=== PATIENT | female | born 1950 | race Hispanic/Latino ===

== ENCOUNTER 2018-09-29 16:13 | Observation (INO) | payer OTHER ==
--- OUTSIDE RECORDS SUMMARY | 2018-09-29 16:15 | XMS REPORT | Clinical Summary ---
:1950 Author Organization [facility] Address [address] [place] [id number] Care Team Providers Name Role Phone Carlos Brown MD Primary Care Provider Allergies No Known Allergies Medications Medication Sig Dispensed Refills Start Date End Date Status meloxicam (MOBIC) 15 Take 1 tablet (15 30 tablet 2 10/19/2016 Active mg tablet mg total) by mouth daily. W.C. Active Problems Problem Noted Date Complex tear of medial meniscus of right knee as current injury 06/11/2016 Family History Medical History Relation Name Comments Hypertension Father Mental illness Father Seizures Father Stroke Father Cancer Mother lung Kidney disease Mother Relation Name Status Comments Father Mother Social History Tobacco Use Types Packs/Day Years Used Date Unknown If Ever Smoked Alcohol Use Drinks/Week oz/Week Comments No Sex Assigned at Date Recorded Not on file Job Start Date Occupation Industry Not on file Not on file Not on file Travel History Travel Start Travel End No recent travel history available. Last Filed Vital Signs Not on file Plan of Treatment Health Maintenance Due Date Last Done Comments BREAST CANCER SCREENING 10/23/2001 COLON CANCER SCREENING 10/23/2001 SHINGLES VACCINES (#1) 10/23/2001 65+ PNEUMOCOCCAL VACCINE (1 of 2 - PCV13) 10/23/2016 PNEUMOCOCCAL POLYSACCHARIDE VACCINE AGE 65 AND OVER 10/23/2016 INFLUENZA VACCINE 01/26/2019 Results Not on fileafter 09/28/2017 Insurance Payer Benefit Plan / Group Subscriber ID Type Phone Address [employer] xxxxxxxxxxxxx Workers [employer] SimonAshley tenorio Personal/Family Self 1950 [address] [place] [address]
[2018-09-29 16:52] LABS: Absolute Lymphocytes (CBC) 2.9 K/uL (0.7-4.9); Absolute Monocytes 0.5 K/uL (0.1-1.3); Absolute Neutrophil 5.1 K/uL (1.8-8.0); Basophils % 1.2 % (0-1.3); Eosinophils % 1.8 % (0-4.4); Hematocrit 31.3 % (36.0-45.0); Lymphocytes % 33.5 % (15.3-44.8); MPV 10.3 fL (7.6-11.3); Monocytes % 5.3 % (3.3-12.3); RBC Red Blood Cell Count 3.54 M/uL (3.86-4.86)
[2018-09-29 17:04] LABS: BUN Blood Urea Nitrogen 26 mg/dL (7-18); Bicarbonate 29 mmol/L (21-32); Glucose Level 119 mg/dL (74-106); NT PRO-BNP 174 pg/mL (<125); Potassium 4.1 mmol/L (3.5-5.1); Sodium Level 140 mmol/L (136-145); Troponin (Emerg Dept Use Only) < 0.02 ng/mL (0.0-0.045)
--- NOTE | 2018-09-29 17:13 | RAD REPORT ---
EXAM DESCRIPTION: RAD - Chest Single View - 09/29/2018 5:00 pm CLINICAL HISTORY: CHEST PAIN Chest pain. COMPARISON: CHEST SINGLE VIEW dated 02/20/2015; CHEST SINGLE VIEW dated 06/02/2013; CHEST SINGLE VIEW dated 05/04/2009 FINDINGS: Portable technique limits examination quality. The lungs are grossly clear. The heart is normal in size. No displaced fractures. IMPRESSION: No acute intrathoracic process suspected.
--- NOTE | 2018-09-29 17:38 | EDPHYS ---
Physician Documentation [facility] Name: Ashley Simon Age: 67 yrs Sex: Female : 1950 Arrival Date: 09/29/2018 Time: 16:16 Bed 6 Private MD: ED Physician Jeff Adler HPI: 09/29 16:28 This 67 yrs old Female presents to ER via Ambulatory with complaints of Chest rn Pain. 16:28 The patient or guardian reports chest pain that is located primarily in the substernal rn area, anterior chest wall. Onset: 3 day(s) ago. The pain does not radiate. Associated signs and symptoms: Pertinent positives: None. Pertinent negatives: abdominal pain, cough, diaphoresis, lower extremity swelling, near syncope, palpitations, shortness of breath, syncope, vomiting. The chest pain is described as a heaviness, sharp. Duration: The patient or guardian reports multiple episodes, that are intermittent, the episodes last approximately 20 minute(s). Modifying factors: The symptoms are alleviated by nothing. the symptoms are aggravated by nothing. Severity of pain: At its worst the pain was moderate in the emergency department the pain has improved. The patient has not experienced similar symptoms in the past. Reports chest pain, intermittent for 3 days, lasts approx 10-20 min each episode, non-radiating, no nausea/vomiting/diaphoresis, went to see Dr. Thomas today for this chest pain, was told to make an appointment for tomorrow or go to ER, came here because concerned to wait. NO hx of [place] but states told 20 years ago had 40% blockage of "[her] arteries". . 16:28 Pain not worse or better with exertion. NO fever/cough/sob. . 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 - Social history:: Smoking status: Patient/guardian denies using tobacco. - Ebola Screening: : No symptoms or risks identified at this time. - Family history:: not pertinent. - Hospitalizations: : No recent hospitalization is reported. ROS: 16:28 Constitutional: Negative for fever, chills, and weight loss, Eyes: Negative for injury, rn pain, redness, and discharge, Neck: Negative for injury, pain, and swelling, Cardiovascular: + chest pain Respiratory: Negative for shortness of breath, cough, wheezing, and pleuritic chest pain, Abdomen/GI: Negative for abdominal pain, nausea, vomiting, diarrhea, and constipation, MS/Extremity: Negative for injury and deformity, Skin: Negative for injury, rash, and discoloration, Neuro: Negative for headache, weakness, numbness, tingling, and seizure. Exam: 16:28 Constitutional: This is a well developed, well nourished patient who is awake, alert, rn and in no acute distress, appears anxious Head/Face: Normocephalic, atraumatic. Eyes: Pupils equal round and reactive to light, extra-ocular motions intact. Lids and lashes normal. Conjunctiva and sclera are non-icteric and not injected. Cornea within normal limits. Periorbital areas with no swelling, redness, or edema. Cardiovascular: Regular rate and rhythm, No pulse deficits. Respiratory: Lungs have equal breath sounds bilaterally, clear to auscultation. No increased work of breathing, no retractions or nasal flaring. Abdomen/GI: soft, non-tender Skin: Warm, dry MS/ Extremity: Pulses equal, no cyanosis. Neurovascular intact. Full, normal range of motion. Equal circumference. Neuro: Awake and alert, GCS 15, oriented to person, place, time, and situation. Cranial nerves II-XII grossly intact. Motor strength 5/5 in all extremities. Sensory grossly intact. Vital Signs: 16:25 BP 156 / 85; Pulse 69; Resp 18; Temp 97.8(O); Pulse Ox 100% on R/A; Weight 61.23 kg; hj Height 5 ft. 2 in. (157.48 cm); Pain 8/10; 17:02 BP 145 / 75; Pulse 66; Resp 18; Pulse Ox 100% on R/A; hj 18:07 BP 148 / 76; Pulse 67; Resp 18; Pulse Ox 100% on R/A; hj 16:25 Body Mass Index 24.69 (61.23 kg, 157.48 cm) MDM: 16:20 Patient medically screened. rn 17:26 Differential diagnosis: acute myocardial infarction, acute pericarditis, anxiety, rn coronary artery disease chest wall pain, costochondritis, esophagitis, gastritis, gastroesophageal reflux disease (GERD), pleurisy, pneumonia, pneumothorax, stable angina. The patient was not given aspirin in the Emergency Department. Data reviewed: vital signs, nurses notes, lab test result(s), EKG, radiologic studies, plain films, and as a result, I will discharge patient. Counseling: I had a detailed discussion with the patient and/or guardian regarding: the historical points, exam findings, and any diagnostic results supporting the discharge/admit diagnosis, lab results, radiology results, the need for outpatient follow up, to return to the emergency department if symptoms worsen or persist or if there are any questions or concerns that arise at home. Response to treatment: the patient's symptoms have markedly improved after treatment, and as a result, I will discharge patient. Special discussion: Based on the patient's history, exam, and Dx evaluation, there is no indication for emergent intervention or inpatient Tx. It is understood by the patient/guardian that if the Sx's persist or worsen they need to return immediately for re-evaluation. I discussed with the patient/guardian in detail that at this point there is no indication for admission to the hospital. It is understood, however, that if the symptoms persist or worsen the patient needs to return immediately for re-evaluation. ED course: Patient with normal troponin, offered observation to Dr. Thomas with cardiology evaluation/stress test, patient prefers to go home and states will f/u with her 's enterprise software engineer. Looking at ECG, has changed from one 4 years ago, now has LBBB, spoke with Dr. Thomas, will admit under obs for cardiology consult. . 09/29 16:28 Order name: Basic Metabolic Panel; Complete Time: 17:16 rn 09/29 16:28 Order name: CBC with Diff; Complete Time: 17:16 rn 09/29 16:28 Order name: NT PRO-BNP; Complete Time: 17:16 rn 09/29 16:28 Order name: Troponin (emerg Dept Use Only); Complete Time: 17:16 rn 09/29 16:28 Order name: XRAY Chest (1 view); Complete Time: 17:16 rn 09/29 16:28 Order name: EKG; Complete Time: 16:28 rn 09/29 16:28 Order name: Cardiac monitoring; Complete Time: 16:29 rn 09/29 16:28 Order name: EKG - Nurse/Tech; Complete Time: 16:29 rn 09/29 16:28 Order name: IV Saline Lock; Complete Time: 16:29 rn 09/29 16:28 Order name: Labs collected and sent; Complete Time: 16:36 rn 09/29 16:28 Order name: O2 Per Protocol; Complete Time: 16:29 rn 09/29 16:28 Order name: O2 Sat Monitoring; Complete Time: 16:30 rn Administered Medications: 17:38 Drug: Aspirin Chewable Tablet 324 mg Route: PO; 17:42 Follow up: Response: No adverse reaction Disposition: 09/29/18 17:37 Hospitalization ordered by Carlos Thomas for Observation. Preliminary diagnosis is Chest pain, unspecified. - Bed requested for Telemetry/MedSurg (observation). - Status is Observation. iw - Condition is Stable. - Problem is new. - Symptoms have improved. UTI on Admission? No Signatures: Dispatcher [employer] EDMS Magaly Shaw RN RN iw Jeff Adler MD MD rn Smirch, Shelby, RN RN Robson Dutta RN RN hj Botello, Elizabeth eb Corrections: (The following items were deleted from the chart) 17:37 17:26 ED course: Patient with normal troponin, offered observation to Dr. Thomas with turntable engineer evaluation/stress test, patient prefers to go home and states will f/u with her 's enterprise software engineer. Return precautions given. Told her this is likely warning signs/angina and needs cardiology evaluation FAMILIA. . rn 18:02 17:37 Hospitalization Ordered by Carlos Thomas MD for Observation. Preliminary diagnosis eb is Chest pain, unspecified. Bed requested for Telemetry/MedSurg (observation). Status is Observation. Condition is Stable. Problem is new. Symptoms have improved. UTI on Admission? No. rn 18:29 18:02 09/29/2018 17:37 Hospitalization Ordered by Carlos Thomas MD for Observation. iw Preliminary diagnosis is Chest pain, unspecified. Bed requested for Telemetry/MedSurg (observation). Status is Observation. Condition is Stable. Problem is new. Symptoms have improved. UTI on Admission? No. eb
--- NOTE | 2018-09-29 17:38 | ER ---
Nurse's Notes [facility] Name: Ashley Simon Age: 67 yrs Sex: Female : 1950 Arrival Date: 09/29/2018 Time: 16:16 Bed 6 Private MD: Diagnosis: Chest pain, unspecified Presentation: 09/29 16:16 Presenting complaint: Patient states: right sided chest pain that began 3-4 days ago ss and now it has moved to the left side of chest today. Pt describes pain as sharp, also reports SOB. 16:16 Transition of care: patient was not received from another setting of care. Onset of ss symptoms was September 2018. Risk Assessment: Do you want to hurt yourself or someone else? Patient reports no desire to harm self or others. Initial Sepsis Screen: Does the patient meet any 2 criteria? No. Patient's initial sepsis screen is negative. Does the patient have a suspected source of infection? No. Patient's initial sepsis screen is negative. Care prior to arrival: None. 16:16 Acuity: MARGARITA 3 ss 16:16 Method Of Arrival: Ambulatory ss Triage Assessment: 16:24 General: Appears in no apparent distress. uncomfortable, Behavior is calm, cooperative, hj appropriate for age. Pain: Complains of pain in chest. Cardiovascular: Capillary refill < 3 seconds Patient's skin is warm and dry. Historical: - Allergies: 16:16 No Known Allergies; ss - PMHx: 16:16 Hypertension; Tachycardia; "40% blockage to my arteries"; Diabetes - NIDDM; ss - PSHx: 16:16 zuly knees; ss - Immunization history:: Adult Immunizations not up to date. - Social history:: Smoking status: Patient/guardian denies using tobacco. - Ebola Screening: : No symptoms or risks identified at this time. - Family history:: not pertinent. - Hospitalizations: : No recent hospitalization is reported. Screenin:24 Abuse screen: Denies threats or abuse. Denies injuries from another. Nutritional hj screening: No deficits noted. Tuberculosis screening: No symptoms or risk factors identified. Fall Risk None identified. Assessment: 16:25 Pain: Pain does not radiate. Pain began suddenly. hj 16:25 General: Appears in no apparent distress. uncomfortable, Behavior is calm, cooperative, hj appropriate for age. Neuro: Level of Consciousness is awake, alert, obeys commands, Oriented to person, place, time, situation, Appropriate for age. Cardiovascular: Capillary refill < 3 seconds Patient's skin is warm and dry. Respiratory: Airway is patent Respiratory effort is even, unlabored, Respiratory pattern is regular, symmetrical. GI: No signs and/or symptoms were reported involving the gastrointestinal system. : No signs and/or symptoms were reported regarding the genitourinary system. EENT: No signs and/or symptoms were reported regarding the EENT system. Derm: No signs and/or symptoms reported regarding the dermatologic system. Musculoskeletal: No signs and/or symptoms reported regarding the musculoskeletal system. 17:01 Reassessment: Patient and/or family updated on plan of care and expected duration. Pain hj level reassessed. Patient is alert, oriented x 3, equal unlabored respirations, skin warm/dry/pink. awaiting results and POC:. 18:08 Reassessment: called report to floor, nurse to call back;. hj 18:21 Reassessment: Patient and/or family updated on plan of care and expected duration. Pain hj level reassessed. Patient is alert, oriented x 3, equal unlabored respirations, skin warm/dry/pink. wheeled pt to floor;. Vital Signs: 16:25 BP 156 / 85; Pulse 69; Resp 18; Temp 97.8(O); Pulse Ox 100% on R/A; Weight 61.23 kg; hj Height 5 ft. 2 in. (157.48 cm); Pain 8/10; 17:02 BP 145 / 75; Pulse 66; Resp 18; Pulse Ox 100% on R/A; hj 18:07 BP 148 / 76; Pulse 67; Resp 18; Pulse Ox 100% on R/A; hj 16:25 Body Mass Index 24.69 (61.23 kg, 157.48 cm) ED Course: 16:16 Patient arrived in ED. ss 16:16 Arm band placed on Patient placed in an exam room, on a stretcher. ss 16:18 Robson Dutta, RN is Primary Nurse. 16:20 Jeff Adler MD is Attending Physician. rn 16:21 Triage completed. ss 16:24 Initial lab(s) drawn, by me, sent to lab. Inserted saline lock: 22 gauge in right hj antecubital area, using aseptic technique. Blood collected. 16:25 Patient has correct armband on for positive identification. Placed in gown. Bed in low hj position. Call light in reach. Side rails up X 1. classroom monitor on. Pulse ox on. NIBP on. 16:26 Patient maintains SpO2 saturation greater than 95% on room air. hj 16:31 EKG done, by orthotic technician. reviewed by Jeff Adler MD. 3 17:01 XRAY Chest (1 view) In Process Unspecified. EDMS 17:37 Carlos Thomas MD is Hospitalizing Provider. rn 18:22 No provider procedures requiring assistance completed. Patient admitted, IV remains in hj place. intact. Administered Medications: 17:38 Drug: Aspirin Chewable Tablet 324 mg Route: PO; hj 17:42 Follow up: Response: No adverse reaction hj Outcome: 17:37 Decision to Hospitalize by Provider. rn 18:22 Admitted to Tele accompanied by tech, via wheelchair, room 417, with chart, Report hj called to FARHAN Velazquez 18:22 Condition: stable 18:22 Instructed on the need for admit, Demonstrated understanding of instructions. 18:29 Patient left the ED. iw Signatures: Dispatcher [employer] EDMS Magaly Shaw, RN Jeff Reyes MD MD rn Smirch, Shelby, RN RN ss Joaquin, Henry, RN RN hj Montes, Shakira 3
[2018-09-29] MEDS ORDERED: ASPIRIN 81 MG CHEWABLE TABLET ONE (17:52)
[2018-09-29] MEDS ORDERED: ONDANSETRON 4 MG/2 ML VIAL IV PRN (18:17)
[2018-09-29 19:29] LABS: Urine Appearance CLEAR; Urine Bilirubin NEGATIVE (NEG); Urine Blood NEGATIVE (NEG); Urine Color YELLOW; Urine Glucose NEGATIVE (NEG); Urine Protein NEGATIVE (NEG); Urine Specific Gravity <=1.005 (1.005-1.030); Urine Urobilinogen 0.2 mg/dL (0.2-1.0); Urine pH 6.5 (5.0-7.0)
[2018-09-29 19:34] LABS: Urine Microscopic Reflex NO UMIC
[2018-09-29] MEDS ORDERED: LORAZEPAM 0.5 MG TABLET PO PRN (21:42)
[2018-09-29] MEDS ORDERED: GLUCAGON 1 MG/VIAL IM PRN (21:44)
[2018-09-29] MEDS ORDERED: D50W 25 GM/50 ML SYRINGE IV PRN (21:44)
[2018-09-29] MEDS ORDERED: ATORVASTATIN 10 MG TAB PO SCH (22:00)
[2018-09-29] MEDS: TRAMADOL HCL 50 MG TAB PO PRN (22:26)
[2018-09-30] MEDS ORDERED: PANTOPRAZOLE 40MG TABLET PO SCH (06:30)
[2018-09-30] MEDS: INSULIN -REGULAR HUMAN 50 UNIT/0.5 ML ML SQ SCH ×3 (07:30→16:30)
[2018-09-30] MEDS: TRAMADOL HCL 50 MG TAB PO PRN (08:56)
[2018-09-30] MEDS ORDERED: ASPIRIN EC 81 MG TAB PO SCH (09:00)
[2018-09-30] MEDS ORDERED: METOPROLOL XL 25 MG TAB PO SCH (09:00)
--- NOTE | 2018-09-30 10:49 | ECHO ---
HEIGHT: 5 ft 1 in WEIGHT: 113 lb 0 oz DATE OF STUDY: 09/30/[address]: Oscar Lamb MD 2-DIMENSIONAL: YES M.MODE: YES DOPPLER: YES COLOR FLOW: YES TDS: NO PORTABLE: NO DEFINITY: NO BUBBLE STUDY: NO DIAGNOSIS: CHEST PAIN CARDIAC HISTORY: CATHERIZATION: NO SURGERY: NO PROSTHETIC VALVE: NO PACEMAKER: NO MEASUREMENTS (cm) DIASTOLIC (NORMALS) SYSTOLIC (NORMALS) IVSd 1.0 (0.6-1.2) LA Diam 3.1 (1.9-4.0) LVEF 53% LVIDd 4.1 (3.5-5.7) LVIDs 3.0 (2.0-3.5) %FS 27% LVPWd 1.2 (0.6-1.2) Ao Diam 2.9 (2.0-3.7) 2 DIMENSIONAL ASSESSMENT: RIGHT ATRIUM: NORMAL LEFT ATRIUM: NORMAL RIGHT VENTRICLE: NORMAL LEFT VENTRICLE: NORMAL TRICUSPID VALVE: NORMAL MITRAL VALVE: MITRAL ANNULAR CALCIFICATION PULMONIC VALVE: NORMAL AORTIC VALVE: NORMAL PERICARDIAL EFFUSION: NONE AORTIC ROOT: NORMAL LEFT VENTRICULAR WALL MOTION: NORMAL DOPPLER/COLOR FLOW: TRACE MITRAL AND TRICUSPID REGURGITATION. NORMAL RIGHT VENTRICULAR SYSTOLIC PRESSURE. COMMENTS: NORMAL LEFT VENTRICULAR EJECTION FRACTION. MITRAL ANNULAR CALCIFICATION. TRACE MITRAL AND TRICUSPID REGURGITATION. TECHNOLOGIST: Arlene VANCE
[2018-09-30] MEDS ORDERED: REGADENOSON 0.4 MG/5 ML SYR IV ONE (11:29)
--- NOTE | 2018-09-30 12:36 | RAD REPORT ---
EXAM DESCRIPTION: NM - Rest Stress Cardiac Imaging - 09/30/2018 12:27 pm CLINICAL HISTORY: Chest pain COMPARISON: None. TECHNIQUE: The patient was administered approximately 10 mCi of Tc 99m Sestamibi prior to resting SP ECT imaging of the heart. The patient was then administered approximately 30 mCi of Tc 99m Sestamibi following exercise or pharmacologic stress. Multiplanar SPECT images were reviewed. FINDINGS: The end diastolic volume is 88 ml, the end systolic volume is 34 ml, and the ejection frac tion is 61 %. No stress-induced ischemic changes identifiable. A small fixed defect is seen anteroseptal wall near the apex unchanged between rest and stress imaging. This is favored to be attenuation artifact rather than scarring. Elsewhere no scarring or other suspicious finding noted. IMPRESSION: No stress-induced ischemic change. Small fixed defect anteroseptal wall favored to be attenuation artifact over scarring. Ventricular volumes and ejection fraction are normal range.
--- NOTE | 2018-09-30 12:57 | CON ---
Chief Complaint: Chest pain. History Of Present Illness: Ms. Simon has been having chest pain over the 5 days, off and on many t imes a day; thinks it may be more common when she is active but it occurs at rest also. Does not see m to be aggravated by deep breath or body position. Sometimes it is on the right, sometimes it is on the left, sometimes at other places. When it lasts for few minutes then it becomes a stabbing pain. There is nothing she has tried yet that has relieved the pain. She came to the hospital, has been admitted. She has been in our hospital since about 4:30 p.m. yesterday, so more than 12 hours, less than 24. Serial enzymes are normal. Her EKG does not show infarction, injury or ischemia. The sunny ent has never had myocardial infarction or stroke before. No other vascular disease. She has diabet es, hypertension, dyslipidemia. Social History: She uses no tobacco. Rare alcohol. No illegal drugs. Outpatient Medication: Metformin, metoprolol, Protonix, lorazepam, meloxicam, pravastatin, tramadol, lisinopril, hydrochlorothiazide. Allergies: SHE HAS NO ALLERGIES. Physical Examination: Vital Signs: 5 feet 1 inch. 113 pounds. HEENT: Normal. Carotids, no bruit Lungs: Clear. Heart: Within normal limits. Extremities: No edema. Distal pulses palpable. Laboratory Data: Troponins are all less than 0.03. Impression: Ms. Simon has atypical chest pain. She has multiple risk factors for coronary heart di sease. I have recommended a nuclear stress test and echo because she had no metoprolol. I do not th ink we will be successful with a treadmill type test. I will do a Lexiscan pharmacologic nuclear str ess test. If anything is abnormal, we will just have further evaluation including cardiac cath. Thank you very much for the kind referral of Mrs. Simon. I will follow her with you. JESSICA Voice ID: [id number] Report ID: [id number]
--- NOTE | 2018-09-30 13:30 | TREADPHA ---
DX: CHEST PAIN Date of Study: 09/30/2018 Ht: 5 1 Wt: 113 lb 0 oz Consulting Physician: OSEI MEDICATIONS: ASPIRIN, LIPITOR, DEXTROSE, GLUCAGEN, NOVOLIN-R, TOPROL XL HISTORY: 67 YEAR OLD FEMALE WITH COMPLAINTS OF CHEST PAIN. MEDICAL HISTORY OF DIABETES MELLITUS, HYPERTENSION AND CORONARY ARTERY DISEASE. PHYSICIAL EXAMINATION: RESTING B.P.: 177/63 RESTING H.R.: 71 RESTING EKG: SINUS, LEFT BUNDLE BRANCH BLOCK. PROTOCOL: LEXISCAN EXERCISE TIME: 3:30 B.P. AT PEAK STRESS: 142/63 IMPRESSION: LEXISCAN INJECTED. CARDIOLITE INJECTED PER PROTOCOL. SEE NUCLEAR MEDICINE REPORT. NO SUPRAVENTRICULAR TACHYCARDIA. NO VENTRICULAR TACHYCARDIA. NO PREMATURE VENTRICULAR COMPLEXES. DENIED CHEST PAIN. NON DIAGNOSTIC EKG WITH STRESS.
--- NOTE | 2018-10-01 01:10 | HP ---
Date of Admission: 09/29/2018 Chief Complaint: Chest pain. History Of Present Illness: A 67-year-old female was brought to the emergency room because of chest pain mostly on the right side. The patient had evaluation done. There was no evidence of myocardial injury. However, because of her age, the patient is admitted for observation. No history of fever, chills, rigors, or cough. Past Medical History: Positive for hypertension, type 2 diabetes. Surgical History: Positive for knee surgery. Allergies: NONE. Review of Systems: The patient denied any fever, chills, rigors. Physical Examination: General: Revealed 67-year-old female, anxious. HEENT: Negative. Neck: Supple. JVD negative. Chest: Clear. Heart: Regular. Abdomen: Soft. Extremities: No edema. Neurological: Negative. Laboratory Data: Troponin normal. Chest x-ray done in the emergency room was normal. Assessment: 1.Chest pain. 2.Hypertension. 3.Type 2 diabetes. Plan: Cardiology consultation. Pharmacological stress test. ANGELINA Voice ID: [id number]
--- NOTE | 2018-10-04 11:22 | EKG ---
Test Date: 2018-09-30 Test Time: 07:18:52 Librarian Head: WILBUR MEASUREMENT RESULTS: Intervals: Rate: 60 NE: 154 QRSD: 132 QT: 450 QTc: 450 [place]: P: 48 NE: 154 QRS: -48 T: 78 INTERPRETIVE STATEMENTS: Normal sinus rhythm Left axis deviation Left bundle branch block Abnormal ECG Compared to ECG 09/29/2018 16:25:15 No significant changes Electronically Signed On 09-30-18 09:50:20 CDT by Oscar Lamb
--- NOTE | 2018-10-04 11:25 | EKG ---
Test Date: 2018-09-29 Test Time: 16:25:15 Materials Buyer: RICHI MEASUREMENT RESULTS: Intervals: Rate: 69 NH: 152 QRSD: 126 QT: 430 QTc: 460 [place]: P: 34 NH: 152 QRS: -39 T: 96 INTERPRETIVE STATEMENTS: Normal sinus rhythm Left axis deviation Left bundle branch block Abnormal ECG Compared to ECG 02/20/2015 15:41:41 Left-axis deviation now present Left bundle-branch block now present Left ventricular hypertrophy no longer present Myocardial infarct finding no longer present Electronically Signed On 09-30-18 09:52:34 CDT by Oscar Lamb
== END 2018-09-30 17:17 | disposition home or self-care (01) ==
LOC: ER 16:13 → ERHOLD 17:49 → 4TH 18:18
PROVIDERS: ADMIT Internal Medicine; ATTEND Internal Medicine
DX: R07.9 Chest pain, unspecified (principal); I10 Essential (primary) hypertension; E11.9 Type 2 diabetes mellitus without complications
CPT/HCPCS: 93005 ×2; 93017; 93306; 87088; 85025; 87086; 80048; 36415; 82962 ×3; 81003; 84484 ×3; 83880; 71045; 78452; 99285; J2785; A9500; G0378 ×2

== ENCOUNTER 2019-05-22 10:17 | Emergency (ER) | payer OTHER ==
--- NOTE | 2019-05-22 11:58 | EKG ---
Test Date: 2019-05-22 Test Time: 11:09:34 Rock Loader: RICHI MEASUREMENT RESULTS: Intervals: Rate: 60 CA: 148 QRSD: 130 QT: 458 QTc: 458 [place]: P: 33 CA: 148 QRS: -8 T: 61 INTERPRETIVE STATEMENTS: Normal sinus rhythm Left bundle branch block Abnormal ECG Compared to ECG 09/30/2018 07:18:52 Left-axis deviation no longer present Electronically Signed On 05-22-19 11:57:45 ELECTRICAL SYSTEMS DESIGN ENGINEER by Oscar Lamb
[2019-05-22 12:33] LABS: Absolute Lymphocytes (CBC) 2.2 K/uL (0.7-4.9); Basophils % 1.3 % (0-1.3); Hematocrit 32.6 % (36.0-45.0); Lymphocytes % 27.6 % (15.3-44.8); MPV 9.3 fL (7.6-11.3); RBC Red Blood Cell Count 3.69 M/uL (3.86-4.86)
[2019-05-22 12:35] LABS: Protime INR 0.92
--- NOTE | 2019-05-22 12:45 | RAD REPORT ---
EXAM DESCRIPTION: CT - Head Brain Wo Cont - 05/22/2019 12:34 pm CLINICAL HISTORY: Headache, dizziness, congestion COMPARISON: May 2013 TECHNIQUE: Axial 5 mm thick images of the head were obtained without IV contrast. All CT scans are performed using dose optimization technique as appropriate and may include automated exposure control or mA/KV adjustment according to patient size. FINDINGS: No intracranial hemorrhage, mass, edema or shift of mid-line structures. No acute infarcti on changes seen. No abnormal extra-axial fluid collections. Ventricles are normal. Mastoid air cells and visualized portions of the paranasal sinuses are clear. No acute bony findings. IMPRESSION: No mass, hemorrhage or other acute intracranial finding. Intracranial findings are simil ar to the 2013 study. No paranasal sinus abnormality.
[2019-05-22 12:53] LABS: ALT/SGPT 15 U/L (12-78); AST/SGOT 17 U/L (15-37); Albumin 3.5 g/dL (3.4-5.0); Alkaline Phosphatase 65 U/L (45-117); BUN Blood Urea Nitrogen 32 mg/dL (7-18); Bicarbonate 24 mmol/L (21-32); Bilirubin Direct 0.1 mg/dL (0-0.2); Bilirubin Total 0.3 mg/dL (0.2-1.0); Glucose Level 76 mg/dL (74-106); Magnesium 1.9 mg/dL (1.8-2.4); NT PRO-BNP 352 pg/mL (<125); Potassium 3.9 mmol/L (3.5-5.1); Protein, Total 7.2 g/dL (6.4-8.2); Sodium Level 137 mmol/L (136-145); Troponin (Emerg Dept Use Only) < 0.02 ng/mL (0.0-0.045)
--- NOTE | 2019-05-22 12:59 | RAD REPORT ---
EXAM DESCRIPTION: RAD - Chest Single View - 05/22/2019 12:44 pm CLINICAL HISTORY: Cough;Dyspnea Chest pain. COMPARISON: <Comparisons> FINDINGS: Portable technique limits examination quality. The lungs are grossly clear. The heart is normal in size. No displaced fractures.Aortic atheroscleros is IMPRESSION: No acute intrathoracic process suspected.
--- NOTE | 2019-05-22 13:19 | ER ---
Nurse's Notes [facility] Name: Ashley Simon Age: 68 yrs Sex: Female : 1950 Arrival Date: 05/22/2019 Time: 10:19 Bed 8 Private MD: Carlos Thomas R Diagnosis: Headache;Tension-type headache;Type 2 diabetes mellitus;Dyspnea Presentation: 05/22 10:32 Presenting complaint: Patient states: Congestion, SHANNON, nausea for the last two weeks. la1 Transition of care: patient was not received from another setting of care. Onset of symptoms was May 22, 2019. Risk Assessment: Do you want to hurt yourself or someone else? Patient reports no desire to harm self or others. Initial Sepsis Screen: Does the patient meet any 2 criteria? No. Patient's initial sepsis screen is negative. Does the patient have a suspected source of infection? No. Patient's initial sepsis screen is negative. Care prior to arrival: None. 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 - Social history:: Smoking status: Patient/guardian denies using tobacco. - Ebola Screening: : Patient negative for fever greater than or equal to 101.5 degrees Fahrenheit, and additional compatible Ebola Virus Disease symptoms. Screenin:42 Abuse screen: Denies threats or abuse. Nutritional screening: No deficits noted. tw2 Tuberculosis screening: No symptoms or risk factors identified. Fall Risk None identified. Assessment: 11:20 General: Appears in no apparent distress. uncomfortable, Behavior is cooperative, jl7 anxious. Pain: Complains of pain in SHANNON Pain does not radiate. Pain currently is 8 out of 10 on a pain scale. Quality of pain is described as squeezing, Pain began 2 weeks ago Is continuous. Neuro: Level of Consciousness is awake, alert, obeys commands, Oriented to person, place, time, situation. Cardiovascular: Heart tones S1 S2 present Rhythm is regular. Respiratory: Airway is patent Respiratory effort is even, unlabored, Respiratory pattern is regular, symmetrical, Breath sounds are clear bilaterally. GI: Reports nausea. : No signs and/or symptoms were reported regarding the genitourinary system. EENT: No signs and/or symptoms were reported regarding the EENT system. Derm: Skin is pink, warm \\T\\ dry. Musculoskeletal: No signs and/or symptoms reported regarding the musculoskeletal system. 12:47 Reassessment: Patient appears in no apparent distress at this time. Patient and/or tw2 family updated on plan of care and expected duration. Pain level reassessed. Patient is alert, oriented x 3, equal unlabored respirations, skin warm/dry/pink. 13:17 Reassessment: Patient appears in no apparent distress at this time. No changes from jl7 previously documented assessment. Patient and/or family updated on plan of care and expected duration. Pain level reassessed. Patient is alert, oriented x 3, equal unlabored respirations, skin warm/dry/pink. 13:35 Reassessment: Patient appears in no apparent distress at this time. No changes from tw2 previously documented assessment. Patient and/or family updated on plan of care and expected duration. Pain level reassessed. Patient is alert, oriented x 3, equal unlabored respirations, skin warm/dry/pink. Vital Signs: 10:33 BP 156 / 88; Pulse 73; Resp 16; Temp 97.3; Pulse Ox 100% on R/A; Weight 49.9 kg; Height la1 5 ft. 2 in. (157.48 cm); 11:54 BP 180 / 86; Pulse 69; Resp 17; Pulse Ox 100% on R/A; tw2 12:46 BP 169 / 82; Pulse 58; Resp 17; Pulse Ox 100% on R/A; tw2 10:33 Body Mass Index 20.12 (49.90 kg, 157.48 cm) la1 ED Course: 10:19 Patient arrived in ED. as 10:19 Carlos Thomas MD is Private Physician. as 10:32 Triage completed. la1 10:33 Arm band placed on left wrist. la1 11:01 Merritt Ross, RN is Primary Nurse. jl7 11:02 Robin Pringle MD is Attending Physician. [facility] 11:02 Bed in low position. Call light in reach. help desk associate on. Pulse ox on. NIBP on. tw2 11:16 EKG done, by aerospace technician. reviewed by Robin Pringle MD. sm3 11:25 Missed attempt(s): 20 gauge in right antecubital area. Bleeding controlled, band aid ms applied, catheter tip intact. 12:26 Initial lab(s) drawn, by wa, sent to lab. Inserted saline lock: 22 gauge in left hand, dennis7 using aseptic technique. Blood collected. 12:35 CT Head Brain wo Cont In Process Unspecified. EDMS 12:47 XRAY Chest (1 view) In Process Unspecified. EDMS 13:17 Carlos Thomas MD is Referral Physician. [facility] 13:36 No provider procedures requiring assistance completed. IV discontinued, intact, tw2 bleeding controlled, No redness/swelling at site. Pressure dressing applied. Administered Medications: 13:20 Not Given (pts condition): NS 0.9% 1000 ml IV at 125 ml/hr continuous tw2 Outcome: 13:18 Discharge ordered by . [facility] 13:36 Discharged to home ambulatory. tw2 13:36 Condition: stable 13:36 Discharge instructions given to patient, Instructed on discharge instructions, follow up and referral plans. no drinking with medication, no driving heavy equipment, medication usage, Demonstrated understanding of instructions, follow-up care, medications, Prescriptions given X 1. 13:36 Patient left the ED. tw2 Signatures: Dispatcher [employer] EDMS Robin Pringle MD MD cha Martinez, Amelia as Villarreal, Maria ms Attema, Lee, RN RN la1 Monica Pennington RN RN tw2 Merritt Ross, FARHAN RN jl7 Latonia Morton 3
--- NOTE | 2019-05-22 13:19 | EDPHYS ---
Physician Documentation [facility] Name: Ashley Simon Age: 68 yrs Sex: Female : 1950 Arrival Date: 05/22/2019 Time: 10:19 Bed 8 Private MD: Carlos Thomas R ED Physician Robin Pringle HPI: 05/22 11:55 This 68 yrs old Female presents to ER via Ambulatory with complaints of kofi Shortness Of Breath, Headache. 11:55 The patient has shortness of breath with light activity. Onset: The symptoms/episode kofi began/occurred 2 week(s) ago. Duration: The symptoms are continuous, and are unchanged since they started. Associated signs and symptoms: The patient has no apparent associated signs or symptoms. 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 - Social history:: Smoking status: Patient/guardian denies using tobacco. - Ebola Screening: : Patient negative for fever greater than or equal to 101.5 degrees Fahrenheit, and additional compatible Ebola Virus Disease symptoms. ROS: 11:56 Constitutional: Negative for fever, chills, and weight loss, Eyes: Negative for injury, kofi pain, redness, and discharge, ENT: Negative for injury, pain, and discharge, Neck: Negative for injury, pain, and swelling, Cardiovascular: Negative for chest pain, palpitations, and edema, Abdomen/GI: Negative for abdominal pain, nausea, vomiting, diarrhea, and constipation, Back: Negative for injury and pain, : Negative for injury, bleeding, discharge, and swelling, MS/Extremity: Negative for injury and deformity, Skin: Negative for injury, rash, and discoloration, Neuro: Negative for headache, weakness, numbness, tingling, and seizure, Psych: Negative for depression, anxiety, suicide ideation, homicidal ideation, and hallucinations, Allergy/Immunology: Negative for hives, rash, and allergies, Endocrine: Negative for neck swelling, polydipsia, polyuria, polyphagia, and marked weight changes, Hematologic/Lymphatic: Negative for swollen nodes, abnormal bleeding, and unusual bruising. 11:56 Respiratory: Positive for cough, shortness of breath. 11:56 Neuro: Positive for headache. Exam: 11:56 Constitutional: This is a well developed, well nourished patient who is awake, alert, kofi and in no acute distress. Head/Face: Normocephalic, atraumatic. Eyes: Pupils equal round and reactive to light, extra-ocular motions intact. Lids and lashes normal. Conjunctiva and sclera are non-icteric and not injected. Cornea within normal limits. Periorbital areas with no swelling, redness, or edema. ENT: Nares patent. No nasal discharge, no septal abnormalities noted. Tympanic membranes are normal and external auditory canals are clear. Oropharynx with no redness, swelling, or masses, exudates, or evidence of obstruction, uvula midline. Mucous membranes moist. Neck: Trachea midline, no thyromegaly or masses palpated, and no cervical lymphadenopathy. Supple, full range of motion without nuchal rigidity, or vertebral point tenderness. No Meningismus. Chest/axilla: Normal chest wall appearance and motion. Nontender with no deformity. No lesions are appreciated. Cardiovascular: Regular rate and rhythm with a normal S1 and S2. No gallops, murmurs, or rubs. Normal PMI, no JVD. No pulse deficits. Respiratory: Lungs have equal breath sounds bilaterally, clear to auscultation and percussion. No rales, rhonchi or wheezes noted. No increased work of breathing, no retractions or nasal flaring. Abdomen/GI: Soft, non-tender, with normal bowel sounds. No distension or tympany. No guarding or rebound. No evidence of tenderness throughout. Back: No spinal tenderness. No costovertebral tenderness. Full range of motion. Skin: Warm, dry with normal turgor. Normal color with no rashes, no lesions, and no evidence of cellulitis. MS/ Extremity: Pulses equal, no cyanosis. Neurovascular intact. Full, normal range of motion. Neuro: Awake and alert, GCS 15, oriented to person, place, time, and situation. Cranial nerves II-XII grossly intact. Motor strength 5/5 in all extremities. Sensory grossly intact. Cerebellar exam normal. Normal gait. Psych: Awake, alert, with orientation to person, place and time. Behavior, mood, and affect are within normal limits. 11:56 Musculoskeletal/extremity: Extremities: all appear grossly normal, with no appreciated pain with palpation, ROM: full active range of motion, full passive range of motion, Circulation is intact in all extremities. DVT Exam: No signs of deep vein thrombosis. no pain, no swelling, no tenderness, negative Homans' sign noted on exam, no appreciated bluish discoloration, no erythema, no increased warmth. Vital Signs: 10:33 BP 156 / 88; Pulse 73; Resp 16; Temp 97.3; Pulse Ox 100% on R/A; Weight 49.9 kg; Height la1 5 ft. 2 in. (157.48 cm); 11:54 BP 180 / 86; Pulse 69; Resp 17; Pulse Ox 100% on R/A; tw2 12:46 BP 169 / 82; Pulse 58; Resp 17; Pulse Ox 100% on R/A; tw2 10:33 Body Mass Index 20.12 (49.90 kg, 157.48 cm) la1 MDM: 11:02 Patient medically screened. [facility] 11:58 Data reviewed: vital signs, nurses notes, lab test result(s), EKG, radiologic studies, kofi plain films. 05/22 11:55 Order name: Basic Metabolic Panel; Complete Time: 13:11 [facility] 05/22 11:55 Order name: CBC with Diff; Complete Time: 13:11 [facility] 05/22 11:55 Order name: LFT's; Complete Time: 13:11 [facility] 05/22 11:55 Order name: Magnesium; Complete Time: 13:11 [facility] 05/22 11:55 Order name: NT PRO-BNP; Complete Time: 13:11 [facility] 05/22 11:55 Order name: PT-INR; Complete Time: 13:12 [facility] 05/22 11:55 Order name: Troponin (emerg Dept Use Only); Complete Time: 13:12 [facility] 05/22 11:55 Order name: XRAY Chest (1 view); Complete Time: 13:12 [facility] 05/22 11:55 Order name: EKG; Complete Time: 11:57 [facility] 05/22 11:55 Order name: Cardiac monitoring; Complete Time: 11:54 [facility] 05/22 11:55 Order name: CT Head Brain wo Cont; Complete Time: 13:12 [facility] 05/22 11:55 Order name: Urine Culture [facility] 05/22 13:19 Order name: Urine Dipstick--Ancillary (enter results) 05/22 11:55 Order name: EKG - Nurse/Tech; Complete Time: 11:57 [facility] 05/22 11:55 Order name: IV Saline Lock; Complete Time: 13:18 [facility] 05/22 11:55 Order name: Labs collected and sent; Complete Time: 13:18 [facility] 05/22 11:55 Order name: O2 Per Protocol; Complete Time: 11:54 [facility] 05/22 11:55 Order name: O2 Sat Monitoring; Complete Time: 11:54 [facility] 05/22 11:55 Order name: Urine Dipstick-Ancillary (obtain specimen); Complete Time: 13:18 [facility] Administered Medications: 13:20 Not Given (pts condition): NS 0.9% 1000 ml IV at 125 ml/hr continuous tw2 Disposition: 05/22/19 13:18 Discharged to Home. Impression: Headache, Tension-type headache, Type 2 diabetes mellitus, Dyspnea. - Condition is Stable. - Discharge Instructions: Type 2 Diabetes Mellitus, Diagnosis, Adult, General Headache Without Cause, Aspirin and Your Heart, General Headache Without Cause, [id number], Type 2 Diabetes Mellitus, Diagnosis, Adult, [id number]. - Prescriptions for Fioricet with Codeine 50- 325-40-30 mg Oral capsule - take 1 capsule by ORAL route every 4 hours as needed not to exceed 6 capsules per 24hrs; 20 capsule. - Medication Reconciliation Form, Thank You Letter, Antibiotic Education, Prescription Opioid Use form. - Follow up: Carlos Thomas MD; When: 2 - 3 days; Reason: Recheck today's complaints, Continuance of care, Re-evaluation by your physician. - Problem is new. - Symptoms have improved. Signatures: Dispatcher [employer] Robin Hughes MD MD cha Attema, Lee RN RN la1 Monica Pennington RN RN tw2 Merritt Ross RN RN jl7 Corrections: (The following items were deleted from the chart) 13:36 13:18 05/22/2019 13:18 Discharged to Home. Impression: Headache; Tension-type headache; tw2 Type 2 diabetes mellitus; Dyspnea. Condition is Stable. Forms are Medication Reconciliation Form, Thank You Letter, Antibiotic Education, Prescription Opioid Use. Follow up: Carlos Thomas; When: 2 - 3 days; Reason: Recheck today's complaints, Continuance of care, Re-evaluation by your physician. Problem is new. Symptoms have improved. kofi
[2019-05-22 13:43] LABS: Urine Blood TRACE (NEG); Urine Glucose NEGATIVE (NEG); Urine Protein NEGATIVE (NEG); Urine Specific Gravity <1.005 (1.005-1.030); Urine pH 5.5 (5.0-7.0)
[2019-05-22 16:32] VITALS: TEMP 97.3; O2SAT 100
[2019-05-22 16:35] VITALS: BP 169/82
== END 2019-05-22 13:36 | disposition home or self-care (01) ==
LOC: ER 10:17
DX: G44.209 Tension-type headache, unspecified, not intractable (principal); E11.9 Type 2 diabetes mellitus without complications; I10 Essential (primary) hypertension
CPT/HCPCS: 36415; 70450; 71045; 80048; 80076; 81003; 83735; 83880; 84484; 85025; 85610; 87086; 87088; 93005; 99284

== ENCOUNTER 2019-11-09 08:37 | Day surgery (SDC) | payer OTHER ==
[2019-11-07 13:59] LABS: Protime INR 0.92
[2019-11-07 14:00] LABS: Absolute Lymphocytes (CBC) 2.3 K/uL (0.7-4.9); Basophils % 1.3 % (0-1.3); Hematocrit 31.2 % (36.0-45.0); Lymphocytes % 31.6 % (15.3-44.8); MPV 10.1 fL (7.6-11.3); RBC Red Blood Cell Count 3.56 M/uL (3.86-4.86)
[2019-11-07 14:16] LABS: Potassium 4.4 mmol/L (3.5-5.1)
--- NOTE | 2019-11-07 14:23 | RAD REPORT ---
EXAM DESCRIPTION: RAD - Chest Pa And Lat (2 Views) - 11/07/2019 1:48 pm CLINICAL HISTORY: preop, pending heart catheterization COMPARISON: Single-view chest April 2019 TECHNIQUE: Frontal and lateral views of the chest were obtained. FINDINGS: The lungs are clear of failure, infiltrate, mass or volume overload. Chronic interstitial pattern matches comparison. Heart size is normal and central vasculature is within normal limits. No pleural effusion or pneumothorax seen. No acute bony finding noted. No aortic abnormality. IMPRESSION: No acute cardiopulmonary process. No significant change from comparison.
[2019-11-09] MEDS ORDERED: NA CHLORIDE 0.9% 500 ML ONE (08:53)
--- OUTSIDE RECORDS SUMMARY | 2019-11-09 09:09 | XMS REPORT | Clinical Summary ---
:1950 Author Organization [facility] Address [address] [place] [id number] Care Team Providers Name Role Phone Carlos Brown MD Primary Care Provider Allergies No Known Allergies Medications Medication Sig Dispensed Refills Start Date End Date Status meloxicam (MOBIC) 15 Take 1 tablet (15 30 tablet 2 10/19/2016 Active mg tablet mg total) by mouth daily. W.C. Active Problems Problem Noted Date Complex tear of medial meniscus of right knee as curre nt injury 06/11/2016 Family History Medical History Relation [...] Last Done Comments BREAST CANCER SCREENING 10/23/2001 COLONOSCOPY SCREENING 10/23/2001 SHINGLES VACCINES (#1) 10/23/2001 65+ PNEUMOCOCCAL VACCINE (1 of 2 - PCV13) 10/23/2016 INFLUENZA VACCINE 01/27/2020 Results Not on fileafter 11/08/2018 Insurance Payer Benefit Plan / Subscriber ID Effective Dates Phone Addre ss Type Group WORKERS COMP [employer] xxxxxxxxxxxxx 2014-Present Workers Comp INS Ashley Simon Personal/Family Self [phone] ([address]) [place] [address] [address]
[2019-11-09] MEDS ORDERED: NA CHLORIDE 0.9% 0 ML ONE (10:00)
[2019-11-09] MEDS ORDERED: FENTANYL CITR 100 MCG/2 ML ONE (10:00)
[2019-11-09] MEDS ORDERED: NITROGLYCERIN 100 MCG/ML SYR (for cath lab use only) IV ONE (10:00)
[2019-11-09] MEDS ORDERED: NITROGLYCERIN/D5W 0 MG/0 ML BTL IV ONE (10:00)
[2019-11-09] MEDS ORDERED: ATROPINE SULF 1 MG/10 ML SYR IV ONE (10:00)
[2019-11-09] MEDS ORDERED: MIDAZOLAM HCL 2 MG/2 ML INJ ONE ×2 (10:00→10:51)
[2019-11-09] MEDS ORDERED: HEPA 1000U/500MLS 1,000 UNIT/500 ML BAG IV ONE (10:32)
[2019-11-09] MEDS ORDERED: LIDOCAINE 1% MPF 30 ML VIAL ONE (10:33)
[2019-11-09] MEDS ORDERED: METOPROLOL TARTRATE 5 MG/5 ML INJ IV ONE ×2 (10:54→11:02)
[2019-11-09] MEDS ORDERED: cloNIDine HCL 0.1 MG TAB ONE (11:07)
[2019-11-09 11:57] VITALS: O2SAT 100
[2019-11-09 17:41] VITALS: BP 140/58; TEMP 97.6
--- NOTE | 2019-11-09 21:38 | OP ---
Date of Procedure: 11/09/2019 Surgeon: Dheeraj Sesay MD Site Auditor: Navjot Moore. Procedure: Left heart catheterization and selective coronary arteriogram. Indication: Unstable angina. History Of Present Illness: Ms. Simon is a 69-year-old Latin-Welsh woman with multiple cardiac r isk factors for coronary artery disease including hypertension, dyslipidemia, diabetes. Has had a ne gative cardiac workup including an echo and a stress test about a year ago, but continues to have exe rtional symptoms classic for unstable angina. She was set up for a heart catheterization today, 10/26. She was brought to the microbiology lab technician as an outpatient, prepped and draped in routine sterile fash ion, given Versed for sedation. She was noted to be very hypertensive with systolic in the 190s. A 6-Fijian sheath introduced in the right common femoral artery. Angiography there was normal. Angio- Seal was used to close the case. Yeison catheter 6-Fijian left and right were used to do the diagno stic catheterization. The JR4 was used to cannulate the right main that was a normal vessel, but it was nondominant. The Yeison left catheter 6-Fijian was used to cannulate the left system. She had no left main. She had dual ostium. Her LAD had about a 40% stenosis at the mid level and was a larg e vessel. The rest of the LAD was free of disease. The ostium of the circumflex had about a 40% to 50% stenosis with otherwise normal OMs, it was left dominant. The patient would dampen her pressure when I cannulated the left system because of the position of the catheter. The patient remained hype rtensive throughout the procedure. She was given 5 mg of IV Lopressor and her pressure went down fro m 190 to 160. She had some shortness of breath during the procedure, but no chest pain or arrhythmia s. Complications: None. Estimated Blood Loss: 5 mL. Postoperative Diagnosis: Moderate coronary artery disease. Plan: Plan is for medical therapy. Anesthesia: Total conscious sedation was 45 minutes. The patient will remain in the hospital for about 2 hours and then go home and I will see her in the office in the next 2 weeks. We may have to go up on her beta-harish and her statin. She needs to h old her Glucophage for 48 hours. Case will be discussed with the family. GHAZAL/WILLIS Voice ID: [id number] Report ID: [id number]
== END 2019-11-09 13:22 | disposition home or self-care (01) ==
LOC: CCL 08:37
DX: I25.110 Atherosclerotic heart disease of native coronary artery with unstable angina pectoris (principal); I34.0 Nonrheumatic mitral (valve) insufficiency; I12.9 Hypertensive chronic kidney disease with stage 1 through stage 4 chronic kidney disease, or unspecified chronic kidney disease; E11.22 Type 2 diabetes mellitus with diabetic chronic kidney disease; N18.2 Chronic kidney disease, stage 2 (mild); E78.5 Hyperlipidemia, unspecified; E78.6 Lipoprotein deficiency; K21.9 Gastro-esophageal reflux disease without esophagitis; F41.9 Anxiety disorder, unspecified
CPT/HCPCS: 85025; 80048; 36415; 85610; 82947 ×2; 85730; 71046; 93454; C1893; C1760; J2250 ×2; J3010; J7040; J0583

== ENCOUNTER 2019-11-23 06:48 | Day surgery (SDC) | payer OTHER ==
--- OUTSIDE RECORDS SUMMARY | 2019-11-23 06:50 | XMS REPORT | Clinical Summary ---
:1950 Author Organization [facility] Address [address] [place] [id number] Care Team Providers Name Role Phone Carlos [...] INFLUENZA VACCINE 01/27/2020 Results Not on fileafter 11/22/2018 Insurance Payer Benefit Plan / Subscriber ID Effective Dates Phone Addre ss Type Group WORKERS COMP [employer] xxxxxxxxxxxxx 2014-Present Workers Comp INS SimonAshley tenorio Personal/Family Self [phone] (Home) [place] [address]
[2019-11-23] MEDS ORDERED: FENTANYL CITR 100 MCG/2 ML ONE (06:53)
[2019-11-23] MEDS ORDERED: MIDAZOLAM HCL 2 MG/2 ML INJ ONE ×2 (06:53→07:47)
[2019-11-23] MEDS ORDERED: HEPA 1000U/500MLS 1,000 UNIT/500 ML BAG IV ONE (06:53)
[2019-11-23] MEDS ORDERED: ATROPINE SULF 1 MG/10 ML SYR IV ONE (06:54)
[2019-11-23] MEDS ORDERED: NA CHLORIDE 0.9% 0 ML ONE (06:54)
[2019-11-23] MEDS ORDERED: LIDOCAINE 1% MPF 30 ML VIAL ONE (06:54)
[2019-11-23] MEDS ORDERED: NA CHLORIDE 0.9% 500 ML ONE (06:54)
[2019-11-23] MEDS ORDERED: NITROGLYCERIN 100 MCG/ML SYR (for cath lab use only) IV ONE (06:55)
[2019-11-23] MEDS ORDERED: NITROGLYCERIN/D5W 0 MG/0 ML BTL IV ONE (06:55)
[2019-11-23 07:27] LABS: Absolute Lymphocytes (CBC) 3.3 K/uL (0.7-4.9); Basophils % 1.5 % (0-1.3); Hematocrit 32.2 % (36.0-45.0); Lymphocytes % 41.2 % (15.3-44.8); MPV 9.6 fL (7.6-11.3); RBC Red Blood Cell Count 3.71 M/uL (3.86-4.86)
[2019-11-23 07:37] LABS: Protime INR 0.86
[2019-11-23 07:41] LABS: Potassium 3.8 mmol/L (3.5-5.1)
[2019-11-23 08:35] VITALS: O2SAT 100
[2019-11-23 09:23] VITALS: TEMP 97.1
[2019-11-23 10:48] VITALS: BP 182/80
--- NOTE | 2019-11-23 19:06 | OP ---
Surgeon: Dheeraj Sesay MD Uniform Force Captain: Briana Mcduffie. Procedure: Selective bilateral carotid angiogram. History Of Present Illness: Ms. Simon is 69. Has diabetes, hypertension, dyslipidemia, coronary ar denise disease, carotid bruit on the left. Positive carotid Doppler yesterday over 90% stenosis. Sche duled rather urgently today for a bilateral selective carotid angiogram. Procedure In Detail: Brought to the laborer shipyard as an outpatient, prepped and draped in the routine phil rile fashion. 6-Omani sheath introduced in the right common femoral artery successfully. A JR4 cat heter was used to select the right common carotid and the left common carotid artery. Both common ca rotids were normal. She had moderate right ICA plaquing. Her left internal carotid artery had a 70% and 90% stenosis. There were sequential. There were no complications. Blood Loss: 5 mL. Anesthesia: Total conscious sedation 30 minutes. Postoperative Diagnosis: Severe cerebrovascular disease on the left side. Plan: For the left CEA. GHAZAL/WILLIS Voice ID: [id number] Report ID: [id number]
== END 2019-11-23 10:15 | disposition home or self-care (01) ==
LOC: CCL 06:48
DX: I65.23 Occlusion and stenosis of bilateral carotid arteries (principal); I70.219 Atherosclerosis of native arteries of extremities with intermittent claudication, unspecified extremity; I34.0 Nonrheumatic mitral (valve) insufficiency; I20.0 Unstable angina; I12.9 Hypertensive chronic kidney disease with stage 1 through stage 4 chronic kidney disease, or unspecified chronic kidney disease; E11.22 Type 2 diabetes mellitus with diabetic chronic kidney disease; N18.2 Chronic kidney disease, stage 2 (mild); E78.5 Hyperlipidemia, unspecified; K21.9 Gastro-esophageal reflux disease without esophagitis
CPT/HCPCS: 85025; 80048; 36415; 85610; 85730; 36222; C1893; C1760; J2250; J3010; J7040; J0583

== ENCOUNTER 2020-05-09 13:38 | Emergency (ER) | payer OTHER ==
--- OUTSIDE RECORDS SUMMARY | 2020-05-09 14:07 | XMS REPORT | Clinical Summary ---
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 PATHOLOGY AND [address] [place], [place] [phone] [address] [address] Type and screen (11/28/2019 5:40 PM CDT) Pathologist Sig nature ABO grouping O [facility] Rh type POS [facility] Antibody screen (gel) NEG [facility] Specimen Blood Performing Organization Address City/[facility] Phon e Number [facility] DEPARTMENT OF PATHOLOGY AND [address] [place], [place] [phone] [address] [address] ECG 12 lead (11/28/2019 5:25 PM CDT) Pathologist Sig nature Ventricular rate 53 [facility] Atrial rate [address] [facility] interval 154 [facility] QRSD interval 132 [facility] QT interval 464 [facility] QTC interval 435 [facility] P axis 1 35 [facility] QRS axis 1 -2 [facility] T wave axis 75 [facility] EKG impression Sinus bradycardia-Left [facility] MUSE bundle branch block-Abnormal ECG-In automated comparison with ECG of 05-FEB-2016 14:42,-Left bundle branch block is now present- Specimen Narrative Performed At This result has an attachment that is no t available. Performing Organization Address City/[facility]/ZIP Code Phon e Number [facility] MUSE [address] [place] [phone] Urinalysis screen and microscopy, with reflex to culture (11/28/2019 5:10 PM CDT) Specimen site Random void [facility] Color, UA Straw [facility] Appearance, UA Clear [facility] Specific gravity, UA 1.009 1.001 - 1.035 [facility] pH, UA 5.0 5.0 - 8.5 [facility] Protein, UA Negative Negative [facility] Glucose, UA Negative Negative [facility] Ketones, UA Negative Negative [facility] Bilirubin, UA Negative Negative [facility] Blood, UA Small (A) Negative [facility] Nitrite, UA Negative Negative [facility] Urobilinogen, UA <2.0 <2.0 [facility] Leukocyte esterase, Negative Negative [facility] Epithelial cells, UA <1 /HPF [facility] WBC, UA <1 0 - 4 /HPF [facility] RBC, UA 2 0 - 5 /HPF [facility] Bacteria, UA None seen None seen [facility] Yeast, UA None seen [facility] Yeast with None seen [facility] pseudohyphae, HOSPITAL Specimen Urine Performing Organization Address City/[facility] Phon e Number [facility] DEPARTMENT OF PATHOLOGY AND [address] [place] [phone] [facility] [address] [address] Urine culture (11/28/2019 5:10 PM CDT) Pathologist Sig nature Urine culture SEE COMMENTComment: [facility] Bacteriuria screen HOSPITAL negative. Specimen Performing Organization Address City/[facility]/ZIP [facility] Phon e Number [facility] DEPARTMENT OF PATHOLOGY AND [address] [place] [address] [phone] [address] B natriuretic peptide (11/28/2019 5:10 PM CDT) Pathologist Sig nature BNP 45 0 - 100 pg/mL [facility] Specimen Blood Performing Organization Address City/State/ZIP Code Phon e Number [facility] DEPARTMENT OF PATHOLOGY AND [address] [place], [place] [phone] [facility] [address] [place] [address] Lipid panel (11/28/2019 5:10 PM CDT) Cholesterol 191 <200 mg/dL [facility] Triglycerides 67 <150 mg/dL [facility] HDL cholesterol 67 >40 mg/dL [facility] LDL cholesterol 120 (H)Comment: <100 mg/dL [facility] Result obtained by [facility] direct [facility] measurement [facility] interpretation Comment: [facility] Total Cholesterol (mg/dL) HOSPIT AL <200 Desirable 200-239 Borderline-high >=240 High Triglycerides (mg/dL) <150 Normal 150-199 Borderline-high 200-499 High >=500 Very high HDL Cholesterol (mg/dL) <40 Low (male) <40 Low (female) LDL Cholesterol (mg/dL) <100 Optimal 100-129 Near or above optimal 130-159 Borderline-high 160-189 High >=190 Very high Risk Catergories that modify LDL goals. Risk Catergories LDL goal (mg/d L) CHD and CHD risk equivalent <100 (10-year risk >20%) Multiple (2+) risk factors <130 (10-year risk =<20%) 0-1 risk factors <160 (<10-year risk) Defining levels of lipids in metabolic syndrome Triglycerides >=150 mg/dL HDL Cholesterol Men <40 mg /dL Women <40 mg/ dL Non-HDL cholesterol is a second target for therapy in persons with high triglycerides (>=200 mg/dL) Specimen Blood Performing Organization Address City/State/[facility] Phon e Number [facility] DEPARTMENT OF PATHOLOGY AND [address] [place] [phone] [facility] [address] [place] [address] Comprehensive metabolic panel (11/28/2019 5:06 PM CDT) Sodium 136 135 - 148 [facility] mEq/L [facility] Potassium 4.2 3.5 - 5.0 [facility] mEq/L [facility] Chloride 99 98 - 112 [facility] mEq/L [facility] CO2 25 24 - 31 mEq/L [facility] Anion gap 12@ANIO 7 - 15 mEq/L [facility] BUN 25 (H) 8 - 23 mg/dL [facility] Creatinine 1.21 (H) 0.50 - 0.90 [facility] mg/dL HOSPITAL Glucose 88 65 - 99 mg/dL [facility] Calcium 9.5 8.8 - 10.2 [facility] mg/dL [facility] Protein 7.4 6.3 - 8.3 [facility] Comment: g/dL HOSPITAL - 4.6-7.0 g/dL 1 week 4.4-7.6 g/dL 7 months-1year 5.1-7.3 g/dL 1-2 years 5.6-7.5 g/dL >3 years 6.0-8.0 g/dL 18-150 6.3-8.3 g/dL Albumin 3.4 (L) 3.5 - 5.0 [facility] g/dL [facility] A/G ratio 0.8 0.7 - 3.8 [facility] Alkaline phosphatase 72 35 - 104 U/L [facility] AST 17 10 - 35 U/L [facility] ALT 8 5 - 50 U/L [facility] Total bilirubin <0.2 0.0 - 1.2 [facility] mg/dL [facility] Specimen Blood Performing Organization Address City/[facility] Phon e Number [facility] DEPARTMENT OF PATHOLOGY AND [address] [place] [address] [phone] [address] Hemoglobin A1c (11/28/2019 5:05 PM CDT) Hemoglobin A1C 5.6 4.0 - 5.6 % [facility] Comment: HOSPITAL HbA1c cutoffs for diagnosing diabetes: 4.0% - 5.6% = normal 5.7% - 6.4% = increased risk for diabetes (prediabetes )9 >=6.5% = diabetes9 Goals for glycemic control (ADA 2016) < 7.0% Target for non adults with diabetes. More or less stringent targets may be appropriate for individual patients. <7.5% Target for Children and adolescents with type 1 diabetes. Specimen Blood Performing Organization Address City/State/[facility] Phon e Number [facility] DEPARTMENT OF PATHOLOGY AND [address] [place], [place] [phone] [address] after 05/09/2019 Insurance Payer Benefit Plan / Subscriber ID Effective Dates Phone Addre ss Type Group [employer] [place] [employer] [id number] 2014-[employer] Workers [employer] t [employer] [facility] [id number] 2019-Presen HMO t
--- OUTSIDE RECORDS SUMMARY | 2020-05-09 14:08 | XMS REPORT | Continuity of Care Document ---
:1950 Author Organization [facility] t Address Formerly [facility] [place] [address] Care Team Providers Name Role Phone Kevin MAGANA Primary Care Physician Stepan MAGANA, [place] Attending Clinician [phone] Ming REAL, Minerva Attending Clinician Unavailable Xavi MAGANA, Alice Attending Clinician Melquiades MENDEZ, Christie Attending Clinician Jeanie ROUSE Attending Clinician Unavailable STEPAN Admitting Clinician Unavailable Payers Payer Name Policy Type Policy Effective Expiration Source Number Date Date WORKERS COMPTEXAS [id number] 2014 Catato n MUTUAL 65 00:00:00 Evangelical [id number]/ 5-PresentWorkers Comp TEXANPLUSTEXANPLUS [id number] 2019 Sadiq n [id number] 2019-Pr 00:00:00 M ethodist esentHMO Problems Condition Condition Condition Status Onset Resolution Last Treating Co mments Source Name Details Category Date Date Treatment Clinician Date 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 Type 2 diabetes Diabetes mellitus Mellitus Essential Essential Problem Active Jacob ronda hypertensi Hypertensi 9-30 Fa latia on on 00:00: Practic 00 e Gastric Gastric Problem Active [place] ulcer Ulcer 9-30 Family 00:00: Practic 00 e Carotid Carotid Disease Active [place] artery artery 6-04 Methodi disease disease 00:00: st 00 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 Family History Family Member Diagnosis Comments Start Date Stop Date Source Natural father Hypertension [place] Evangelical Natural father Mental illness [place] [facility] Natural father Seizures [facility] thodist Natural father Stroke [facility]odist Natural mother Cancer [facility] thodist Natural mother Kidney disease [place] [facility] Social History Social Habit Start Date Stop Date Quantity Comments Source Sex Assigned At [facility] Tobacco use and 2019-12-04 2019-12-04 Never used [facility] ethodi exposure 00:00:00 00:00:00 Alcohol intake 2019-12-04 2019-12-04 [facility] non-drinker of alcohol (finding) Alcohol Comment 2019-11-28 2019-11-28 Wine - rare - [place] [facility] 00:00:00 00:00:00 none since started Lorazepam Smoking Status Start Date Stop Date Source [facility] Ordered Filled Start Stop Current Ordering Indication Dosage Frequency Signature Comments Components Source Medication Medication Date Date Medication? Clinician (SIG) Name Name lisinopriL 2020-0 Yes 20mg QD Take 20 mg [place] 20 mg -06 by mouth Methodi tablet 1 15:30: every st tablet, 46 morning. hydroCHLORO 20/12.5 mg thiazide 25 MG tablet 0.5 tablet metFORMIN 2020-0 Yes 500mg Q.5D Take [address] (GLUCOPHAGE 6-06 mg by Methodi ) 500 mg 15:30: mouth 2 st tablet 46 (two) times a day with meals. metoprolol 2020-0 Yes 50mg Q.5D Take 50 mg [place] succinate -06 by mouth 2 Meth valentín XL 15:30: (two) st (TOPROL-XL) 46 times a 50 mg 24 hr day. tablet pantoprazol 2020-0 Yes 40mg QD Take 40 mg Gudino e 12-01 by mouth Methodi (PROTONIX) 15:30: every st 40 MG EC 46 morning. tablet pravastatin 2020-0 Yes 40mg QD Take 40 mg Gudino (PRAVACHOL) 6-06 by mouth Meth valentín 40 mg 15:30: nightly. st tablet 46 aspirin 2020-0 Yes 81mg QD Take 81 mg [place] (ECOTRIN) 6-06 by mouth Method i 81 MG 15:30: every st enteric 46 morning. coated tablet LORAZepam 2019-0 Yes .5mg Q6H Take 0.5 [place] (ATIVAN) 6-06 mg by Methodi 0.5 MG 15:30: mouth st tablet 46 every 6 (six) hours as needed for anxiety. traMADoL 2019-0 2020- No acute pain 50mg Q6H Take 1 [place] (ULTRAM) 50 12-01 06-13 tablet (50 M ethodi mg tablet 00:00: 23:59 mg total) st 00 :00 by mouth every 6 (six) hours as needed for moderate pain for up to 7 days .acute pain. meloxicam 0 Yes 15mg QD Take 1 [place] (MOBIC) 15 4-24 tablet (15 Met hodi mg tablet 00:00: mg total) st 00 by mouth daily. [place]. aspirin 81 aspirin 81 No 1 Q1D aspirin 81 [place] mg mg mg Family tablet,paula tablet,paula tablet,del Practic yed release yed release ayed e Take 1 Take 1 release tablet tablet Take 1 every day every day tablet by oral by oral every day route. route. by oral route. dicyclomine dicyclomine No 1 QID dicyclomin [facility] 20 mg 20 mg e 20 mg Family tablet Take tablet Take tablet Practic 1 tablet 4 1 tablet 4 Take 1 e times a day times a day tablet 4 by oral by oral times a route as route as day by needed. needed. oral route as needed. lisinopril lisinopril No 1 Q1D lisinopril [facility] 5 mg tablet 5 mg tablet 5 mg F amily Take 1 Take 1 tablet Practic tablet tablet Take 1 e every day every day tablet by oral by oral every day route. route. by oral route. metformin metformin No 1 BID metformin [facility] 500 mg 500 mg 500 mg Family tablet Take tablet Take tablet Practic 1 tablet 1 tablet Take 1 e twice a day twice a day tablet by oral by oral twice a route. route. day by oral route. metoprolol metoprolol No 1 Q1D metoprolol [facility] succinate succinate succinate Family ER 25 mg ER 25 mg ER 25 mg Pra ctic tablet,exte tablet,exte tablet,ext e nded nded ended release 24 release 24 release 24 hr Take 1 hr Take 1 hr Take 1 tablet tablet tablet every day every day every day by oral by oral by oral route. route. route. pantoprazol pantoprazol No 1 Q1D pantoprazo [place] e 40 mg e 40 mg le 40 mg Famil y tablet,paula tablet,paula tablet,del Practic yed release yed release ayed e Take 1 Take 1 release tablet tablet Take 1 every day every day tablet by oral by oral every day route. route. by oral route. Vital Signs Vital Name Observation Time Observation Value Comments Source Height 2020-03-27 62 [in_i] [facility] Family 00:00:00 Practice BMI (Body Mass 2020-03-27 18.3 kg/m2 [facility] Famil y Index) 00:00:00 Practice Body Weight 2020-03-27 100 [lb_av] [facility] 00:00:00 Practice Systolic blood 2019-12-02 164 mm[Hg] Notified [place] pressure 13:49:36 ELIGIBILITY SERVICES REPRESENTATIVE-Sumit.she Evangelical said ok to send home. Diastolic blood 2019-12-02 73 mm[Hg] Notified [place] pressure 13:49:36 ELIGIBILITY SERVICES REPRESENTATIVE-Marisolan.she Evangelical said ok to send home. Heart rate 2019-12-02 67 /min [place] 13:49:36 Evangelical Body temperature 2019-12-02 36.94 Wendy [place] 13:49:36 Evangelical Respiratory rate 2019-12-02 18 /min [place] 13:49:36 Evangelical Oxygen saturation 2019-12-02 100 /min [place] in Arterial blood 13:49:36 Evangelical by Pulse oximetry Body weight 2019-12-02 48.943 kg [place] 04:24:47 Evangelical BMI 2019-12-02 19.74 kg/m2 [place] 04:24:47 Evangelical Body height 2019-11-30 157.5 cm [place] 09:25:00 Evangelical Procedures Procedure Date / Time Performing Clinician Source Performed CBC HEMOGRAM 2019-12-02 05:50:00 Jason Ramires BASIC METABOLIC PANEL 2019-12-02 05:50:00 Jason Ramires ESTIMATED GFR 2019-12-02 05:50:00 Jason Ramires POC GLUCOSE 2019-12-01 21:29:00 Jason Ramires INTRAOPERATIVE MONITORING 2019-12-01 16:22:34 Matheus Farris HC COMPLETE BLD COUNT 2019-12-01 05:38:00 Matheus Farristo n Evangelical W/AUTO DIFF BASIC METABOLIC PANEL 2019-12-01 05:38:00 Matheus Farristo n Evangelical MAGNESIUM LEVEL 2019-12-01 05:38:00 Matheus Farris Meth odist ESTIMATED GFR 2019-12-01 05:38:00 Jason Ramires POC GLUCOSE 2019-11-30 22:26:00 Jason Ramires Kalachomar POC GLUCOSE 2019-11-30 16:10:00 Jason Ramires HC COMPLETE BLD COUNT 2019-11-30 16:08:00 Matheus Farristo gustabo Evangelical W/AUTO DIFF BASIC METABOLIC PANEL 2019-11-30 16:08:00 Matheus Farristo gustabo Khan MAGNESIUM LEVEL 2019-11-30 16:08:00 Matheus Farris Meth odist ESTIMATED GFR 2019-11-30 16:08:00 Jason Ramires ACTIVATED CLOTTING TIME 2019-11-30 15:19:00 Jason Ramires ACTIVATED CLOTTING TIME 2019-11-30 14:43:00 Jason Ramires ACTIVATED CLOTTING TIME 2019-11-30 14:31:00 Jason Ramires MT AN ELECTIVE 2019-11-30 14:17:29 Ashley Londono ENDOTRACHEAL AIRWAY ARTERIAL LINE 2019-11-30 14:16:38 Ashley Londono ACTIVATED CLOTTING TIME 2019-11-30 13:51:00 Jason Ramires ARTERIAL BLOOD GAS, 2019-11-30 13:42:00 Stepan, Jason sanchez Evangelical CORRECTED [place] SODIUM LEVEL, SYRINGE 2019-11-30 13:42:00 Stepan, Jason Alberts HEMOGLOBIN, SYRINGE 2019-11-30 13:42:00 Stepan, Jason sanchez Evangelicalvanessa Alberts POTASSIUM, SYRINGE 2019-11-30 13:42:00 Stepan, Jason Harper on Erin Alberts IONIZED CALCIUM, ARTERIAL 2019-11-30 13:42:00 Stepan, Dorota Alberts GLUCOSE LEVEL, SYRINGE 2019-11-30 13:42:00 Stepan, Jsaon Velázquezachomar POC GLUCOSE 2019-11-30 10:53:00 Jason Ramires POC GLUCOSE 2019-11-30 09:33:00 Jason Ramires Gudino Erin Alberts SURGICAL PATHOLOGY REQUEST 2019-11-30 08:36:00 Myah Ramires Shahab Alberts COVID-19 QUALITATIVE PCR 2019-11-28 18:25:00 Jason Ramires XR CHEST 2 VW 2019-11-28 18:11:00 Jason Ramires TYPE AND SCREEN 2019-11-28 17:40:00 Jason Ramires PARTIAL THROMBOPLASTIN 2019-11-28 17:40:00 Jason Ramires TIME (PTT) [place] PROTHROMBIN TIME WITH INR 2019-11-28 17:40:00 Dorota Ramires HC COMPLETE BLD COUNT 2019-11-28 17:40:00 Jason Ramires W/AUTO DIFF [place] PREPARE RBC 2019-11-28 17:40:00 Stepan Jasonnoel Alberts ECG 12-LEAD 2019-11-28 17:25:59 Stepan Jasonnoel Alberts URINE CULTURE 2019-11-28 17:10:00 Stepan Jasonnoel Alberts B NATRIURETIC PEPTIDE 2019-11-28 17:10:00 Jason Ramires LIPID PANEL 2019-11-28 17:10:00 Jason Ramires URINALYSIS SCREEN AND 2019-11-28 17:10:00 Jason Ramires MICROSCOPY, WITH REFLEX TO [place] CULTURE COMPREHENSIVE METABOLIC 2019-11-28 17:06:00 Jason Ramires PANEL Kalchristofer ESTIMATED GFR 2019-11-28 17:06:00 Jason Ramires HEMOGLOBIN A1C 2019-11-28 17:05:00 Jason Ramires [place] Erin Alberts Plan of Care Planned Activity Planned Date Details Comments Source Future Scheduled Test 2020-01-27 INFLUENZA VACCINE [facility] 00:00:00 [code = INFLUENZA VACCINE] Future Scheduled Test 2016-10-23 65+ PNEUMOCOCCAL [facility] 00:00:00 VACCINE (1 of 1 - PPSV23) [code = 65+ PNEUMOCOCCAL VACCINE (1 of 1 - PPSV23)] Future Scheduled Test 2001-10-23 BREAST CANCER [facility] 00:00:00 SCREENING [code = BREAST CANCER SCREENING] Future Scheduled Test 2001-10-23 COLONOSCOPY SCREENING [facility] 00:00:00 [code = COLONOSCOPY SCREENING] Future Scheduled Test 2001-10-23 SHINGLES VACCINES [facility] 00:00:00 (#1) [code = SHINGLES VACCINES (#1)] [facility] Family Practice Encounters Start End Encounter Admission Attending Care Care Encounter Source Date/Time Date/Time Type Type Clinicians Facility Department ID 2020-03-27 2020-03-27 [facility] [place] - [id number] V illage 00:00:00 00:00:00 [facility] maddy sterling, ELIGIBILITY SERVICES REPRESENTATIVE: Medical - Practi c [address] [email or web address] [facility], [place] [address], [place] [address] , Ph. 2019-11-30 2019-12-02 Inpatient [facility] [id number] [place] 00:00:00 00:00:00 , JASON Louiseo aditya st 2019-11-28 2019-11-28 Outpatient [facility] [id number] [place] 00:00:00 00:00:00 , JASON [address] 2019-11-28 2019-11-28 Outpatient [facility] [id number] [place] 00:00:00 00:00:00 , JASON [address] 2019-11-28 2019-11-28 Outpatient [facility] [id number] [place] 00:00:00 00:00:00 , JASON [address] Results Test Description Test Time Test Comments Results Result Comments Source Activated clotting time 2019-12-07 09:09:47 Test Item Value Reference Range Interpretation Comme nts Activated clotting time (test 89 96- 152 sec L Meter ID: [id number] ID: code = [id number]) Bry Ramirez Lab Interpretation (test code = Abnormal 71256-0) [facility] pathology [id number] 10:36:02 Test Item Value Reference Range Interpretation Comments Case number (test code = [id number]) Surgical pathology See link below for report (test code = PDF Lab Report [id number]) Result status (test code This is Final Report = [id number]) for [id number] [facility] MethodistBasic metabolic [id number] 07:23:18 Test Item Value Reference Range Interpretation Comments Sodium (test code = 2951-2) 139 135- 148 mEq/L Potassium (test code = 2823-3) 4.0 3.5- 5.0 mEq/L Chloride (test code = 2075-0) 102 98- 112 mEq/L CO2 (test code = 8-9) 24 24- 31 mEq/L Anion gap (test code = 25302-5) 13@ANIO 7- 15 mEq/L BUN (test code = 3094-0) 20 mg/dL 8-23 Creatinine (test code = 2160-0) 1.27 mg/dL 0.5-0.9 H Glucose (test code = 2345-7) 106 mg/dL 65-99 H Calcium (test code = 27580-0) 9.3 mg/dL 8.8-10.2 Lab Interpretation (test code = Abnormal 64627-2) [facility] MethodistEstimated [id number] 07:23:18 Test Item Value Reference Range Interpretation Comments Estimated GFR (test 43 mL/min/1.73 m2 Stefani lira Units code = 5488) InterpretationG 1 >=90 Andria l or highG2 60-89 Mildly decrease dG3a 45-59 Mil dly to moderately decr qulewZ8i 30-44 Moderately to s everely decreasedG4 15-29 Severe ly decreasedG5 <15 Kidney ramin lureThe eGFR was calcul ated using the Chron Kidney Disease Epidemiology Collaboration ( CKD-EPI) equation. Interpretation is based on recommendati ons of the National dney [facility]-Kidn ey Disease Outcome s Quality Initiat pat (NKF-KDOQI) pub lished in 2013. Lab Interpretation Abnormal (test code = 05707-6) [facility] [id number] 06:14:28 Test Item Value Reference Range Interpretation Comments WBC (test code = 86664-8) 8.17 4.50- 11.00 k/uL RBC (test code = 24253-9) 3.24 m/uL 4.2-5.5 L HGB (test code = 718-7) 9.5 g/dL 12-16 L HCT (test code = 4544-3) 29.1 % 37-47 L MCV (test code = 787-2) 89.8 fL 82-100 MCH (test code = 785-6) 29.3 pg 27-34 MCHC (test code = 786-4) 32.6 g/dL 31-37 RDW - SD (test code = 07960-9) 45.1 fL 37-55 MPV (test code = 91488-8) 11.0 fL 8.8-13.2 Platelet count (test code = 244 150- 400 k/uL 52456-7) Nucleated RBC (test code = 0.00 /100 WBC 57310-5) Lab Interpretation (test code = Abnormal 07140-3) 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 Interpretation (test Abnormal code = 62211-5) Gudino MethodistMagnesium [id number] 06:52:47 Test Item Value Reference Range Interpretation Comments Magnesium (test code = 38568-2) 1.8 mg/dL 1.6-2.4 [facility] MethodistCBC with platelet and [id number] 06:29:31 Test Item Value Reference Range Interpretation Comments WBC (test code = 33273-3) 9.59 4.50- 11.00 k/uL RBC (test code = 86110-6) 3.09 m/uL 4.2-5.5 L HGB (test code = 718-7) 9.1 g/dL 12-16 L HCT (test code = 4544-3) 28.2 % 37-47 L MCV (test code = 787-2) 91.3 fL 82-100 MCH (test code = 785-6) 29.4 pg 27-34 MCHC (test code = 786-4) 32.3 g/dL 31-37 RDW - SD (test code = 45.7 fL 37-55 25477-4) MPV (test code = 94706-9) 11.1 fL 8.8-13.2 Platelet count (test code 241 150- 400 k/uL = 56348-9) Nucleated RBC (test code 0.00 /100 WBC = 82412-1) Neutrophils (test code = 67.8 % 39-69 81357-4) Lymphocytes (test code = 23.0 % 25-45 L 90275-1) Monocytes (test code = 7.1 % 0-10 92851-5) Eosinophils (test code = 1.1 % 0-5 72776-9) Basophils (test code = 0.7 % 0-1 20897-6) Immature granulocytes 0.3 % 0-1 "Immat ure (test code = 72093-2) granul ocytes" (promyelocytes, myelocytes, metamyelocytes) Lab Interpretation (test Abnormal code = 86550-0) Gudino MethodistPrepare [id number] 16:29:00 Test Item Value Reference Range Interpretation Comments Product name (test code Apheresis Red Cells = 25) AS3 LR Unit number (test code [id number] = [id number]) Product code (test code M8384D07 = 3092) Dispense status (test Returned to not code = 24) transfused Blood expiration date (test code = 302) Blood type code (test 5100 code = 308) Blood type (test code = O POSITIVE 1314) Compatibility (test Compatible code = 6400) [place] [id number] 14:17:29Brahmdorothy, Ashley Dread 11/30/2019 2:18 PMAirwayDate/Time: 11/30/2019 1:34 PMPerformed by: Ashley Londonouthliamzed by: Murtaza Cornelius MD Location: ORUrgency: ElectiveDifficult Airway: No Anesthesiologist: Murtaza Cornelius MDResident/DISCOVERY MANAGER/AA: Ashley LondonouPerformed by: resident/DISCOVERY MANAGER/AAPreoxygenated with 100% O2: Yes Mask Ventilation: Easy maskFinal Airway Type: Endotracheal airwayFinal Endotracheal Airway: ETTCuffed: Yes Technique Used: Direct laryngoscopyDevices/Methods Used in Placement: Intubating styletInsertion Site: OralBlade Type: Mill erLaryngoscope Blade/Videolaryngoscope Blade Size: 2ETT Size (mm): 7.0Cuff at minimum occlusion pressure: Yes Measured from: LipsETT to Lips (cm): 21Placement Verified by: CO2 detection, direct visualization and equal breath sounds Laryngoscopic view: Grade I - full view of glottisRapid Sequence Induction (RSI): No Number of Attempts at Approach: 1 Preoxygenation on 100% FiO2. Smooth IV induction. Eyes taped. Easy mask ventilation without OPA. DL times 1 attempt with Mcdaniel 2. Grade 1 view.ETT passed atraumatically through vocal cords. Cuff to seal. Absent gurgling over epigastrium, positive chest rise, positive EtCO2. Taped to secure. No damage to lips, teeth, or gums. VSS. [place] MethodistArterial [id number] 14:16:38Brahmdorothy, Ashley Dread 11/30/2019 2:25 PMArterial linePerformed by: Ashley Londono by: Murtaza Cornelius MD Patient Location: ORStart Time: 11/30/2019 1:25 PMEnd Time: 11/30/2019 1:30 PMStaff: Anesthesiologist: Murtaza Cornelius MD Resident/DISCOVERY MANAGER/AA: Ashley Londono Performed by: Resident/DISCOVERY MANAGER/AAPre-procedure: patient identified, IV checked, site and side verified, risks and benefits discussed, procedure verified, surgical consent complete, patient position confirmed, monitors and equipment checked, pre-op evaluation complete and timeout performed prior to procedure MSBT: antiseptic used, all elements of maximal sterile barrier technique followed, hand hygiene performed, cap/gown used by other personnel and solutions labeled Indications: Indications: hemodynamic monitoring Anesthesia: Anesthesia: GeneralProcedure Details: Arterial Line placement: Placed pre-induction Line placement site: RadialLine placement side: Right Arterial line gauge: 20 GNumber of attempts: 2Ultrasound guidance used: No Post-procedure: Post-procedure: Sterile dressing applied Post procedure circulation, sensation, movement: Unchanged Patient tolerance: Patient tolerated the procedure well with no immediate complicationsWilliams MethodistArterial blood gas, [id number] 13:46:24 Test Item Value Reference Range Interpretation Comments pH, arterial (test code = 2744-1) 7.48 7.35-7.45 H pCO2, arterial (test code = 2019-8) 33 35- 45 mmHg L pO2, arterial (test code = 2703-7) 451 80- 90 mmHg H Temperature, Celsius (test code = 36.0 Degrees C 8310-5) O2 saturation, arterial (test code = 100 % 95-100 2708-6) pH, arterial corrected (test code = 7.50 63979-3) pCO2, arterial corrected (test code 31 mmHg = 00913-2) pO2, arterial corrected (test code = 446 mmHg 83076-6) Base excess, arterial (test code = 1 -2 - 2 mEq-L 5-7) Lab Interpretation (test code = Abnormal 90682-0) Shahab MethodistGlucose level, [id number] 13:46:24 Test Item Value Reference Range Interpretation Comments Glucose, syringe (test code = 86 mg/dL 65-99 2345-7) Shahab MethodistHemoglobin, [id number] 13:46:24 Test Item Value Reference Range Interpretation Comments Hemoglobin, syringe (test code = 9.2 g/dL 12-16 L 718-7) Lab Interpretation (test code = Abnormal 27207-0) Gudino MethodistIonized calcium, [id number] 13:46:24 Test Item Value Reference Range Interpretation Comments Ionized calcium, arterial (test 1.01 mmol/L 1.11-1.32 L code = 23367-5) Lab Interpretation (test code = Abnormal 68090-9) Shahab MethodistPotassium, [id number] 13:46:24 Test Item Value Reference Range Interpretation Comments Potassium, syringe (test code = 2007) 3.7 3.5- 5.0 mEq/L Gudino MethodistSodium level, [id number] 13:46:24 Test Item Value Reference Range Interpretation Comments Sodium, syringe (test code = 2947-0) 139 135- 148 mEq/L Gudino MethodistECG 12 [id number] 08:15:30 Test Item Value Reference Range Interpretation Comments Ventricular rate (test 53 code = 253) Atrial rate (test code 53 = 255) MT interval (test code 154 = 266) QRSD interval (test 132 code = 260) QT interval (test code 464 = 264) QTC interval (test code 435 = 265) P axis 1 (test code = 35 267) QRS axis 1 (test code = -2 268) T wave axis (test code 75 = 270) EKG impression (test Sinus bradycardia-Left code = 273) bundle branch block-Abnormal ECG-In automated comparison with ECG of 05-FEB-2016 14:42,-Left bundle branch block is now present- Shahab KhanCOVID-19 qualitative [id number] 01:53:17 Test Item Value Reference Range Interpretation Comments Interpretation (test Negative results do code = 4469869) not preclude 2019-nCoV infection and should not be used as the sole basis for treatment or other patient management decisions. Negative results must be combined with clinical observations, patient history, and epidemiological information. COVID-19 qualitative Not-Detected Not-Detected PCR result (test code = 59858-5) COVID-19 qualitative See link below for C ase Number: PCR (test code = PDF Lab Report [id number]) [place] MethodistUrinalysis screen and microscopy, with reflex to culture 2019-11-28 22:14:16 Test Item Value Reference Range Interpretation Comments Specimen site (test code = Random void 9717041) Color, UA (test code = 5778-6) Straw Appearance, UA (test code = Clear 5767-9) Specific gravity, UA (test code = 1.009 1.001-1.035 5811-5) pH, UA (test code = 5803-2) 5.0 5.0-8.5 Protein, UA (test code = 12798-2) Negative Negative Glucose, UA (test code = 12084-9) Negative Negative Ketones, UA (test code = 2514-8) Negative Negative Bilirubin, UA (test code = Negative Negative 5770-3) Blood, UA (test code = 5794-3) Small Negative A Nitrite, UA (test code = 5802-4) Negative Negative Urobilinogen, UA (test code = <2.0 <2.0 91198-1) Leukocyte esterase, UA (test code Negative Negative = 5799-2) Epithelial cells, UA (test code = <1 /HPF 5787-7) WBC, UA (test code = 5821-4) <1 0- 4 /HPF RBC, UA (test code = 71386-6) 2 0- 5 /HPF Bacteria, UA (test code = None seen None seen 92395-2) Yeast, UA (test code = 47558-5) None seen Yeast with pseudohyphae, UA (test None seen code = 13060-0) Lab Interpretation (test code = Abnormal 31507-8) [facility] MethodistHemoglobin [id number] 21:11:12 Test Item Value Reference Range Interpretation Comments Hemoglobin A1C (test 5.6 % 4-5.6 HbA1c c utoffs for code = 38714-2) diagnosing d iabetes:4.0% - 5.6% = normal 5.7% - 6.4% = increase d risk for diabetes (prediabetes)9> =6.5% = [id number] for glycemic contro l (ADA 2016)< 7.0% Ta rget for non sy lts with diabetes. More or less stringent targe ts may be appropriate for individual sunny ents. <7.5% Target for Children and ad olescents with type 1 loy betes. Gudino MethodistUrine [id number] 20:05:30 Test Item Value Reference Range Interpretation Comments Urine culture (test SEE COMMENT Bacteriu luly screen code = 0409463) negative. Gudino MethodistType and [id number] 20:04:00 Test Item Value Reference Range Interpretation Comments ABO grouping (test code = 883-9) O Rh type (test code = 01256-1) POS Antibody screen (gel) (test code = NEG 890-4) [facility] nat[facility]uretic [id number] 19:24:05 Test Item Value Reference Range Interpretation Comments BNP (test code = 98552-4) 45 pg/mL 0-100 [facility]Lipid [id number] 19:09:22 Test Item Value Reference Interpretation Comments Range Cholesterol (test 191 mg/dL <200 code = 2093-3) Triglycerides (test 67 mg/dL <150 code = 2571-8) HDL cholesterol 67 mg/dL >40 (test code = 2085-9) LDL cholesterol 120 mg/dL <100 H Result ob[place] ter[place] by direct (test code = 2089-1) LDL vic surement Lipid panel SeeBelow Total Cholester ol (mg/dL) interpretation (test < 200 code = 81911-3) Desirable 200-239 Borderline -high >=240 Hi gh Triglyceri keya (mg/dL) <150 No rmal 150-199 Borderline-high 200-499 High >=500 Very high HDL Choles terol (mg/dL) <40 Low (male) < 40 Low (female) L DL Cholesterol (mg /dL) <100 Optimal 1 00-129 Near or above o ptimal 130-159 Borderline-high 160-189 High >=190 Very high Risk Cat ergories that modify LDL goals.Risk Catergories LDL goal (mg/dL )CHD and CHD risk equiva lent <100 (10-year risk >20%)Multiple ( 2+) risk factors < 130 (10-year risk = <20%)0-1 risk factors <160 (<10-ye ar risk) Defining levels of lipids in metabolic syndromeTriglyc erides > =150 mg/dLHDL Choles terol Men <40 mg/dL Women <40 mg/dL Non-HDL cholest abebe is a second target f or therapy in personswith high triglycerides ( >=200 mg/dL) Lab Interpretation Abnormal (test code = 85966-9) [facility] metabolic [id number] 19:08:32 Test Item Value Reference Range Interpretation Comments Sodium (test code = 136 135- 148 mEq/L 2951-2) Potassium (test code = 4.2 3.5- 5.0 mEq/L 2823-3) Chloride (test code = 99 98- 112 mEq/L 5-0) CO2 (test code = 2027-9) 25 24- 31 mEq/L Anion gap (test code = 12@ANIO 7- 15 mEq/L 85323-1) BUN (test code = 3094-0) 25 mg/dL 8-23 H Creatinine (test code = 1.21 mg/dL 0.5-0.9 H 2160-0) Glucose (test code = 88 mg/dL 65-99 2345-7) Calcium (test code = 9.5 mg/dL 8.8-10.2 00964-4) Protein (test code = 7.4 g/dL 6.3-8.3 -[place] n 2885-2) 4.6-7.0 g/dL1 week 4.4-7 .6 g/dL7 months-1y ear 5.1-7 .3 g/dL1-2 years 5.6-7 .5 g/dL>3 years 6.0-8 .0 g/mO11-043 6.3-8 .3 g/dL Albumin (test code = 3.4 g/dL 3.5-5 L 1751-7) A/G ratio (test code = 0.8 0.7-3.8 1759-0) Alkaline phosphatase 72 U/L 35-104 (test code = 6768-6) AST (test code = 1920-8) 17 U/L 10-35 ALT (test code = 1742-6) 8 U/L 5-50 Total bilirubin (test <0.2 0-1.2 code = 1974-2) Lab Interpretation (test Abnormal code = 43429-2) Shahab MethodistPartial thromboplastin time, [id number] 18:57:08 Test Item Value Reference Range Interpretation Comments PTT (test code = 30.3 23.0- 36.0 [place] [address]-3) unfractionated heparin is61.0-112.0 se conds which corresponds to Anti-Xa0.3-0.7 U/ml. Shahab KhanProthrombin time with [id number] 18:56:56 Test Item Value Reference Range Interpretation Comments Prothrombin time (test 12.3 11.5- 14.5 sec code = 5902-2) INR (test code = 0.9 The Interna tional 06487-6) Normalized Rati o (INR) is a therapeutic m onitoring tool for patien ts who are stable on oral anticoagulant t herapy. An INR of 2.0-3.0 is suggested for d eep vein thrombosis/pulm onary embolism. Shahab KhanXR Chest 2 [id number] 18:12:08 Interface, Radiology Results - 11/28/2019 6:15 PM CDTEXAMINATION: XR CHEST 2 VWCLINICAL HISTORY: I65.22 Occlusion and stenosis of left carotid artery, Preop eval for CEACOMPARISON: NoneIMPRESSION:No acute abnormality 2 view chestThe lungs are clear.The heart is not enlarged. Atherosclerosis arch aortaMild thoracic kyphosis.Mild degenerative changes about the [id number] Khan
[2020-05-09] MEDS ORDERED: NA CHLORIDE 0.9% 1,000 ML ONE ×2 (14:30→15:42)
[2020-05-09] MEDS ORDERED: ONDANSETRON 4 MG/2 ML VIAL ONE (14:30)
[2020-05-09 14:45] LABS: Absolute Lymphocytes (CBC) 1.1 K/uL (0.7-4.9); Basophils % 0.7 % (0-1.3); Hematocrit 30.3 % (36.0-45.0); RBC Red Blood Cell Count 3.66 M/uL (3.86-4.86)
[2020-05-09 14:58] LABS: Potassium 3.9 mmol/L (3.5-5.1)
[2020-05-09 17:49] LABS: Potassium 4.1 mmol/L (3.5-5.1)
--- NOTE | 2020-05-09 17:53 | ER ---
Nurse's Notes [facility] Name: Ashley Simon Age: 69 yrs Sex: Female : 1950 Arrival Date: 05/09/2020 Time: 13:50 Bed 16 Private MD: Diagnosis: Dehydration;Coronavirus infection, unspecified;Weakness;Hyponatremia Presentation: 05/09 13:52 Chief complaint: EMS states: pt coming from home c/o of nausea and vomiting x3 days. zb Coronavirus screen: Client reports previous positive COVID test result. Date of collection: May 06, 2020. Ebola Screen: No symptoms or risks identified at this time. Initial Sepsis Screen: Does the patient meet any 2 criteria? No. Patient's initial sepsis screen is negative. Does the patient have a suspected source of infection? No. Patient's initial sepsis screen is negative. Risk Assessment: Do you want to hurt yourself or someone else? Patient reports no desire to harm self or others. Onset of symptoms was May 02, 2020. 13:52 Method Of Arrival: EMS: [facility] zb 13:52 Acuity: MARGARITA 3 zb Triage Assessment: 13:58 General: Appears in no apparent distress. comfortable, Behavior is calm, cooperative, zb appropriate for age, Reports feeling ill for > 3 days, fatigue for >3 days. Pain: Denies pain. EENT: No signs and/or symptoms were reported regarding the EENT system. Neuro: Level of Consciousness is awake, alert, obeys commands, Oriented to person, place, time, situation. Cardiovascular: Capillary refill < 3 seconds is sluggish in bilateral fingers. Respiratory: Airway is patent Trachea midline Respiratory effort is even, unlabored. GI: Reports nausea, vomiting. : No signs and/or symptoms were reported regarding the genitourinary system. Derm: No signs and/or symptoms reported regarding the dermatologic system. Musculoskeletal: Circulation, motion, and sensation intact. 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 - Social history:: Smoking status: Patient reports the use of cigarette tobacco products, denies chronic smoking, but will smoke occasionally. Screenin:00 Abuse screen: Denies threats or abuse. Denies injuries from another. Nutritional zb screening: No deficits noted. Tuberculosis screening: No symptoms or risk factors identified. Fall Risk None identified. Assessment: 15:41 Reassessment: Patient appears in no apparent distress at this time. Patient and/or ph family updated on plan of care and expected duration. Pain level reassessed. Patient is alert, oriented x 3, equal unlabored respirations, skin warm/dry/pink. Pt resting comfortably, denies pain, SOB, or nausea at this time. 16:41 Reassessment: Patient appears in no apparent distress at this time. Patient and/or zb family updated on plan of care and expected duration. Pain level reassessed. Patient is alert, oriented x 3, equal unlabored respirations, skin warm/dry/pink. pt ambulated to restroom with steady gait and unlabored respirations. 17:41 Reassessment: Patient appears in no apparent distress at this time. Patient and/or zb family updated on plan of care and expected duration. Pain level reassessed. Patient is alert, oriented x 3, equal unlabored respirations, skin warm/dry/pink. 18:00 Reassessment: Patient appears in no apparent distress at this time. Patient and/or zb family updated on plan of care and expected duration. Pain level reassessed. Patient is alert, oriented x 3, equal unlabored respirations, skin warm/dry/pink. pt tolerating dinner well. family at bedside requesting chest x-ray. ERP notified. D/C pending chest x-ray. Vital Signs: 13:52 BP 139 / 79; Pulse 74; Resp 20; Temp 98.9; Pulse Ox 100% on 2 lpm NC; Weight 45.36 kg; zb Height 5 ft. 2 in. (157.48 cm); Pain 0/10; 15:42 BP 115 / 98; Pulse 66; Resp 16; Pulse Ox 100% on 2 lpm NC; ph 16:30 BP 152 / 72; Pulse 65; Resp 16; Pulse Ox 100% on 2 lpm NC; ph 17:24 BP 153 / 73; Pulse 66; Resp 16; Pulse Ox 100% on 2 lpm NC; ph 13:52 Body Mass Index 18.29 (45.36 kg, 157.48 cm) zb ED Course: 13:50 Patient arrived in ED. ph 13:50 Merlene Mcmahon, FARHAN is Primary Nurse. ph 13:55 Chanel Coronel FNP-C is [facility]. kb 13:55 Steve Tapia MD is Attending Physician. kb 13:57 Triage completed. zb 14:00 Arm band placed on Patient placed in an exam room, on a stretcher, on oxygen, on zb panel monitor, on pulse oximetry. 14:00 Patient has correct armband on for positive identification. Bed in low position. Call zb light in reach. Side rails up X 1. monitor and storage bin tender on. Pulse ox on. NIBP on. 14:03 Amira Shannon RN is Primary Nurse. zb 16:20 Inserted saline lock: 22 gauge in right antecubital area, using aseptic technique. zb 18:01 No provider procedures requiring assistance completed. zb 18:15 Chest Single View XRAY In Process Unspecified. EDMS 18:59 IV discontinued, intact, bleeding controlled, No redness/swelling at site. Pressure zb dressing applied. Administered Medications: 14:23 Drug: Zofran (Ondansetron) 4 mg Route: IVP; Site: right antecubital; zb 15:00 Follow up: Response: No adverse reaction zb 14:24 Drug: NS 0.9% 1000 ml Route: IV; Rate: 1000 ml; Site: right antecubital; zb 16:30 Follow up: Response: No adverse reaction; IV Status: Completed infusion; IV Intake: zb 1000ml 15:40 Drug: NS 0.9% 1000 ml Route: IV; Rate: 1000 ml; Site: right antecubital; zb 17:00 Follow up: Response: No adverse reaction; IV Status: Completed infusion; IV Intake: zb 1000ml Intake: 16:30 IV: 1000ml; Total: 1000ml. zb 17:00 IV: 1000ml; Total: 2000ml. zb Outcome: 17:52 Discharge ordered by . kb 18:59 Discharged to home via wheelchair, with family. zb 18:59 Condition: stable 18:59 Discharge instructions given to patient, family, Instructed on discharge instructions, follow up and referral plans. Demonstrated understanding of instructions, follow-up care, Prescriptions given X 19:00 Patient left the ED. zb Signatures: Dispatcher [employer] EDChanel Avila, REUBENC STEPHEN-Merlene Hatch RN Amira Moya ph, RN RN zb
--- NOTE | 2020-05-09 17:53 | EDPHYS ---
Physician Documentation [facility] Name: Ashley Simon Age: 69 yrs Sex: Female : 1950 Arrival Date: 05/09/2020 Time: 13:50 Bed 16 Private MD: ED Physician Steve Tapia HPI: 05/09 14:07 This 69 yrs old Female presents to ER via EMS with complaints of nausea and kb vomiting. 14:07 The patient presents to the emergency department with nausea, vomiting. Onset: The kb symptoms/episode began/occurred 3 day(s) ago. Possible causes: COVID. The symptoms are aggravated by not eating The symptoms are alleviated by food . Associated signs and symptoms: Pertinent positives: nausea, vomiting, Pertinent negatives: abdominal pain, anorexia, belching, constipation, diarrhea, dysuria, fever, flatulence, GI bleeding, hematuria, vaginal discharge. Severity of symptoms: At their worst the symptoms were mild in the emergency department the symptoms are unchanged. The patient has not experienced similar symptoms in the past. The patient has been recently seen by a physician:. Pt reports she was diagnosed with COVID 4 days ago. States she does not have fever, cough, shortness of breath or chest pain. Reports nausea when she doesn't eat and weakness. States "When I don't have any food on my belly I get nauseated. I have vomited about once per day for 3 days." Pt states she is able to tolerate PO intake. no abd pain or tenderness noted. . 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 - Social history:: Smoking status: Patient reports the use of cigarette tobacco products, denies chronic smoking, but will smoke occasionally. ROS: 14:10 Constitutional: Negative for fever, chills, and weight loss, Cardiovascular: Negative kb for chest pain, palpitations, and edema, Respiratory: Negative for shortness of breath, cough, wheezing, and pleuritic chest pain, Back: Negative for injury and pain, MS/Extremity: Negative for injury and deformity, Skin: Negative for injury, rash, and discoloration, Neuro: Negative for headache, weakness, numbness, tingling, and seizure. 14:10 Abdomen/GI: Positive for nausea and vomiting, Negative for abdominal pain, diarrhea, constipation. Exam: 14:10 Constitutional: This is a well developed, well nourished patient who is awake, alert, kb and in no acute distress. Head/Face: Normocephalic, atraumatic. Chest/axilla: Normal chest wall appearance and motion. Nontender with no deformity. No lesions are appreciated. Cardiovascular: Regular rate and rhythm with a normal S1 and S2. No gallops, murmurs, or rubs. Normal PMI, no JVD. No pulse deficits. Respiratory: Lungs have equal breath sounds bilaterally, clear to auscultation and percussion. No rales, rhonchi or wheezes noted. No increased work of breathing, no retractions or nasal flaring. Abdomen/GI: Soft, non-tender, with normal bowel sounds. No distension or tympany. No guarding or rebound. No evidence of tenderness throughout. Skin: Warm, dry with normal turgor. Normal color with no rashes, no lesions, and no evidence of cellulitis. MS/ Extremity: Pulses equal, no cyanosis. Neurovascular intact. Full, normal range of motion. Neuro: Awake and alert, GCS 15, oriented to person, place, time, and situation. Cranial nerves II-XII grossly intact. Motor strength 5/5 in all extremities. Sensory grossly intact. Cerebellar exam normal. Normal gait. Vital Signs: 13:52 BP 139 / 79; Pulse 74; Resp 20; Temp 98.9; Pulse Ox 100% on 2 lpm NC; Weight 45.36 kg; zb Height 5 ft. 2 in. (157.48 cm); Pain 0/10; 15:42 BP 115 / 98; Pulse 66; Resp 16; Pulse Ox 100% on 2 lpm NC; ph 16:30 BP 152 / 72; Pulse 65; Resp 16; Pulse Ox 100% on 2 lpm NC; ph 17:24 BP 153 / 73; Pulse 66; Resp 16; Pulse Ox 100% on 2 lpm NC; ph 13:52 Body Mass Index 18.29 (45.36 kg, 157.48 cm) zb MDM: 13:55 Patient medically screened. kb 14:10 Data reviewed: vital signs, nurses notes. Data interpreted: Pulse oximetry: on room air kb is 100 %. Interpretation: normal. 15:56 Counseling: I had a detailed discussion with the patient and/or guardian regarding: the historical points, exam findings, and any diagnostic results supporting the discharge/admit diagnosis, lab results, the need for outpatient follow up, a family practitioner, to return to the emergency department if symptoms worsen or persist or if there are any questions or concerns that arise at home. 17:54 Data reviewed: I have discussed the patient's presentation/case with the attending Emergency Department Physician;. 05/09 14:04 Order name: CBC with Diff; Complete Time: 14:57 kb 05/09 14:04 Order name: Basic Metabolic Panel; Complete Time: 15:03 kb 05/09 15:58 Order name: Basic Metabolic Panel; Complete Time: 17:50 kb 05/09 18:00 Order name: Chest Single View XRAY; Complete Time: 18:35 kb 05/09 14:04 Order name: IV Start; Complete Time: 14:15 kb 05/09 14:04 Order name: Diet Regular; Complete Time: 14:05 kb Administered Medications: 14:23 Drug: Zofran (Ondansetron) 4 mg Route: IVP; Site: right antecubital; zb 15:00 Follow up: Response: No adverse reaction zb 14:24 Drug: NS 0.9% 1000 ml Route: IV; Rate: 1000 ml; Site: right antecubital; zb 16:30 Follow up: Response: No adverse reaction; IV Status: Completed infusion; IV Intake: zb 1000ml 15:40 Drug: NS 0.9% 1000 ml Route: IV; Rate: 1000 ml; Site: right antecubital; zb 17:00 Follow up: Response: No adverse reaction; IV Status: Completed infusion; IV Intake: zb 1000ml Disposition: 05/10 05:09 Co-signature as Attending Physician, Steve Tapia MD I agree with the assessment and kdr plan of care. Disposition: 05/09/20 17:52 Discharged to Home. Impression: Dehydration, Coronavirus infection, unspecified, Weakness, Hyponatremia. - Condition is Stable. - Discharge Instructions: Dehydration, Adult, Weakness, [id number], COVID-19. - Medication Reconciliation Form, Thank You Letter, Antibiotic Education, Prescription Opioid Use form. - Follow up: Emergency Department; When: As needed; Reason: Worsening of condition. Follow up: Private Physician; When: 2 - 3 days; Reason: Recheck today's complaints, Continuance of care, Re-evaluation by your physician. Signatures: Dispatcher [employer] EDMS Chanel Coronel, J2EE CONSULTANT-C J2EE CONSULTANT-Ckb Steve Tapia MD MD kdr Brown, Zipporah, RN RN zb Corrections: (The following items were deleted from the chart) 05/09 17:52 17:52 05/09/2020 17:52 Discharged to Home. Impression: Dehydration; Coronavirus kb infection, unspecified; Weakness. Condition is Stable. Forms are Medication Reconciliation Form, Thank You Letter, Antibiotic Education, Prescription Opioid Use. Follow up: Emergency Department; When: As needed; Reason: Worsening of condition. Follow up: Private Physician; When: 2 - 3 days; Reason: Recheck today's complaints, Continuance of care, Re-evaluation by your physician. kb 19:00 17:52 05/09/2020 17:52 Discharged to Home. Impression: Dehydration; Coronavirus zb infection, unspecified; Weakness; Hyponatremia. Condition is Stable. Discharge Instructions: Dehydration, Adult, Weakness, [id number], COVID-19. Forms are Medication Reconciliation Form, Thank You Letter, Antibiotic Education, Prescription Opioid Use. Follow up: Emergency Department; When: As needed; Reason: Worsening of condition. Follow up: Private Physician; When: 2 - 3 days; Reason: Recheck today's complaints, Continuance of care, Re-evaluation by your physician. kb
--- NOTE | 2020-05-09 18:27 | RAD REPORT ---
EXAM DESCRIPTION: Tino Single View05/09/2020 6:15 pm CLINICAL HISTORY: Cough COMPARISON: October 2019 FINDINGS: The lungs appear clear of acute infiltrate. The heart is normal size IMPRESSION: No acute abnormalities displayed
[2020-05-09 21:34] VITALS: TEMP 98.9; O2SAT 100
[2020-05-09 21:39] VITALS: BP 153/73
== END 2020-05-09 19:00 | disposition home or self-care (01) ==
LOC: ER 13:38
DX: U07.1 COVID-19 (principal); E86.0 Dehydration; E87.1 Hypo-osmolality and hyponatremia; R53.1 Weakness; I10 Essential (primary) hypertension; F17.210 Nicotine dependence, cigarettes, uncomplicated
CPT/HCPCS: 96361; 85025; 80048 ×2; 36415; 71045; 96374; 99285; J7030 ×2; J2405

== ENCOUNTER 2020-11-14 09:40 | Day surgery (SDC) | payer OTHER ==
--- NOTE | 2020-11-11 09:58 | RAD REPORT ---
EXAM DESCRIPTION: Tino Hair (2 Views)11/11/2020 9:53 am CLINICAL HISTORY: Preop cardiac catheterization COMPARISON: 2019 FINDINGS: The lungs appear clear of acute infiltrate. The heart is normal size IMPRESSION: No acute abnormalities displayed
[2020-11-11 11:06] LABS: Potassium 3.9 mmol/L (3.5-5.1)
[2020-11-11 11:13] LABS: Absolute Lymphocytes (CBC) 2.2 K/uL (0.7-4.9); Basophils % 1.4 % (0-1.3); Lymphocytes % 36.9 % (15.3-44.8); MPV 9.6 fL (7.6-11.3); RBC Red Blood Cell Count 3.73 M/uL (3.86-4.86)
[2020-11-11 11:18] LABS: Protime INR 0.89
[2020-11-14] MEDS ORDERED: HEPA 1000U/500MLS 2,000 UNIT/1,000 ML BAG IV ONE (10:12)
[2020-11-14] MEDS ORDERED: NA CHLORIDE 0.9% 500 ML ONE (10:12)
[2020-11-14] MEDS ORDERED: NA CHLORIDE 0.9% 0 ML ONE (10:13)
[2020-11-14] MEDS ORDERED: ATROPINE SULF 1 MG/10 ML SYR IV ONE (10:13)
[2020-11-14] MEDS ORDERED: FENTANYL CITR 100 MCG/2 ML ONE (10:13)
[2020-11-14] MEDS ORDERED: MIDAZOLAM HCL 2 MG/2 ML INJ ONE (10:13)
[2020-11-14] MEDS ORDERED: HEPARIN 10,000 UNIT/10 ML VIAL IV ONE (11:17)
--- NOTE | 2020-11-14 13:13 | OP ---
Date of Procedure: 11/14/2020 Surgeon: Dheeraj Sesay MD Pants Maker: Bi Austin. Indication: Ms. Simon is 70 years old. 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 Procedure In Detail: She was brought to the sanitation laborer today as an outpatient on 11/14/2020, prepped a nd draped in routine sterile fashion. The procedure was abdominal angiogram with selective SMA angio gram. A 6-Tamazight sheath introduced in the right common femoral artery successfully. 10 mL of Xyloca ine were used. Seldinger technique was used. Angiography there was normal. StarClose was used to c lose the case. A pigtail catheter was advanced initially on top of the renals and an abdominal angio gram with runoff showed normal renals, normal iliacs, normal aortas, normal celiac artery. There was a 70% stenosis in the ostial and superior mesenteric artery. A lateral view 90 degrees was used to selective angiography of the SMA using a AMBROSE catheter confirming a 70% stenosis and about a 40 mm gr adient. There were no complications. Blood loss was 5 mL. Postoperative Diagnosis: PAD, severe SMA disease. Plan: To have her come back to have an SMA angioplasty and stent in a different time, preferably nex t week. The patient has already received significant amount of contrast. She will go home today aft er 2 hours and was scheduled for sometime next week for the above-mentioned procedures. GHAZAL/WILLIS Voice ID: [id number] Report ID: [id number]
[2020-11-14 15:46] VITALS: BP 158/64; O2SAT 99
== END 2020-11-14 15:46 | disposition home or self-care (01) ==
LOC: CCL 09:40
DX: K55.1 Chronic vascular disorders of intestine (principal); I12.9 Hypertensive chronic kidney disease with stage 1 through stage 4 chronic kidney disease, or unspecified chronic kidney disease; E11.22 Type 2 diabetes mellitus with diabetic chronic kidney disease; N18.2 Chronic kidney disease, stage 2 (mild); I34.0 Nonrheumatic mitral (valve) insufficiency; I65.23 Occlusion and stenosis of bilateral carotid arteries; E78.2 Mixed hyperlipidemia; K21.9 Gastro-esophageal reflux disease without esophagitis; Z20.822 Contact with and (suspected) exposure to COVID-19
CPT/HCPCS: 85025; 80048; 36415; 85610; 82947 ×2; 85730; 71046; 36200; 75625; U0002; C1893; J2250; J3010; J7040; J1644; 85347; J0583

== ENCOUNTER 2020-11-21 06:40 | Day surgery (SDC) | payer OTHER ==
[2020-11-21] MEDS ORDERED: LIDOCAINE 1% 20 ML MDV ONE (07:12)
[2020-11-21] MEDS ORDERED: FENTANYL CITR 100 MCG/2 ML ONE (07:13)
[2020-11-21] MEDS ORDERED: MIDAZOLAM HCL 2 MG/2 ML INJ ONE (07:13)
[2020-11-21] MEDS ORDERED: HEPA 1000U/500MLS 1,000 UNIT/500 ML BAG IV ONE (07:13)
[2020-11-21] MEDS ORDERED: NITROGLYCERIN/D5W 0 MG/0 ML BTL IV ONE (07:14)
[2020-11-21] MEDS ORDERED: ATROPINE SULF 1 MG/10 ML SYR IV ONE (07:14)
[2020-11-21] MEDS ORDERED: NA CHLORIDE 0.9% 0 ML ONE (07:14)
[2020-11-21] MEDS ORDERED: NITROGLYCERIN 100 MCG/ML SYR (for cath lab use only) IV ONE (07:14)
[2020-11-21] MEDS ORDERED: NA CHLORIDE 0.9% 500 ML ONE (07:15)
[2020-11-21 07:40] LABS: Potassium 4.5 mmol/L (3.5-5.1)
[2020-11-21] MEDS ORDERED: HEPARIN 10,000 UNIT/10 ML VIAL IV ONE (07:56)
[2020-11-21] MEDS ORDERED: PRASUGREL (EFFIENT) 10 MG TAB ONE (08:17)
[2020-11-21] MEDS ORDERED: ACETYLCYST 20% 4 ML VIAL IH ONE (08:17)
[2020-11-21 09:58] VITALS: TEMP 98
[2020-11-21 11:46] VITALS: BP 152/63; O2SAT 99
--- NOTE | 2020-11-21 14:17 | OP ---
Surgeon: Dheeraj Sesay MD Vp Production: Bi Austin. The patient will remain in the hospital for 4 hours of observation after the procedure and she will g o home after that. I will see her in the office in 2 weeks. Reason For Admission: Severe SMA stenosis. Procedure Performed: Abdominal angiogram with primary stent of the superior mesenteric artery. History Of Present Illness: Ms. Simon was found to have a superior mesenteric artery stenosis follo wing abdominal ischemia symptoms. Abdominal angiogram approximately a week ago showed a severe ostia l proximal superior mesenteric artery of 70% to 80% stenosis. Procedure In Detail: She was brought to the labourers today and as a staged procedure, prepped and dr guido in routine sterile fashion. Given Versed for sedation. A 7-Bulgarian sheath introduced in the rig ht common femoral artery successfully. Angio-Seal was used to close the case. Angiography there was normal. A short AMBROSE guide was used to cannulate the SMA successfully. A Glidewire was used to crossbar switch adjuster ss the lesion successfully. A 6 x 19 mm Omnilink stent was deployed at 11 atmospheres for 30 seconds . There was 0% residual. No complications. Blood Loss: 5 mL. Postoperative Diagnosis: Peripheral arterial disease, status post successful primary stent of the oliva perior mesenteric artery. The patient received 5000 heparin during the procedure, 60 mg of Effient during the procedure. She w ill be going home on her home medication plus 75 mg of Plavix daily. Anesthesia: Total conscious sedation was 60 minutes. GHAZAL/WILLIS Voice ID: [id number] Report ID: [id number]
== END 2020-11-21 12:00 | disposition home or self-care (01) ==
LOC: CCL 06:40
DX: K55.1 Chronic vascular disorders of intestine (principal); I12.9 Hypertensive chronic kidney disease with stage 1 through stage 4 chronic kidney disease, or unspecified chronic kidney disease; E11.22 Type 2 diabetes mellitus with diabetic chronic kidney disease; N18.2 Chronic kidney disease, stage 2 (mild); I34.0 Nonrheumatic mitral (valve) insufficiency; I65.23 Occlusion and stenosis of bilateral carotid arteries; I25.10 Atherosclerotic heart disease of native coronary artery without angina pectoris; E78.2 Mixed hyperlipidemia; K21.9 Gastro-esophageal reflux disease without esophagitis; I70.213 Atherosclerosis of native arteries of extremities with intermittent claudication, bilateral legs; Z20.822 Contact with and (suspected) exposure to COVID-19
CPT/HCPCS: 80048; 36415; 36245; 37236; U0003; C1893; C1760; C1725; C1769; C1887; J2250; J3010; J7040; J1644; 36200; J0583

== ENCOUNTER 2020-12-18 12:06 | Emergency (ER) | payer OTHER ==
--- OUTSIDE RECORDS SUMMARY | 2020-12-18 12:10 | XMS REPORT | Continuity of Care Document ---
:1950 Author Organization [facility] t Address [address] [place] [address] Care Team Providers Name Role Phone Kevin MAGANA Primary Care Physician Rehrer Navjot DELUCA Attending Clinician STEPAN Attending Clinician Unavailable MD JODY YING Attending Clinician Unavailable STEPAN Admitting Clinician Unavailable MD JODY YING Admitting Clinician Unavailable Payers Payer Name Policy Type Policy Effective Date Expiration Source Number Date WORKERS COMPTEXAS [id number] 2014 [place] [employer] 65 00:00:00 Yazdanism [id number] 15-PresentWorkers Comp CIGNA [id number] [id number] 2020-Pr esentHMO Problems Condition Condition Condition Status Onset [...] Practic 00 e Carotid Carotid Disease Active [place] artery artery 6-04 [facility] disease disease 00:00: st 00 Stenosis Stenosis Disease Active Overview: [place] of left of left 11-27 [place] di carotid carotid 00:00: g of this st artery artery 00 note might be different from the original. Added automatic ally from request for surgery [id number] Complex Complex Disease Active 2015-06 [place] tear of tear of 2-15 [facility] medial medial 00:00: st meniscus meniscus 00 of right of right knee as knee as current current injury injury Allergies, Adverse Reactions, Alerts This patient has no known allergies or adverse reactions. Family History Family Member Diagnosis Comments Start Date Stop Date Source Natural father Hypertension [place] Yazdanism Natural father Mental illness Catato gustabo Khan Natural father Seizures [facility] Natural father Stroke [facility] Natural mother Cancer [facility]odist Natural mother Kidney disease [place] gustabo Khan Social History Social Habit Start Date Stop Date Quantity Comments Source Tobacco use and 2019-12-04 2019-12-04 Never used [facility] ethodist exposure 00:00:00 00:00:00 Alcohol intake 2019-12-04 2019-12-04 Current [facility] thodist 00:00:00 00:00:00 non-drinker of alcohol (finding) Alcohol Comment 2019-11-28 2019-11-28 Wine - rare - Catato n Yazdanism 00:00:00 00:00:00 none since started Lorazepam Sex Ass[birth year] [facility] ethodist 00:00:00 00:00:00 Smoking Status Start Date Stop Date Source Never smoker [place] Shalondais t Medications Ordered Filled Start Stop Current Ordering Indication Dosage Frequency Signature Comments Components Source Medication Medication Date Date Medication? Clinician (SIG) Name Name lisinopriL 2020-0 Yes 20mg QD Take 20 mg [place] 20 mg 6-06 by mouth [facility] tablet 1 15:30: every st tablet, 46 morning. hydroCHLORO 20/12.5 mg thiazide 25 MG tablet 0.5 tablet metFORMIN 2020-0 Yes 500mg Q.5D Take [address] (GLUCOPHAGE 6-06 mg by [facility] ) 500 mg 15:30: mouth 2 st tablet 46 (two) times a day with meals. metoprolol 2020-0 Yes 50mg Q.5D Take 50 mg [place] succinate 6-06 by mouth 2 Meth valentín XL 15:30: (two) st (TOPROL-XL) 46 times a 50 mg 24 hr day. tablet pantoprazol 2020-0 Yes 40mg QD Take 40 mg [place] e 6-06 by mouth Methodi (PROTONIX) 15:30: every st 40 MG EC 46 morning. tablet pravastatin 2020-0 Yes 40mg QD Take 40 mg [place] (PRAVACHOL) 6-06 by mouth Meth valentín 40 mg 15:30: nightly. st tablet 46 aspirin 2020-0 Yes 81mg QD Take 81 mg [place] (ECOTRIN) 6-06 by mouth Method i 81 MG 15:30: every st enteric 46 morning. coated tablet LORAZepam 2020-0 Yes .5mg Q6H Take 0.5 [place] (ATIVAN) 6-06 mg by [facility] 0.5 MG 15:30: mouth st tablet 46 every 6 (six) hours as needed for anxiety. meloxicam 2017-0 Yes 15mg QD Take 1 [place] [...] route. dicyclomine dicyclomine No 1 QID dicyclomin [facility] 20 mg 20 mg e 20 mg Family tablet Take tablet Take tablet Practic 1 tablet 4 1 tablet 4 Take 1 e times a day times a day tablet 4 by oral by oral times a route as route as day by needed. needed. oral route as needed. lisinopril lisinopril No 1 Q1D lisinopril [facility] 5 mg tablet 5 mg tablet 5 mg F amily Take 1 Take 1 tablet Practic tablet tablet Take 1 e every day every day tablet by oral by oral every day route. route. by oral route. metformin metformin No 1 BID metformin [facility] 500 mg 500 mg 500 mg Family tablet Take tablet Take tablet Practic 1 tablet 1 tablet Take 1 e twice a day twice a day tablet by oral by oral twice a route. route. day by oral route. metoprolol metoprolol No 1 Q1D metoprolol [facility] succinate succinate succinate Family ER 25 mg [...] Time Observation Value Comments Source Height 2020-03-27 00:00:00 62 [in_i] [facility] BMI (Body Mass 2020-03-27 00:00:00 18.3 kg/m2 [facility]) [facility] Body Weight 2020-03-27 00:00:00 100 [lb_av] [facility] Systolic blood 2020-10-03 18:29:03 172 mm[Hg] Catato n Yazdanism pressure Diastolic blood 2020-10-03 18:29:03 109 mm[Hg] [place]oy on Yazdanism pressure Heart rate 2020-10-03 18:29:03 74 /min Shahab Khan Body temperature 2020-10-03 18:29:03 36.78 Wendy Cata Khan Respiratory rate 2020-10-03 18:29:03 15 /min Cata Khan Oxygen saturation in 2020-10-03 18:29:03 99 /min Shahab Khan Arterial blood by Pulse oximetry Procedures Procedure Date / Time Performing Clinician Source Performed US PELVIC TRANSABDOMINAL 2020-10-03 19:30:00 Rafael Ruiz US PELVIC TRANSVAGINAL 2020-10-03 19:30:[address] ABDOMEN PELVIS W 2020-10-03 17:28:05 Rafael Ruiz CONTRAST POC GLUCOSE 2020-10-03 15:46:00 Rafael Ruiz URINE CULTURE 2020-10-03 15:40:00 Rafael Ruiz HC COMPLETE BLD COUNT 2020-10-03 15:40:00 Rafael Ruiz W/AUTO DIFF COMPREHENSIVE METABOLIC 2020-10-03 15:40:00 Rehrer, Rafael Khan PANEL LIPASE LEVEL 2020-10-03 15:40:00 RehreRafael warner URINALYSIS SCREEN AND 2020-10-03 15:40:00 Rehrer, Rafael Khan MICROSCOPY, WITH REFLEX TO CULTURE LACTIC ACID LEVEL, SEPSIS 2020-10-03 15:40:00 Rehrer, Rafael Khan - NOW AND REPEAT 2X EVERY 3 HOURS MAGNESIUM LEVEL 2020-10-03 15:40:00 RehrerRafael PHOSPHORUS LEVEL 2020-10-03 15:40:00 RehrerRafael ESTIMATED GFR 2020-10-03 15:40:00 RehRafael guo Plan of Care Planned Activity Planned Date Details Comments Source Future Scheduled Test 2021-01-26 [facility] = INFLUENZA VACCINE] Future Scheduled Test 2001-10-23 BREAST CANCER [facility] 00:00:00 SCREENING [code = BREAST CANCER SCREENING] Future Scheduled Test 2001-10-23 COLONOSCOPY SCREENING [facility] 00:00:00 [code = COLONOSCOPY SCREENING] Future Scheduled Test 2001-10-23 SHINGLES VACCINES [facility] 00:00:00 (#1) [code = SHINGLES VACCINES (#1)] Future Scheduled Test 1969-10-23 Hepatitis C screening [facility] 00:00:00 (procedure) [code = 046320393] Future Scheduled Test 1963 COVID-19 VACCINE (1) [facility] 00:00:00 [code = COVID-19 VACCINE (1)] Future Scheduled Test 1957-10-23 65+ PNEUMOCOCCAL [facility] Y[facility]danism 00:00:00 VACCINE (1 of 4 - PCV13) [code = 65+ PNEUMOCOCCAL VACCINE (1 of 4 - PCV13)] Instructions [facility] Family Practice Encounters Start End Encounter Admission Attending Care Care Encounter Source Date/Time Date/Time Type Type Clinicians Facility Department ID 2020-10-03 2020-10-03 Emergency REHRER, [facility] [id number] [place] 00:00:00 00:00:[address] 2020-03-27 2020-03-27 [facility] [place] - [id number] [place] 00:00:00 00:00:00 [facility] 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 2019-11-30 2019-12-02 Inpatient STEPAN [facility] 027 [id number] [place] 00:00:00 00:00:00 , CHRISTO 707 [place] 2019-11-28 2019-11-28 Outpatient [facility] [id number] [place] 00:00:00 00:00:00 , CHRISTO 367 [place] 2019-11-28 2019-11-28 Outpatient [facility] [id number] [place] 00:00:00 00:00:00 , CHRISTO 327 [place] 2019-11-28 2019-11-28 Outpatient [facility] [id number] [place] 00:00:00 00:00:00 , CHRISTO [address] Results Test Description Test Test Results Result Source Time Comments Comments US Pelvic 2020-09- [facility], Radiology [facility] Transvaginal 08 Results Incoming - Meth odist 19:49:50 10/03/2020 7:53 PM CDT EXAMINATION: US PELVIC TRANSABDOMINAL, US PELVIC TRANSVAGINALCLINICAL HISTORY: 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 Grayscale, color Doppler, and spectral waveform analysis of the ovarian vessels was performed.FINDINGS:The uterus measures 6.6 x 2.5 x 3.7 cm The endometrial stripe measures 0.3 cm. The right and left ovary are not well seen.TRANSVAGINAL IMAGING: The uterus is retroflexed. The endometrium is not enlarged. There are no uterine masses present.The left and right ovaries are not well seen. There are no adnexal masses present.IMPRESSION:1. The uterus is retroflexed.2. The uterine endometrium is not enlarged. Minimal fluid is seen within the endometrium.3. The left and right ovaries are not well seen.4. There are no adnexal masses. 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 Grayscale, color Doppler, and spectral waveform analysis of the ovarian vessels was performed.FINDINGS:The uterus measures 6.6 x 2.5 x 3.7 cm The endometrial stripe measures 0.3 cm. The right and left ovary are not well seen.TRANSVAGINAL IMAGING: The uterus is retroflexed. The endometrium is not enlarged. There are no uterine masses present.The left and right ovaries are not well seen. There are no adnexal masses present.IMPRESSION:1. The uterus is retroflexed.2. The uterine endometrium is not enlarged. Minimal fluid is seen within the endometrium.3. The left and right ovaries are not well seen.4. There are no adnexal masses. [id number] CT Abdomen Pelvis Interface, Radiology [place] W Contrast 08 Results Incoming - Method ist 17:43:29 10/03/2020 5:46 PM CDT EXAMINATION: CT ABDOMEN PELVIS W CONTRASTCLINICAL HISTORY: RLQ abdominal painTECHNIQUE: Multiple axial CT images of the abdomen and pelvis are obtained with the use of intravenous contrast. Coronal and sagittal 3-D reconstructions are obtained.CT scans are performed using radiation dose reduction techniques. Technical factors are evaluated and adjusted to ensure appropriate moderation of exposure. Automated dose management technology is applied to adjust radiation exposure while achieving a diagnostic quality image.COMPARISON: None.FINDINGS:Visualized LOWER LUNG ZONES are clear.The LIVER does not demonstrate any masses. There is no intrahepatic biliary dilatation.The GALLBLADDER does not have any wall thickening or any pericholecystic fluid.The PANCREAS does not have any focal inflammatory change. There are no masses identified.The SPLEEN and ADRENAL GLANDS have a unremarkable CT appearance.The ABDOMINAL AORTA has no aneurysmal dilatation. There is no retroperitoneal adenopathy. The KIDNEYS do not have any solid renal mass or hydronephrosis.CT PELVIS: There is no evidence of any pneumoperitoneum. The stomach and duodenum are unremarkable. There is no bowel obstruction nor any dilated loops of bowel.Diverticulosis is present. There is no focal diverticulitis. Moderate colonic fecal retention is present. The appendix is is not well seen. There is no focal inflammation seen in the right lower quadrant.The bladder does not demonstrate any masses. There is no inguinal hernia.The osseous structures are unremarkable.IMPRESSION: 1. The appendix is not clearly identified. There is no focal inflammation seen in the right lower quadrant.2. Extensive colonic fecal retention is present.3. The small bowel and colon do not have any focal inflammatory change.4. There is no intra-abdominal abscess.[id number] Urine culture 2020-10-03 15:58:24 Test Item Value Reference Range Interpretation Comme nts Urine culture (test code = 3492090) SEE COMMENT Bacteriuria screen negative. [facility] coronavirus 2 RNA [Presence] in Respiratory specimen by DEVANTE with probe [id number] 01:52:26 Test Item Value Reference Range Interpretation Comments SARS coronavirus 2 RNA Not detected Not-Detected [Presence] in Respiratory specimen by DEVANTE with probe detection (test code = 79127-2)
[2020-12-18] MEDS ORDERED: NA CHLORIDE 0.9% 1,000 ML ONE (13:19)
[2020-12-18 13:26] LABS: Absolute Lymphocytes (CBC) 1.5 K/uL (0.7-4.9); Basophils % 0.7 % (0-1.3); Hematocrit 30.4 % (36.0-45.0); Lymphocytes % 19.8 % (15.3-44.8); RBC Red Blood Cell Count 3.56 M/uL (3.86-4.86)
[2020-12-18 13:36] LABS: ALT/SGPT 14 U/L (12-78); AST/SGOT 9 U/L (15-37); Albumin 3.6 g/dL (3.4-5.0); Alkaline Phosphatase 85 U/L (45-117); BUN Blood Urea Nitrogen 29 mg/dL (7-18); Bicarbonate 24 mmol/L (21-32); Bilirubin Direct < 0.1 mg/dL (0-0.2); Bilirubin Total 0.2 mg/dL (0.2-1.0); Glucose Level 109 mg/dL (74-106); Lipase 174 U/L (73-393); Protein, Total 7.8 g/dL (6.4-8.2); Sodium Level 138 mmol/L (136-145)
--- NOTE | 2020-12-18 14:16 | EDPHYS ---
Physician Documentation [facility] Name: Ashley Simon Age: 70 yrs Sex: Female : 1950 Arrival Date: 12/18/2020 Time: 12:09 Bed 28 Private MD: ED Physician Jeff Adler HPI: 12/18 12:41 This 70 yrs old Female presents to ER via Ambulatory with complaints of rn Weakness, Diarrhea. 12:42 The patient presents to the emergency department with diarrhea. Onset: The rn symptoms/episode began/occurred at an unknown time. Possible causes: unknown. The symptoms are aggravated by nothing. The symptoms are alleviated by nothing. Severity of symptoms: At their worst the symptoms were moderate in the emergency department the symptoms have improved. It is unknown whether or not the patient has had similar symptoms in the past. The patient has been recently seen by a physician:. Reports diarrhea, unknown onset, assoc with generalized fatigue and weakness. No fever. Reports chronic anemia and fatigue due to that, now worse with watery diarrhea. No blood in stool. Seen by pcp with recent bloodwork that "looked ok". Sent here for IV fluids, per patient. Denies abd pain. . 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 - Social history:: Smoking status: . - Family history:: not pertinent. - Hospitalizations: : No recent hospitalization is reported. ROS: 12:42 Constitutional: Negative for fever, chills Eyes: Negative for injury, pain, redness, rn and discharge, Cardiovascular: Negative for chest pain, palpitations, and edema, Respiratory: Negative for shortness of breath, cough, wheezing, and pleuritic chest pain, Abdomen/GI: Negative for abdominal pain, nausea, vomiting, and constipation, Back: Negative for injury and pain, : Negative for injury, bleeding, discharge, and swelling, MS/Extremity: Negative for injury and deformity, Skin: Negative for injury, rash, and discoloration, Neuro: Negative for headache, numbness, tingling, and seizure. Exam: 12:42 Constitutional: This is a well developed, well nourished patient who is awake, alert, rn and in no acute distress. Head/Face: Normocephalic, atraumatic. ENT: dry MM Cardiovascular: Regular rate and rhythm. No pulse deficits. Respiratory: No increased work of breathing, no retractions or nasal flaring. Abdomen/GI: Soft, non-tender Skin: Warm, dry MS/ Extremity: Pulses equal, no cyanosis. Neuro: Awake and alert, GCS 15 Vital Signs: 12:18 BP 138 / 75; Pulse 103; Resp 17; Temp 97.9(TE); Pulse Ox 100% on R/A; Weight 45.36 kg tw2 (R); Height 5 ft. 2 in. (157.48 cm); 12:40 BP 158 / 85; Pulse 94; Resp 18; Pulse Ox 99% on R/A; Weight 45.36 kg; Height 5 ft. 4 ld1 in. (162.56 cm); Pain 0/10; 13:50 BP 145 / 74; Pulse 80; Resp 18; Pulse Ox 100% on R/A; ld1 15:15 BP 156 / 76; Pulse 90; Resp 18; Pulse Ox 100% on R/A; ld1 12:40 Body Mass Index 17.17 (45.36 kg, 162.56 cm) ld1 MDM: 12:31 Patient medically screened. rn 14:14 Differential diagnosis: diverticulitis, viral gastroenteritis, gastroenteritis, rn dehydration. Data reviewed: vital signs, nurses notes, old medical records, lab test result(s), and as a result, I will discharge patient. Counseling: I had a detailed discussion with the patient and/or guardian regarding: the historical points, exam findings, and any diagnostic results supporting the discharge/admit diagnosis, lab results, the need for outpatient follow up, to return to the emergency department if symptoms worsen or persist or if there are any questions or concerns that arise at home. Response to treatment: the patient's symptoms have mildly improved after treatment, and as a result, I will discharge patient. Special discussion: I discussed with the patient/guardian in detail that at this point there is no indication for admission to the hospital. It is understood, however, that if the symptoms persist or worsen the patient needs to return immediately for re-evaluation. ED course: No acute findings in bloodwork today or bloodwork with pcp recently. No abd tenderness, improved with fluids. Will dc home with return precautions.. 12/18 12:41 Order name: Basic Metabolic Panel rn 12/18 12:41 Order name: CBC with Diff rn 12/18 12:41 Order name: Hepatic Function rn 12/18 12:41 Order name: Lipase rn 12/18 13:28 Order name: CBC with Automated Diff; Complete Time: 14:06 EDAK 12/18 13:36 Order name: Basic Metabolic Panel; Complete Time: 14:06 EDMS 12/18 12:41 Order name: IV Saline Lock; Complete Time: 13:12 rn 12/18 12:41 Order name: Labs collected and sent; Complete Time: 13:12 rn 12/18 13:36 Order name: Liver (Hepatic) Function; Complete Time: 14:06 EDMS 12/18 13:36 Order name: Lipase; Complete Time: 14:06 EDMS Administered Medications: 13:11 Drug: NS 0.9% 1000 ml Route: IV; Rate: 1000 ml; Site: left forearm; ld1 14:46 Drug: LoMOTIL (diphenoxylate-atropine) 2 tabs Route: PO; ld1 14:46 Drug: NS 0.9% 500 ml Route: IV; Rate: bolus; Site: left antecubital; ld1 Disposition: 12/18/20 14:15 Discharged to Home. Impression: Diarrhea, unspecified, Dehydration, Weakness. - Condition is Stable. - Discharge Instructions: Dehydration, Adult, Diarrhea, Adult, Weakness. - Medication Reconciliation Form, Thank You Letter, Antibiotic Education, Prescription Opioid Use form. - Follow up: Private Physician; When: As needed; Reason: Recheck today's complaints, Re-evaluation by your physician. - Problem is new. - Symptoms have improved. Signatures: Dispatcher [employer] EDMS Jeff Adler MD MD rn Wise, Tara, RN RN tw2 Angela Ware RN RN ld1 Corrections: (The following items were deleted from the chart) 15:15 14:15 12/18/2020 14:15 Discharged to Home. Impression: Diarrhea, unspecified; ld1 Dehydration; Weakness. Condition is Stable. Forms are Medication Reconciliation Form, Thank You Letter, Antibiotic Education, Prescription Opioid Use. Follow up: Private Physician; When: As needed; Reason: Recheck today's complaints, Re-evaluation by your physician. Problem is new. Symptoms have improved. rn
--- NOTE | 2020-12-18 14:16 | ER ---
Nurse's Notes [facility] Name: Ashley Simon Age: 70 yrs Sex: Female : 1950 Arrival Date: 12/18/2020 Time: 12:09 Bed 28 Private MD: Diagnosis: Diarrhea, unspecified;Dehydration;Weakness Presentation: 12/18 12:18 Chief complaint: Patient states: i have had multiple problems with me, i have diarrhea tw2 for over 3 days. but because i have been sick and this i have been weak and tired. Dr. Thomas told me to come here. Coronavirus screen: diarrhea, fatigue, Client presents with at least one sign or symptom that may indicate coronavirus-19. Standard/surgical mask placed on the client. Provider contacted for isolation considerations. Ebola Screen: Patient denies travel to an Ebola-affected area in the 21 days before illness onset. Initial Sepsis Screen: Does the patient meet any 2 criteria? No. Patient's initial sepsis screen is negative. Does the patient have a suspected source of infection? No. Patient's initial sepsis screen is negative. Risk Assessment: Do you want to hurt yourself or someone else? Patient reports no desire to harm self or others. Onset of symptoms was December 18, 2020. 12:18 Method Of Arrival: Ambulatory tw2 12:18 Acuity: MARGARITA 3 tw2 Triage Assessment: 12:20 General: Appears in no apparent distress. slender, well groomed, Behavior is calm, tw2 cooperative, appropriate for age. Pain: Denies pain. GI: Reports diarrhea. 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 - Social history:: Smoking status: . - Family history:: not pertinent. - Hospitalizations: : No recent hospitalization is reported. Screenin:40 Abuse screen: Denies threats or abuse. Denies injuries from another. Nutritional ld1 screening: Had unintentional weight loss of 10 pounds or more. Pt states she has lost over 70 lbs in one year. Tuberculosis screening: No symptoms or risk factors identified. Fall Risk None identified. Assessment: 12:40 General: Appears in no apparent distress. comfortable, Behavior is calm, cooperative, ld1 appropriate for age. General:. Pain: Denies pain. Neuro: Level of Consciousness is awake, alert, obeys commands, Oriented to person, place, time, situation, Appropriate for age. Cardiovascular: Denies chest pain, Capillary refill < 3 seconds Patient's skin is warm and dry. Respiratory: Airway is patent Respiratory effort is even, unlabored, Respiratory pattern is regular, symmetrical. GI: Abdomen is flat, non-distended, Reports diarrhea. : No signs and/or symptoms were reported regarding the genitourinary system. EENT: No signs and/or symptoms were reported regarding the EENT system. Derm: No signs and/or symptoms reported regarding the dermatologic system. Musculoskeletal: No signs and/or symptoms reported regarding the musculoskeletal system. 13:58 Reassessment: Patient appears in no apparent distress at this time. No changes from ld1 previously documented assessment. Patient and/or family updated on plan of care and expected duration. Pain level reassessed. Vital Signs: 12:18 BP 138 / 75; Pulse 103; Resp 17; Temp 97.9(TE); Pulse Ox 100% on R/A; Weight 45.36 kg tw2 (R); Height 5 ft. 2 in. (157.48 cm); 12:40 BP 158 / 85; Pulse 94; Resp 18; Pulse Ox 99% on R/A; Weight 45.36 kg; Height 5 ft. 4 ld1 in. (162.56 cm); Pain 0/10; 13:50 BP 145 / 74; Pulse 80; Resp 18; Pulse Ox 100% on R/A; ld1 15:15 BP 156 / 76; Pulse 90; Resp 18; Pulse Ox 100% on R/A; ld1 12:40 Body Mass Index 17.17 (45.36 kg, 162.56 cm) ld1 ED Course: 12:09 Patient arrived in ED. ds1 12:20 Triage completed. tw2 12:20 Arm band placed on. tw2 12:28 Angela Ware, RN is Primary Nurse. ld1 12:31 Jeff Adler MD is Attending Physician. rn 12:40 Patient has correct armband on for positive identification. Placed in gown. Bed in low ld1 position. Call light in reach. Side rails up X2. Pulse ox on. NIBP on. 12:40 No provider procedures requiring assistance completed. ld1 13:12 Inserted saline lock: 22 gauge in left forearm, using aseptic technique. Blood ld1 collected. 15:15 IV discontinued, intact, bleeding controlled, No redness/swelling at site. ld1 Administered Medications: 13:11 Drug: NS 0.9% 1000 ml Route: IV; Rate: 1000 ml; Site: left forearm; ld1 14:46 Drug: LoMOTIL (diphenoxylate-atropine) 2 tabs Route: PO; ld1 14:46 Drug: NS 0.9% 500 ml Route: IV; Rate: bolus; Site: left antecubital; ld1 Outcome: 14:15 Discharge ordered by . rn 15:15 Discharged to home ambulatory. ld1 15:15 Condition: stable 15:15 Discharge instructions given to patient, Instructed on discharge instructions, follow up and referral plans. medication usage, Demonstrated understanding of instructions, follow-up care, medications. 15:15 Patient left the ED. ld1 Signatures: Sunshine Gray ds1 Jeff Adler MD MD rn Wise, Tara, RN RN tw2 Angela Ware, FARHAN RN ld1
[2020-12-18] MEDS ORDERED: NA CHLORIDE 0.9% 500 ML ONE (14:54)
[2020-12-18] MEDS ORDERED: DIPHENOX/ATROP SULF 1 TAB PO ONE ×2 (14:54→14:55)
[2020-12-18 15:37] VITALS: TEMP 97.9
[2020-12-18 15:40] VITALS: O2SAT 100
[2020-12-18 15:42] VITALS: BP 156/76
== END 2020-12-18 15:15 | disposition home or self-care (01) ==
LOC: ER 12:06
DX: E86.0 Dehydration (principal); R19.7 Diarrhea, unspecified; I10 Essential (primary) hypertension; E11.9 Type 2 diabetes mellitus without complications; Z79.01 Long term (current) use of anticoagulants
CPT/HCPCS: 85025; 80048; 36415; 80076; 83690; J7040; J7030; 99284

== ENCOUNTER 2021-10-19 01:40 | Emergency (ER) | payer OTHER ==
--- OUTSIDE RECORDS SUMMARY | 2021-10-19 01:44 | XMS REPORT | Continuity of Care Document ---
:1950 Author Organization [facility] t Address [address] [place] [address] Dr. [address] [place] [address] Care Team Providers Name Role Phone Kevin MAGANA Primary Care Physician Manuel MAGANA Attending Clinician REHRER Attending Clinician Unavailable Roxana-Mbayo_A_AH Attending Clinician Unavailable STEPAN Attending Clinician Unavailable MD JODY YING Attending Clinician Unavailable Roxana-Mbayo_A_AH Admitting Clinician Unavailable STEPAN Admitting Clinician Unavailable MD JODY YING Admitting Clinician Unavailable Payers Payer Name Policy Type Policy Number Effective Date Expiration Date [place] [facility] [id number] 2019 (MEDICARE 00:00:00 REPLACEMENT/ADVANTA GE - HMO) [employer] [place] - [id number] 2019 2019 [employer] (MEDICARE 00:00:00 00:00:00 REPLACEMENT/ADVANTA GE - HMO) Problems Condition Condition Condition Status Onset Resolution [...] Gastric Gastric Problem Active [place] ulcer Ulcer - Family 00:00: Practic 00 e Allergies, Adverse Reactions, Alerts This patient has no known allergies or adverse reactions. Social History Social Habit Start Date Stop Date Quantity Comments Source Sex Assigned At [birth year] [facility] 00:00:00 00:00:00 Smoking Status Start Date Stop Date Source Tobacco smoking consumption unknown [facility] Never Smoker Fadi Gavin P angelica Medications Ordered Filled Start Stop Current Ordering Indication Dosage Frequency Signature Comments Components Source Medication Medication Date Date Medication? Clinician (SIG) Name Name aspirin 81 aspirin 81 No 1 Q1D aspirin 81 Village mg mg mg Family tablet,paula tablet,paula tablet,del Practic yed release yed release ayed e Take 1 Take 1 release tablet tablet Take 1 every day every day tablet by oral by oral every day route. route. by oral route. dicyclomine dicyclomine No 1 QID dicyclomin [facility] 20 mg 20 mg e 20 mg Family tablet Take tablet Take tablet Practic 1 tablet 4 1 tablet 4 Take 1 e times a day times a day tablet 4 by oral by oral times a route as route as day by needed. needed. oral route as needed. lisinopril lisinopril No 1 Q1D lisinopril [facility] 5 mg tablet 5 mg tablet 5 mg F amily Take 1 Take 1 tablet Practic tablet tablet Take 1 e every day every day tablet by oral by oral every day route. route. by oral route. metformin metformin No 1 BID metformin [facility] 500 mg 500 mg 500 mg Family tablet Take tablet Take tablet Practic 1 tablet 1 tablet Take 1 e twice a day twice a day tablet by oral by oral twice a route. route. day by oral route. metoprolol metoprolol No 1 Q1D metoprolol [facility] succinate succinate succinate [facility] ER 25 mg ER 25 mg ER [...] Comments Source Height 2020-03-27 00:00:00 62 [in_i] [facility] BMI (Body Mass 2020-03-27 00:00:00 18.3 kg/m2 Vill e Family Index) Practice Body Weight 2020-03-27 00:00:00 100 [lb_av] [facility] Procedures Procedure Date / Time Performed Performing Clinician Sourletty e CT CERVICAL SPINE WO CONTRAST 2021-01-14 20:04:19 Lea Jackson ID Health Plan of Care Planned Activity Planned Date Details Comments Source Instructions [facility] Encounters Start End Encounter Admission Attending Care Care Encounter Source Date/Time Date/Time Type Type Clinicians Facility Department ID 2020-12-17 2020-12-17 EXT [facility] OP Manuel, EXT [facility] [id number] ID 00:00:00 00:00:00 Lea LOCATION [id number] H ealt [id number] 2020-10-03 2020-10-03 Emergency REHRER, [facility] [id number] [place] [address] 00:00:00 00:00:00 [facility] [address] 2020-07-19 2020-07-19 Outpatient Roxana-Mbayo VFP VFP [id number] [facility] 11:15:00 11:15:00 _A_AH [id number] Family Practic e 2020-04-23 2020-04-23 Outpatient Roxana-Mbayo VFP VFP [id number] [facility] 06:14:00 06:14:00 _A_AH [id number] Family Practic e 2020-04-23 2020-04-23 Outpatient Roxana-Mbayo VFP VFP [id number] [facility] 06:14:00 06:14:00 _A_AH [id number] Family Practic e 2020-04-03 2020-04-03 Outpatient Roxana-Mbayo VFP VFP [id number] [facility] 11:38:00 11:38:00 _A_AH [id number] Family Practic e 2020-03-27 2020-03-27 [facility] [place] - [id number] [facility] 00:00:00 00:00:00 Roxana-Mbay 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 2020-03-26 2020-03-26 Outpatient Roxana-Mbayo VFP VFP [id number] [facility] 02:32:00 02:32:00 _A_AH [id number] Family Practic e 2020-03-26 2020-03-26 Outpatient Roxana-Mbayo VFP VFP [id number] [facility] 02:32:00 02:32:00 _A_AH [id number] Family Practic e 2019-11-30 2019-12-02 Inpatient STEPAN [facility] [id number] [place] 00:00:00 00:00:00 , CHRISTO [address] 2019-11-28 2019-11-28 Outpatient STEPAN [facility] [id number] [place] 00:00:00 00:00:00 , CHRISTO [address] 2019-11-28 2019-11-28 Outpatient STEPAN [facility] [id number] [place] 00:00:00 00:00:00 , CHRISTO [address] 2019-11-28 2019-11-28 Outpatient STEPAN [facility] [id number] [place] 00:00:00 00:00:00 , CHRISTO [address] 2019-08-16 2019-08-16 Outpatient Roxana-Mbayo VFP VFP [id number] [facility] 07:15:00 07:15:00 _A_AH [id number] Family Practic e 2019-08-16 2019-08-16 Outpatient Roxana-Mbayo VFP VFP [id number] [facility] 07:15:00 07:15:00 _A_AH [id number] Family Practic e Results Test Description Test Time Test Comments Results Result Comments Source SARS coronavirus 2 RNA [Presence] in Respiratory speci men by 2019-11-29 01:52:26 DEVANTE with probe detection Test Item Value Reference Range Interpretation Comme nts SARS coronavirus 2 RNA [Presence] in Respiratory Not detected Not-D etected specimen by DEVANTE with probe detection (test code = [id number])
[2021-10-19] MEDS ORDERED: ASPIRIN 325 MG TAB ONE (02:57)
[2021-10-19] MEDS ORDERED: METOPROLOL TAR 25 MG TAB ONE (02:57)
[2021-10-19 02:58] LABS: Absolute Lymphocytes (CBC) 2.6 K/uL (0.7-4.9); Hematocrit 29.3 % (36.0-45.0); Lymphocytes % 35.5 % (15.3-44.8); MPV 9.1 fL (7.6-11.3); RBC Red Blood Cell Count 3.31 M/uL (3.86-4.86)
[2021-10-19] MEDS ORDERED: ASPIRIN 81 MG CHEWABLE TABLET ONE (02:59)
[2021-10-19 03:17] LABS: Potassium 3.7 mmol/L (3.5-5.1); Troponin High Sensitivity 9.2 pg/mL (<58.9)
--- NOTE | 2021-10-19 06:32 | EDPHYS ---
Physician Documentation [facility] Name: Ashley Simon Age: 70 yrs Sex: Female : 1950 Arrival Date: 10/19/2021 Time: 01:42 Bed 8 Private MD: ED Physician Steve Tapia HPI: 10/19 05:42 This 70 yrs old Female presents to ER via Ambulatory with complaints of Chest kdr Pain > 30 y/o, Anxiety. 05:42 The patient or guardian reports chest pain that is located primarily in the anterior kdr chest wall, left. Onset: acutely, suddenly, just prior to arrival, Patient states that today that she was awakened at about midnight with left-sided chest discomfort and a feeling of panic. This lasted for bed and she got up and tried to walk it off however it did not completely resolve for some time. Subsequently did finally resolve and she went back to sleep. Only to be awakened again by the same sensation and discomfort. On arrival in the ED, her discomfort had resolved. And she was not having any concerns at point. The pain does not radiate. Associated signs and symptoms: The patient has no apparent associated signs or symptoms, Pertinent positives: Feels panic sensation, Pertinent negatives:. The chest pain is described as aching. Duration: The patient or guardian reports a single episode, The patient or guardian reports multiple episodes, approximately 2 episodes since symptom onset, that are intermittent, that wax and wane, with no pattern. Modifying factors: The symptoms are alleviated by nothing. the symptoms are aggravated by nothing. Severity of pain: At its worst the pain was mild moderate just prior to arrival, in the emergency department the pain has resolved. The patient has not experienced similar symptoms in the past. The patient has not recently seen a physician. 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 - Social history:: Smoking status: Patient reports the use of cigarette tobacco products, denies chronic smoking, but will smoke occasionally. ROS: 05:42 Constitutional: Negative for fever, chills, and weight loss, Eyes: Negative for injury, kdr pain, redness, and discharge, ENT: Negative for injury, pain, and discharge, Neck: Negative for injury, pain, and swelling, Respiratory: Negative for shortness of breath, cough, wheezing, and pleuritic chest pain, Abdomen/GI: Negative for abdominal pain, nausea, vomiting, diarrhea, and constipation, Back: Negative for injury and pain, : Negative for injury, bleeding, discharge, and swelling, MS/Extremity: Negative for injury and deformity, Skin: Negative for injury, rash, and discoloration, Neuro: Negative for headache, weakness, numbness, tingling, and seizure activity. Psych: Negative for depression, anxiety, suicide ideation, homicidal ideation, and hallucinations, Allergy/Immunology: Negative for hives, rash, and allergies, Endocrine: Negative for neck swelling, polydipsia, polyuria, polyphagia, and marked weight changes, Hematologic/Lymphatic: Negative for swollen nodes, abnormal bleeding, and unusual bruising. 05:42 Cardiovascular: Positive for chest pain, Negative for edema, orthopnea, palpitations, paroxysmal nocturnal dyspnea. Exam: 05:38 ECG was reviewed by the Attending Physician. kdr 05:42 Constitutional: This is a well developed, well nourished patient who is awake, alert, kdr and in no acute distress. Head/Face: Normocephalic, atraumatic. Eyes: Pupils equal round and reactive to light, extra-ocular motions intact. Lids and lashes normal. Conjunctiva and sclera are non-icteric and not injected. Cornea within normal limits. Periorbital areas with no swelling, redness, or edema. Neck: Trachea midline, no thyromegaly or masses palpated, and no cervical lymphadenopathy. Supple, full range of motion without nuchal rigidity, or vertebral point tenderness. No Meningismus. Chest/axilla: Normal chest wall appearance and motion. Nontender with no deformity. No lesions are appreciated. Cardiovascular: Regular rate and rhythm with a normal S1 and S2. No gallops, murmurs, or rubs. Normal PMI, no JVD. No pulse deficits. Respiratory: Lungs have equal breath sounds bilaterally, clear to auscultation and percussion. No rales, rhonchi or wheezes noted. No increased work of breathing, no retractions or nasal flaring. Abdomen/GI: Soft, non-tender, with normal bowel sounds. No distension or tympany. No guarding or rebound. No evidence of tenderness throughout. Skin: Warm, dry with normal turgor. Normal color with no rashes, no lesions, and no evidence of cellulitis. MS/ Extremity: Pulses equal, no cyanosis. Neurovascular intact. Full, normal range of motion. Neuro: Awake and alert, GCS 15, oriented to person, place, time, and situation. Cranial nerves II-XII grossly intact. Motor strength 5/5 in all extremities. Sensory grossly intact. Cerebellar exam normal. Normal gait. Psych: Awake, alert, with orientation to person, place and time. Behavior, mood, and affect are within normal limits. Vital Signs: 01:56 BP 191 / 100; Pulse 95; Resp 17; Temp 98.4(O); Pulse Ox 100% on R/A; Weight 45.36 kg; 5 Height 5 ft. 2 in. (157.48 cm); Pain 5/10; 02:49 BP 168 / 93; Pulse 72; Resp 17; Pulse Ox 99% on R/A; kd3 03:06 BP 173 / 69; Pulse 82; Resp 17; Pulse Ox 99% on R/A; kd3 04:50 BP 163 / 66; Pulse 68; Resp 13; Pulse Ox 99% on R/A; kd3 05:28 BP 161 / 64; Pulse 66; Resp 19; Pulse Ox 99% on R/A; kd3 06:32 BP 148 / 63; Pulse 59; Resp 14; Pulse Ox 100% on R/A; kd3 01:56 Body Mass Index 18.29 (45.36 kg, 157.48 cm) [facility] MDM: 05:42 Data reviewed: vital signs, nurses notes. kdr 06:31 Patient medically screened. kdr 10/19 02:46 Order name: Basic Metabolic Panel; Complete Time: 03:46 kdr 10/19 02:46 Order name: CBC with Diff; Complete Time: 03:05 kdr 10/19 02:46 Order name: Troponin HS; Complete Time: 03:46 kdr 10/19 02:46 Order name: XRAY Chest (1 view) kdr 10/19 05:45 Order name: Troponin High Sensitivity; Complete Time: 06:29 kdr 10/19 02:46 Order name: EKG; Complete Time: 02:47 kdr 10/19 02:46 Order name: Cardiac monitoring; Complete Time: 02:47 kdr 10/19 02:46 Order name: EKG - Nurse/Tech; Complete Time: 02:47 kdr 10/19 02:46 Order name: IV Saline Lock; Complete Time: 02:47 kdr 10/19 02:47 Order name: Labs collected and sent; Complete Time: 02:47 kdr 10/19 02:47 Order name: O2 Per Protocol; Complete Time: 02:47 kdr 10/19 02:47 Order name: O2 Sat Monitoring; Complete Time: 02:47 kdr EC:38 Rate is 86 beats/min. Rhythm is regular, Sinus Rhythm with No ectopy, Left bundle kdr branch block. QRS Etoile is Normal. WI interval is normal. QRS interval is normal. Clinical impression: NSR w/ Non-specific ST/T Changes. Administered Medications: 02:53 CANCELLED (Physician Discretion): Lopressor (metoprolol) 5 mg IVP every 5 minutes; Hold kd3 for SBP < 100 or HR < 60. x3 03:09 Drug: Lopressor (metoprolol TARTRATE)) 25 mg Route: PO; kd3 06:33 Follow up: Response: No adverse reaction kd3 03:10 Drug: Aspirin Chewable Tablet 324 mg Route: PO; kd3 06:33 Follow up: Response: No adverse reaction kd3 Disposition Summary: 10/19/21 06:31 Discharge Ordered Location: Home kdr Problem: new kdr Symptoms: have improved kdr Condition: Stable kdr Diagnosis - Chest pain, unspecified kdr Followup: kdr - With: Private Physician - When: 2 - 3 days - Reason: If symptoms return, Further diagnostic work-up, Recheck today's complaints, Continuance of care, Re-evaluation by your physician Discharge Instructions: - Discharge Summary Sheet kdr - Nonspecific Chest Pain, Adult, [id number] kdr Forms: - Medication Reconciliation Form kdr - Thank You Letter kdr Prescriptions: - Ibuprofen 600 mg Oral Tablet - take 1 tablet by ORAL route every 6 hours As needed take with food; 30 tablet; kdr Refills: 0, Product Selection Permitted - Pepcid 20 mg Oral Tablet - take 1 tablet by ORAL route every 12 hours for 10 days; 20 tablet; Refills: 0, kdr Product Selection Permitted Signatures: Dispatcher [employer] Steve Alcantara MD MD kdr Marleny Mcgill RN RN kd3 Brittnee Stevens RN RN sm5 Leslie Shannon PA PA sb3 Corrections: (The following items were deleted from the chart) 02:53 02:47 Lopressor (metoprolol) 5 mg IVP every 5 minutes; Hold for SBP < 100 or HR < 60. kd3 x3 ordered. kdr
--- NOTE | 2021-10-19 06:32 | ER ---
Nurse's Notes [facility] Name: Ashley Simon Age: 70 yrs Sex: Female : 1950 Arrival Date: 10/19/2021 Time: 01:42 Bed 8 Private MD: Diagnosis: Chest pain, unspecified Presentation: 10/19 01:56 Chief complaint: Patient states: she started having chest pain tonight and feeling sm5 anxious but does not have a hx of anxiety. also states she had her take her bp at home and it was high in the 180's. Coronavirus screen: Vaccine status: Patient reports being unvaccinated. Ebola Screen: No symptoms or risks identified at this time. Initial Sepsis Screen: Does the patient meet any 2 criteria? No. Patient's initial sepsis screen is negative. Does the patient have a suspected source of infection? No. Patient's initial sepsis screen is negative. Risk Assessment: Do you want to hurt yourself or someone else? Patient reports no desire to harm self or others. Onset of symptoms was October 19, 2021. 01:56 Method Of Arrival: Ambulatory [facility] 01:56 Acuity: MARGARITA 3 sm5 Triage Assessment: 01:58 General: Appears in no apparent distress. Behavior is cooperative. Pain: Complains of 5 pain in chest. Neuro: No deficits noted. Level of Consciousness is awake, alert, obeys commands, Oriented to person, place, time, situation. Cardiovascular: Reports chest pain, Capillary refill < 3 seconds Patient's skin is warm and dry. Rhythm is sinus rhythm left bundle branch block. Respiratory: No deficits noted. Airway is patent Trachea midline Respiratory effort is even, unlabored. 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 - Social history:: Smoking status: Patient reports the use of cigarette tobacco products, denies chronic smoking, but will smoke occasionally. Screenin:59 Abuse screen: Denies threats or abuse. Denies injuries from another. Nutritional 5 screening: No deficits noted. Tuberculosis screening: No symptoms or risk factors identified. Fall Risk None identified. Assessment: 02:46 General: Appears in no apparent distress. comfortable, Behavior is calm, cooperative, kd3 appropriate for age. Pain: Denies pain. Neuro: Level of Consciousness is awake, alert, obeys commands, Oriented to person, place, time, situation. Cardiovascular: Rhythm is regular. Respiratory: Airway is patent Trachea midline Respiratory effort is even, unlabored. 04:50 Pain: Denies pain. kd3 05:36 Reassessment: No changes from previously documented assessment. kd3 05:37 Reassessment: Patient and/or family updated on plan of care and expected duration. Pain kd3 level reassessed. Patient is alert, oriented x 3, equal unlabored respirations, skin warm/dry/pink. Patient denies pain at this time. 06:32 Reassessment: Patient and/or family updated on plan of care and expected duration. Pain kd3 level reassessed. Patient is alert, oriented x 3, equal unlabored respirations, skin warm/dry/pink. Patient denies pain at this time. 06:36 Pain: Pain does not radiate. Pain began suddenly. [facility] Vital Signs: 01:56 BP 191 / 100; Pulse 95; Resp 17; Temp 98.4(O); Pulse Ox 100% on R/A; Weight 45.36 kg; 5 Height 5 ft. 2 in. (157.48 cm); Pain 5/10; 02:49 BP 168 / 93; Pulse 72; Resp 17; Pulse Ox 99% on R/A; kd3 03:06 BP 173 / 69; Pulse 82; Resp 17; Pulse Ox 99% on R/A; kd3 04:50 BP 163 / 66; Pulse 68; Resp 13; Pulse Ox 99% on R/A; kd3 05:28 BP 161 / 64; Pulse 66; Resp 19; Pulse Ox 99% on R/A; kd3 06:32 BP 148 / 63; Pulse 59; Resp 14; Pulse Ox 100% on R/A; kd3 01:56 Body Mass Index 18.29 (45.36 kg, 157.48 cm) sm5 ED Course: 01:42 Patient arrived in ED. kz 01:57 Triage completed. sm5 01:59 Arm band placed on right wrist. EKG completed in triage. Results shown to MD. sm5 02:36 Marleny Mcgill, RN is Primary Nurse. kd3 02:46 Patient has correct armband on for positive identification. Bed in low position. Call kd3 light in reach. ekg monitor on. Pulse ox on. NIBP on. 02:47 Steve Tapia MD is Attending Physician. kdr 02:48 Inserted saline lock: 22 gauge in right antecubital area, using aseptic technique. sm5 Blood collected. 03:06 XRAY Chest (1 view) In Process Unspecified. EDMS 06:16 Troponin High Sensitivity Sent. sm5 06:37 No provider procedures requiring assistance completed. Patient maintains SpO2 sm5 saturation greater than 95% on room air. 06:38 IV discontinued, intact, bleeding controlled, No redness/swelling at site. Pressure sm5 dressing applied. Administered Medications: 02:53 CANCELLED (Physician Discretion): Lopressor (metoprolol) 5 mg IVP every 5 minutes; Hold kd3 for SBP < 100 or HR < 60. x3 03:09 Drug: Lopressor (metoprolol TARTRATE)) 25 mg Route: PO; kd3 06:33 Follow up: Response: No adverse reaction kd3 03:10 Drug: Aspirin Chewable Tablet 324 mg Route: PO; kd3 06:33 Follow up: Response: No adverse reaction kd3 Outcome: 06:31 Discharge ordered by . kdr 06:37 Discharged to home ambulatory, with family. sm5 06:37 Condition: stable 06:37 Discharge instructions given to patient, Instructed on discharge instructions, follow up and referral plans. medication usage, Demonstrated understanding of instructions, follow-up care, medications, Prescriptions given X 2. 06:38 Patient left the ED. 5 Signatures: Dispatcher [employer] EDMS Steve Tapia MD MD kdr Doucette, Kyli, RN RN kd3 Brittnee Stevens RN RN sm5 Dee Goldman
[2021-10-19 06:48] VITALS: TEMP 98.4
[2021-10-19 07:06] VITALS: BP 148/63; O2SAT 100
--- NOTE | 2021-10-20 11:40 | RAD REPORT ---
EXAM DESCRIPTION: RAD - Chest Single View - 10/19/2021 3:04 am CLINICAL HISTORY: The patient is 70 years old and is Female; CHEST PAIN TECHNIQUE: Frontal view of the chest. COMPARISON: No relevant prior studies available. FINDINGS: Lungs: Unremarkable. No consolidation. Pleural space: Unremarkable. No pneumothorax. Heart: Unremarkable. Mediastinum: Unremarkable. Bones/joints: Unremarkable. IMPRESSION: No acute findings in the chest. Electronically signed by: Vernon Young MD 10/19/2021 3:30 AM CDT Due to temporary technical issues with the PACS/Fluency reporting system, reports are being signed by the in house radiologists without review as a courtesy to insure prompt reporting. The interpreting radiologist is fully responsible for the content of the report.
--- NOTE | 2021-10-21 09:37 | EKG ---
Test Date: 2021-10-19 Test Time: 01:55:15 Billing And Insurance Coordinator: FREDO MEASUREMENT RESULTS: Intervals: Rate: 86 WY: 168 QRSD: 128 QT: 412 QTc: 493 Runnells: P: 76 WY: 168 QRS: -22 T: 110 INTERPRETIVE STATEMENTS: Normal sinus rhythm Left bundle branch block Abnormal ECG Compared to ECG 05/22/2019 11:09:34 No significant changes Electronically Signed On 10-21-21 09:32:14 CDT by Dheeraj Sesay
== END 2021-10-19 06:38 | disposition home or self-care (01) ==
LOC: ER 01:40
DX: R07.9 Chest pain, unspecified (principal); E11.9 Type 2 diabetes mellitus without complications; I10 Essential (primary) hypertension; F17.210 Nicotine dependence, cigarettes, uncomplicated; Z79.01 Long term (current) use of anticoagulants; Z79.82 Long term (current) use of aspirin
CPT/HCPCS: 36415; 71045; 80048; 84484; 85025; 93005; 99285

== ENCOUNTER 2021-10-23 06:40 | Day surgery (SDC) | payer OTHER ==
[2021-10-22 11:55] LABS: Protime INR 0.89
[2021-10-23] MEDS ORDERED: LIDOCAINE 1% 20 ML MDV ONE (06:41)
[2021-10-23] MEDS ORDERED: HEPA 1000U/500MLS 1,000 UNIT/500 ML BAG IV ONE (06:41)
[2021-10-23] MEDS ORDERED: MIDAZOLAM HCL 2 MG/2 ML INJ ONE ×2 (06:42→07:39)
[2021-10-23] MEDS ORDERED: NA CHLORIDE 0.9% 0 ML ONE (06:42)
[2021-10-23] MEDS ORDERED: ATROPINE SULF 1 MG/10 ML SYR IV ONE (06:42)
[2021-10-23] MEDS ORDERED: FENTANYL CITR 100 MCG/2 ML ONE (06:42)
[2021-10-23] MEDS ORDERED: NITROGLYCERIN/D5W 25 MG/250 ML BTL IV ONE (06:45)
[2021-10-23] MEDS ORDERED: NITROGLYCERIN 100 MCG/ML SYR (for cath lab use only) IV ONE (06:45)
[2021-10-23] MEDS ORDERED: NA CHLORIDE 0.9% 500 ML ONE (06:51)
[2021-10-23] MEDS ORDERED: HYDRALAZINE HCL 20 MG/ML VIAL ONE (07:42)
--- NOTE | 2021-10-23 08:51 | OP ---
Date of Procedure: 10/23/2021 Surgeon: Dheeraj Sesay MD Planner Scheduler: Lory Mcdonald. The patient will remain in the hospital for 2 hours of bedrest after her StarClose. I will see her i n the office in 2 weeks. Ms. Simon is 70. Has a history of diabetes, hypertension, dyslipidemia, mild coronary artery diseas e, recurrent chest pain, positive stress test. Procedure In Detail: Brought to the [facility] farm lab[facility] today 10/23/2021 as an outpatient for a heart catheteri zation. She was prepped and draped in the routine sterile fashion. Given Versed and fentanyl for se dation. She was given 10 mg of hydralazine for hypertension IV. A 6-Occitan sheath introduced in the right common femoral artery successfully. Angiography there was normal. StarClose was used to clos e the case. Total conscious sedation was 30 minutes. Yeison catheter JL3.5 and JR4 were used to ca nnulate the left main and right main respectively. She really had no left main per se. She had a du al ostium of the LAD and the circumflex ostium. The circumflex had about a 30% stenosis. There was some moderate plaquing in the LAD. The RCA was normal and codominant. There were no complications. Blood Loss: 5 mL. Postoperative Diagnosis: Mild coronary artery disease. Plan: To continue medical therapy. GHAZAL/WILLIS Voice ID: [id number] Report ID: [id number]
[2021-10-23 09:16] VITALS: O2SAT 99
[2021-10-23 10:03] VITALS: BP 113/58
== END 2021-10-23 10:09 | disposition home or self-care (01) ==
LOC: CCL 06:40
DX: I25.10 Atherosclerotic heart disease of native coronary artery without angina pectoris (principal); I34.0 Nonrheumatic mitral (valve) insufficiency; I65.23 Occlusion and stenosis of bilateral carotid arteries; I70.213 Atherosclerosis of native arteries of extremities with intermittent claudication, bilateral legs; I70.1 Atherosclerosis of renal artery; I12.9 Hypertensive chronic kidney disease with stage 1 through stage 4 chronic kidney disease, or unspecified chronic kidney disease; E11.22 Type 2 diabetes mellitus with diabetic chronic kidney disease; N18.2 Chronic kidney disease, stage 2 (mild); E78.2 Mixed hyperlipidemia; K21.9 Gastro-esophageal reflux disease without esophagitis; K22.70 Barrett's esophagus without dysplasia; Z79.84 Long term (current) use of oral hypoglycemic drugs; Z79.82 Long term (current) use of aspirin; Z79.899 Other long term (current) drug therapy; Z20.822 Contact with and (suspected) exposure to COVID-19
CPT/HCPCS: 36415; 85610; 82947; 85730; 93454; U0003; C1893; Q9967; J0360; J2250 ×2; J3010; J7040; J1644; J0583

== ENCOUNTER 2021-12-26 09:24 | Day surgery (SDC) | payer OTHER ==
[2021-12-23 11:37] LABS: Absolute Lymphocytes (CBC) 1.6 K/uL (0.7-4.9); Hematocrit 28.3 % (36.0-45.0); MCV 88.5 fL (80-100); MPV 8.5 fL (7.6-11.3)
[2021-12-23 11:43] LABS: Protime INR 0.92
[2021-12-23 11:55] LABS: Potassium 4.6 mmol/L (3.5-5.1)
[2021-12-23 12:00] LABS: SARS-CoV-2 Antigen Rapid Res Negative (Negative)
[2021-12-26] MEDS ORDERED: CEFAZOLIN SODIUM 1 GM/VIAL ONE (09:55)
[2021-12-26] MEDS ORDERED: Ringers Lactate 1,000 ML IV ONE (09:55)
[2021-12-26] MEDS ORDERED: LIDOCAINE 1% MPF 5 ML VIAL ONE (10:42)
[2021-12-26] MEDS ORDERED: FENTANYL CITR 100 MCG/2 ML ONE ×2 (10:42→12:07)
[2021-12-26] MEDS ORDERED: propofoL 200 MG/20 ML VIAL IV ONE (10:42)
[2021-12-26] MEDS: BUPIVACAINE 0.25% PF 30 ML VIAL ONE ×2 (10:50→11:29)
[2021-12-26] MEDS ORDERED: NS 0.9% VIAL 10 ML ONE (11:00)
[2021-12-26] MEDS ORDERED: dexAMETHasone 10 MG/ML VIAL ONE (11:09)
[2021-12-26] MEDS ORDERED: ONDANSETRON 4 MG/2 ML VIAL ONE (11:23)
[2021-12-26] MEDS ORDERED: KETOROLAC 30 MG/ML INJ ONE (11:23)
--- NOTE | 2021-12-26 11:50 | P.BOP ---
Preoperative diagnosis: right middle finger cyst Postoperative diagnosis: same Primary procedure: excision right middle finger cyst Transplant Registered Nurse: NONE,NONE Estimated blood loss: 3 cc Specimen: right middle finger cyst Findings: see dictation Anesthesia: General Complications: None Implants: none Fluids & blood products: per anesthesia record; TT: 15 mins @ 250 mmHg Transferred to: Recovery Room Condition: Good
[2021-12-26] MEDS ORDERED: HYDRALAZINE HCL 20 MG/ML VIAL ONE (11:58)
[2021-12-26] MEDS ORDERED: TRAMADOL HCL 50 MG TAB ONE (12:53)
[2021-12-26 13:21] VITALS: TEMP 98
[2021-12-26 14:49] VITALS: BP 184/81; O2SAT 98
--- NOTE | 2022-01-01 01:05 | OP ---
Date of Procedure: 12/26/2021 Surgeon: Farhan Tovar MD Preoperative Diagnosis: Right middle finger cyst. Postoperative Diagnosis: Right middle finger cyst. Procedure Performed: Excision of right middle finger cyst. Anesthesia: General LMA. Fluids: Per Anesthesia record. Estimated Blood Loss: 3 cc. Implants: None. Complications: None. Tourniquet Time: 15 minutes at 250 mmHg. Indication: Ashley is a 71-year-old female with a mass over the ulnar border of the dorsal aspect of her middle finger over the middle phalanx. The patient reported discomfort with the cyst and it got in the way of her using it with activities of daily living. I discussed with the patient risks and benefits associated with operative and nonoperative treatment. She expressed understanding and elected to proceed with excision of the cyst. Description Of Procedure: After informed consent was obtained, the patient was identified in the preoperative holding area and the right middle finger was marked. The patient was then brought back to the operating room, transferred to the operating table in supine fashion, and placed under general LMA anesthesia. The right upper extremity than prepped and draped in the usual sterile fashion. A time-out was initiated. The correct patient and procedure were confirmed and identified. The patient did receive her preoperative prophylactic antibiotics. The right upper extremity was exsanguinated and tourniquet was inflated to 250 mmHg. Approximately a 2 cm incision was made over the mass, which measured approximately 1 cm in diameter. Dissection was then taken around the mass, which was excised. After dissecting out with the tenotomies, the mass was then sent to Pathology for further evaluation. The wound was then irrigated thoroughly with normal saline. The skin was approximated using 5-0 Prolene. Sterile dressings were applied. Tourniquet was let down. The patient was awakened and transferred to PACU in stable condition. The patient's extensor tendon was noted to be intact with full range of motion of the digit noted after excision of the cyst. The patient had brisk cap refill. The tourniquet was let down. The patient was awakened and transferred to PACU in stable condition. Postoperative Plan: The patient will follow up in 1 week for wound check and suture removal. She will remain nonweightbearing at this time. TAMARA/MODL Voice ID: [id number] Report ID: [id number] MTDD
== END 2021-12-26 13:20 | disposition home or self-care (01) ==
LOC: OR 09:24
PROVIDERS: ATTEND Orthopaedic Surgery Sports Medicine
PROC: 0JBJ0ZZ Excision of Right Hand Subcutaneous Tissue and Fascia, Open Approach (ICD-10-PCS; principal; 2021-12-26 10:30)
DX: M67.441 Ganglion, right hand (principal); M25.541 Pain in joints of right hand; Z20.822 Contact with and (suspected) exposure to COVID-19
CPT/HCPCS: 85025; 80048; 36415; 85610; 88307; 85730; 87811; 11421; J0360; J2704; J3010 ×2; J1100; J7120; J2405; J0690; 88304

== ENCOUNTER 2022-04-12 18:33 | Emergency (ER) | payer OTHER ==
--- OUTSIDE RECORDS SUMMARY | 2022-04-12 18:37 | XMS REPORT | Continuity of Care Document ---
:1950 Author Organization [facility] t Address [address] [place] [address] [address] [place] [address] Care Team Providers Name Role Phone Kevin MAGANA, Carlos Primary Care Physician [phone] Carlos Brown Attending Clinician Unavailable Skylar Herrera Attending Clinician Unavailable Lea Jackson MD Attending Clinician ALRERTERESA Attending Clinician Unavailable Roxana-Mbayo_A_AH Attending Clinician Unavailable CHRISTO YING Attending Clinician Unavailable MD CHRISTO YING Attending Clinician Unavail able Roxana-Mbayo_A_AH Admitting Clinician Unavailable CHRISTO YING Admitting Clinician Unavailable MD CHRISTO YING Admitting Clinician Unavail able Payers Payer Name Policy Type Policy Number Effective Date Expiration Date [place] dove [facility] [id number] 2019 (MEDICARE 00:00:00 REPLACEMENT/ADVANTA GE - HMO) [employer] [place] - [id number] 2019 2019 [employer] (MEDICARE 00:00:00 00:00:00 REPLACEMENT/ADVANTA [...] Gastric Gastric Problem Active [facility] ulcer Ulcer 03-27 Family 00:00: Practic 00 e Carotid Carotid Disease Active [facility] artery artery 6-04 st disease disease 00:00: Hospita 00 l Stenosis Stenosis Disease Active Overview: Me thodi of left of left 6-[address] carotid carotid 00:00: g of this Hospi ta artery artery 00 note l might be different from the original. 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 Family History Family Member Diagnosis Comments Start Date Stop Date Source Natural father Hypertension [facility] Natural father Mental illness Method [facility] Natural father Seizures [facility] Natural father Stroke [facility] mother Cancer [facility] mother Kidney disease Method [facility] Social History Social Habit Start Date Stop Date Quantity Comments Source Alcohol intake 2019-12-04 2019-12-04 Current [facility] 00:00:00 00:00:00 non-drinker of Hospital alcohol (finding) Alcohol Comment 2019-11-28 2019-11-28 Wine - rare - Method ist 00:00:00 00:00:00 none since Hospital started Lorazepam Tobacco use and 2019-11-28 2019-11-28 Smokeless tobacco Me thodist exposure 00:00:00 00:00:00 non-user Hospital Sex Ass[birth year] At [birth year] [facility] 00:00:00 00:00:00 Hospital Smoking Status Start Date Stop Date Source Never Smoker [facility] Tobacco smoking consumption unknown [facility] Medications Ordered Filled Start Stop Current Ordering Indication Dosage Frequency Signature Comments Components Source Medication Medication Date Date Medication? Clinician (SIG) Name Name lisinopriL Yes 20mg QD Take 20 mg M ethodi 20 mg 6-[address] tablet 1 15:30: every Hospita tablet, 46 morning. l hydroCHLORO 20/12.5 mg thiazide 25 MG tablet 0.5 tablet metFORMIN Yes 500mg Q.5D Take 500 Met hodi (GLUCOPHAGE 6-[address] ) 500 mg 15:30: mouth 2 Hospit a tablet 46 (two) l times a day with meals. metoprolol 2020-0 Yes 50mg Q.5D Take 50 mg M ethodi succinate 6-[address] XL 15:30: (two) Hospita (TOPROL-XL) 46 times a l 50 mg 24 hr day. tablet pantoprazol 2020-0 Yes 40mg QD Take 40 mg [facility] e 6-[address] (PROTONIX) 15:30: every Hospit a 40 MG EC 46 morning. l tablet pravastatin 2020-0 Yes 40mg QD Take 40 mg [facility] (PRAVACHOL) 6-[address] 40 mg 15:30: nightly. Hospita tablet 46 l aspirin 2020-0 Yes 81mg QD Take 81 mg Meth valentín (ECOTRIN) 6-[address] 81 MG 15:30: every Hospita enteric 46 morning. l coated tablet LORAZepam 2020-0 Yes .5mg Q6H Take 0.5 Meth valentín (ATIVAN) 6-[address] 0.5 MG 15:30: mouth Hospita tablet 46 every 6 l (six) hours as needed for anxiety. meloxicam 2017-0 Yes 15mg QD Take 1 Method i (MOBIC) 15 4-24 tablet (15 st mg tablet 00:00: mg total) Hos stephie 00 by mouth l daily. W.C. aspirin 81 aspirin 81 No 1 Q1D aspirin 81 Village mg mg mg Family tablet,paula tablet,paula tablet,del Practic yed release yed release ayed e Take 1 Take 1 release tablet tablet Take 1 every day every day tablet by oral by oral every day route. route. by oral route. dicyclomine dicyclomine No 1 QID dicyclomin [facility] 20 mg 20 mg e 20 mg Family tablet Take tablet Take tablet Practic 1 tablet 4 1 tablet 4 Take 1 e times a day times a day tablet 4 by oral by oral times a route as route as day by needed. needed. oral route as needed. lisinopril lisinopril No 1 Q1D lisinopril [facility] 5 mg tablet 5 mg tablet 5 mg F amily Take 1 Take 1 tablet Practic tablet tablet Take 1 e every day every day tablet by oral by oral every day route. route. by oral route. metformin metformin No 1 BID metformin [facility] 500 mg 500 mg 500 mg Family tablet Take tablet Take tablet Practic 1 tablet 1 tablet Take 1 e twice a day twice a day tablet by oral by oral twice a route. route. day by oral route. metoprolol metoprolol No 1 Q1D metoprolol [facility] succinate succinate succinate [facility] 25 mg [...] Comments Source Height 2020-03-27 00:00:00 62 [in_i] [facility] BMI (Body Mass 2020-03-27 00:00:00 18.3 kg/m2 [facility] Index) Practice Body Weight 2020-03-27 00:00:00 100 [lb_av] [facility] Procedures Procedure Date / Time Performed Performing Clinician [facility] e CT CERVICAL SPINE WO CONTRAST 2021-01-14 20:04:19 Lea Jackson [facility] CT CERVICAL SPINE WO CONTRAST 2021-01-14 20:04:19 Lea Jackson [facility] Plan of Care Planned Activity Planned Date Details Comments Source Future Scheduled Test 2022-02-24 SHINGLES VACCINES (1 [facility] 09:18:22 of 2) [code = SHINGLES VACCINES (1 of 2)] Future Scheduled Test 2022-02-24 65+ PNEUMOCOCCAL [facility] 09:18:22 VACCINE (1 - PCV) [code = 65+ PNEUMOCOCCAL VACCINE (1 - PCV)] Future Scheduled Test 2022-02-24 INFLUENZA VACCINE [facility] 09:18:22 [code = INFLUENZA VACCINE] Future Scheduled Test 2022-02-24 HEPATITIS B VACCINES [facility] 09:18:22 (1 of 3 - 3-dose series) [code = HEPATITIS B VACCINES (1 of 3 - 3-dose series)] Future Scheduled Test 2022-02-24 COVID-19 VACCINE (#1) [facility] 09:18:22 [code = COVID-19 VACCINE (#1)] Future Scheduled Test 2022-02-24 Hepatitis C screening [facility] 09:18:22 (procedure) [code = 947280118] Future Scheduled Test 2022-02-24 BREAST CANCER [facility] 09:18:22 SCREENING [code = BREAST CANCER SCREENING] Future Scheduled Test 2022-02-24 COLONOSCOPY SCREENING [facility] 09:18:22 [code = COLONOSCOPY SCREENING] Instructions [facility] Encounters Start End Encounter Admission Attending Care Care Encounter Source Date/Time Date/Time Type Type Clinicians Facility Department ID 2022-01-22 Outpatient [facility]ul [facility] [id number] [place] 13:31:01 a, Carlos [facility] 2021-12-23 Outpatient Kattegummul [facility] [id number] Common 13:50:03 a, Carlos [facility] 2021-11-03 Outpatient Herrera, Na [facility] [id number] Common 14:00:05 [facility] 2020-12-17 2020-12-17 EXT [facility] OP Manuel, EXT MSRDP [id number] [place] 00:00:00 00:00:00 Lea LOCATION [id number] H ealth [id number] 2020-12-17 2020-12-17 EXT [facility] OP Manuel, EXT MSRDP [id number] [place] 00:00:00 00:00:00 Lea LOCATION [id number] H ealth [id number] 2020-10-03 2020-10-03 Emergency REHRER, [facility] [id number] [place] 00:00:00 00:00:00 ELGIN [address] 2020-07-19 2020-07-19 Outpatient Roxana-Radhao VFP [facility] [id number] [facility] 11:15:00 11:15:00 _A_ [id number] Family Practic e 2020-04-23 2020-04-23 Outpatient Roxana-Mbayo VFP VFP [id number] [facility] 06:14:00 06:14:00 _A_AH [id number] Family Practic e 2020-04-23 2020-04-23 Outpatient Roxana-Mbayo VFP VFP [id number] [facility] 06:14:00 06:14:00 _A_AH [id number] Family Practic e 2020-04-03 2020-04-03 Outpatient Roxana-Mbayo VFP VFP [id number] [facility] 11:38:00 11:38:00 _A_AH [id number] Family Practic e 2020-03-27 2020-03-27 [facility] [place] - [id number] [facility] 00:00:00 00:00:00 Roxana-Mbay [facility] 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 2020-03-26 2020-03-26 Outpatient Roxana-Mbayo VFP VFP [id number] [facility] 02:32:00 02:32:00 _A_AH [id number] Family Practic e 2020-03-26 2020-03-26 Outpatient Roxana-Mbayo VFP VFP [id number] [facility] 02:32:00 02:32:00 _A_AH [id number] Family Practic e 2019-11-30 2019-12-02 Inpatient STEPAN [facility] [id number] [place] 00:00:00 00:00:00 , CHRISTO [address] 2019-11-28 2019-11-28 Outpatient STEPAN [facility] [id number] [place] 00:00:00 00:00:00 , CHRISTO [address] 2019-11-28 2019-11-28 Outpatient [facility]EPAN [facility] [id number] [place] 00:00:00 00:00:00 , CHRISTO [address] 2019-11-28 2019-11-28 Outpatient [facility]EP[facility] [id number] [place] 00:00:00 00:00:00 , CHRISTO [address] 2019-08-16 2019-08-16 Outpatient Sandra [facility] [id number] [facility] 07:15:00 07:15:00 _A_AH [id number] Family Practic e 2019-08-16 2019-08-16 Outpatient Sandra [facility] [id number] [facility] 07:15:00 07:15:00 _A_AH [id number] Family Practic e Results Test Description Test Time Test Comments Results Result Comments Source SARS coronavirus 2 RNA [Presence] in Respiratory speci men by 2019-11-29 01:52:26 DEVANTE with probe detection Test Item Value Reference Range Interpretation Comme nts SARS coronavirus 2 RNA [Presence] in Respiratory Not detected Not-D etected specimen by DEVANTE with probe detection (test code = 67685-5)
[2022-04-12 20:32] LABS: Absolute Lymphocytes (CBC) 1.8 K/uL (0.7-4.9); Hematocrit 29.9 % (36.0-45.0); Lymphocytes % 23.8 % (15.3-44.8); MCV 87.4 fL (80-100); MPV 9.1 fL (7.6-11.3); RBC Red Blood Cell Count 3.42 M/uL (3.86-4.86)
[2022-04-12 20:55] LABS: ALT/SGPT 17 U/L (12-78); AST/SGOT 15 U/L (15-37); Albumin 3.1 g/dL (3.4-5.0); Alkaline Phosphatase 80 U/L (45-117); BUN Blood Urea Nitrogen 27 mg/dL (7-18); Bicarbonate 25 mmol/L (21-32); Bilirubin Total 0.2 mg/dL (0.2-1.0); Glomerular Filtration Rate 38 ml/min (=/>90); Glucose Level 97 mg/dL (74-106); Magnesium 2.3 mg/dL (1.8-2.4); Sodium Level 138 mmol/L (136-145); Troponin High Sensitivity 7.3 pg/mL (<58.9)
[2022-04-12 20:58] LABS: Bilirubin Direct < 0.1 mg/dL (0-0.2)
--- NOTE | 2022-04-12 20:59 | RAD REPORT ---
EXAM DESCRIPTION: RAD - Chest Single View - 04/12/2022 8:49 pm CLINICAL HISTORY: CHEST PAIN COMPARISON: Chest Single View dated 10/19/2021; Chest Pa And Lat (2 Views) dated 11/11/2020; Chest Sin gle View dated 05/09/2020; Chest Pa And Lat (2 Views) dated 11/07/2019 FINDINGS: Lines: None. Lungs: No evidence of edema or pneumonia. Pleural: No significant pleural effusions or pneumothorax. Cardiac: The heart size is within normal limits. Mediastinum: Within normal limits. Bones: No acute fractures. Other: None IMPRESSION: No acute cardiopulmonary disease.
--- NOTE | 2022-04-12 21:53 | EDPHYS ---
Physician Documentation [facility] Name: Ashley Simon Age: 71 yrs Sex: Female : 1950 Arrival Date: 04/12/2022 Time: 18:35 Bed 18 Private MD: Carlos Thomas R ED Physician Ricardo Robertson HPI: 04/12 21:53 This 71 yrs old Female presents to ER via Ambulatory with complaints of ms3 pressure radiating from chest to head. 21:53 71-year-old female with past medical history of hypertension and diabetes presents for ms3 lower abdominal pain that radiates to her head and then back down to her abdomen. Patient states this is occurred 3 times tonight. Patient states symptoms began 5 hours prior to arrival. Patient denies pain while obtaining HPI. Patient denies nausea, vomiting, headache. 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 - Social history:: Smoking status: . ROS: 04/13 01:05 Constitutional: Negative for fever, and chills. ENT: Negative for injury, pain, and ms3 discharge, Neck: Negative for injury, pain, and swelling. Respiratory: Negative for shortness of breath, cough, wheezing, and pleuritic chest pain. Back: Negative for injury and pain, MS/Extremity: Negative for injury and deformity, Skin: Negative for injury, rash, and discoloration, Neuro: Negative for headache, weakness, numbness, tingling. Cardiovascular: Positive for chest pain. Abdomen/GI: Positive for abdominal pain. All other systems are negative. Exam: 04/12 19:29 ECG was reviewed by the Attending Physician. ms3 04/13 01:05 Constitutional: This is a well developed, well nourished patient who is awake, alert, ms3 and in no acute distress. Head/Face: Normocephalic, atraumatic. Eyes: Pupils equal round and reactive to light, extra-ocular motions intact. Lids and lashes normal. Conjunctiva and sclera are non-icteric and not injected. Periorbital areas with no swelling, redness, or edema. Neck: Trachea midline, no cervical lymphadenopathy. Supple, full range of motion without nuchal rigidity, or vertebral point tenderness. No Meningismus. Chest/axilla: Normal chest wall appearance and motion. Nontender with no deformity. Cardiovascular: Regular rate and rhythm with a normal S1 and S2. No gallops, murmurs, or rubs. Normal PMI, no JVD. No pulse deficits. Respiratory: Lungs have equal breath sounds bilaterally, clear to auscultation and percussion. No rales, rhonchi or wheezes noted. No increased work of breathing, no retractions or nasal flaring. Abdomen/GI: Soft, non-tender, with normal bowel sounds. No distension or tympany. No guarding or rebound. No evidence of tenderness throughout. Skin: Warm, dry with normal turgor. Normal color with no rashes, no lesions, and no evidence of cellulitis. MS/ Extremity: Pulses equal, no cyanosis. Neurovascular intact. Full, normal range of motion. Vital Signs: 04/12 18:50 BP 190 / 94; Pulse 69; Resp 18; Temp 98.2(TE); Pulse Ox 100% on R/A; Weight 45.81 kg tw2 (R); Height 5 ft. 2 in. (157.48 cm); Pain 0/10; 19:32 BP 188 / 67; Pulse 63; Resp 17; Pulse Ox 100% on R/A; ll3 21:04 BP 174 / 79; Pulse 62; Resp 17; Pulse Ox 100% on R/A; ll3 22:35 BP 174 / 79; Pulse 62; Resp 17; Pulse Ox 100% on R/A; ll3 18:50 Body Mass Index 18.47 (45.81 kg, 157.48 cm) tw2 MDM: 19:37 Patient medically screened. ms3 04/13 01:05 Data reviewed: vital signs, nurses notes, lab test result(s), EKG, radiologic studies, ms3 and as a result, I will discharge patient. Counseling: I had a detailed discussion with the patient and/or guardian regarding: the historical points, exam findings, and any diagnostic results supporting the discharge/admit diagnosis, lab results, radiology results, the need for outpatient follow up, to return to the emergency department if symptoms worsen or persist or if there are any questions or concerns that arise at home. ED course: Discussed labs, EKG, imaging with patient and her . Patient to follow-up with her primary care physician in 2 to 3 days. Patient understands and agrees with plan. All questions were answered. Return precautions discussed include worsening symptoms, or any other concerns. On reevaluation patient remains symptom-free, alert and oriented x4, in no apparent distress, nontoxic, ambulatory in the emergency department, speaking full sentences. 04/12 19:36 Order name: Basic Metabolic Panel; Complete Time: 21:11 ms3 04/12 19:36 Order name: CBC with Diff; Complete Time: 21:11 ms3 04/12 19:36 Order name: Magnesium; Complete Time: 21:11 ms3 04/12 19:36 Order name: Troponin HS; Complete Time: 21:11 ms3 04/12 19:36 Order name: XRAY Chest (1 view); Complete Time: 21:11 ms3 04/12 19:36 Order name: Hepatic Function; Complete Time: 21:11 ms3 04/12 19:36 Order name: EKG; Complete Time: 19:37 ms3 04/12 19:36 Order name: Cardiac monitoring; Complete Time: 20:17 ms3 04/12 19:36 Order name: EKG - Nurse/Tech; Complete Time: 20:03 ms3 04/12 19:36 Order name: IV Saline Lock; Complete Time: 20:17 ms3 04/12 19:36 Order name: Labs collected and sent; Complete Time: 20:17 ms3 04/12 19:36 Order name: O2 Per Protocol; Complete Time: 20:03 ms3 04/12 19:36 Order name: O2 Sat Monitoring; Complete Time: 20:03 ms3 EC/16 19:29 Rate is 62 beats/min. Rhythm is regular. QRS [place] is Normal. ID interval is normal. QRS ms3 interval is prolonged. Clinical impression: NSR with LBBB. Interpreted by me. Reviewed by me. Administered Medications: No medications were administered Disposition Summary: 04/12/22 21:53 Discharge Ordered Location: Home ms3 Condition: Stable ms3 Diagnosis - Chest pain, unspecified ms3 - Abdominal pain, unspecified ms3 Followup: ms3 - With: Carlos Thomas MD - When: 2 - 3 days - Reason: Recheck today's complaints Discharge Instructions: - Discharge Summary Sheet ms3 - Abdominal Pain, Adult ms3 - Nonspecific Chest Pain, Adult ms3 Forms: - Medication Reconciliation Form ms3 - Thank You Letter ms3 - Antibiotic Education ms3 - Prescription Opioid Use ms3 Signatures: Dispatcher [employer] Monica Wetzel RN RN tw2 Ricardo Robertson DO DO ms3 Corrections: (The following items were deleted from the chart) 04/13 01:06 04/12 21:53 71-year-old female with past medical history of hypertension and diabetes. ms3 ms3
--- NOTE | 2022-04-12 21:53 | ER ---
Nurse's Notes [facility] Name: Ashley Simon Age: 71 yrs Sex: Female : 1950 Arrival Date: 04/12/2022 Time: 18:35 Bed 18 Private MD: Carlos Thomas R Diagnosis: Chest pain, unspecified;Abdominal pain, unspecified Presentation: 04/12 18:45 Chief complaint: Patient states: i am on my 3rd episode of i dont know what is going on tw2 with me. i will be sitting there watching tv relaxing. at first this sensation from my knees up to my head and then it goes down. i feel like i need to go to the restroom like #2. i was freaking out and i get up after it passed and did have a bm. then my chest started feeling tight after this last episode. the only medicine i started about a week ago it is Ramipril 1.25 mg once daily. Coronavirus screen: At this time, the client does not indicate any symptoms associated with coronavirus-19. Ebola Screen: Patient denies travel to an Ebola-affected area in the 21 days before illness onset. Initial Sepsis Screen: Does the patient meet any 2 criteria? No. Patient's initial sepsis screen is negative. Does the patient have a suspected source of infection? No. Patient's initial sepsis screen is negative. Risk Assessment: Do you want to hurt yourself or someone else? Patient reports no desire to harm self or others. Onset of symptoms was April 12, 2022. 18:45 Method Of Arrival: Ambulatory tw2 18:45 Acuity: MARGARITA 2 tw2 Triage Assessment: 18:50 General: Appears in no apparent distress. slender, well groomed, Behavior is calm, tw2 cooperative, appropriate for age. Pain: Complains of pain in anterior aspect of left upper chest. 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 - Social history:: Smoking status: . Screenin:30 Abuse screen: Denies threats or abuse. Denies injuries from another. Nutritional ll3 screening: No deficits noted. Tuberculosis screening: No symptoms or risk factors identified. 22:35 Fall Risk None identified. ll3 Assessment: 19:30 General: Appears in no apparent distress. comfortable, Behavior is calm, cooperative. ll3 Pain: Complains of pain in chest Pain does not radiate. Pain currently is 2 out of 10 on a pain scale. Quality of pain is described as sharp, Pain began suddenly, Is episodic. Neuro: Level of Consciousness is awake, alert, obeys commands, Oriented to person, place, time, situation. Cardiovascular: Patient's skin is warm and dry. Chest pain is described as vague, quality is sharp, is located in left anterior chest wall began suddenly, episodes are intermittent. Derm: Skin is pink, warm \\T\\ dry. 21:04 Reassessment: No changes from previously documented assessment. Patient and/or family ll3 updated on plan of care and expected duration. Pain level reassessed. Patient is alert, oriented x 3, equal unlabored respirations, skin warm/dry/pink. Vital Signs: 18:50 BP 190 / 94; Pulse 69; Resp 18; Temp 98.2(TE); Pulse Ox 100% on R/A; Weight 45.81 kg tw2 (R); Height 5 ft. 2 in. (157.48 cm); Pain 0/10; 19:32 BP 188 / 67; Pulse 63; Resp 17; Pulse Ox 100% on R/A; ll3 21:04 BP 174 / 79; Pulse 62; Resp 17; Pulse Ox 100% on R/A; ll3 22:35 BP 174 / 79; Pulse 62; Resp 17; Pulse Ox 100% on R/A; ll3 18:50 Body Mass Index 18.47 (45.81 kg, 157.48 cm) tw2 ED Course: 18:35 Patient arrived in ED. am2 18:35 Carlos Thomas MD is Private Physician. am2 18:45 Arm band placed on. tw2 18:49 Triage completed. tw2 19:06 Ricardo Robertson DO is Attending Physician. ms3 19:30 Patient has correct armband on for positive identification. Placed in gown. Bed in low ll3 position. Call light in reach. Side rails up X 1. Adult w/ patient. 19:31 Loubet, Lynsea, RN is Primary Nurse. ll3 20:26 Initial lab(s) drawn, by me, sent to lab. Inserted saline lock: 22 gauge in left wrist, ll3 using aseptic technique. Blood collected. 20:51 XRAY Chest (1 view) In Process Unspecified. EDMS 21:52 Carlos Thomas MD is Referral Physician. ms3 22:34 No provider procedures requiring assistance completed. IV discontinued, intact, ll3 bleeding controlled, No redness/swelling at site. Pressure dressing applied. Administered Medications: No medications were administered Medication: 22:35 VIS not applicable for this client. ll3 Outcome: 21:53 Discharge ordered by . ms3 22:34 Discharged to home ambulatory, with significant other. ll3 22:34 Condition: stable 22:34 Discharge instructions given to patient, significant other, Instructed on discharge instructions, follow up and referral plans. Demonstrated understanding of instructions, follow-up care. 22:35 Patient left the ED. ll3 Signatures: Dispatcher [employer] EDMS Monica Pennington RN RN tw2 Elaine Morgan am2 Ricardo Robertson, DO ms3 Prachi Lee, RN RN ll3 Corrections: (The following items were deleted from the chart) 18:53 18:45 Chief complaint: Patient states: i am on my 3rd episode of i dont know what is tw2 going on with me. i will be sitting there watching tv relaxing. at first this sensation from my knees up to my head and then it goes down. i feel like i need to go to the restroom like #2. i was freaking out and i get up after it passed and did have a bm. then my chest started feeling tight after this last episode. tw2
[2022-04-12 23:43] VITALS: TEMP 98.2; O2SAT 100
[2022-04-12 23:45] VITALS: BP 174/79
--- NOTE | 2022-04-13 16:08 | EKG ---
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
== END 2022-04-12 22:35 | disposition home or self-care (01) ==
LOC: ER 18:33
DX: R07.89 Other chest pain (principal); R10.9 Unspecified abdominal pain; I10 Essential (primary) hypertension
CPT/HCPCS: 36415; 71045; 80048; 80076; 83735; 84484; 85025; 93005; 99284

== ENCOUNTER 2022-08-01 01:07 | Emergency (ER) | payer OTHER ==
--- OUTSIDE RECORDS SUMMARY | 2022-08-01 01:10 | XMS REPORT | Continuity of Care Document ---
:1950 Author Organization [facility] t Address [address] [place] [address] [address] [place] [address] Care Team Providers Name Role Phone Kevin MAGANA, Carlos Primary Care Physician [phone] Carlos Brown Attending Clinician Unavailable Skylar [...] Number Effective Date Expiration Date Lincoln dove [facility] [id number] 2019 (MEDICARE 00:00:00 REPLACEMENT/ADVANTA GE - HMO) [employer] [place] - [id number] 2019 2019 [employer] (MEDICARE 00:00:00 00:00:00 REPLACEMENT/ADVANTA [...] Added automatic ally from request for surgery [id number] Complex Complex Disease Active 2015-06 [facility] tear of tear of 2-15 st medial medial 00:00: Hospita meniscus meniscus 00 l of right of right knee as knee as current current injury injury Allergies, Adverse Reactions, Alerts This patient has no known allergies or adverse reactions. Family History Family Member Diagnosis Comments Start Date Stop Date Source Natural father Hypertension [facility] Natural father Mental illness [facility] Natural father Seizures [facility] [place] Natural father Stroke [facility] mother Cancer [facility] mother Kidney disease [facility] Social History Social Habit Start Date Stop Date Quantity Comments Source Alcohol intake 2019-12-04 2019-12-04 Current [employer] 00:00:00 00:00:00 non-drinker of Hospital alcohol (finding) Tobacco use and 2019-11-28 2019-11-28 Smokeless tobacco Me [facility] exposure 00:00:00 00:00:00 non-user Hospital Alcohol Comment 2019-11-28 2019-11-28 Wine - rare - Method ist 00:00:00 00:00:00 none since Hospital started Lorazepam Sex Ass[birth year] At [birth year] [employer] 00:00:00 00:00:00 Hospital Smoking Status Start Date Stop Date Source Tobacco smoking consumption unknown [facility] Never Smoker [facility] Family P racandrea Medications Ordered Filled Start Stop Current Ordering [...] l (six) hours as needed for anxiety. lisinopriL 2020-0 Yes 20mg QD Take 20 mg M ethodi 20 mg 6-[address] tablet 1 15:30: every Hospita tablet, 46 morning. l hydroCHLORO 20/12.5 mg thiazide 25 MG tablet 0.5 tablet metFORMIN 2020-0 Yes 500mg Q.5D Take 500 Met hodi [...] stephie 00 by mouth l daily. W.C. meloxicam 2017-0 Yes 15mg QD Take 1 [...] route. dicyclomine dicyclomine No 1 QID dicyclomin [facility] 20 mg 20 mg e 20 mg Family tablet Take tablet Take tablet Practic 1 tablet 4 1 tablet 4 Take 1 e times a day times a day tablet 4 by oral by oral times a route as route as day by needed. needed. oral route as needed. lisinopril lisinopril No 1 Q1D lisinopril [facility] 5 mg tablet 5 mg tablet 5 mg F amily Take 1 Take 1 tablet Practic tablet tablet Take 1 e every day every day tablet by oral by oral every day route. route. by oral route. metformin metformin No 1 BID metformin [facility] 500 mg 500 mg 500 mg Family tablet Take tablet Take tablet Practic 1 tablet 1 tablet Take 1 e twice a day twice a day tablet by oral by oral twice a route. route. day by oral route. metoprolol metoprolol No 1 Q1D metoprolol [facility] succinate succinate succinate Family ER 25 mg ER 25 mg ER 25 mg Pra ctic tablet,exte tablet,exte tablet,ext e nded nded ended release 24 release 24 release 24 hr Take 1 hr Take 1 hr Take 1 tablet tablet tablet every day every day every day by oral by oral by oral route. route. route. pantoprazol pantoprazol No 1 Q1D pantoprazo [facility] e 40 mg e 40 mg le 40 mg Famil y tablet,paula tablet,paula tablet,del Practic yed release yed release ayed e Take 1 Take 1 release tablet tablet Take 1 every day every day tablet by oral by oral every day route. route. by oral route. Vital Signs Vital Name Observation Time Observation Value Comments Source Height 2020-03-27 00:00:00 62 [in_i] [facility] BMI (Body Mass 2020-03-27 00:00:00 18.3 kg/m2 [facility] Family Index) Practice Body Weight 2020-03-27 00:00:00 100 [lb_av] [facility] Procedures Procedure Date / Time Performed Performing Clinician [facility] e CT CERVICAL SPINE WO CONTRAST 2021-01-14 20:04:19 Lea Jackson [facility] CT CERVICAL SPINE WO CONTRAST 2021-01-14 20:04:19 Lea Jackson [facility] Plan of Care Planned Activity Planned Date Details Comments Source Future Scheduled Test 2022-08-01 COVID-19 VACCINE (#1) [facility] 01:09:41 [code = COVID-19 VACCINE (#1)] Future Scheduled Test 2022-08-01 Hepatitis C screening [facility] 01:09:41 (procedure) [code = 042600184] Future Scheduled Test 2022-08-01 BREAST CANCER [facility] 01:09:41 SCREENING [code = BREAST CANCER SCREENING] Future Scheduled Test 2022-08-[address] [facility] 01:09:41 [code = COLONOSCOPY SCREENING] Future Scheduled Test 2022-08-01 SHINGLES VACCINES ([address] [facility] [place] 01:09:41 of 2) [code = SHINGLES VACCINES (1 of 2)] Future Scheduled Test 2022-08-01 65+ PNEUMOCOCCAL [facility] 01:09:41 VACCINE (1 - PCV) [code = 65+ PNEUMOCOCCAL VACCINE (1 - PCV)] Future Scheduled Test 2022-08-01 INFLUENZA VACCINE [facility] 01:09:41 [code = INFLUENZA VACCINE] Future Scheduled Test 2022-02-[address] [facility] 09:18:22 [code = COLONOSCOPY SCREENING] Future Scheduled Test 2022-02-24 SHINGLES VACCINES ([address] [facility] [place] 09:18:22 of 2) [code = SHINGLES VACCINES (1 of 2)] Future Scheduled Test 2022-02-24 65+ PNEUMOCOCCAL [facility] 09:18:22 VACCINE (1 - PCV) [code = 65+ PNEUMOCOCCAL VACCINE (1 - PCV)] Future Scheduled Test 2022-02-24 INFLUENZA VACCINE [facility] 09:18:22 [code = INFLUENZA VACCINE] Future Scheduled Test 2022-02-24 HEPATITIS B VACCINES [facility] [place] 09:18:22 (1 of 3 - 3-dose series) [code = HEPATITIS B VACCINES (1 of 3 - 3-dose series)] Future Scheduled Test 2022-02-24 COVID-19 VACCINE (#1) [facility] [place] 09:18:22 [code = COVID-19 VACCINE (#1)] Future Scheduled Test 2022-02-24 Hepatitis C screening [facility] [place] 09:18:22 (procedure) [code = 219411113] Future Scheduled Test 2022-02-24 BREAST CANCER [facility] 09:18:22 SCREENING [code = BREAST CANCER SCREENING] Instructions [facility] Encounters Start End Encounter Admission Attending Care Care Encounter Source Date/Time Date/Time Type Type Clinicians Facility Department ID 2022-01-22 Outpatient Kattegummul [facility] [id number] Common 13:31:01 a, Carlos [address] [facility] 2021-12-23 Outpatient Kattegummul [facility] [id number] Common 13:50:03 a, Carlos [id number] [facility] 2021-11-03 Outpatient HerreraSkylar [facility] [id number] Common 14:00:05 [facility] 2020-12-17 2020-12-17 EXT [facility] OP Manuel, EXT MSRDP [id number] [place] 00:00:00 00:00:00 Lea LOCATION [id number] H ealth [id number] 2020-12-17 2020-12-17 EXT [facility] OP Manuel, EXT MSRDP [id number] [place] 00:00:00 00:00:00 Lea LOCATION [id number] H [facility] [id number] 2020-10-03 2020-10-03 Emergency [facility] [id number] [place] 00:00:00 00:00:00 [facility] [address] 2020-07-19 2020-07-19 Outpatient Roxana-Mbayo VFP VFP [id number] [facility] 11:15:00 11:15:00 _A_AH [id number] Family Practic e 2020-04-23 2020-04-23 Outpatient Roxana-Mbayo VFP VFP [id number] [facility] 06:14:00 06:14:00 _A_AH [id number] Family Practic e 2020-04-23 2020-04-23 Outpatient Roxana-Mbayo VFP VFP [id number] [facility] 06:14:00 06:14:00 _A_AH [id number] Family Practic e 2020-04-03 2020-04-03 Outpatient Roxana-Mbayo VFP VFP [id number] [facility] 11:38:00 11:38:00 _A_AH [id number] Family Practic e 2020-03-27 2020-03-27 [facility] [place] - [id number] V illage 00:00:00 00:00:00 RoxanaMbay [facility] Fam maddy sterling 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 2020-03-26 2020-03-26 Outpatient Roxana-Mbayo VFP VFP [id number] [facility] 02:32:00 02:32:00 _A_AH 20756 Family Practic e 2020-03-26 2020-03-26 Outpatient Roxana-Mbayo VFP VFP [id number] [facility] 02:32:00 02:32:00 _A_AH 03177 Family Practic e 2019-11-30 2019-12-02 Inpatient STEPAN [facility] [id number] [place] 00:00:00 00:00:00 , CHRISTO sierra 2019-11-28 2019-11-28 Outpatient STEPAN [facility] [id number] [place] 00:00:00 00:00:00 , CHRISTO [address] 2019-11-28 2019-11-28 Outpatient STEPAN [facility] [id number] [place] 00:00:00 00:00:00 , CHRISTO [address] 2019-11-28 2019-11-28 Outpatient STEPAN [facility] [id number] [place] 00:00:00 00:00:00 , CHRISTO [address] 2019-08-16 2019-08-16 Outpatient Roxana-Mbayo VFP VFP [id number] [facility] 07:15:00 07:15:00 _A_AH [id number] Family Practic e 2019-08-16 2019-08-16 Outpatient Roxana-Mbayo [facility]FP VFP [id number] [facility] 07:15:00 07:15:00 _A_AH 17198 Family Practic e Results Test Description Test Time Test Comments Results Result Comments Source SARS coronavirus 2 RNA [Presence] in Respiratory speci men by 2019-11-29 01:52:26 DEVANTE with probe detection Test Item Value Reference Range Interpretation Comme nts SARS coronavirus 2 RNA [Presence] in Respiratory Not detected Not-D etected specimen by DEVANTE with probe detection (test code = 98054-9) MAMOU NICA [place]
[2022-08-01] MEDS ORDERED: ACETAMINOPHEN 325 MG TABLET ONE (01:55)
[2022-08-01] MEDS ORDERED: IBUPROFEN 200 MG TAB PO ONE (01:55)
[2022-08-01 03:10] LABS: Absolute Lymphocytes (CBC) 2.7 K/uL (0.7-4.9); Hematocrit 30.6 % (36.0-45.0); Lymphocytes % 34.9 % (15.3-44.8); MCV 87.7 fL (80-100); MPV 8.6 fL (7.6-11.3); RBC Red Blood Cell Count 3.49 M/uL (3.86-4.86)
[2022-08-01 03:29] LABS: Magnesium 2.2 mg/dL (1.6-2.4); Potassium 4.1 mmol/L (3.5-5.1); Troponin High Sensitivity 8.2 pg/mL (<58.9)
--- NOTE | 2022-08-01 04:23 | EDPHYS ---
Physician Documentation [facility] Name: Ashley Simon Age: 71 yrs Sex: Female : 1950 Arrival Date: 08/01/2022 Time: 01:09 Bed 8 Private MD: ED Physician Jayden Daigle HPI: 08/01 01:30 This 71 yrs old Female presents to ER via Unassigned with complaints of Arm cp Pain. 01:30 The patient or guardian complains of pain, that is acute. The complaints affect the cp right forearm. Onset: The symptoms/episode began/occurred 4 hour(s) ago. Treatment prior to arrival includes: no previous treatment. 02:25 The patient or guardian reports chest pain that is located primarily in the anterior cp chest wall. 02:25 Onset: last week, intermittent. The chest pain is described as aching. Duration: The cp patient or guardian reports multiple episodes, that are intermittent. Historical: - Allergies: 01:33 No Known Allergies; pf1 ROS: 01:33 MS/extremity: Positive for pain, of the right forearm. cp 01:33 Constitutional: Negative for body aches, chills, fever, poor PO intake. cp 01:33 Cardiovascular: Positive for chest pain, Negative for edema, palpitations. cp 01:33 Respiratory: Negative for cough, shortness of breath, wheezing. 01:33 Skin: Positive for rash, of the right forearm. 01:33 Neuro: Negative for altered mental status, headache, weakness. 01:33 Abdomen/GI: Negative for abdominal pain, nausea, vomiting, and diarrhea. cp 01:33 All other systems are negative. cp Exam: 01:37 Constitutional: The patient appears in no acute distress, alert, awake, cp non-diaphoretic, non-toxic, well developed, well nourished. 01:37 Head/Face: Normocephalic, atraumatic. cp 01:37 Chest/axilla: Inspection: normal. 01:37 Cardiovascular: Rate: normal, Pulses: Pulses are 2+ in right radial artery. 01:37 Respiratory: the patient does not display signs of respiratory distress, Respirations: normal, no use of accessory muscles, no retractions, labored breathing, is not present. 01:37 Musculoskeletal/extremity: Extremities: grossly normal except: noted in the right forearm: pain, tenderness to palpation and mild swelling noted distal right forearm, volar and radial side, ROM: full active range of motion, in the right wrist, the right hand and right forearm Sensation intact. 01:37 Skin: on the right forearm. Vital Signs: 01:25 BP 138 / 61; Pulse 64; Resp 16; Temp 98.1; Pulse Ox 100% on R/A; Weight 47.63 kg; pf1 Height 5 ft. 2 in. (157.48 cm); Pain 10/10; 03:21 BP 166 / 73; Pulse 57; Resp 22 S; Pulse Ox 100% on R/A; aa9 04:33 BP 156 / 79; Pulse 59; Resp 19 S; Pulse Ox 99% on R/A; aa9 01:25 Body Mass Index 19.20 (47.63 kg, 157.48 cm) pf1 MDM: 01:25 Patient medically screened. cp 03:28 Data reviewed: vital signs, nurses [facility]. [facility] 03:28 Differential diagnosis: contusion, tendonitis, Read by me shows sinus bradycardia, left jr11 axis deviation, left bundle branch block scar Bosa criteria negative. Patient with arm pain, stated it started radiating to her chest, its been greater than 8 hours, troponin negative doubt ACS. Likely musculoskeletal in nature. 04:20 Consideration of Admission/Observation Escalation of care including [facility] admission/observation considered. trop neg, pain under control, low risk ACS. Patient, she was caring a heavy pot [id number], thinks she may have had a muscular injury.. Independent interpretation of the following test(s) in the Emergency Department X-Ray: My interpretation is wrist image no fx, DJD. Care significantly affected by the following chronic conditions: arthritis . 08/01 02:26 Order name: Basic Metabolic Panel; Complete Time: 03:31 cp 08/01 02:26 Order name: CBC with Diff; Complete Time: 03:31 cp 08/01 01:31 Order name: XRAY Wrist RIGHT 3 view cp 08/01 02:26 Order name: Magnesium; Complete Time: 03:31 cp 08/01 02:26 Order name: Troponin HS; Complete Time: 03:31 cp 08/01 01:33 Order name: XRAY Forearm RIGHT cp 08/01 01:37 Order name: UPPER EXTREMITY VENOUS UNILATE EDMS 08/01 02:26 Order name: XRAY Chest (1 view) cp 08/01 02:26 Order name: EKG; Complete Time: 02:26 cp 08/01 02:26 Order name: Cardiac monitoring; Complete Time: 03:21 cp 08/01 02:26 Order name: EKG - Nurse/Tech; Complete Time: 03:21 cp 08/01 02:26 Order name: IV Saline Lock; Complete Time: 03:21 cp 08/01 02:26 Order name: Labs collected and sent; Complete Time: 03:21 cp 08/01 02:26 Order name: O2 Per Protocol; Complete Time: 03:21 cp 08/01 02:26 Order name: O2 Sat Monitoring; Complete Time: 03:21 cp Administered Medications: 02:21 Drug: Tylenol 650 mg Route: PO; aa9 02:42 Follow up: Response: No adverse reaction aa9 02:22 Drug: Ibuprofen 600 mg Route: PO; aa9 02:42 Follow up: Response: No adverse reaction aa9 Disposition: 04:20 I reviewed the patient's care provided by Advanced Practice Provider \T\ agree w/ the jr11 diagnosis \T\ care plan. I personally saw the pt \T\ performed a substantive portion of the visit, incldng all aspects of the (History/Exam/Medical Decision Making). Disposition Summary: 08/01/22 04:22 Discharge Ordered [facility] Condition: Stable jr11 Diagnosis - Arthritis, non cardiac chest pain, wrist pain, R arm pain jr11 Followup: jr11 - With: Private Physician - When: 2 - 3 days - Reason: Recheck today's complaints Discharge Instructions: - Discharge Summary Sheet jr11 - Arthritis jr11 - Nonspecific Chest Pain, Adult jr11 Forms: - Medication Reconciliation Form jr11 - Thank You Letter jr11 - Antibiotic Education jr11 - Prescription Opioid Use jr11 Signatures: Dispatcher [employer] EDMS Robin Van PA PA cp Rosillo, Jose, MD MD jr11 China Molina RN RN aa9 Malu mustafa RN RN pf1 Corrections: (The following items were deleted from the chart) 01:37 01:31 Extremity Venous Uni Ltd+[email or web address] ordered. EDMS EDMS 08/02 00:54 0204 01:33 Cardiovascular: Negative for chest pain, palpitations, cp cp 08/02 00:54 08/01 01:33 All other systems are negative, cp cp
--- NOTE | 2022-08-01 04:23 | ER ---
Nurse's Notes [facility] Name: Ashley Simon Age: 71 yrs Sex: Female : 1950 Arrival Date: 08/01/2022 Time: 01:09 Bed 8 Private MD: Diagnosis: Arthritis, non cardiac chest pain, wrist pain, R arm pain Presentation: 08/01 01:25 Chief complaint: Patient states: Right arm pain of 10 with a bump to right pf1 forearm,onset 1700 tonight,that radiates to right shoulder. 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 Patient stated put an over the counter pain patch on the right forearm, took Tramadol 50mg at 1600, 0100 and also took ASA 2 tablets at 0100. Coronavirus screen: Vaccine status: Patient reports being unvaccinated. Client denies travel out of the [place] in the last 14 days. At this time, the client does not indicate any symptoms associated with coronavirus-19. Ebola Screen: Patient negative for fever greater than or equal to 101.5 degrees Fahrenheit, and additional compatible Ebola Virus Disease symptoms. Initial Sepsis Screen: Does the patient meet any 2 criteria? No. Patient's initial sepsis screen is negative. Does the patient have a suspected source of infection? No. Patient's initial sepsis screen is negative. Risk Assessment: Do you want to hurt yourself or someone else? Patient reports no desire to harm self or others. Onset of symptoms was July 31, 2022. 01:25 Method Of Arrival: Ambulatory pf1 01:25 Acuity: MARGARITA 3 pf1 Historical: - Allergies: 01:33 No Known Allergies; pf1 Screenin:22 Abuse screen: Denies threats or abuse. Denies injuries from another. Nutritional aa9 screening: No deficits noted. Tuberculosis screening: No symptoms or risk factors identified. Assessment: 03:22 Reassessment: Patient appears in no apparent distress at this time. Patient is alert, aa9 oriented x 3, equal unlabored respirations, skin warm/dry/pink. General: Appears in no apparent distress. comfortable, slender, Behavior is calm, cooperative, appropriate for age. Pain: Complains of pain in chest Pain radiates to left arm. Neuro: Level of Consciousness is awake, alert, obeys commands, Oriented to person, place, time, situation. Cardiovascular: Reports chest pain. Respiratory: Airway is patent Respiratory effort is even, unlabored. GI: No signs and/or symptoms were reported involving the gastrointestinal system. : No signs and/or symptoms were reported regarding the genitourinary system. Derm: Skin is intact, is fragile. 04:33 Reassessment: Patient appears in no apparent distress at this time. Patient is alert, aa9 oriented x 3, equal unlabored respirations, skin warm/dry/pink. Vital Signs: 01:25 BP 138 / 61; Pulse 64; Resp 16; Temp 98.1; Pulse Ox 100% on R/A; Weight 47.63 kg; pf1 Height 5 ft. 2 in. (157.48 cm); Pain 10/10; 03:21 BP 166 / 73; Pulse 57; Resp 22 S; Pulse Ox 100% on R/A; aa9 04:33 BP 156 / 79; Pulse 59; Resp 19 S; Pulse Ox 99% on R/A; aa9 01:25 Body Mass Index 19.20 (47.63 kg, 157.48 cm) pf1 ED Course: 01:09 Patient arrived in ED. jj6 01:12 Robin Van PA is PHCP. cp 01:12 Jayden Daigle MD is Attending Physician. cp 01:19 Robin Van PA is PHCP. cp 01:19 Jayden Daigle MD is Attending Physician. cp 01:33 Triage completed. pf1 02:15 UPPER EXTREMITY VENOUS UNILATE In Process Unspecified. EDMS 02:40 China Molina, RN is Primary Nurse. aa9 03:26 Patient has correct armband on for positive identification. Side rails up X2. Adult w/ aa9 patient. Warm blanket given. Pillow given. 03:28 XRAY Wrist RIGHT 3 view In Process Unspecified. EDMS 03:28 XRAY Forearm RIGHT In Process Unspecified. EDMS 03:28 XRAY Chest (1 view) In Process Unspecified. EDMS Administered Medications: 02:21 Drug: Tylenol 650 mg Route: PO; aa9 02:42 Follow up: Response: No adverse reaction aa9 02:22 Drug: Ibuprofen 600 mg Route: PO; aa9 02:42 Follow up: Response: No adverse reaction aa9 Outcome: 04:22 Discharge ordered by MD. ren11 04:34 Patient left the ED. aa9 Signatures: Dispatcher [employer] EDMS Robin Van PA PA cp Jeffries, Jennifer jj6 Rosillo, Jose, MD MD jr11 China Molina, RN RN aa9 Malu mustafa RN RN pf1
[2022-08-01 04:39] VITALS: TEMP 98.1
[2022-08-01 04:41] VITALS: BP 156/79; O2SAT 99
--- NOTE | 2022-08-01 21:16 | RAD REPORT ---
EXAM DESCRIPTION: RAD - Wrist Right 3 View - 08/01/2022 3:27 am CLINICAL HISTORY: 71 years Female PAIN TECHNIQUE: Three x-ray views of the right wrist were performed on 08/01/2022 at 2:54 AM. COMPARISON: Left hand performed on 09/25/2021 and MRI right hand report from 11/14/2021 FINDINGS: There is no evidence of acute fracture or dislocation. There is severe joint space narrowi ng involving the first carpal metacarpal joint with associated subchondral sclerosis and hypertrophic spurring consistent with osteoarthritis. There is mild generalized narrowing of the joint spaces inv olving the right wrist. Overall, there is decreased bone mineralization. No pathologic lytic or scler otic bone lesions are identified. No focal soft tissue abnormalities are identified. IMPRESSION: No evidence of acute osseous injury involving the right wrist. There is severe osteoarth ritis of the first carpometacarpal joint space. Electronically signed by: Addie Frankel DO 08/01/2022 4:11 AM MARKETING REPRESENTATIVE Due to temporary technical issues with the PACS/Fluency reporting system, reports are being signed by the in house radiologists without review as a courtesy to insure prompt reporting. The interpreting radiologist is fully responsible for the content of the report.
--- NOTE | 2022-08-01 21:21 | RAD REPORT ---
EXAM DESCRIPTION: RAD - Forearm Right - 08/01/2022 3:27 am CLINICAL HISTORY: 71 years, Female, PAIN COMPARISON: None. FINDINGS: 2 X-ray views of the right forearm (frontal lateral views) were performed. Mild diffuse [place] osteopenia. No acute bony injuries were demonstrated. Degenerative changes first carpometacarpal j oint and carpal bones. There are no gross intraosseous lesions. No periosteal reaction were seen. IMPRESSION: No acute bony injuries were demonstrated. Degenerative changes. Electronically signed by: Donald Cano MD 08/01/2022 4:09 AM MANAGER WELLNESS Due to temporary technical issues with the PACS/Fluency reporting system, reports are being signed by the in house radiologists without review as a courtesy to insure prompt reporting. The interpreting radiologist is fully responsible for the content of the report.
--- NOTE | 2022-08-01 21:25 | RAD REPORT ---
EXAM DESCRIPTION: RAD - Chest Single View - 08/01/2022 3:27 am CLINICAL HISTORY: 71 years, Female, CHEST PAIN COMPARISON: 10/19/2021. FINDINGS: Single view of the chest was obtained portable. Prior films were compared. There is mild h yperinflation. The cardiomediastinal silhouette demonstrate to be unremarkable. The heart is not enla rged. The thoracic aorta is unremarkable. The pulmonary vasculature is normal distribution. Costophre kam angles are sharp. No areas of consolidation or masses are seen. The rest of the soft tissue a nd bony structures demonstrate to be unremarkable. IMPRESSION: Mild hyperinflation. No acute cardiopulmonary process identified. Electronically signed by: Donald Cano MD 08/01/2022 4:10 AM EARTHMOVING LABOURER Due to temporary technical issues with the PACS/Fluency reporting system, reports are being signed by the in house radiologists without review as a courtesy to insure prompt reporting. The interpreting radiologist is fully responsible for the content of the report.
--- NOTE | 2022-08-03 11:05 | RAD REPORT ---
EXAM DESCRIPTION: US - UPPER EXTREMITY VENOUS UNILATE - 08/01/2022 2:13 am CLINICAL HISTORY: 71 years Female PAIN UPPER EXTREMITY VENOUS UNILATE COMPARISON: None TECHNIQUE: Spectral analysis and color/grayscale sonographic images of the right upper extremity w as obtained utilizing a high-frequency linear array transducer supplemented with color Doppler, compr ession and augmentation techniques. FINDINGS: Internal jugular: Patent Subclavian: Patent Axillary: Patent Brachial: Patent. Basilic: Patent Cephalic: Patent Radial: Patent Ulnar: Patent IMPRESSION: 1. No sonographic evidence for deep venous thrombosis in the right upper extremity. Electronically signed by: Priyank Franks MD 08/01/2022 2:20 AM CIGAR SORTER Due to temporary technical issues with the PACS/Fluency reporting system, reports are being signed by the in house radiologists without review as a courtesy to insure prompt reporting. The interpreting radiologist is fully responsible for the content of the report.
== END 2022-08-01 04:34 | disposition home or self-care (01) ==
LOC: ER 01:07
DX: M19.90 Unspecified osteoarthritis, unspecified site (principal); M79.601 Pain in right arm; R07.89 Other chest pain
CPT/HCPCS: 36415; 71045; 80048; 83735; 84484; 85025; 93005; 93971; 99283

== ENCOUNTER 2022-08-27 16:40 | Emergency (ER) | payer OTHER ==
--- OUTSIDE RECORDS SUMMARY | 2022-08-27 16:43 | XMS REPORT | Continuity of Care Document ---
:1950 Author Organization [facility] t Address [address] [place] [address] [place] [id number] Care Team Providers Name Role Phone Kevin MAGANA, Carlos Primary Care Physician [phone] Carlos Brown Attending Clinician Unavailable Skylar [...] Number Effective Date Expiration Date [place] dove [facility] [id number] 2019 (MEDICARE 00:00:00 REPLACEMENT/ADVANTA GE - HMO) [employer] [place] - [id number] 2019 2019 [employer] (MEDICARE 00:00:00 00:00:00 REPLACEMENT/ADVANTA [...] Carotid Carotid Disease Active Method[facility] artery artery -04 st disease disease 00:00: Hospita 00 l Stenosis Stenosis Disease Active Overview: Me thodi of left of left 6-[address] carotid carotid 00:00: g of this Hospi ta artery artery 00 note l might be different from the original. Added automatic ally from request for surgery [id number] Complex Complex Disease Active 2015-06 Method[facility] tear [...] of [place] Natural father Mental illness Method [facility] Natural father Seizures [facility] Natural father Stroke [facility] Natural mother Cancer [facility] mother Kidney disease [facility] Social History Social Habit Start Date Stop Date Quantity Comments Source Alcohol intake 2019-12-04 2019-12-04 Current [facility] 00:00:00 00:00:00 non-drinker of Hospital alcohol (finding) Tobacco use and 2019-11-28 2019-11-28 Smokeless tobacco Me [facility]odist exposure 00:00:00 00:00:00 non-user Hospital Alcohol Comment 2019-11-28 2019-11-28 Wine - rare - Method ist 00:00:00 00:00:00 none since Hospital started Lorazepam Sex Ass[birth year] At [birth year] [facility] 00:00:00 00:00:00 Hospital Smoking Status Start Date Stop Date Source Never Smoker [facility] Tobacco smoking consumption unknown [facility] Medications Ordered Filled Start Stop Current Ordering Indication Dosage Frequency Signature Comments Components Source Medication Medication Date Date Medication? Clinician (SIG) Name Name aspirin Yes 81mg QD Take 81 mg Meth valentín (ECOTRIN) 6-[address] 81 MG 15:30: every Hospita enteric 46 morning. l coated tablet LORAZepam Yes .5mg Q6H Take 0.5 Meth valentín [...] mg 15:30: nightly. Hospita tablet 46 l meloxicam 2017-0 Yes 15mg QD Take 1 [...] route. dicyclomine dicyclomine No 1 QID dicyclomin [facility] 20 mg 20 mg e 20 mg Family tablet Take tablet Take tablet Practic 1 tablet 4 1 tablet 4 Take 1 e times a day times a day tablet 4 by oral by oral times a route as route as day by needed. needed. oral route as needed. lisinopril lisinopril No 1 Q1D lisinopril [facility] 5 mg tablet 5 mg tablet 5 mg F amily Take 1 Take 1 tablet Practic tablet tablet Take 1 e every day every day tablet by oral by oral every day route. route. by oral route. metformin metformin No 1 BID metformin [facility] 500 mg 500 mg 500 mg Family tablet Take tablet Take tablet Practic 1 tablet 1 tablet Take 1 e twice a day twice a day tablet by oral by oral twice a route. route. day by oral route. metoprolol metoprolol No 1 Q1D metoprolol [facility] succinate succinate succinate Family ER 25 [...] Comments Source Height 2020-03-27 00:00:00 62 [in_i] [facility] Practice BMI (Body Mass 2020-03-27 00:00:00 18.3 kg/m2 [facility] Family Index) Practice Body Weight 2020-03-27 00:00:00 100 [lb_av] [facility] Procedures Procedure Date / Time Performed Performing Clinician [facility] sandra CT CERVICAL SPINE WO CONTRAST 2021-01-14 20:04:19 Lea Jackson [facility] CT CERVICAL SPINE WO CONTRAST 2021-01-14 20:04:19 Lea Jackson [facility] Plan of Care Planned Activity Planned Date Details Comments Source Future Scheduled Test 2022-08-01 COVID-19 VACCINE (#1) [facility] 01:09:41 [code = COVID-19 VACCINE (#1)] Future Scheduled Test 2022-08-01 Hepatitis C screening [facility] 01:09:41 (procedure) [code = 784203866] Future Scheduled Test 2022-08-01 BREAST CANCER [facility] 01:09:41 SCREENING [code = BREAST CANCER SCREENING] Future Scheduled Test 2022-08-01 COLONOSCOPY SCREENING [facility] 01:09:41 [code = COLONOSCOPY SCREENING] Future Scheduled Test 2022-08-01 SHINGLES VACCINES (1 [facility] 01:09:41 of 2) [code = SHINGLES VACCINES (1 of 2)] Future Scheduled Test 2022-08-01 65+ PNEUMOCOCCAL [facility] 01:09:41 VACCINE (1 - PCV) [code = 65+ PNEUMOCOCCAL VACCINE (1 - PCV)] Future Scheduled Test 2022-08-01 INFLUENZA VACCINE [facility] 01:09:41 [code = INFLUENZA VACCINE] Future Scheduled Test 2022-08-01 COVID-19 VACCINE (#1) [facility] 01:09:41 [code = COVID-19 VACCINE (#1)] Future Scheduled Test 2022-08-01 Hepatitis C screening [facility] 01:09:41 (procedure) [code = [id number]] Future Scheduled Test 2022-08-01 BREAST CANCER [facility] 01:09:41 SCREENING [code = BREAST CANCER SCREENING] Future Scheduled Test 2022-08-01 COLONOSCOPY SCREENING [facility] 01:09:41 [code = COLONOSCOPY SCREENING] Future Scheduled Test 2022-08-01 SHINGLES VACCINES (1 [facility] 01:09:41 of 2) [code = SHINGLES VACCINES (1 of 2)] Future Scheduled Test 2022-08-01 65+ PNEUMOCOCCAL [facility] 01:09:41 VACCINE (1 - PCV) [code = 65+ PNEUMOCOCCAL VACCINE (1 - PCV)] Future Scheduled Test 2022-08-01 INFLUENZA VACCINE [facility] 01:09:41 [code = INFLUENZA VACCINE] Future Scheduled Test 2022-02-24 HEPATITIS B VACCINES [facility] 09:18:22 (1 of 3 - 3-dose series) [code = HEPATITIS B VACCINES (1 of 3 - 3-dose series)] Future Scheduled Test 2022-02-24 COVID-19 VACCINE (#1) [facility] 09:18:22 [code = COVID-19 VACCINE (#1)] Future Scheduled Test 2022-02-24 Hepatitis C screening [facility] 09:18:22 (procedure) [code = [id number]] Future Scheduled Test 2022-02-24 BREAST CANCER [facility] 09:18:22 SCREENING [code = BREAST CANCER SCREENING] Future Scheduled Test 2022-02-24 COLONOSCOPY SCREENING [facility] 09:18:22 [code = COLONOSCOPY SCREENING] Future Scheduled Test 2022-02-24 SHINGLES VACCINES (1 [facility] 09:18:22 of 2) [code = SHINGLES VACCINES (1 of 2)] Future Scheduled Test 2022-02-24 65+ PNEUMOCOCCAL [facility] 09:18:22 VACCINE (1 - PCV) [code = 65+ PNEUMOCOCCAL VACCINE (1 - PCV)] Future Scheduled Test 2022-02-24 INFLUENZA VACCINE [facility] 09:18:22 [code = INFLUENZA VACCINE] Instructions [facility] Encounters Start End Encounter Admission Attending Care Care Encounter Source Date/Time Date/Time Type Type Clinicians Facility Department ID 2022-01-22 Outpatient Kattegummul [facility] [id number] Common 13:31:01 a, Carlos [facility] 2021-12-23 Outpatient Kattegummul [facility] [id number] Common 13:50:03 a, Carlos [facility] 2021-11-03 Outpatient Herrera Skylar [facility] [id number] Common 14:00:05 [facility] 2020-12-17 2020-12-17 EXT [facility] OP Manuel, EXT MSRDP [id number] [place] 00:00:00 00:00:00 Lea LOCATION [id number] H ealth [id number] 2020-12-17 2020-12-17 EXT MHH OP Jackson, EXT MSRDP [id number] [place] 00:00:00 00:00:00 Lea LOCATION [id number] H ealth [id number] 2020-10-03 2020-10-03 Emergency REHRER, [facility] [id number] [place] [address] 00:00:00 00:00:00 [place] [address] 2020-07-19 2020-07-19 Outpatient Roxana-Mbayo [facility] VFP [id number] [facility] 11:15:00 11:15:00 _A_AH [id number] Family Practic e 2020-04-23 2020-04-23 Outpatient Roxana-Mbayo [facility]FP VFP [id number] [facility] 06:14:00 06:14:00 _A_AH 31188 Family Practic e 2020-04-23 2020-04-23 Outpatient Roxana-Mbayo [facility]FP VFP [id number] [facility] 06:14:00 06:14:00 _A_AH 75287 Family Practic e 2020-04-03 2020-04-03 Outpatient Roxana-Mbayo VFP VFP [id number] [facility] 11:38:00 11:38:00 _A_AH 42098 Family Practic e 2020-03-27 2020-03-27 [facility] [place] - [id number] [facility] ill[facility] 00:00:00 00:00:00 Roxana-Mbay [facility] 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 2020-03-26 2020-03-26 Outpatient Roxana-Mbayo VFP VFP [id number] [facility] 02:32:00 02:32:00 _A_AH 58756 Family Practic e 2020-03-26 2020-03-26 Outpatient Roxana-Mbayo V[facility] VFP [id number] [facility] 02:32:00 02:32:00 _A_AH 70988 Family Practic e 2019-11-30 2019-12-[address] [facility] [id number] [place] 00:00:00 00:00:00 , CHRISTO [address] 2019-11-28 2019-11-28 Outpatient [facility] [id number] [place] 00:00:00 00:00:00 , CHRISTO [address] 2019-11-28 2019-11-28 Outpatient [facility] [id number] [place] 00:00:00 00:00:00 , CHRISTO [address] 2019-11-28 2019-11-28 Outpatient [facility] [id number] [place] 00:00:00 00:00:00 , CHRISTO [address] 2019-08-16 2019-08-16 Outpatient Roxana-Mbayo VFP VFP [id number] [facility] 07:15:00 07:15:00 _A_AH 57253 Family Practic e 2019-08-16 2019-08-16 Outpatient Roxana-Mbayo VFP VFP [id number] [facility] 07:15:00 07:15:00 _A_AH 17397 Family Practic e Results Test Description Test Time Test Comments Results Result Comments Source SARS coronavirus 2 RNA [Presence] in Respiratory speci men by 2019-11-29 01:52:26 DEVANTE with probe detection Test Item Value Reference Range Interpretation Comme nts SARS coronavirus 2 RNA [Presence] in Respiratory Not detected Not-D etected specimen by DEVANTE with probe detection (test code = 34496-0) [facility]
[2022-08-27 18:16] LABS: Absolute Lymphocytes (CBC) 1.9 K/uL (0.7-4.9); Hematocrit 30.5 % (36.0-45.0); Lymphocytes % 25.7 % (15.3-44.8); MCV 86.2 fL (80-100); MPV 8.5 fL (7.6-11.3); RBC Red Blood Cell Count 3.54 M/uL (3.86-4.86)
--- NOTE | 2022-08-27 18:44 | RAD REPORT ---
EXAM DESCRIPTION: RADChest Single View08/27/2022 6:18 pm CLINICAL HISTORY: CHEST PAIN COMPARISON: Chest Single View dated 08/01/2022; Chest Single View dated 04/12/2022; Chest Single View dated 10/19/2021; Chest Pa And Lat (2 Views) dated 11/11/2020 TECHNIQUE: Portable AP view of the chest. FINDINGS: The lungs are clear.Stable mild hyperinflation and chronic interstitial changes, could rel ate to COPD. No pneumothorax or effusion. The cardiomediastinal contours are unremarkable. IMPRESSION: No acute cardiopulmonary process.
[2022-08-27 18:51] LABS: SARS-COV-2 RT PCR NEGATIVE (NEGATIVE)
[2022-08-27 19:14] LABS: Troponin High Sensitivity 9.4 pg/mL (<58.9)
--- NOTE | 2022-08-27 21:29 | RAD REPORT ---
EXAM DESCRIPTION: CT - Chest For Pe Angio - 08/27/2022 8:33 pm CLINICAL HISTORY: CHEST PAIN COMPARISON: Chest Single View dated 08/27/2022 TECHNIQUE: Thin axial CT images of the chest were obtained following administration of 66 mL Isovue 370 IV contrast. Multiplanar reconstructions, and maximum intensity projection reconstructions were generated and reviewed. Exam utilizes a protocol for optimal evaluation of pulmonary arterial tree. All CT scans are performed using dose optimization technique as appropriate and may include automated exposure control or mA/KV adjustment according to patient size. FINDINGS: Pulmonary arteries are normal. No emboli or other suspicious finding. No acute or signific ant aorta findings. No mass or infiltrate in the lung parenchyma. No pleural thickening or pleural effusion. No pneumotho rax. No abnormal mediastinal or hilar masses or lymphadenopathy seen. No chest wall mass or abnormal axill iary lymphadenopathy. IMPRESSION: No evidence of acute central pulmonary emboli. Negative CT scan of the chest for other significant findings.
[2022-08-27] MEDS ORDERED: NA CHLORIDE 0.9% 1,000 ML ONE (21:34)
--- NOTE | 2022-08-27 21:47 | EDPHYS ---
Physician Documentation [facility] Name: Ashley Simon Age: 71 yrs Sex: Female : 1950 Arrival Date: 08/27/2022 Time: 16:44 Bed 24 Private MD: Elizabeth Ortiz ED Physician Isma Gonzalez HPI: 08/27 17:29 This 71 yrs old Female presents to ER via Ambulatory with complaints of Chest rn Pain, Dizziness. 17:29 The patient or guardian reports chest pain that is located primarily in the substernal rn area. Onset: 1 week(s) ago. The pain does not radiate. Associated signs and symptoms: Pertinent positives: dizziness, shortness of breath, Pertinent negatives: abdominal pain, cough, vomiting. The chest pain is described as aching, dull. Duration: The patient or guardian reports multiple episodes, that are intermittent. Modifying factors: The symptoms are alleviated by nothing. the symptoms are aggravated by nothing. Severity of pain: At its worst the pain was moderate in the emergency department the pain has improved. The patient has not experienced similar symptoms in the past. The patient has not recently seen a physician. Pt reports intermittent episodes of chest pain/sob/dizziness. No blood in stool. No vomiting/diarrhea. No fever. . 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 - Social history:: Smoking status: Patient denies any tobacco usage or history of. - Family history:: not pertinent. - Hospitalizations: : No recent hospitalization is reported. ROS: 17:29 Constitutional: Negative for fever, chills, and weight loss, Eyes: Negative for injury, rn pain, redness, and discharge, ENT: Negative for injury, pain, and discharge, Neck: Negative for injury, pain, and swelling, Cardiovascular: + chest pain Respiratory: + sob Abdomen/GI: + constipation MS/Extremity: Negative for injury and deformity, Skin: Negative for injury, rash, and discoloration, Neuro: Negative for headache, weakness, numbness, tingling, and seizure. Exam: 17:29 Constitutional: This is a well developed, well nourished patient who is awake, alert, utilization review rn to triage without difficulty. Head/Face: Normocephalic, atraumatic. Eyes: Pupils equal round and reactive to light, extra-ocular motions intact. Cardiovascular: Regular rate and rhythm. No pulse deficits. Respiratory: Speaking full sentences, unlabored. No increased work of breathing, no retractions or nasal flaring. Abdomen/GI: Soft, non-tender Skin: Warm, dry MS/ Extremity: Pulses equal, no cyanosis. Neurovascular intact. Full, normal range of motion. Equal circumference. Neuro: Awake and alert, GCS 15, oriented to person, place, time, and situation. Cranial nerves II-XII grossly intact. Motor strength 5/5 in all extremities. Sensory grossly intact. Cerebellar exam normal. Normal gait. 18:49 ECG was reviewed by the Attending Physician. rn Vital Signs: 17:12 BP 133 / 81; Pulse 72; Resp 18 S; Temp 98.2(TE); Pulse Ox 100% on R/A; Weight 49.44 kg aa5 (R); Height 5 ft. 2 in. (157.48 cm) (R); 17:12 Body Mass Index 19.94 (49.44 kg, 157.48 cm) aa5 MDM: 17:05 Patient medically screened. rn 19:21 Transition of care: After a detail discussion of the patient's case, care is rn transferred to Isma Gonzalez MD. 21:47 Differential diagnosis: OR, ACS, dysrhythmia, pneumonia. HEART Score: History: Slightly rt Suspicious (0), ECG: Non specific repolarization disturbance / LBTB / PM (1), Age: > or = 65 years (2), Risk Factors: > or = 3 Risk factors for atherosclerotic disease (2), Troponin: < or = 1 x Normal Limit (0), Total Score = 5. Data reviewed: vital signs, nurses notes, lab test result(s), EKG, radiologic studies. Consideration of Admission/Observation Escalation of care including admission/observation considered. Long discussion was had with the patient, her symptoms seem to be primarily concerned with a headache, she states that she believes she may have had a seizure previously. She has no focal neurodeficits. Patient was instructed to follow-up with a neurologist. Patient also complaining of chest pain off and on for the past week, she has not had any chest pain today per her description to me. Given negative troponin, greater than 6 hours of chest pain-free with no acute changes on the EKG, I have a low suspicion for acute coronary syndrome and do not believe the patient would benefit from admission at this time. Patient has reportedly had a stress test about 1 year ago that was reportedly normal. Believe that she is stable for outpatient follow-up with neurology and with cardiology.. Care significantly affected by the following chronic conditions: Diabetes, Hypertension. Counseling: I had a detailed discussion with the patient and/or guardian regarding: the historical points, exam findings, and any diagnostic results supporting the discharge/admit diagnosis, lab results, radiology results, the need for outpatient follow up, to return to the emergency department if symptoms worsen or persist or if there are any questions or concerns that arise at home. 08/27 17:14 Order name: Basic Metabolic Panel; Complete Time: 19: rn 08/27 17:14 Order name: CBC with Diff; Complete Time: :08/27 17:14 Order name: NT PRO-BNP; Complete Time: 19:08/27 17:14 Order name: Troponin HS; Complete Time: 19:08/27 17:14 Order name: XRAY Chest (1 view); Complete Time: :08/27 17:14 Order name: EKG; Complete Time: 17:15 08/27 17:14 Order name: Cardiac monitoring; Complete Time: :08/27 17:14 Order name: EKG - Nurse/Tech; Complete Time: :08/27 17:14 Order name: IV Saline Lock; Complete Time: :08/27 17:14 Order name: Labs collected and sent; Complete Time: :08/27 17:14 Order name: O2 Per Protocol; Complete Time: :08/27 17:14 Order name: O2 Sat Monitoring; Complete Time: :08/27 17:14 Order name: CT Chest For PE Angio 08/27 17:15 Order name: COVID-19/FLU A+B; Complete Time: :08/27 21:30 Order name: CT; Complete Time: 21:31 EDMS EC:49 Rate is 65 beats/min. Rhythm is regular. Left axis deviation noted. QRS is positive in rn lead I and negative in lead aVF. NH interval is normal. QRS interval is normal. QT interval is normal. No Q waves. T waves are Normal. No ST changes noted. Clinical impression: NSR w/ Non-specific ST/T Changes. Reviewed by me. Administered Medications: 21:30 Drug: NS 0.9% 1000 ml Route: IV; Rate: 1000 ml; Site: left antecubital; pf1 22:30 Follow up: IV Status: Completed infusion; IV Intake: 1000ml vc1 Disposition Summary: 08/27/22 21:47 Discharge Ordered Location: Home rt Problem: an ongoing problem rt Symptoms: are resolved rt Condition: Stable rt Diagnosis - Chest pain, unspecified rt Followup: rt - With: Craig Terrazas MD - When: 2 - 3 days - Reason: Followup: rt - With: Guru Vega MD - When: 2 - 3 days - Reason: Discharge Instructions: - Discharge Summary Sheet rt - Nonspecific Chest Pain, Adult rt Forms: - Medication Reconciliation Form rt - Thank You Letter rt - Antibiotic Education rt - Prescription Opioid Use rt Signatures: Dispatcher [employer] EDJeff Denson MD MD rn Calderon, Audri, RN RN aa5 Isma Gonzalez MD MD rt Malu mustafa RN RN pf1 Maria Esther Hussein RN vc1
--- NOTE | 2022-08-27 21:47 | ER ---
Nurse's Notes [facility] Name: Ashley Simon Age: 71 yrs Sex: Female : 1950 Arrival Date: 08/27/2022 Time: 16:44 Bed 24 Private MD: Elizabeth Ortiz Diagnosis: Chest pain, unspecified Presentation: 08/27 17:12 Onset of symptoms was July 2022. aa5 17:12 Acuity: MARGARITA 3 aa5 17:12 Chief complaint: Patient states: chest tightness, fatigue, dizziness that began 1 week aa5 ago. 17:12 Coronavirus screen: fatigue. Ebola Screen: Patient denies travel to an Ebola-affected [facility] area in the 21 days before illness onset. Initial Sepsis Screen: Does the patient meet any 2 criteria? No. Patient's initial sepsis screen is negative. Does the patient have a suspected source of infection? No. Patient's initial sepsis screen is negative. Risk Assessment: Do you want to hurt yourself or someone else? Patient reports no desire to harm self or others. 17:12 Method Of Arrival: Ambulatory 5 Triage Assessment: 19:30 General: Appears in no apparent distress. uncomfortable, Behavior is calm, cooperative, vc1 appropriate for age. Pain: Complains of pain in chest. Neuro: Level of Consciousness is awake, alert, obeys commands, Oriented to person, place, time, situation, Appropriate for age. Cardiovascular: Chest pain is described as mild. Respiratory: Airway is patent Respiratory effort is even, unlabored, Respiratory pattern is regular, symmetrical. 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 - Social history:: Smoking status: Patient denies any tobacco usage or history of. - Family history:: not pertinent. - Hospitalizations: : No recent hospitalization is reported. Screenin:30 [facility] ED Fall Risk Assessment (Adult) History of falling in the last 3 months, vc1 including since admission No falls in past 3 months (0 pts) Confusion or Disorientation No (0 pts) Intoxicated or Sedated No (0 pts) Impaired Gait No (0 pts) Mobility Assist Device Used No (0 pt) Altered Elimination No (0 pt) Score/Fall Risk Level 0 - 2 = Low Risk Oriented to surroundings, Maintained a safe environment. Abuse screen: Denies threats or abuse. Nutritional screening: No deficits noted. Tuberculosis screening: No symptoms or risk factors identified. Assessment: 19:00 Reassessment: See triage assessment. vc1 19:30 Pain: Pain does not radiate. Pain began suddenly. vc1 19:30 Cardiovascular: Chest pain is described as mild. vc1 20:30 Reassessment: Patient and/or family updated on plan of care and expected duration. Pain vc1 level reassessed. Patient is alert, oriented x 3, equal unlabored respirations, skin warm/dry/pink. Patient states symptoms have improved. 21:30 Reassessment: Patient and/or family updated on plan of care and expected duration. Pain vc1 level reassessed. Patient is alert, oriented x 3, equal unlabored respirations, skin warm/dry/pink. Patient states feeling better. Patient states symptoms have improved. Vital Signs: 17:12 BP 133 / 81; Pulse 72; Resp 18 S; Temp 98.2(TE); Pulse Ox 100% on R/A; Weight 49.44 kg aa5 (R); Height 5 ft. 2 in. (157.48 cm) (R); 17:12 Body Mass Index 19.94 (49.44 kg, 157.48 cm) aa5 ED Course: 16:44 Patient arrived in ED. mr 16:44 Elizabeth Ortiz DO is Private Physician. mr 17:05 Jeff Adler MD is Attending Physician. rn 17:10 Arm band placed on. aa5 17:13 Triage completed. aa5 18:20 XRAY Chest (1 view) In Process Unspecified. EDMS 19:00 Inserted saline lock: 20 gauge in left antecubital area, using aseptic technique. Blood pf1 collected. 19:26 Attending Physician role handed off by Jeff Adler MD rt 19:26 Isma Gonzalez MD is Attending Physician. rt 19:30 Patient has correct armband on for positive identification. Bed in low position. Call vc1 light in reach. Client placed on continuous cardiac and pulse oximetry monitoring. NIBP monitoring applied. 19:30 Patient maintains SpO2 saturation greater than 95% on room air. vc1 21:46 Craig Terrazas MD is Referral Physician. rt 21:47 Guru Vega MD is Referral Physician. rt 22:00 No provider procedures requiring assistance completed. pf1 22:01 IV discontinued, intact, bleeding controlled, No redness/swelling at site. Pressure pf1 dressing applied. Administered Medications: 21:30 Drug: NS 0.9% 1000 ml Route: IV; Rate: 1000 ml; Site: left antecubital; pf1 22:30 Follow up: IV Status: Completed infusion; IV Intake: 1000ml vc1 Medication: 03 02:24 VIS not applicable for this client. vc1 Intake: 08/27 22:30 IV: 1000ml; Total: 1000ml. vc1 Outcome: 21:47 Discharge ordered by . rt 22:01 Discharged to home ambulatory, with family. pf1 22:01 Condition: improved 22:01 Discharge instructions given to patient, family, Instructed on discharge instructions, follow up and referral plans. Demonstrated understanding of instructions, follow-up care. 22:06 Patient left the ED. pf1 Signatures: Dispatcher [employer] JEIMY BarnettJeanette villarreal Jeff Adler MD MD rn Calderon, Audri, RN RN aa5 Maria Esther Hussein RN RN vc1 Isma Gonzalez MD MD rt Malu mustafa, FARHAN RN pf1 Corrections: (The following items were deleted from the chart) 17:15 17:12 Resp 18bpm; Spontaneous; Temp 98.2F Temporal; aa5 aa5 17:15 17:12 Chief complaint: Patient states: chest tightness, fatigue, dizziness that began 1 aa5 week ago. aa5
--- NOTE | 2022-08-28 14:30 | EKG ---
Test Date: 2022-08-27 Test Time: 18:09:32 Rubber Cutter And Shape Carver: CORRINA MEASUREMENT RESULTS: Intervals: Rate: 65 SC: 142 QRSD: 122 QT: 448 QTc: 465 [place]: P: 63 SC: 142 QRS: -47 T: 91 INTERPRETIVE STATEMENTS: Normal sinus rhythm Left axis deviation Left bundle branch block Abnormal ECG Compared to ECG 08/01/2022 03:17:25 Sinus bradycardia no longer present Electronically Signed On 08-28-22 14:28:53 SCARFER OPERATOR by Guru Vega
== END 2022-08-27 22:06 | disposition home or self-care (01) ==
LOC: ER 16:40
DX: R07.89 Other chest pain (principal); R42 Dizziness and giddiness; I10 Essential (primary) hypertension; Z20.822 Contact with and (suspected) exposure to COVID-19
CPT/HCPCS: 93005; 85025; 80048; 36415; 84484; 83880; 0240U; 71275; 71045; 96360; 99284; Q9967; J7030

== ENCOUNTER 2023-01-06 11:00 | Day surgery (SDC) | payer OTHER ==
--- NOTE | 2023-01-05 11:58 | RAD REPORT ---
EXAM DESCRIPTION: RAD - Chest Pa And Lat (2 Views) - 01/05/2023 11:48 am CLINICAL HISTORY: pre procedure Chest pain. COMPARISON: Chest Single View dated 08/27/2022; Chest Single View dated 08/01/2022; Chest Single View da bogdan 04/12/2022; Chest Single View dated 10/19/2021 TECHNIQUE: PA and lateral views of the chest were obtained. FINDINGS: The lungs are hyperexpanded compatible with COPD. The heart is upper limit of normal in si ze. No fracture or aggressive bony process. Cervical spine hardware. IMPRESSION: COPD without acute process identified. The USPSTF recommends annual screening for lung cancer with low-dose CT (LDCT) in adults aged 50 to 8 0 years who have a 20 pack-year smoking history and currently smoke or have quit within the past 15 y ears.
[2023-01-05 12:13] LABS: Absolute Lymphocytes (CBC) 2.1 K/uL (0.7-4.9); Hematocrit 28.1 % (36.0-45.0); Lymphocytes % 20.5 % (15.3-44.8); MPV 8.9 fL (7.6-11.3); RBC Red Blood Cell Count 3.23 M/uL (3.86-4.86)
[2023-01-05 12:28] LABS: Potassium 3.9 mEq/L (3.5-5.1); Protime INR 0.89
[2023-01-06] MEDS ORDERED: ATROPINE SULF 1 MG/10 ML SYR IV ONE (11:28)
[2023-01-06] MEDS ORDERED: LIDOCAINE 1% 20 ML MDV ONE (11:28)
[2023-01-06] MEDS ORDERED: FENTANYL CITR 100 MCG/2 ML ONE (11:28)
[2023-01-06] MEDS ORDERED: MIDAZOLAM HCL 2 MG/2 ML INJ ONE (11:28)
[2023-01-06] MEDS ORDERED: HEPA 1000U/500MLS 2,000 UNIT/1,000 ML BAG IV ONE (11:28)
[2023-01-06] MEDS ORDERED: NA CHLORIDE 0.9% 500 ML ONE (11:55)
[2023-01-06 15:10] VITALS: O2SAT 98
[2023-01-06 15:11] VITALS: BP 137/56
--- NOTE | 2023-01-07 11:26 | OP ---
Date of Procedure: 01/05/2023 Surgeon: STARR LI Procedure Performed: Selective carotid angiogram bilaterally. Indication: Carotid stenosis by Doppler. Access: Right femoral artery 4-Czech closed with manual pressure. Complications: None. Bleeding: Less than 20 mL. Description Of Procedure: After risks, benefits, and alternatives were explained, the patient agreed to procedure and signed informed consent. The patient was brought into the cardiac catheterization laboratory, prepped and draped in the usual sterile fashion. Then, I accessed right femoral artery u sing micropuncture kit, ultrasound guidance and fluoroscopy, placed 4-Czech [place] sheath and took 4-Czech 3DRC catheter into the aortic root, engaged the right common carotid artery, took standard views and then the left common carotid artery, took standard views, and then removed the catheter and sheath. Manual pressure was used for closure with good hemostasis. Findings: 1.Right common carotid artery is normal, the right internal carotid artery, there is proximal 50% to 60% stenosis and the right external carotid artery is small with no significant disease. 2.Left common carotid artery is normal and the left internal carotid artery, there is about 20% sten osis and left external carotid artery appears to be normal. Conclusion: Moderate carotid artery stenosis, mainly the right internal carotid artery. Recommendation: Medical management. SR/MODL Voice ID: [id number] Report ID: [id number]
== END 2023-01-06 15:30 | disposition home or self-care (01) ==
LOC: CCL 11:00
PROVIDERS: ATTEND Internal Medicine
DX: I65.23 Occlusion and stenosis of bilateral carotid arteries (principal)
CPT/HCPCS: 85025; 80048; 36415; 85610; 82947; 85730; 71046; 36222; 76937; C1893; J2001; J2250; J3010; J7040; J0461

== ENCOUNTER 2023-02-26 12:21 | Emergency (ER) | payer OTHER ==
--- OUTSIDE RECORDS SUMMARY | 2023-02-26 12:24 | XMS REPORT | Continuity of Care Document ---
:1950 Author Organization [facility] t Address [address] [place] [address] [place] [id number] Care Team Providers Name Role Phone Kevin MAGANA, Carlos Primary Care Physician [phone] Carlos Brown Attending Clinician Unavailable Skylar [...] Number Effective Date Expiration Date [facility] [id number] 2019 (MEDICARE 00:00:00 REPLACEMENT/ADVANTA GE - HMO) [employer] [place] - [id number] 2019 2019 [employer] (MEDICARE 00:00:00 00:00:00 REPLACEMENT/ADVANTA [...] Carotid Carotid Disease Active [facility] artery artery 04 st disease disease 00:00: Hospita 00 l Stenosis Stenosis Disease Active Overview: Me thodi of left of left [address] carotid carotid 00:00: g of this Hospi ta artery artery 00 note l might be different from the original. Added automatic ally from request for surgery [id number] Complex Complex Disease Active 2015-06 [facility] tear of tear of 2-15 st medial medial 00:00: Hospita meniscus meniscus 00 l of right of right knee as knee as current current injury injury Allergies, Adverse Reactions, Alerts This patient has no known allergies or adverse reactions. Family History Family Member Diagnosis Comments Start Date Stop Date Source Natural [facility] Mental illness [facility] Natural father Seizures [facility] Natural father Stroke [facility] mother Cancer [facility] mother Kidney disease [facility] Social History Social Habit Start Date Stop Date Quantity Comments Source Gender identity [facility] Sexual orientation [facility] History of Social 2022-09-29 2022-09-[address] function 00:00:00 00:00:00 Hospital Alcohol intake 2019-12-04 2019-12-04 Current Conf[facility]ianist 00:00:00 00:00:00 non-drinker of Hospital alcohol (finding) Tobacco use and 2019-11-28 2019-11-28 Smokeless Confucianist exposure 00:00:00 00:00:00 tobacco non-user Hospital Alcohol Comment 2019-11-28 2019-11-28 Wine - rare - Method ist 00:00:00 00:00:00 none since Hospital started Lorazepam Sex Ass[birth year] At [birth year] Confucianist 00:00:00 00:00:00 Hospital Smoking Status Start Date Stop Date Source Never Smoker [facility] Tobacco smoking consumption unknown [facility] Medications Ordered Filled Start Stop Current Ordering Indication Dosage Frequency Signature Comments Components Source Medication Medication Date Date Medication? Clinician (SIG) Name Name aspirin Yes 81mg QD Take 81 mg Meth valentín (ECOTRIN) [address] 81 MG 15:30: every [...] Yes 81mg QD Take 81 mg Meth avlentín (ECOTRIN) 6-[address] 81 MG [...] route. dicyclomine dicyclomine No 1 QID dicyclomin [place] 20 mg 20 mg e 20 mg Family tablet Take tablet Take tablet Practic 1 tablet 4 1 tablet 4 Take 1 e times a day times a day tablet 4 by oral by oral times a route as route as day by needed. needed. oral route as needed. lisinopril lisinopril No 1 Q1D lisinopril [place] 5 mg tablet 5 mg tablet 5 mg F amily Take 1 Take 1 tablet Practic tablet tablet Take 1 e every day every day tablet by oral by oral every day route. route. by oral route. metformin metformin No 1 BID metformin [place] 500 mg 500 mg 500 mg Family tablet Take tablet Take tablet Practic 1 tablet 1 tablet Take 1 e twice a day twice a day tablet by oral by oral twice a route. route. day by oral route. metoprolol metoprolol No 1 Q1D metoprolol [place] succinate succinate succinate [facility] ER 25 mg ER 25 mg ER 25 mg Pra ctic tablet,exte tablet,exte tablet,ext e nded nded ended release 24 release 24 release 24 hr Take 1 hr Take 1 hr Take 1 tablet tablet tablet every day every day every day by oral by oral by oral route. route. route. pantoprazol pantoprazol No 1 Q1D pantoprazo [place] e 40 mg e 40 mg le 40 mg Famil y tablet,paula tablet,paula tablet,del Practic yed release yed release ayed e Take 1 Take 1 release tablet tablet Take 1 every day every day tablet by oral by oral every day route. route. by oral route. Vital Signs Vital Name Observation Time Observation Value Comments Source Height 2020-03-27 00:00:00 62 [in_i] [facility] BMI (Body Mass 2020-03-27 00:00:00 18.3 kg/m2 [place] Practice Body Weight 2020-03-27 00:00:00 100 [lb_av] [facility] Procedures Procedure Date / Time Performed Performing Clinician [facility] CERVICAL SPINE WO CONTRAST 2021-01-14 20:04:19 Lea Jackson [facility] CT CERVICAL SPINE WO CONTRAST 2021-01-14 20:04:19 Lea Jackson [facility] Plan of Care Planned Activity Planned Date Details Comments Source Future Scheduled Test 2023-02-26 [facility] 10:57:31 malignant neoplasm of colon (procedure) [code = 286893259] Future Scheduled Test 2023-02-26 [facility] 10:57:31 malignant neoplasm of colon (procedure) [code = 285468811] Future Scheduled Test 2023-02-26 [facility] 10:57:31 malignant neoplasm of colon (procedure) [code = 448730108] Future Scheduled Test 2023-02-26 COVID-19 VACCINE (#1) [facility] 10:57:31 [code = COVID-19 VACCINE (#1)] Future Scheduled Test 2023-02-26 Hepatitis C screening [facility] 10:57:31 (procedure) [code = 468951900] Future Scheduled Test 2023-02-26 [facility] 10:57:31 SCREENING [code = BREAST CANCER SCREENING] Future Scheduled Test 2023-02-[address] [facility] 10:57:31 malignant neoplasm of colon (procedure) [code = 486393515] Future Scheduled Test 2023-02-26 [address] [facility] 10:57:31 malignant neoplasm of colon (procedure) [code = 234261497] Future Scheduled Test 2023-02-26 SHINGLES VACCINES ([facility] 10:57:31 of 2) [code = SHINGLES VACCINES (1 of 2)] Future Scheduled Test 2023-02-26 65+ PNEUMOCOCCAL [facility] 10:57:31 VACCINE (1 - PCV) [code = 65+ PNEUMOCOCCAL VACCINE (1 - PCV)] Future Scheduled Test 2023-02-26 INFLUENZA VACCINE [facility] 10:57:31 (#1) [code = INFLUENZA VACCINE (#1)] Future Scheduled Test 2022-08-01 COVID-19 VACCINE (#1) [facility] 01:09:41 [code = COVID-19 VACCINE (#1)] Future Scheduled Test 2022-08-01 Hepatitis C screening [facility] 01:09:41 (procedure) [code = 649277927] Future Scheduled Test 2022-08-01 [facility] 01:09:41 SCREENING [code = BREAST CANCER SCREENING] Future Scheduled Test 2022-08-01 COLONOSCOPY SCREENING [facility] 01:09:41 [code = COLONOSCOPY SCREENING] Future Scheduled Test 2022-08-01 SHINGLES VACCINES (1 [facility] 01:09:41 of 2) [code = SHINGLES VACCINES (1 of 2)] Future Scheduled Test 2022-08-01 65+ PNEUMOCOCCAL [facility] 01:09:41 VACCINE (1 - PCV) [code = 65+ PNEUMOCOCCAL VACCINE (1 - PCV)] Future Scheduled Test 2022-08-01 INFLUENZA VACCINE [facility] 01:09:41 [code = INFLUENZA VACCINE] Future Scheduled Test 2022-08-01 COVID-19 VACCINE (#1) [facility] 01:09:41 [code = COVID-19 VACCINE (#1)] Future Scheduled Test 2022-08-01 Hepatitis C screening [facility] 01:09:41 (procedure) [code = 433436770] Future Scheduled Test 2022-08-01 BREAST CANCER [facility] 01:09:41 SCREENING [code = BREAST CANCER SCREENING] Future Scheduled Test 2022-08-01 COLONOSCOPY SCREENING [facility] 01:09:41 [code = COLONOSCOPY SCREENING] Future Scheduled Test 2022-08-01 SHINGLES VACCINES (1 [facility] 01:09:41 of 2) [code = SHINGLES VACCINES (1 of 2)] Future Scheduled Test 2022-08-01 65+ PNEUMOCOCCAL [facility] 01:09:41 VACCINE (1 - PCV) [code = 65+ PNEUMOCOCCAL VACCINE (1 - PCV)] Future Scheduled Test 2022-08-01 INFLUENZA VACCINE [facility] 01:09:41 [code = INFLUENZA VACCINE] Future Scheduled Test 2022-02-24 HEPATITIS B VACCINES [facility] 09:18:22 (1 of 3 - 3-dose series) [code = HEPATITIS B VACCINES (1 of 3 - 3-dose series)] Future Scheduled Test 2022-02-24 COVID-19 VACCINE (#1) [facility] 09:18:22 [code = COVID-19 VACCINE (#1)] Future Scheduled Test 2022-02-24 Hepatitis C screening [facility] 09:18:22 (procedure) [code = 998377325] Future Scheduled Test 2022-02-24 BREAST CANCER [facility] 09:18:22 SCREENING [code = BREAST CANCER SCREENING] Future Scheduled Test 2022-02-24 COLONOSCOPY SCREENING [facility] 09:18:22 [code = COLONOSCOPY SCREENING] Future Scheduled Test 2022-02-24 SHINGLES VACCINES (1 [facility] 09:18:22 of 2) [code = SHINGLES VACCINES (1 of 2)] Future Scheduled Test 2022-02-24 65+ PNEUMOCOCCAL Me [facility] 09:18:22 VACCINE (1 - PCV) [code = 65+ PNEUMOCOCCAL VACCINE (1 - PCV)] Future Scheduled Test 2022-02-24 INFLUENZA VACCINE [facility] 09:18:22 [code = INFLUENZA VACCINE] Instructions [facility] Encounters Start End Encounter Admission Attending Care Care Encounter Source Date/Time Date/Time Type Type Clinicians Facility Department ID 2022-01-22 Outpatient [facility]ummul [facility] [id number] Common 13:31:01 a, Carlos [facility] 2021-12-23 Outpatient [facility]te[facility]ummul [facility] [id number] Common 13:50:03 a, Carlos [facility] 2021-11-03 Outpatient Herrera, Na [facility] [id number] Common 14:00:05 [facility] 2020-12-17 2020-12-17 EXT [facility] OP Manuel, EXT MSRDP [id number] [place] 00:00:00 00:00:00 Lea LOCATION [id number] H ealth [id number] 2020-12-17 2020-12-17 EXT [facility] OP Manuel, EXT MSRDP [id number] [place] 00:00:00 00:00:00 Lea LOCATION [id number] H ealth [id number] 2020-10-03 2020-10-03 Emergency REHRER, [facility] [id number] [place] [address] 00:00:00 00:00:00 [place] [address] 2020-07-19 2020-07-19 Outpatient Roxana-Mbayo [facility] VFP [phone] [place] 11:15:00 11:15:00 _A_AH 41504 Family Practic e 2020-04-23 2020-04-23 Outpatient Roxana-Mbayo [facility]FP VFP [phone] [place] 06:14:00 06:14:00 _A_AH 31363 Family Practic e 2020-04-23 2020-04-23 Outpatient Roxana-Mbayo VFP VFP [phone] [place] 06:14:00 06:14:00 _A_AH 30533 Family Practic e 2020-04-03 2020-04-03 Outpatient Roxana-Mbayo VFP VFP [phone] [place] 11:38:00 11:38:00 _A_AH 35239 Family Practic e 2020-03-27 2020-03-27 [facility] [place] - [id number] V illage 00:00:00 00:00:00 Roxana-Mbay [place] Fam maddy sterling GEOSPATIAL TECHNOLOGIST: Medical - Practi c [address] _HOU_V@H_ e [facility] [place] [address], [place] [address] , Ph. 2020-03-26 2020-03-26 Outpatient Roxana-Mbayo VFP VFP [phone] [place] 02:32:00 02:32:00 _A_AH 93109 Family Practic e 2020-03-26 2020-03-26 Outpatient Roxana-Mbayo [facility] [phone] [place] 02:32:00 02:32:00 _A_AH 42213 Family Practic e 2019-11-30 2019-12-02 Inpatient STEPAN [facility] 027 [id number] [place] 00:00:00 00:00:00 , CHRISTO [address] 2019-11-28 2019-11-28 Outpatient [facility]EP[facility] [id number] [place] 00:00:00 00:00:00 , CHRISTO [address] 2019-11-28 2019-11-28 Outpatient STEPAN [facility] [id number] [place] 00:00:00 00:00:00 , CHRISTO [address] 2019-11-28 2019-11-28 Outpatient STEPAN [facility] [id number] [place] 00:00:00 00:00:00 , CHRISTO [facility] 2019-08-16 2019-08-16 [facility] [phone] [place] 07:15:00 07:15:00 _A_AH [id number] Family Practic e 2019-08-16 2019-08-16 Outpatient Roxana-Mbayo VFP [facility] [phone] [place] 07:15:00 07:15:00 _A_AH 50538 Family Practic e Results Test Description Test Time Test Comments Results Result Comments Source SARS coronavirus 2 RNA [Presence] in Respiratory speci men by 2019-11-29 01:52:26 DEVANTE with probe detection Test Item Value Reference Range Interpretation Comme nts SARS coronavirus 2 RNA [Presence] in Respiratory Not detected Not-D etected specimen by DEVANTE with probe detection (test code = 52059-4) CHILDRESS NICA LIMON
[2023-02-26 12:54] LABS: Absolute Lymphocytes (CBC) 3.1 K/uL (0.7-4.9); Hematocrit 31.2 % (36.0-45.0); Lymphocytes % 29.8 % (15.3-44.8); MCV 85.7 fL (80-100); MPV 7.7 fL (7.6-11.3); Platelets 404 thou/uL (152-406); RBC Red Blood Cell Count 3.64 M/uL (3.86-4.86)
--- NOTE | 2023-02-26 13:00 | RAD REPORT ---
EXAM DESCRIPTION: CT - Head Brain Wo Cont - 02/26/2023 12:52 pm CLINICAL HISTORY: HTN, headache COMPARISON: Head Brain Wo Cont dated 05/22/2019; HEAD BRAIN W O CONTRAST dated 06/02/2013 TECHNIQUE: All CT scans are performed using dose optimization technique as appropriate and may inclu de automated exposure control or mA/KV adjustment according to patient size. FINDINGS: No intracranial hemorrhage, hydrocephalus or extra-axial fluid collection.Mild generalized brain atrophy is present with mild periventricular and deep white matter chronic microvascular ische lucina changes.No areas of brain edema or evidence of midline shift. The paranasal sinuses and mastoids are clear. The calvarium is intact. IMPRESSION: No acute intracranial abnormality.
--- NOTE | 2023-02-26 13:34 | RAD REPORT ---
EXAM DESCRIPTION: RAD - Chest Single View - 02/26/2023 1:23 pm CLINICAL HISTORY: HTN Chest pain. COMPARISON: <Comparisons> FINDINGS: Portable technique limits examination quality. The lungs are grossly clear. The heart is normal in size. No displaced fractures.Cervical hardware pl ate. IMPRESSION: No acute intrathoracic process suspected.
[2023-02-26 13:37] LABS: Potassium 3.7 mEq/L (3.5-5.1); Troponin High Sensitivity 7.4 pg/mL (<58.9)
[2023-02-26] MEDS ORDERED: HYDROCODONE/APAP 5/325 MG TAB ONE (13:37)
--- NOTE | 2023-02-26 13:54 | ER ---
Nurse's Notes [facility] Name: Ashley Simon Age: 72 yrs Sex: Female : 1950 Arrival Date: 02/26/2023 Time: 12:21 Bed 17 Private MD: Diagnosis: Essential (primary) hypertension Presentation: 02/26 12:28 Chief complaint: Patient states: Woke up with a headache, checked her bp and it was nj1 170's systolic, took her lisinopril and a tramadol, re check bp an hour later and it was worse 180's systolic, headache not better. Also complains of urinary frequency today, no pain with urination. 12:28 Method Of Arrival: Ambulatory [facility] 12:28 Coronavirus screen: Vaccine status: Patient reports receiving the 2nd dose of the covid nj1 vaccine. Ebola Screen: Patient denies travel to an Ebola-affected area in the 21 days before illness onset. Risk Assessment: Do you want to hurt yourself or someone else? Patient reports no desire to harm self or others. Onset of symptoms was February 26, 2023. 12:28 Acuity: MARGARITA 3 nj1 12:52 Initial Sepsis Screen: Does the patient meet any 2 criteria? No. Patient's initial mb9 sepsis screen is negative. Does the patient have a suspected source of infection? No. Patient's initial sepsis screen is negative. 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 - Social history:: Smoking status: Patient denies any tobacco usage or history of. - Family history:: not pertinent. - Hospitalizations: : No recent hospitalization is reported. Screenin:30 [facility] ED Fall Risk Assessment (Adult) History of falling in the last 3 months, mb9 including since admission No falls in past 3 months (0 pts) Confusion or Disorientation No (0 pts) Intoxicated or Sedated No (0 pts) Impaired Gait No (0 pts) Mobility Assist Device Used No (0 pt) Altered Elimination No (0 pt) Score/Fall Risk Level 0 - 2 = Low Risk Oriented to surroundings, Maintained a safe environment, Educated pt \\T\\ family on fall prevention, incl call for assistance when getting out of bed. Abuse screen: Denies threats or abuse. Nutritional screening: No deficits noted. Tuberculosis screening: No symptoms or risk factors identified. Assessment: 12:51 General: Appears in no apparent distress. Behavior is calm, cooperative. Pain: mb9 Complains of pain in head Pain does not radiate. Pain currently is 7 out of 10 on a pain scale. Quality of pain is described as throbbing, Pain began suddenly, Is continuous. Neuro: Urena Agitation-Sedation Scale (RASS): 0 - Alert and Calm Level of Consciousness is awake, alert, obeys commands, Oriented to person, place, time, situation, Appropriate for age Pupils are PERRLA, Reports headache. Cardiovascular: Heart tones S1 S2 present Patient's skin is warm and dry. Rhythm is regular. Respiratory: Airway is patent Respiratory effort is even, unlabored, Respiratory pattern is regular, symmetrical, Breath sounds are clear bilaterally. GI: Abdomen is flat, non-distended, Bowel sounds present X 4 quads. Abd is soft and non tender X 4 quads. Derm: Skin is pink, warm \\T\\ dry. Musculoskeletal: Range of motion: intact in all extremities. 14:00 Reassessment: Patient and/or family updated on plan of care and expected duration. Pain mb9 level reassessed. Patient is alert, oriented x 3, equal unlabored respirations, skin warm/dry/pink. Patient states feeling better. Patient states symptoms have improved. Vital Signs: 12:28 BP 174 / 64; Pulse 68; Resp 18; Pulse Ox 100% on R/A; Weight 49.44 kg; Height 5 ft. 2 nj1 in. ; Pain 10/10; 13:09 BP 168 / 77; Pulse 66; Resp 16; Pulse Ox 100% on R/A; mb9 14:05 BP 165 / 74; Pulse 71; Resp 16; Pulse Ox 100% on R/A; mb9 12:28 Body Mass Index 19.94 (49.44 kg, 157.48 cm) [facility] 12:28 Pain Scale: Adult [facility] ED Course: 12:23 Patient arrived in ED. mg5 12:25 Jeff Adler MD is Attending Physician. rn 12:30 Breneman, Delphine, RN is Primary Nurse. mb9 12:30 Arm band placed on. mb9 12:30 Placed in gown. Bed in low position. Call light in reach. Side rails up X 1. Client mb9 placed on continuous cardiac and pulse oximetry monitoring. NIBP monitoring applied. puller through on. 12:38 Triage completed. nj1 12:40 Inserted saline lock: 22 gauge in right forearm, using aseptic technique. mb9 12:40 EKG done, by ED staff, reviewed by Jeff Adler MD. mb9 12:51 Basic Metabolic Panel Sent. mb9 12:51 CBC with Diff Sent. mb9 12:51 NT PRO-BNP Sent. mb9 12:51 Troponin HS Sent. mb9 12:52 CT Head Brain wo Cont In Process Unspecified. EDMS 12:52 No provider procedures requiring assistance completed. mb9 13:25 XRAY Chest (1 view) In Process Unspecified. EDMS 14:05 IV discontinued, intact, bleeding controlled, No redness/swelling at site. Pressure mb9 dressing applied. 14:05 IV discontinued, intact, bleeding controlled, No redness/swelling at site. Pressure aw1 dressing applied. Administered Medications: 13:28 Drug: [place] PO 5 mg-325 mg 1 tabs Route: PO; mb9 14:05 Follow up: Response: No adverse reaction mb9 Medication: 12:31 VIS not applicable for this client. mb9 Outcome: 13:54 Discharge ordered by . rn 14:05 Discharged to home ambulatory, with family. mb9 14:05 Condition: stable 14:05 Discharge instructions given to patient, Instructed on discharge instructions, follow up and referral plans. Demonstrated understanding of instructions, follow-up care. 14:06 Patient left the ED. mb9 Signatures: Dispatcher [employer] EDMS Jeff Adler MD MD rn Breneman, Mary Beth RN RN mb9 Staci Orellana bc6 Andria Pino RN RN nj1 Lauren Abreu aw1 Ngoc Zapata mg5 Corrections: (The following items were deleted from the chart) 14:05 14:04 IV discontinued, intact, bleeding controlled, No redness/swelling at site. bc6 Pressure dressing applied, bc6
--- NOTE | 2023-02-26 13:54 | EDPHYS ---
Physician Documentation [facility] Name: Ashley Simon Age: 72 yrs Sex: Female : 1950 Arrival Date: 02/26/2023 Time: 12:21 Bed 17 Private MD: ED Physician Jeff Adler HPI: 02/26 12:42 This 72 yrs old Female presents to ER via Ambulatory with complaints of High rn Blood Pressure, Urinary Frequency. 12:42 The patient has elevated blood pressure and discovered this at home. Onset: The rn symptoms/episode began/occurred this morning. Modifying factors:. Severity of symptoms: At its worst the blood pressure was moderate, in the emergency department the blood pressure is unchanged. The patient has experienced similar episodes in the past. The patient has not recently seen a physician. Patient reports noticed high blood pressure today, checked it because had a headache, takes her blood pressure medication only as needed and not consistently. Reports took a lisinopril prior to coming in and blood pressure did not improve. Denies chest pain or abdominal pain. No focal neurological deficits. Has stage III kidney disease. 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 - Social history:: Smoking status: Patient denies any tobacco usage or history of. - Family history:: not pertinent. - Hospitalizations: : No recent hospitalization is reported. ROS: 12:42 Constitutional: Negative for fever, chills, and weight loss, Cardiovascular: Negative rn for chest pain, palpitations, and edema, Respiratory: Negative for shortness of breath, cough, wheezing, and pleuritic chest pain, Abdomen/GI: Negative for abdominal pain, nausea, vomiting, diarrhea, and constipation, Back: Negative for injury and pain, MS/Extremity: Negative for injury and deformity, Skin: Negative for injury, rash, and discoloration, Neuro: Negative for weakness, numbness, tingling, and seizure Exam: 12:42 Constitutional: This is a well developed, well nourished patient who is awake, alert, rn and in no acute distress. Head/Face: Normocephalic, atraumatic. Eyes: Pupils equal round and reactive to light, extra-ocular motions intact. Cardiovascular: Regular rate and rhythm. No pulse deficits. Respiratory: No increased work of breathing, no retractions or nasal flaring. Abdomen/GI: Soft, non-tender Skin: Warm, dry MS/ Extremity: Pulses equal, no cyanosis. Neuro: Awake and alert, GCS 15, oriented to person, place, time, and situation. Cranial nerves II-XII grossly intact. Motor strength 5/5 in all extremities. Sensory grossly intact. Vital Signs: 12:28 BP 174 / 64; Pulse 68; Resp 18; Pulse Ox 100% on R/A; Weight 49.44 kg; Height 5 ft. 2 nj1 in. ; Pain 10/10; 13:09 BP 168 / 77; Pulse 66; Resp 16; Pulse Ox 100% on R/A; mb9 14:05 BP 165 / 74; Pulse 71; Resp 16; Pulse Ox 100% on R/A; mb9 12:28 Body Mass Index 19.94 (49.44 kg, 157.48 cm) nj1 12:28 Pain Scale: Adult nj1 MDM: 12:25 Patient medically screened. rn 12:45 ED course: Had a long discussion with patient regarding blood pressure medication taken rn as needed instead of scheduled and recommend appointment with her quantitative analyst and PCP for further recommendations. Patient states that she has prescribed 2 different blood pressure medications and she does not take either one scheduled. Patient states actually only checks blood pressure when she has a headache.. 13:52 Differential diagnosis: hypertensive crisis, Malignant HTN. Data reviewed: vital signs, rn nurses notes, lab test result(s), radiologic studies, CT scan, plain films, and as a result, I will discharge patient. Care significantly affected by the following chronic conditions: Diabetes, Hypertension. Counseling: I had a detailed discussion with the patient and/or guardian regarding the historical points, exam findings, and any diagnostic results supporting the discharge/admit diagnosis, lab results, radiology results, the need for outpatient follow up, to return to the emergency department if symptoms worsen or persist or if there are any questions or concerns that arise at home. Response to treatment: the patient's symptoms have mildly improved after treatment, and as a result, I will discharge patient. Special discussion: I have referred the patient to see his PCP for further evaluation of high blood pressure. I discussed with the patient/guardian in detail that at this point there is no indication for admission to the hospital. It is understood, however, that if the symptoms persist or worsen the patient needs to return immediately for re-evaluation. Based on the history and exam findings, there is no indication for further emergent testing or inpatient evaluation. I discussed with the patient/guardian the need to see the primary care provider for further evaluation of the symptoms. ED course: Patient without signs of endorgan damage. Normal neurological exam. Will DC home with return precautions and highly recommend PCP follow-up for blood pressure management and medication reconciliation. 02/26 12:42 Order name: Basic Metabolic Panel; Complete Time: 13:52 rn 02/26 12:42 Order name: CBC with Diff; Complete Time: 13:23 rn 02/26 12:42 Order name: NT PRO-BNP; Complete Time: 13:52 rn 02/26 12:42 Order name: Troponin HS; Complete Time: 13:52 rn 02/26 12:42 Order name: XRAY Chest (1 view); Complete Time: 13:36 rn 02/26 12:42 Order name: CT Head Brain wo Cont; Complete Time: 13:23 rn 02/26 12:42 Order name: EKG; Complete Time: 12:42 rn 02/26 12:42 Order name: Cardiac monitoring; Complete Time: 12:51 rn 02/26 12:42 Order name: EKG - Nurse/Tech; Complete Time: 12:51 rn 02/26 12:42 Order name: IV Saline Lock; Complete Time: 12:51 rn 02/26 12:42 Order name: Labs collected and sent; Complete Time: 12:51 rn 02/26 12:42 Order name: O2 Per Protocol; Complete Time: 12:51 rn 02/26 12:42 Order name: O2 Sat Monitoring; Complete Time: 12:51 rn 02/26 12:58 Order name: Labs - recollect needed: recollect chemistries/ hemolyzed; Complete Time: eb 13:08 Administered Medications: 13:28 Drug: [place] PO 5 mg-325 mg 1 tabs Route: PO; mb9 14:05 Follow up: Response: No adverse reaction mb9 Disposition Summary: 02/26/23 13:54 Discharge Ordered Location: Home rn Problem: an ongoing problem rn Symptoms: have improved rn Condition: Stable rn Diagnosis - Essential (primary) hypertension rn Followup: rn - With: Private Physician - When: As needed - Reason: Recheck today's complaints, Re-evaluation by your physician Discharge Instructions: - Discharge Summary Sheet rn - Hypertension, Adult rn - How to Take Your Blood Pressure, [id number] rn - Managing Your Hypertension rn Forms: - Medication Reconciliation Form rn - Thank You Letter rn - Antibiotic rn heart - Prescription Opioid Use rn - Patient Portal Instructions rn - Leadership Thank You Letter rn Signatures: Dispatcher [employer] Jeff Hayes MD MD rn Holly Ovalle, Jeanette Briggs, RN RN mb9 Andria Pino RN RN nj1
[2023-02-26 14:23] VITALS: O2SAT 100
[2023-02-26 14:25] VITALS: BP 165/74
--- NOTE | 2023-02-27 14:39 | EKG ---
Test Date: 2023-02-26 Test Time: 12:33:46 [employer]: JUAN CARLOS MEASUREMENT RESULTS: Intervals: Rate: 71 CA: 144 QRSD: 130 QT: 418 QTc: 454 [place]: P: 57 CA: 144 QRS: -60 T: 82 INTERPRETIVE STATEMENTS: Normal sinus rhythm Left axis deviation Left bundle branch block Abnormal ECG Compared to ECG 08/27/2022 18:09:32 No significant changes Electronically Signed On 02-27-23 14:36:50 CDT by Guru Vega
== END 2023-02-26 14:06 | disposition home or self-care (01) ==
LOC: ER 12:21
DX: I12.9 Hypertensive chronic kidney disease with stage 1 through stage 4 chronic kidney disease, or unspecified chronic kidney disease (principal); E11.22 Type 2 diabetes mellitus with diabetic chronic kidney disease; N18.30 Chronic kidney disease, stage 3 unspecified
CPT/HCPCS: 36415; 70450; 71045; 80048; 83880; 84484; 85025; 93005; 99285

== ENCOUNTER 2023-05-16 18:52 | Emergency (ER) | payer OTHER ==
--- OUTSIDE RECORDS SUMMARY | 2023-05-16 18:56 | XMS REPORT | Continuity of Care Document ---
:1950 Author Organization [facility] t Address [address] [place] [address] [place] [id number] Care Team Providers Name Role Phone Kevin MAGANA, Carlos Primary Care Physician [phone] Carlos Brown Attending Clinician Unavailable Arun Herrera Attending Clinician Unavailable [email or web address]_S Attending Clinician Unavailable Lea Jackson MD Attending Clinician TERESA MORE Attending Clinician Unavailable Roxana-Mbayo_A_AH Attending Clinician Unavailable CHRISTO YING Attending Clinician Unavailable MD CHRISTO YING Attending Clinician Unavail able GC_GCBZW_Kadiyala_S Admitting Clinician Unavailable Roxana-Mbayo_A_AH Admitting Clinician Unavailable CHRISTO YING Admitting Clinician Unavailable MD CHRISTO YING Admitting Clinician Unavail able Payers Payer Name Policy Type Policy Number Effective Date Expiration Date [place] [facility] Heap[facility] NIDO [id number] 2019 (MEDICARE 00:00:00 REPLACEMENT/ADVANTA GE - HMO) [employer] [place] - [id number] 2019 2019 [employer] (MEDICARE 00:00:00 00:00:00 REPLACEMENT/ADVANTA [...] mellitus Mellitus Essential Essential Problem Active Jacob bond hypertensi Hypertensi 03-27 Fa latia on on 00:00: Practic 00 e Gastric Gastric Problem Active [facility] ulcer Ulcer 03-27 Family 00:00: Practic 00 e Carotid Carotid Disease Active [facility] artery artery 6-04 st disease disease 00:00: Hospita 00 l Stenosis Stenosis Disease Active Overview: Me thodi of left of left -[address] carotid carotid 00:00: g of this Hospi ta artery artery 00 note l might be different from the original. Added automatic ally from request for surgery [id number] Complex Complex Disease Active 2015-06 [facility] tear of tear of 2-15 st medial medial 00:00: Hospita meniscus meniscus 00 l of right of right knee as knee as current current injury injury Allergies, Adverse Reactions, Alerts This patient has no known allergies or adverse reactions. Family History Family Member Diagnosis Comments Start Date Stop Date Source [facility] father Mental illness [facility] Natural father Seizures [facility] Natural father Stroke [facility] Natural mother Cancer [facility] mother Kidney disease Method [facility] Social History Social Habit Start Date Stop Date Quantity Comments Source Gender identity [facility] Sexual orientation [facility] History of Social 2020-10-03 2020-10-[address] function 00:00:00 00:00:00 Hospital Alcohol intake 2019-12-04 2019-12-04 Current [facility] 00:00:00 00:00:00 non-drinker of Hospital alcohol (finding) Tobacco use and 2019-11-28 2019-11-28 Smokeless [facility] exposure 00:00:00 00:00:00 tobacco non-user Hospital Alcohol Comment 2019-11-28 2019-11-28 Wine - rare - Method ist 00:00:00 00:00:00 none since Hospital started Lorazepam Sex Ass[birth year] At [birth year] [facility] 00:00:00 00:00:00 Hospital Smoking Status Start Date Stop Date Source Never Smoker [facility] Tobacco smoking consumption unknown [facility] Medications Ordered Filled Start Stop Current Ordering Indication Dosage Frequency Signature Comments Components Source Medication Medication Date Date Medication? Clinician (SIG) Name Name pravastatin Yes 40mg QD Take 40 mg Method[facility] [...] l times a day with meals. metoprolol 2019-0 Yes 50mg Q.5D Take 50 mg M ethodi succinate [address] XL 15:30: (two) Hospita (TOPROL-XL) 46 times a l 50 mg 24 hr day. tablet pantoprazol 2019-0 Yes 40mg QD Take 40 mg Method[facility] e [address] (PROTONIX) 15:30: every Hospit a 40 MG EC 46 morning. l tablet meloxicam 2017-0 Yes 15mg QD Take 1 [...] route. dicyclomine dicyclomine No 1 QID dicyclomin [facility] 20 mg 20 mg e 20 mg Family tablet Take tablet Take tablet Practic 1 tablet 4 1 tablet 4 Take 1 e times a day times a day tablet 4 by oral by oral times a route as route as day by needed. needed. oral route as needed. lisinopril lisinopril No 1 Q1D lisinopril [facility] 5 mg tablet 5 mg tablet 5 mg F amily Take 1 Take 1 tablet Practic tablet tablet Take 1 e every day every day tablet by oral by oral every day route. route. by oral route. metformin metformin No 1 BID metformin [facility] 500 mg 500 mg 500 mg Family tablet Take tablet Take tablet Practic 1 tablet 1 tablet Take 1 e twice a day twice a day tablet by oral by oral twice a route. route. day by oral route. metoprolol metoprolol No 1 Q1D metoprolol [facility] succinate succinate succinate Family ER 25 mg ER 25 mg ER 25 mg Pra ctic tablet,exte tablet,exte tablet,ext e nded nded ended release 24 release 24 release 24 hr Take 1 hr Take 1 hr Take 1 tablet tablet tablet every day every day every day by oral by oral by oral route. route. route. pantoprazol pantoprazol No 1 Q1D pantoprazo [facility] e 40 mg e 40 mg le 40 mg Famil y tablet,paula tablet,paula tablet,del Practic yed release yed release ayed e Take 1 Take 1 release tablet tablet Take 1 every day every day tablet by oral by oral every day route. route. by oral route. Vital Signs Vital Name Observation Time Observation Value Comments Source Height 2020-03-27 00:00:00 62 [in_i] [facility] BMI (Body Mass 2020-03-27 00:00:00 18.3 kg/m2 [facility] Family Index) Practice Body Weight 2020-03-27 00:00:00 100 [lb_av] [facility] Procedures Procedure Date / Time Performed Performing Clinician Jacobo e CT CERVICAL SPINE WO CONTRAST 2021-01-14 20:04:[address] [facility] CT CERVICAL SPINE WO CONTRAST 2021-01-14 20:04:[address] [facility] Plan of Care Planned Activity Planned Date Details Comments Source Future Scheduled Test 2023-04-[address] [facility] 07:20:37 malignant neoplasm of colon (procedure) [code = 930411945] Future Scheduled Test 2023-04-21 Screening for [facility] 07:20:37 malignant neoplasm of colon (procedure) [code = 715936048] Future Scheduled Test 2023-04-21 Screening for [facility] 07:20:37 malignant neoplasm of colon (procedure) [code = 213408092] Future Scheduled Test 2023-04-21 COVID-19 VACCINE (#1) [facility] 07:20:37 [code = COVID-19 VACCINE (#1)] Future Scheduled Test 2023-04-21 Hepatitis C screening [facility] 07:20:37 (procedure) [code = 688635297] Future Scheduled Test 2023-04-21 BREAST CANCER [facility] 07:20:37 SCREENING [code = BREAST CANCER SCREENING] Future Scheduled Test 2023-04-21 Screening for [facility] 07:20:37 malignant neoplasm of colon (procedure) [code = 114637308] Future Scheduled Test 2023-04-21 Screening for [facility] 07:20:37 malignant neoplasm of colon (procedure) [code = 527215032] Future Scheduled Test 2023-04-21 SHINGLES VACCINES (1 [facility] 07:20:37 of 2) [code = SHINGLES VACCINES (1 of 2)] Future Scheduled Test 2023-04-21 65+ PNEUMOCOCCAL [facility] 07:20:37 VACCINE (1 - PCV) [code = 65+ PNEUMOCOCCAL VACCINE (1 - PCV)] Future Scheduled Test 2023-04-21 INFLUENZA VACCINE [facility] 07:20:37 (#1) [code = INFLUENZA VACCINE (#1)] Future Scheduled Test 2023-02-26 Screening for [facility] 10:57:31 malignant neoplasm of colon (procedure) [code = 472960456] Future Scheduled Test 2023-02-26 Screening for [facility] 10:57:31 malignant neoplasm of colon (procedure) [code = 084547904] Future Scheduled Test 2023-02-26 SHINGLES VACCINES (1 [facility] 10:57:31 of 2) [code = SHINGLES VACCINES (1 of 2)] Future Scheduled Test 2023-02-26 65+ PNEUMOCOCCAL [facility] 10:57:31 VACCINE (1 - PCV) [code = 65+ PNEUMOCOCCAL VACCINE (1 - PCV)] Future Scheduled Test 2023-02-26 INFLUENZA VACCINE [facility] 10:57:31 (#1) [code = INFLUENZA VACCINE (#1)] Future Scheduled Test 2023-02-26 Screening for [facility] 10:57:31 malignant neoplasm of colon (procedure) [code = 023964000] Future Scheduled Test 2023-02-26 Screening for [facility] 10:57:31 malignant neoplasm of colon (procedure) [code = 410136824] Future Scheduled Test 2023-02-26 Screening for [facility] 10:57:31 malignant neoplasm of colon (procedure) [code = 299797437] Future Scheduled Test 2023-02-26 COVID-19 VACCINE (#1) [facility] 10:57:31 [code = COVID-19 VACCINE (#1)] Future Scheduled Test 2023-02-26 Hepatitis C screening [facility] 10:57:31 (procedure) [code = 508900227] Future Scheduled Test 2023-02-26 BREAST CANCER [facility] 10:57:31 SCREENING [code = BREAST CANCER SCREENING] Future Scheduled Test 2022-08-01 COVID-19 VACCINE (#1) [facility] 01:09:41 [code = COVID-19 VACCINE (#1)] Future Scheduled Test 2022-08-01 Hepatitis C screening [facility] 01:09:41 (procedure) [code = 583001781] Future Scheduled Test 2022-08-01 BREAST CANCER [facility] 01:09:41 SCREENING [code = BREAST CANCER SCREENING] Future Scheduled Test 2022-08-01 COLONOSCOPY SCREENING [facility] 01:09:41 [code = COLONOSCOPY SCREENING] Future Scheduled Test 2022-08-01 SHINGLES VACCINES (1 [facility] 01:09:41 of 2) [code = SHINGLES VACCINES (1 of 2)] Future Scheduled Test 2022-08-01 65+ PNEUMOCOCCAL [facility] 01:09:41 VACCINE (1 - PCV) [code = 65+ PNEUMOCOCCAL VACCINE (1 - PCV)] Future Scheduled Test 2022-08-01 INFLUENZA VACCINE [facility] 01:09:41 [code = INFLUENZA VACCINE] Future Scheduled Test 2022-08-01 COVID-19 VACCINE (#1) [facility] 01:09:41 [code = COVID-19 VACCINE (#1)] Future Scheduled Test 2022-08-01 Hepatitis C screening [facility] 01:09:41 (procedure) [code = 792428691] Future Scheduled Test 2022-08-01 BREAST CANCER [facility] 01:09:41 SCREENING [code = BREAST CANCER SCREENING] Future Scheduled Test 2022-08-01 COLONOSCOPY SCREENING [facility] 01:09:41 [code = COLONOSCOPY SCREENING] Future Scheduled Test 2022-08-01 SHINGLES VACCINES (1 [facility] 01:09:41 of 2) [code = SHINGLES VACCINES (1 of 2)] Future Scheduled Test 2022-08-01 65+ PNEUMOCOCCAL [facility] 01:09:41 VACCINE (1 - PCV) [code = 65+ PNEUMOCOCCAL VACCINE (1 - PCV)] Future Scheduled Test 2022-08-01 INFLUENZA VACCINE [facility] 01:09:41 [code = INFLUENZA VACCINE] Future Scheduled Test 2022-02-24 HEPATITIS B VACCINES [facility] 09:18:22 (1 of 3 - 3-dose series) [code = HEPATITIS B VACCINES (1 of 3 - 3-dose series)] Future Scheduled Test 2022-02-24 COVID-19 VACCINE (#1) [facility] 09:18:22 [code = COVID-19 VACCINE (#1)] Future Scheduled Test 2022-02-24 Hepatitis C screening [facility] 09:18:22 (procedure) [code = 946290160] Future Scheduled Test 2022-02-24 BREAST CANCER [facility] 09:18:22 SCREENING [code = BREAST CANCER SCREENING] Future Scheduled Test 2022-02-24 COLONOSCOPY SCREENING [facility] 09:18:22 [code = COLONOSCOPY SCREENING] Future Scheduled Test 2022-02-24 SHINGLES VACCINES (1 [facility] 09:18:22 of 2) [code = SHINGLES VACCINES (1 of 2)] Future Scheduled Test 2022-02-24 65+ PNEUMOCOCCAL [facility] 09:18:22 VACCINE (1 - PCV) [code = 65+ PNEUMOCOCCAL VACCINE (1 - PCV)] Future Scheduled Test 2022-02-24 INFLUENZA VACCINE [facility] 09:18:22 [code = INFLUENZA VACCINE] Instructions [facility] Practice Encounters Start End Encounter Admission Attending Care Care Encounter Source Date/Time Date/Time Type Type Clinicians Facility Department ID 2022-01-22 Outpatient Raul [facility] [id number] Common 13:31:01 a, Carlos [facility] 2021-12-23 [facility] [id number] - Common 13:50:03 a, Carlos [facility] 2021-11-03 Outpatient Arun [facility] [id number] Common 14:00: [facility] 2023-04-25 2023-04-25 Outpatient GC_GCBZW_Ka PRIV PRIV [id number] [facility] 00:00:00 00:00:00 diyala_S [id number] Medic al 2020-12-17 2020-12-17 EXT [facility] OP Manuel, EXT MSRDP [id number] [place] 00:00:00 00:00:00 Lea LOCATION [id number] H ealth [id number] 2020-12-17 2020-12-17 EXT [facility] OP Manuel, EXT MSRDP [id number] [place] 00:00:00 00:00:00 Lea LOCATION [id number] H ealth [id number] 2020-10-03 2020-10-03 Emergency REHRER, [facility] [id number] [place] [address] 00:00:00 00:00:[address] [place] [address] 2020-07-19 2020-07-19 Outpatient Roxana-Mbayo [facility]FP VFP [id number] [facility] 11:15:00 11:15:00 _A_AH [id number] Family Practic e 2020-04-23 2020-04-23 Outpatient Roxana-Mbayo VFP VFP [id number] [facility] 06:14:00 06:14:00 _A_AH [id number] Family Practic e 2020-04-23 2020-04-23 Outpatient Roxana-Mbayo VFP VFP [id number] [facility] 06:14:00 06:14:00 _A_AH [id number] Family Practic e 2020-04-03 2020-04-03 Outpatient Roxana-Mbayo [facility]FP VFP [id number] [facility] 11:38:00 11:38:00 _A_AH [id number] Family Practic e 2020-03-27 2020-03-27 [facility] [place] - [id number] [facility] 00:00:00 00:00:00 Roxana-Radha [facility] Efrain castañeda asher, 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 2020-03-26 2020-03-26 Outpatient Roxana-Mbayo VFP VFP [id number] [facility] 02:32:00 02:32:00 _A_AH [id number] Family Practic e 2020-03-26 2020-03-26 Outpatient Roxana-Mbayo VFP VFP [id number] [facility] 02:32:00 02:32:00 _A_AH 86914 Family Practic e 2019-11-30 2019-12-02 Inpatient ST[facility] [id number] [place] 00:00:00 00:00:00 , CHRISTO [address] 2019-11-28 2019-11-28 Outpatient [facility] [id number] [place] 00:00:00 00:00:00 , CHRISTO [address] 2019-11-28 2019-11-28 Outpatient [facility] [id number] [place] 00:00:00 00:00:00 , CHRISTO [address] 2019-11-28 2019-11-28 Outpatient [facility] [id number] [place] 00:00:00 00:00:00 , CHRISTO [address] 2019-08-16 2019-08-16 Outpatient Roxana-Mbayo VFP VFP [id number] [facility] 07:15:00 07:15:00 _A_AH [id number] Family Practic e 2019-08-16 2019-08-16 Outpatient Roxana-Mbayo VFP VFP [id number] [facility] 07:15:00 07:15:00 _A_AH 66087 Family Practic e Results Test Description Test Time Test Comments Results Result Comments Source SARS coronavirus 2 RNA [Presence] in Respiratory speci men by 2019-11-29 01:52:26 DEVANTE with probe detection Test Item Value Reference Range Interpretation Comme nts SARS coronavirus 2 RNA [Presence] in Respiratory Not detected Not-D etected specimen by DEVANTE with probe detection (test code = 19335-1) FIOR LIMON
[2023-05-16 19:33] LABS: Absolute Lymphocytes (CBC) 2.4 K/uL (0.7-4.9); Hematocrit 25.8 % (36.0-45.0); MCV 86.8 fL (80-100); MPV 8.5 fL (7.6-11.3); Platelets 240 thou/uL (152-406); RBC Red Blood Cell Count 2.97 M/uL (3.86-4.86)
[2023-05-16 19:53] LABS: Troponin High Sensitivity 9.9 pg/mL (<58.9)
--- NOTE | 2023-05-16 20:24 | RAD REPORT ---
EXAM DESCRIPTION: RAD - Chest Single View - 05/16/2023 8:03 pm CLINICAL HISTORY: CHEST PAIN Chest pain. COMPARISON: <Comparisons> FINDINGS: Portable technique limits examination quality. The lungs are emphysematous but grossly clear. The heart is normal in size. No displaced fractures.Ce rvical hardware. IMPRESSION: No acute intrathoracic process suspected.
--- NOTE | 2023-05-16 23:10 | ER ---
Nurse's Notes [facility] Name: Ashley Simon Age: 72 yrs Sex: Female : 1950 Arrival Date: 05/16/2023 Time: 18:52 Bed 13 Private MD: Diagnosis: Essential (primary) hypertension;Chest pain, unspecified Presentation: 05/16 19:05 Chief complaint: Patient states: she has been having high blood pressure today, and the ap3 numbness of the whole face. patient reports the numbness began approx 30 mins RECRUITMENT INTERN. Coronavirus screen: At this time, the client does not indicate any symptoms associated with coronavirus-19. Ebola Screen: No symptoms or risks identified at this time. Initial Sepsis Screen: Does the patient meet any 2 criteria? No. Patient's initial sepsis screen is negative. Does the patient have a suspected source of infection? No. Patient's initial sepsis screen is negative. Risk Assessment: Do you want to hurt yourself or someone else? Patient reports no desire to harm self or others. Onset of symptoms was May 16, 2023. 19:05 Method Of Arrival: Ambulatory ap3 19:08 Chief complaint: patient also is experiencing chest pain that started within the last ap3 hour. 19:08 Acuity: MARGARITA 2 ap3 Triage Assessment: 19:07 General: Appears in no apparent distress. Behavior is calm, cooperative, appropriate ap3 for age. Pain: Denies pain. Neuro: Reports numbness in face since 30mins RECRUITMENT INTERN. Cardiovascular: Patient's skin is warm and dry. Respiratory: Airway is patent Respiratory effort is even, unlabored, Respiratory pattern is regular, symmetrical. Historical: - Allergies: 19:07 No Known Allergies; ap3 - PMHx: 19:07 Diabetes; Hypertension; ap3 - PSHx: 19:07 Operative procedure on knee; ap3 - Immunization history:: Client reports receiving the 2nd dose of the Covid vaccine. - Social history:: Smoking status: Patient denies any tobacco usage or history of. Screenin:08 [facility] ED Fall Risk Assessment (Adult) History of falling in the last 3 months, ap3 including since admission No falls in past 3 months (0 pts). Abuse screen: Denies threats or abuse. Nutritional screening: No deficits noted. Tuberculosis screening: No symptoms or risk factors identified. Assessment: 19:36 General: Appears distressed, Behavior is anxious. Pain: Complains of pain in chest Pain kl currently is 4 out of 10 on a pain scale. Quality of pain is described as burning, Pain began 30 min ago. Aggravated by repositioning. Neuro: No deficits noted. Level of Consciousness is awake, alert, obeys commands, Oriented to person, place, time, situation, Carroting Machine Operator are equal bilaterally Moves all extremities. Gait is steady, Speech is normal, Facial symmetry appears normal, Pupils are PERRLA. Cardiovascular: Reports chest pain, nausea, pt reports has taken 3 lisinopril doses within the last 3 hours along with Lorazepam for anxiety. Respiratory: No deficits noted. GI: Reports nausea. : No deficits noted. No signs and/or symptoms were reported regarding the genitourinary system. EENT: No deficits noted. No signs and/or symptoms were reported regarding the EENT system. Derm: No deficits noted. No signs and/or symptoms reported regarding the dermatologic system. 23:19 Reassessment: Patient appears in no apparent distress at this time. Patient denies pain kl at this time. Patient states feeling better. Patient states symptoms have improved. Vital Signs: 19:09 BP 177 / 78; Pulse 87; Resp 18; Temp 97.9; Pulse Ox 100% ; ap3 19:35 BP 178 / 86; Pulse 73; Resp 20; Pulse Ox 99% ; kl 20:15 BP 185 / 77; kl 21:25 BP 169 / 75; Pulse 74; Resp 16; Pulse Ox 100% on R/A; kl 23:10 BP 149 / 70; Pulse 81; ec2 23:15 BP 149 / 70; Pulse 81; Resp 18; Pulse Ox 100% ; kl ED Course: 18:55 Patient arrived in ED. jj6 19:08 Arm band placed on right wrist. ap3 19:09 Triage completed. ap3 19:11 Bart Borjas MD is Attending Physician. ec2 19:20 Inserted saline lock: 20 gauge in left antecubital area, using aseptic technique. Blood kl collected. 19:36 EKG completed in triage. Results shown to MD. kl 19:36 Patient has correct armband on for positive identification. Placed in gown. Bed in low kl position. Call light in reach. Side rails up X2. Client placed on continuous cardiac and pulse oximetry monitoring. NIBP monitoring applied. 20:05 XRAY Chest (1 view) In Process Unspecified. EDMS 20:14 No apparent distress. Resting quietly. kl 22:04 Troponin High Sensitivity Sent. kl 23:28 No provider procedures requiring assistance completed. IV discontinued, intact, kl bleeding controlled, No redness/swelling at site. Pressure dressing applied. Administered Medications: No medications were administered Medication: 21:25 VIS not applicable for this client. Outcome: 23:09 Discharge ordered by . ec2 23:29 Discharged to home ambulatory, kl 23:29 Condition: improved 23:29 Discharge instructions given to patient, Instructed on discharge instructions, follow up and referral plans. Demonstrated understanding of instructions, follow-up care, 23:32 Patient left the ED. Signatures: Dispatcher [employer] Janine Acevedo, RN Elaine Jonas RN RN ap3 Delfina Ta6 Bart Borjas MD MD ec2
--- NOTE | 2023-05-16 23:10 | EDPHYS ---
Physician Documentation [facility] Name: Ashley Simon Age: 72 yrs Sex: Female : 1950 Arrival Date: 05/16/2023 Time: 18:52 Bed 13 Private MD: ED Physician Bart Borjas HPI: 05/16 19:11 This 72 yrs old Female presents to ER via Ambulatory with complaints of High ec2 Blood Pressure, Numbness Of Face. 19:11 Patient arrives today for evaluation of multiple complaints. States that she is having ec2 elevated blood pressures and has been checking this throughout the day, states that she has taken multiple doses of lisinopril to try to bring her blood pressure down. Patient reports descriptors of entire facial numbness, left-sided chest pain, fatigue. Patient reports that she checks her blood pressure multiple times throughout the day, states that specifically brought her in was a facial numbness.. Historical: - Allergies: 19:07 No Known Allergies; ap3 - PMHx: 19:07 Diabetes; Hypertension; ap3 - PSHx: 19:07 Operative procedure on knee; ap3 - Immunization history:: Client reports receiving the 2nd dose of the Covid vaccine. - Social history:: Smoking status: Patient denies any tobacco usage or history of. ROS: 19:11 Constitutional: as per hpi ec2 Exam: 19:11 Constitutional: GEN: NAD Head: atraumatic Eyes: EOMI Ears: External ears are ec2 normal. CV: regular rate LUNGS: no respiratory distress ABD: non-distended SKIN: no evidence of rashes MSK: no evidence of trauma NEURO: moves all extremities equally, cranial nerves II through XII intact, strength intact all 4 extremities, sensation intact throughout, equal sensation throughout the face. Vital Signs: 19:09 BP 177 / 78; Pulse 87; Resp 18; Temp 97.9; Pulse Ox 100% ; ap3 19:35 BP 178 / 86; Pulse 73; Resp 20; Pulse Ox 99% ; kl 20:15 BP 185 / 77; kl 21:25 BP 169 / 75; Pulse 74; Resp 16; Pulse Ox 100% on R/A; kl 23:10 BP 149 / 70; Pulse 81; ec2 23:15 BP 149 / 70; Pulse 81; Resp 18; Pulse Ox 100% ; kl MDM: 19:11 Patient medically screened. ec2 19:11 Data reviewed: vital signs. ED course: Patient arrives today for evaluation of multiple ec2 complaints including chest pain, facial numbness, generalized weakness. Examination remarkable for well-appearing nontoxic dividual is otherwise in no acute distress with a reassuring neurologic exam. Will obtain lab work to evaluate for cardiac pathology, evaluate for electrolyte disturbances as well as renal abnormalities. Currently considering those processes above as well as ACS, low suspicion for stroke given the distribution of the reported facial numbness. Accordingly will defer CT scan of the head.. 19:27 ED course: EKG independently reviewed and interpreted by me, shows normal sinus rhythm, ec2 rate 76, no acute ST segment elevations, nonconcerning intervals, left bundle branch block noted.. 19:57 ED course: Patient's lab work remarkable for reassuring electrolytes, renal dysfunction ec2 noted with a creatinine of 1.66 and a GFR of 33. CBC remarkable for anemia with hemoglobin 8.6. Troponins within normal ranges. Compared to previous results on external records, these values appear similar. . 20:32 ED course: Chest x-ray independently reviewed and interpreted by me, shows no acute ec2 intrathoracic process.. 20:38 ED course: I will obtain repeat EKG and troponin at the 2-hour niraj.. ec2 22:07 ED course: Repeat EKG independently reviewed and interpreted by me, shows normal sinus ec2 rhythm, rate of 70, no acute ST segment elevations, intervals nonconcerning, left bundle branch block noted.. 23:03 ED course: Repeat troponin is unchanged. Will discharge home and have her follow-up ec2 with primary care doctor regarding blood pressure management. No evidence of endorgan dysfunction noted on her lab work. Return precautions given.. 05/16 19:11 Order name: Basic Metabolic Panel; Complete Time: 19:56 ec2 05/16 19:11 Order name: CBC with Diff; Complete Time: 19:56 ec2 05/16 19:11 Order name: Troponin HS; Complete Time: 19:56 ec2 05/16 21:54 Order name: Troponin High Sensitivity; Complete Time: 23:03 ec2 05/16 19:11 Order name: XRAY Chest (1 view); Complete Time: 20:31 ec2 05/16 19:11 Order name: EKG; Complete Time: 19:11 ec2 11/19 21:54 Order name: EKG; Complete Time: 21:54 ec2 05/16 19:11 Order name: Cardiac monitoring; Complete Time: 21:45 ec2 05/16 19:11 Order name: EKG - Nurse/Tech; Complete Time: 21:45 ec2 05/16 19:11 Order name: IV Saline Lock; Complete Time: 21:45 ec2 05/16 19:11 Order name: Labs collected and sent; Complete Time: 21:45 ec2 05/16 19:11 Order name: O2 Per Protocol; Complete Time: 21:45 ec2 05/16 19:11 Order name: O2 Sat Monitoring; Complete Time: 21:45 ec2 05/16 21:54 Order name: EKG - Nurse/Tech; Complete Time: 22:04 ec2 Administered Medications: No medications were administered Disposition Summary: 05/16/23 23:09 Discharge Ordered Condition: Stable ec2 Diagnosis - Essential (primary) hypertension ec2 - Chest pain, unspecified ec2 Followup: ec2 - With: Private Physician - When: - Reason: Recheck today's complaints, Re-evaluation by your physician Discharge Instructions: - Discharge Summary Sheet ec2 - Nonspecific Chest Pain, Adult ec2 Forms: - Medication Reconciliation Form ec2 - Thank You Letter ec2 - Antibiotic Education ec2 - Prescription Opioid Use ec2 - Patient Portal Instructions ec2 - Leadership Thank You Letter ec2 Signatures: Dispatcher [employer] Elaine Lyn RN RN ap3 Bart Borjas MD MD ec2
[2023-05-16 23:49] VITALS: TEMP 97.9
[2023-05-16 23:57] VITALS: O2SAT 100
[2023-05-16 23:58] VITALS: BP 149/70
--- NOTE | 2023-05-19 16:59 | EKG ---
Test Date: 2023-05-16 Test Time: 22:04:14 Manager Of Photography: CHATO MEASUREMENT RESULTS: Intervals: Rate: 70 AK: 162 QRSD: 128 QT: 448 QTc: 483 [place]: P: 62 AK: 162 QRS: -46 T: 91 INTERPRETIVE STATEMENTS: Normal sinus rhythm Left axis deviation Left bundle branch block Abnormal ECG Compared to ECG 05/16/2023 19:18:09 No significant changes Electronically Signed On 05-19-23 16:53:15 COMPUTER NETWORKING INSTRUCTOR ADJUNCT by Guru Vega
--- NOTE | 2023-05-19 17:00 | EKG ---
Test Date: 2023-05-16 Test Time: 19:18:09 Cushion Installer: CHATO MEASUREMENT RESULTS: Intervals: Rate: 76 KS: 158 QRSD: 134 QT: 426 QTc: 479 [place]: P: 64 KS: 158 QRS: -33 T: 93 INTERPRETIVE STATEMENTS: Normal sinus rhythm Left axis deviation Left bundle branch block Abnormal ECG Compared to ECG 02/26/2023 12:33:46 No significant changes Electronically Signed On 05-19-23 16:53:25 INSTRUCTION DEAN by Guru Vega
== END 2023-05-16 23:32 | disposition home or self-care (01) ==
LOC: ER 18:52
DX: I10 Essential (primary) hypertension (principal); R07.9 Chest pain, unspecified; R20.0 Anesthesia of skin; E11.9 Type 2 diabetes mellitus without complications
CPT/HCPCS: 36415; 71045; 80048; 84484; 85025; 93005; 99284

== ENCOUNTER 2024-02-02 00:52 | Emergency (ER) | payer OTHER ==
--- NOTE | 2024-02-02 02:57 | ER ---
Nurse's Notes [facility] Name: Ashley Simon Age: 73 yrs Sex: Female : 1950 Arrival Date: 02/02/2024 Time: 00:52 Bed 3 Private MD: Diagnosis: Closed head injury, scalp hematoma, scalp abrasion Presentation: 02/01 01:00 Chief complaint: EMS states: she fall down and hit her head on the floor sustaining to rg5 a lacerated wound on the back of the head. 01:00 Care prior to arrival: Bleeding of injury controlled. Injury dressed. Mechanism of rg5 Injury: Fall from standing position. Trauma event details: Injury occurred in the [facility], Injury occurred: at home. Injury occurred: February 02, 2024 Injury occurred at: 00:30. 01:00 Acuity: MARGARITA 3 rg5 01:00 Method Of Arrival: EMS: [facility] rg5 01:21 Coronavirus screen: Vaccine status:. Ebola Screen: Patient negative for fever greater rg5 than or equal to 101.5 degrees Fahrenheit, and additional compatible Ebola Virus Disease symptoms. Initial Sepsis Screen: Does the patient meet any 2 criteria? No. Patient's initial sepsis screen is negative. Does the patient have a suspected source of infection? No. Patient's initial sepsis screen is negative. Risk Assessment: Do you want to hurt yourself or someone else? Patient reports no desire to harm self or others. Onset of symptoms was February 02, 2024. Triage Assessment: 01:23 General: Appears comfortable, Behavior is cooperative, appropriate for age. Pain: rg5 Complains of pain in scalp Pain currently is 5 out of 10 on a pain scale. Quality of pain is described as aching, Pain began 1 hour ago. EENT: No deficits noted. Neuro: Level of Consciousness is awake, alert, obeys commands, Oriented to person, place, time, situation. Cardiovascular: Denies chest pain, Heart tones S1 S2 Capillary refill < 3 seconds Patient's skin is warm and dry. Respiratory: Airway is patent Trachea midline Respiratory effort is even, unlabored, Respiratory pattern is regular, symmetrical. GI: Abdomen is round Abd is soft and non tender X 4 quads. : No signs and/or symptoms were reported regarding the genitourinary system. Derm: Skin is intact, Skin is dry, Skin is normal, Skin temperature is warm. Musculoskeletal: Range of motion: intact in all extremities. Injury Description: Laceration sustained to occipital area is clean, 0.5 to 2.5 cm long. Historical: - Allergies: 02:13 No Known Allergies; ha1 - PMHx: 01:23 Diabetes; Hypertension; rg5 - Immunization history:: Adult Immunizations up to date. - Infectious Disease History:: Denies. - Social history:: Smoking status: Patient reports the use of cigarette tobacco products, smokes one-half pack cigarettes per day, Patient uses alcohol, occasionally. Screenin:12 [facility] ED Fall Risk Assessment (Adult) History of falling in the last 3 months, ha1 including since admission Yes- single mechanical fall (1 pt) Confusion or Disorientation No (0 pts) Intoxicated or Sedated No (0 pts) Impaired Gait No (0 pts) Mobility Assist Device Used Yes (1 pt) Altered Elimination No (0 pt) Score/Fall Risk Level 3 or more points = High Risk Oriented to surroundings, Maintained a safe environment, Educated pt \T\ family on fall prevention, incl call for assistance when getting out of bed, Hourly rounding (assess needs \T\ fall precautionary measures) done. Abuse screen: Denies threats or abuse. Denies injuries from another. Nutritional screening: No deficits noted. Tuberculosis screening: No symptoms or risk factors identified. Primary Survey: 00:54 NO uncontrolled hemorrhage observed. Breathing/Chest: Spontaneous respiratory effort, ha1 equal unlabored respirations, breath sounds clear bilaterally, regular pattern, symmetrical chest rise and fall. Respiratory effort: spontaneous, unlabored. Circulation: No external hemorrhage present. Regular and strong central pulse, skin warm/dry/normal color. Disability Pupils are equal, round, reactive to light and accommodation. Exposure/Environment: All clothing and personal items were removed. Forensic evidence collection is not deemed to be indicated at this time. Items placed in patient belonging bag. Assessment: 01:00 Reassessment: see triage assessment. rg5 02:30 Reassessment: No changes from previously documented assessment. Patient and/or family rg5 updated on plan of care and expected duration. Pain level reassessed. Patient is alert, oriented x 3, equal unlabored respirations, skin warm/dry/pink. Patient states feeling better. Vital Signs: 01:00 BP 135 / 87; Pulse 79; Resp 18; Temp 98; Pulse Ox 99% ; Weight 54.43 kg; Height 5 ft. 2 rg5 in. ; Pain 3/10; 01:00 BP 135 / 87; Pulse 79; Resp 18; Temp 98; Pulse Ox 99% ; Pain 3/10; rg5 02:30 BP 139 / 83; Pulse 77; Resp 18; Temp 98; Pulse Ox 99% on R/A; Pain 0/10; rg5 01:00 Body Mass Index 21.95 (54.43 kg, 157.48 cm) rg5 01:00 Pain Scale: Adult rg5 01:00 Pain Scale: Adult rg5 02:30 Pain Scale: Adult rg5 ED Course: 00:54 Patient arrived in ED. jj6 00:54 Patient has correct armband on for positive identification. Bed in low position. Call ha1 light in reach. Side rails up X2. Adult w/ patient. 00:57 Eren Yun MD is Attending Physician. sp3 01:01 Con Hannah, RN is Primary Nurse. rg5 01:21 Triage completed. rg5 01:23 Arm band placed on right wrist. rg5 01:29 CT Head C Spine In Process Unspecified. EDMS 02:57 No provider procedures requiring assistance completed. rg5 02:57 Patient did not have IV access during this emergency room visit. rg5 02:58 Provided Education on: POST ER CARE. rg5 Administered Medications: No medications were administered Medication: 02:15 VIS not applicable for this client. ha1 Outcome: 02:56 Discharge ordered by . sp3 02:59 Discharged to home via wheelchair, rg5 02:59 Condition: stable 02:59 Discharge instructions given to patient, family, Instructed on discharge instructions, follow up and referral plans. Demonstrated understanding of instructions, 03:06 Patient left the ED. rg5 Signatures: Dispatcher [employer] EDMS Eren Yun MD MD sp3 Delfina Ta jj6 Allyson Hairston RN RN ha1 Con Hannah, FARHAN RN rg5
--- NOTE | 2024-02-02 02:57 | EDPHYS ---
Physician Documentation [facility] Name: Ashley Simon Age: 73 yrs Sex: Female : 1950 Arrival Date: 02/02/2024 Time: 00:52 Bed 3 Private MD: ED Physician Eren Yun HPI: 02/01 01:26 This 73 yrs old Female presents to ER via EMS with complaints of Fall Injury. sp3 01:26 73-year-old female with a history of diabetes, hypertension, Alzheimer's presents with sp3 mechanical ground-level fall after mild alcohol intake with no loss of consciousness and hematoma to the posterior occiput. Injury occurred just prior to arrival by EMS. Family at bedside. History, physical and ROS limited secondary to Alzheimer's/dementia.. Historical: - Allergies: 02:13 No Known Allergies; ha1 - PMHx: 01:23 Diabetes; Hypertension; rg5 - Immunization history:: Adult Immunizations up to date. - Infectious Disease History:: Denies. - Social history:: Smoking status: Patient reports the use of cigarette tobacco products, smokes one-half pack cigarettes per day, Patient uses alcohol, occasionally. ROS: 01:27 Unable to obtain ROS due to baseline dementia, sp3 Exam: 01:27 Constitutional: This is a well developed, well nourished patient who is awake, alert, sp3 and in no acute distress. Eyes: Pupils equal round and reactive to light, extra-ocular motions intact. Lids and lashes normal. Conjunctiva and sclera are non-icteric and not injected. Cornea within normal limits. Periorbital areas with no swelling, redness, or edema. ENT: Nares patent. No nasal discharge, no septal abnormalities noted. External auditory canals are clear. Oropharynx with no redness, swelling, or masses, exudates, or evidence of obstruction, uvula midline. Mucous membranes moist. Neck: Trachea midline, no thyromegaly or masses palpated, and no cervical lymphadenopathy. Supple, full range of motion without nuchal rigidity, or vertebral point tenderness. No Meningismus. Chest/axilla: Normal chest wall appearance and motion. Nontender with no deformity. No lesions are appreciated. Cardiovascular: Regular rate and rhythm with a normal S1 and S2. No gallops, murmurs, or rubs. Normal PMI, no JVD. No pulse deficits. Respiratory: Lungs have equal breath sounds bilaterally, clear to auscultation and percussion. No rales, rhonchi or wheezes noted. No increased work of breathing, no retractions or nasal flaring. Abdomen/GI: Soft, non-tender, with normal bowel sounds. No distension or tympany. No guarding or rebound. No evidence of tenderness throughout. Back: No spinal tenderness. No costovertebral tenderness. Full range of motion. Skin: Warm, dry with normal turgor. Normal color with no rashes, no lesions, and no evidence of cellulitis. MS/ Extremity: Pulses equal, no cyanosis. Neurovascular intact. Full, normal range of motion. 01:27 Head/face: Posterior occiput swelling and hematoma with probable small laceration with possible need for repair.. Vital Signs: 01:00 BP 135 / 87; Pulse 79; Resp 18; Temp 98; Pulse Ox 99% ; Weight 54.43 kg; Height 5 ft. 2 rg5 in. ; Pain 3/10; 01:00 BP 135 / 87; Pulse 79; Resp 18; Temp 98; Pulse Ox 99% ; Pain 3/10; rg5 02:30 BP 139 / 83; Pulse 77; Resp 18; Temp 98; Pulse Ox 99% on R/A; Pain 0/10; rg5 01:00 Body Mass Index 21.95 (54.43 kg, 157.48 cm) rg5 01:00 Pain Scale: Adult rg5 01:00 Pain Scale: Adult rg5 02:30 Pain Scale: Adult rg5 MDM: 01:08 Patient medically screened. sp3 01:28 Data reviewed: vital signs, nurses notes, radiologic studies. ED course: 73-year-old sp3 female with mechanical fall and hematoma/laceration on the posterior occiput. CT scan of the head and C-spine pending. Will clean area and perform any wound care/repair as needed.. 02:55 ED course: CT scan of the head and C-spine are negative other than hematoma. Wound does sp3 not require repair as it is an abrasion over hematoma. We will safely discharge patient home at this time.. 02/01 01:09 Order name: CT Head C Spine sp3 Administered Medications: No medications were administered Disposition Summary: 02/02/24 02:56 Discharge Ordered Notes: Location: Home sp3 Condition: Stable sp3 Diagnosis - Closed head injury, scalp hematoma, scalp abrasion sp3 Followup: sp3 - With: Private Physician - When: Upon discharge from the Emergency Department - Reason: Continuance of care Discharge Instructions: - Discharge Summary Sheet sp3 - Facial or Scalp Contusion sp3 Forms: - Medication Reconciliation Form sp3 - Antibiotic Education sp3 - Prescription Opioid Use sp3 - Patient Portal Instructions sp3 - Leadership Thank You Letter sp3 Signatures: Dispatcher [employer] EDEren Fritz MD MD sp3 Allyson Hairston, RN RN ha1 Con Hannah RN RN rg5
--- NOTE | 2024-02-02 09:39 | RAD REPORT ---
EXAM DESCRIPTION: CT HEAD AND CERVICAL SPINE WITHOUT CONTRAST CLINICAL HISTORY: Female, 73 years old, TRAUMA COMPARISON: 02/26/2023 TECHNIQUE: CT acquisition of the head without contrast. CT acquisition of the cervical spine without contrast. Coronal and sagittal reformats provided. This exam was performed according to departmental dose-optimization program which includes automated exposure control, adjustment of the mA and/or kV according to patient size, and/or use of iterative reconstruction technique. FINDINGS: SUPPORTIVE DEVICES: None. Suboptimal planes of acquisition and reformation limit assessment. Patient motion artifact further li mits assessment of the cervical spine. HEAD: Brain: No evidence of intracranial hemorrhage, mass effect, or midline shift. Mild cerebral white mat ter hypodensity and parenchymal volume loss most likely due to chronic microvascular ischemic changes . CSF Spaces: The ventricles and sulci are mildly enlarged consistent with mild global parenchymal volu me loss. Skull: The calvarium is intact. Soft tissue: Small left para midline superior parietal scalp hematoma. Other: The imaged facial bones are intact. The globes and orbits are unremarkable. The visualized par anasal sinuses and mastoid cells are clear. CERVICAL SPINE: Morphology: No evidence of acute fracture or compression deformity. Posterior fixation of C2-C7 and m ultilevel posterior decompression without evidence of acute complication. Alignment: No traumatic listhesis. Craniocervical Junction: Intact with degenerative change. Disc Levels: No significant spinal canal or foraminal stenosis. Other: No acute finding of the neck soft tissues or imaged upper chest. Surgical clips within the lef t neck. IMPRESSION: 1. No acute intracranial or cervical osseous abnormality within the exam limitations. 2. Small left parietal scalp hematoma. 3. No evidence of cervical hardware complication. Electronically signed by: Indio Anna MD 02/02/2024 02:22 AM CDT Due to temporary technical issues with the PACS/Fluency reporting system, reports are being signed by the in house radiologists without review as a courtesy to insure prompt reporting. The interpreting radiologist is fully responsible for the content of the report.
[2024-02-02 13:09] VITALS: TEMP 98; O2SAT 99
[2024-02-02 13:11] VITALS: BP 139/83
== END 2024-02-02 03:06 | disposition home or self-care (01) ==
LOC: ER 00:52
DX: S00.01XA Abrasion of scalp, initial encounter (principal); W18.30XA Fall on same level, unspecified, initial encounter
CPT/HCPCS: 70450; 72125

== ENCOUNTER 2024-08-20 10:32 | Inpatient (IN) | payer OTHER ==
[2024-08-20] MEDS ORDERED: ACETAMINOPHEN 500 MG TAB ONE (10:49)
[2024-08-20] MEDS ORDERED: ONDANSETRON 4 MG/2 ML VIAL ONE ×2 (11:12→14:18)
[2024-08-20] MEDS ORDERED: CEFTRIAXONE 1000 MG/VIAL ONE (11:12)
[2024-08-20] MEDS ORDERED: NA CHLORIDE 0.9% 100 ML ONE (11:13)
[2024-08-20] MEDS ORDERED: NA CHLORIDE 0.9% 1,000 ML ONE ×3 (11:13→16:16)
[2024-08-20 11:17] LABS: Absolute Basophils 0.1 K/uL (0-0.5); Absolute Lymphocytes (CBC) 0.7 K/uL (0.7-4.9); Absolute Monocytes 0.7 K/uL (0.1-1.3); Absolute Neutrophil 17.6 K/uL (1.8-8.0); Basophils % 0.6 % (0-1.3); Eosinophils % 0.2 % (0-4.4); Hematocrit 30.3 % (36.0-45.0); Hemoglobin 10.2 g/dL (12.0-15.0); Lymphocytes % 3.6 % (15.3-44.8); MCH 30.7 pg (27.0-35.0); MCHC 33.6 g/dL (32.0-36.0); MCV 91.4 fL (80-100); MPV 8.3 fL (7.6-11.3); Monocytes % 3.5 % (3.3-12.3); Neutrophils % 92.1 % (41.7-73.7); Platelets 226 thou/uL (152-406); RBC Red Blood Cell Count 3.31 M/uL (3.86-4.86); Red Cell Distribution Width 16.4 % (12.1-15.2)
[2024-08-20 11:35] LABS: Albumin 2.6 g/dL (3.4-5.0); Albumin/Globulin Ratio 0.7 (1.1-1.8); Anion Gap 8.6 mEq/L (5.0-15.0); Bilirubin Total 0.4 mg/dL (0.2-1.0); Globulin 3.9 g/dL (2.3-3.5); Potassium 3.6 mEq/L (3.5-5.1); Protein, Total 6.5 g/dL (6.4-8.2)
[2024-08-20] MEDS ORDERED: FAMOTIDINE 20 MG/2 ML VIAL IV ONE (11:46)
[2024-08-20 11:50] LABS: Blood Morphology Comment NOT SEEN (NOT SEEN); Platelet Estimate ADEQ; Platelets Clumped FEW; White Blood Cell Scan OK (OK)
[2024-08-20 11:53] LABS: Specific Gravity 1.015 (1.005-1.030); Sqamous Epithelial None Seen /HPF (None Seen); Urine Bacteria None Seen /HPF (<20); Urine Bilirubin NEGATIVE (Negative); Urine Blood Negative (Negative); Urine Clarity Clear (Clear); Urine Color Light-Yellow (Yellow); Urine Culture Reflex Order NOT NEEDED; Urine Glucose NEGATIVE (Negative); Urine Ketones NEGATIVE (Negative); Urine Microscopic Reflex YN ORDER UMIC; Urine Mucus Slight /HPF (None Seen); Urine Nitrite NEGATIVE (Negative); Urine Protein 3+ (Negative); Urine RBC None Seen /HPF (None Seen); Urine Urobilinogen Normal (Normal); Urine WBC <5 /HPF (<5)
[2024-08-20 11:55] LABS: Influenza A Ag Negative; Influenza B Ag Negative; SARS-CoV-2 Antigen Rapid Res Negative (Negative)
--- NOTE | 2024-08-20 12:11 | RAD REPORT ---
EXAMINATION: CT HEAD WITHOUT CONTRAST CT CERVICAL SPINE WITHOUT CONTRAST CLINICAL INDICATION: Declining mental state. Head and neck pain TECHNIQUE: Axial CT images from the skull base to the vertex without intravenous contrast. Axial CT i mages through the cervical spine were obtained without intravenous contrast. Sagittal and coronal reformatted images were created from the data set. Coronal and sagittal reformatted images were creat ed from the data set. One or more of the following dose reduction techniques were used: Automated exposure control, adjustment of the mA and/or kV according to patient size, and/or iterative reconstr uction. Unless otherwise specified, incidental findings do not require dedicated imaging follow-up. [id number]. Comparison: 2023 FINDINGS: An intracranial bleed is not seen. Ventricles are normal in caliber. No significant hypodensity within the brain Empty sella turcica No extra-axial fluid collection. No fluid within the sinuses/mastoids No fracture or dislocation is seen involving the cervical spine. IMPRESSION: No acute intracranial abnormality noted A cervical fracture is not seen. 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
--- NOTE | 2024-08-20 12:18 | RAD REPORT ---
EXAM: CT CHEST, ABDOMEN AND PELVIS WITHOUT CONTRAST CLINICAL INDICATION: Chest and abdominal pain TECHNIQUE: CT chest, abdomen and pelvis was performed, without IV contrast, as per department protoco l. Axial, sagittal and coronal reconstructions were obtained. One or more of the following dose reduction techniques were used: Automated exposure control, adjustment of the mA and/or kV according to the patient size, and/or iterative reconstruction. Unless otherwise specified, incidental findings do not require dedicated imaging follow-up. The lack of IV and oral contrast limits evaluation of the mediastinum, [place], vessels, organs and joana l. COMPARISON: 2022 FINDINGS: Lungs are clear. No mediastinal or hilar lymphadenopathy seen. No pleural effusion. No pericardial effusion. Liver, spleen, pancreas, adrenals kidneys and bladder appear grossly normal There is no evidence of diverticulitis IMPRESSION: No acute abnormalities displayed
--- NOTE | 2024-08-20 12:32 | RAD REPORT ---
Procedure: Chest Single View HISTORY: Cough COMPARISON: 2022 FINDINGS: The lungs appear clear of acute infiltrate. No significant pleural effusion noted. The heart is normal size. IMPRESSION: No acute abnormality is displayed.
--- NOTE | 2024-08-20 12:41 | ER ---
Nurse's Notes [facility] Name: Ashley Simon Age: 73 yrs Sex: Female : 1950 Arrival Date: 08/20/2024 Time: 10:32 Bed 6 Private MD: Diagnosis: Fever, unspecified;Acute upper respiratory infection, unspecified;Other malaise and fatigue;Weakness;Elevated white blood cell count;Unspecified kidney failure-chronic Presentation: 08/20 10:37 Chief complaint: EMS states: Toned out for body aches and doesn't feel good. Pt from [facility], hx of Alzheimer's. Coronavirus screen: Client presents with at least one sign or symptom that may indicate coronavirus-19. Ebola Screen: No symptoms or risks identified at this time. Initial Sepsis Screen: Does the patient meet any 2 criteria? No. Patient's initial sepsis screen is negative. Does the patient have a suspected source of infection? No. Patient's initial sepsis screen is negative. Risk Assessment: Do you want to hurt yourself or someone else? Patient reports no desire to harm self or others. Onset of symptoms is unknown. 10:37 Method Of Arrival: EMS: [facility] 10:37 Acuity: MARGARITA 3 jl7 10:37 Care prior to arrival: Medication(s) given: zofran 4 mg, IV initiated. 20 GA, in the jl7 right wrist, Glucose check: 130. Triage Assessment: 20:21 General: Appears in no apparent distress. uncomfortable, Behavior is calm, cooperative, cp4 appropriate for age. Pain: Complains of pain in head. Historical: - Allergies: 10:39 No Known Allergies; jl7 - PMHx: 10:39 Hypertension; Diabetes; jl7 12:25 Kidney disease; jl7 - Immunization history:: Adult Immunizations unknown. - Infectious Disease History:: Denies. - Social history:: Smoking status: unknown. - Family history:: not pertinent. Screenin:26 [facility] ED Fall Risk Assessment (Adult) History of falling in the last 3 months, jl7 including since admission No falls in past 3 months (0 pts) Confusion or Disorientation Yes (5 pts) Intoxicated or Sedated No (0 pts) Impaired Gait No (0 pts) Mobility Assist Device Used No (0 pt) Altered Elimination No (0 pt) Score/Fall Risk Level 3 or more points = High Risk Oriented to surroundings, Maintained a safe environment. Abuse screen: Denies threats or abuse. Denies injuries from another. Nutritional screening: No deficits noted. Tuberculosis screening: No symptoms or risk factors identified. Assessment: 10:52 Reassessment: Pt c/o headache. Notified ERP. See [facility] for orders. ld1 12:26 Reassessment: Patient appears in no apparent distress at this time. No changes from jl7 previously documented assessment. Patient and/or family updated on plan of care and expected duration. Pain level reassessed. Patient is alert, oriented x 3, equal unlabored respirations, skin warm/dry/pink. family at bedside. 13:03 Reassessment: Pt provided with bedside commode, standby assist. jl7 Vital Signs: 10:37 BP 132 / 55; Pulse 80; Resp 16; Temp 100.3; Pulse Ox 16% ; Weight 63.5 kg; Height 5 ft. jl7 0 in. ; 12:25 BP 117 / 53; Pulse 79; Resp 15; Temp 99.6; Pulse Ox 96% ; jl7 14:30 BP 118 / 54; Pulse 75; Resp 15; Pulse Ox 97% ; jl7 20:20 BP 116 / 55; Pulse 64; Resp 18; Pulse Ox 97% ; cp4 10:37 Body Mass Index 27.34 (63.50 kg, 152.4 cm) jl7 ED Course: 10:36 Patient arrived in ED. jl7 10:38 Triage completed. jl7 10:39 Arm band placed on right wrist. jl7 10:40 Robin Pringle MD is Attending Physician. [facility] 10:40 Client placed on continuous cardiac and pulse oximetry monitoring. NIBP monitoring jl7 applied. 10:53 EKG done, by ED staff, reviewed by Robin Pringle MD COVID swab sent to lab. Flu and/or ty RSV swab sent to lab. Maintain EMS IV. Dressing intact. Site clean \T\ dry. Gauge \T\ site: 20 G Right wrist. Flushed with 10 mL NS IV is intact, with fluids infusing freely, with good blood return. 10:56 Merritt Ross RN is Primary Nurse. jl7 11:00 Patient has correct armband on for positive identification. Bed in low position. Call jl7 light in reach. Side rails up X2. 11:30 Inserted saline lock: 22 gauge in right antecubital area, using aseptic technique. jl7 ,using aseptic technique. inserted by ZAK Carrasco Blood collected. Flushed with 10 mL NS. 11:37 Straight cath inserted, using sterile technique, 14 Fr. Specimen obtained. Returned jl7 clear yellow urine. Patient tolerated well. 11:53 CT Chest Abdomen Pelvis W/O Contrast In Process Unspecified. EDMS 11:57 Head C Spine Mpr Wo Con In Process Unspecified. EDMS 12:11 Chest Single View XRAY In Process Unspecified. EDMS 12:21 Initial lab(s) drawn, by me, sent to lab. Lactate. Lactate w/ 2H reflex if indic. Sent. ty 12:26 Provided Education on: use of call poole. jl7 12:40 Rd Kamara is Hospitalizing Provider. [facility] 15:00 No provider procedures requiring assistance completed. Patient admitted, IV remains in jl7 place. intact, No redness/swelling at site. Administered Medications: 10:52 Drug: Acetaminophen PO 1000 mg PO once Route: PO; ld1 12:00 Follow up: Response: No adverse reaction; Temperature is decreased jl7 11:18 Not Given (Duplicate Order): [id number] mg PO once jl7 11:18 Drug: Rocephin IV 1 grams IV at per protocol once; Given slow IV push per pharmacy jl7 instructions Route: IV; Rate: per protocol; Site: right wrist; 11:30 Follow up: Response: No adverse reaction; IV Status: Completed infusion jl7 11:19 Drug: Ondansetron IVP 4 mg IVP once; over 2 minutes Route: IVP; Site: right wrist; jl7 13:01 Follow up: Response: No adverse reaction jl7 11:20 Drug: NS 0.9% IV (30 ml/kg) 30 ml/kg IV at bolus once; Sepsis Protocol; to be given as jl7 a bolus over 90 minutes Route: IV; Rate: bolus; Site: right wrist; 12:35 Follow up: Response: No adverse reaction; IV Status: Completed infusion; IV Intake: jl7 1905ml 12:24 Drug: Famotidine IVP 20 mg IVP once; dilute with 10 mL 0.9% NaCl; give over 2 minutes jl7 Route: IVP; Site: right wrist; 12:55 Follow up: Response: No adverse reaction jl7 12:30 Drug: Zithromax IVPB 500 mg IVPB once over 1 hrs; mix in 250 mL NS Route: IVPB; Infused jl7 Over: 1 hrs; Site: right antecubital; 13:30 Follow up: Response: No adverse reaction; IV Status: Completed infusion jl7 13:00 Not Given (order changedd): ns 0.9% 1000 ml IV at 1000 ml once; to be given as a bolus jl7 over 60 minutes 20:00 Drug: Acetaminophen PO 650 mg PO once Route: PO; cp4 20:00 Follow up: Response: No adverse reaction cp4 Medication: 12:26 VIS not applicable for this client. jl7 Intake: 12:35 IV: 1905ml; Total: 1905ml. jl7 Outcome: 12:41 Decision to Hospitalize by Provider. kofi 15:00 Admitted to ER Hold. [facility]. jl7 15:00 Condition: stable 15:00 Discharge instructions given to patient, family, Instructed on the need for admit, 20:22 Patient left the ED. cp4 Signatures: Dispatcher [employer] EDME Robin Pringle MD MD cha Leal, Jahala RN RN jl7 Angela Robertson RN RN Briana Bardales cp4 Danilo Valera ty Corrections: (The following items were deleted from the chart) 12:31 12:30 Initial lab(s) drawn, by fl, sent to lab. Lactate ty ty 12:31 12:31 LACTATE+C.LAB.BRZ drawn and sent. ty ty 13:00 11:19 NS 0.9% IV 1000 ml IV at 1000 ml in right wrist jl7 jl7 13:01 12:24 NS 0.9% IV (30 ml/kg) 1905 mL IV at bolus in right wrist jl7 jl7
--- NOTE | 2024-08-20 12:41 | EDPHYS ---
Physician Documentation [facility] Name: Ashley Simon Age: 73 yrs Sex: Female : 1950 Arrival Date: 08/20/2024 Time: 10:32 Bed 6 Private MD: ED Physician Robin Pringle HPI: 08/20 10:56 This 73 yrs old Female presents to ER via EMS with complaints of Doesn't feel kofi good. 10:56 The patient has shortness of breath at rest, with light activity. Onset: The kofi symptoms/episode began/occurred 3 day(s) ago. Duration: The symptoms are continuous, and are steadily getting worse. The patient's shortness of breath is aggravated by coughing, is alleviated by nothing. FEVER, CHILLS , SHANNON. Associated signs and symptoms: Pertinent positives: non-productive cough, dizziness, fever. Severity of symptoms: At their worst the symptoms were moderate in the emergency department the symptoms are unchanged. The patient or guardian reports cough, that is intermittent, difficulty breathing, flu symptoms, arthralgias, low-grade fever, myalgias, no appetite. Severity of symptoms: At their worst the symptoms were moderate, in the emergency department the symptoms are unchanged. Modifying factors: The symptoms are alleviated by cool environment. Historical: - Allergies: 10:39 No Known Allergies; jl7 - PMHx: 10:39 Hypertension; Diabetes; jl7 12:25 Kidney disease; jl7 - Immunization history:: Adult Immunizations unknown. - Infectious Disease History:: Denies. - Social history:: Smoking status: unknown. - Family history:: not pertinent. ROS: 10:56 Eyes: Negative for injury, pain, redness, and discharge, Neck: Negative for injury, kofi pain, and swelling, Cardiovascular: Negative for chest pain, palpitations, and edema, Abdomen/GI: Negative for abdominal pain, nausea, vomiting, diarrhea, and constipation, Back: Negative for injury and pain, : Negative for injury, bleeding, discharge, and swelling, MS/Extremity: Negative for injury and deformity, Skin: Negative for injury, rash, and discoloration, Neuro: Negative for headache, weakness, numbness, tingling, and seizure, Psych: Negative for depression, anxiety, suicide ideation, homicidal ideation, and hallucinations, Allergy/Immunology: Negative for hives, rash, and allergies, Endocrine: Negative for neck swelling, polydipsia, polyuria, polyphagia, and marked weight changes, Hematologic/Lymphatic: Negative for swollen nodes, abnormal bleeding, and unusual bruising, 10:56 Constitutional: Positive for chills, fatigue, fever, malaise, poor PO intake, 10:56 Respiratory: Positive for cough, "sounds productive", 10:56 Neuro: Positive for headache, weakness, Exam: 10:56 Head/Face: Normocephalic, atraumatic. Eyes: Pupils equal round and reactive to light, kofi extra-ocular motions intact. Lids and lashes normal. Conjunctiva and sclera are non-icteric and not injected. Cornea within normal limits. Periorbital areas with no swelling, redness, or edema. ENT: Nares patent. No nasal discharge, no septal abnormalities noted. Tympanic membranes are normal and external auditory canals are clear. Oropharynx with no redness, swelling, or masses, exudates, or evidence of obstruction, uvula midline. Mucous membranes moist. Neck: Trachea midline, no thyromegaly or masses palpated, and no cervical lymphadenopathy. Supple, full range of motion without nuchal rigidity, or vertebral point tenderness. No Meningismus. Chest/axilla: Normal chest wall appearance and motion. Nontender with no deformity. No lesions are appreciated. Cardiovascular: Regular rate and rhythm with a normal S1 and S2. No gallops, murmurs, or rubs. Normal PMI, no JVD. No pulse deficits. Respiratory: Lungs have equal breath sounds bilaterally, clear to auscultation and percussion. No rales, rhonchi or wheezes noted. No increased work of breathing, no retractions or nasal flaring. Abdomen/GI: Soft, non-tender, with normal bowel sounds. No distension or tympany. No guarding or rebound. No evidence of tenderness throughout. Back: No spinal tenderness. No costovertebral tenderness. Full range of motion. Skin: Warm, dry with normal turgor. Normal color with no rashes, no lesions, and no evidence of cellulitis. MS/ Extremity: Pulses equal, no cyanosis. Neurovascular intact. Full, normal range of motion., bilateral aka Neuro: Awake and alert, GCS 15, oriented to person, place, time, and situation. Cranial nerves II-XII grossly intact. Motor strength 5/5 in all extremities. Sensory grossly intact. Cerebellar exam normal. Normal gait. Psych: Awake, alert, with orientation to person, place and time. Behavior, mood, and affect are within normal limits. 10:56 Constitutional: The patient appears febrile, 10:56 ECG was reviewed by the Attending Physician. 10:56 Respiratory: the patient does not display signs of respiratory distress, Respirations: labored breathing, is not present, asymmetrical chest movement, is not seen, accessory muscle usage, is absent, Breath sounds: bronchial sounds, that are mild, Respiratory rate: 16 19:53 Neck: External neck: is normal, no acute changes, ROM/movement: is normal, is supple, kofi without pain, no range of motions limitations, no meningismus, no nuchal rigidity, negative Brudzinski's sign, negative Kernig's sign, pain, is not appreciated, limited range of motion, is not appreciated, Meningeal signs: are not present, Kernig's sign is negative, Brudzinski's sign is negative, nuchal rigidity, is not appreciated, Vital Signs: 10:37 BP 132 / 55; Pulse 80; Resp 16; Temp 100.3; Pulse Ox 16% ; Weight 63.5 kg; Height 5 ft. jl7 0 in. ; 12:25 BP 117 / 53; Pulse 79; Resp 15; Temp 99.6; Pulse Ox 96% ; jl7 14:30 BP 118 / 54; Pulse 75; Resp 15; Pulse Ox 97% ; jl7 20:20 BP 116 / 55; Pulse 64; Resp 18; Pulse Ox 97% ; cp4 10:37 Body Mass Index 27.34 (63.50 kg, 152.4 cm) jl7 MDM: 10:40 Medical Screening Exam initiated kofi 11:00 Differential diagnosis: Anemia asthma, Bronchitis viral Infection, bacterial infection, kofi URI, bronchitis, pneumonia UTI, gastroenteritis, meningitis, pulmonary edema, reactive airway disease, Sepsis. Antibiotic administration:. Differential Diagnosis sepsis, flu, Obstructed Airway Bronchitis Influenza Upper Respiratory Infection Sinusitis Pharyngitis Asthma Exacerbation Viral Syndrome Pneumonia. Immunization status: Pneumococcal vaccine: within last 5 years. Influenza vaccine: within last 5 years. Data reviewed: vital signs, nurses notes, lab test result(s), EKG, radiologic studies, plain films. Consideration of Admission/Observation Escalation of care including admission/observation considered. I considered the following discharge prescriptions or medication management in the emergency department Medications were administered in the Emergency Department. See MAR. Independent interpretation of the following test(s) in the Emergency Department X-Ray: My interpretation is CXR. Test considered but Not performed: CT: NO CT HEAD. Care significantly affected by the following chronic conditions: Diabetes, Hypertension, Chronic Kidney Disease. Counseling: I had a detailed discussion with the patient and/or guardian regarding the historical points, exam findings, and any diagnostic results supporting the discharge/admit diagnosis, lab results, radiology results. 08/20 10:54 Order name: CBC with Diff; Complete Time: 12:09 [facility] 08/20 10:54 Order name: Comprehensive Metabolic Panel; Complete Time: 12:09 kofi 08/20 10:54 Order name: Blood Culture Adult (2) [facility] 08/20 10:54 Order name: Flu [facility] 08/20 10:54 Order name: Strep [facility] 08/20 10:54 Order name: Urinalysis w/ reflexes; Complete Time: 12:09 kofi 08/20 11:15 Order name: COVID-19 Ag + Flu A+B Ag; Complete Time: 12:09 hb 08/20 11:26 Order name: Lactate w/ 2H reflex if indic. [facility] 08/20 11:47 Order name: Throat Culture [facility] 08/20 11:50 Order name: CBC Smear Scan; Complete Time: 12:09 [facility] 08/20 13:46 Order name: Urinalysis w/ reflexes [facility] 08/20 13:47 Order name: Basic Metabolic Panel [facility] 08/20 13:47 Order name: Basic Metabolic Panel [facility] 08/20 13:47 Order name: Basic Metabolic Panel [facility] 08/20 13:47 Order name: Basic Metabolic Panel [facility] 08/20 13:47 Order name: Basic Metabolic Panel [facility] 08/20 13:47 Order name: Basic Metabolic Panel [facility] 08/20 13:48 Order name: Basic Metabolic Panel [facility] 08/20 13:48 Order name: Basic Metabolic Panel [facility] 08/20 13:48 Order name: CBC with Automated Diff [facility] 08/20 13:48 Order name: CBC with Automated Diff [facility] 08/20 13:48 Order name: CBC with Automated Diff [facility] 08/20 13:48 Order name: CBC with Automated Diff [facility] 08/20 13:48 Order name: CBC with Automated Diff [facility] 08/20 13:48 Order name: CBC with Automated Diff ED[facility] 08/20 13:48 Order name: CBC with Automated Diff EDMS 08/20 13:48 Order name: CBC with Automated Diff ED[facility] 08/20 13:48 Order name: Magnesium ED[facility] 08/20 13:48 Order name: Magnesium EDMS 08/20 13:48 Order name: Magnesium EDMS 08/20 13:48 Order name: Magnesium EDMS 08/20 13:48 Order name: Magnesium EDMS 08/20 13:48 Order name: Magnesium EDMS 08/20 13:48 Order name: Magnesium EDMS 08/20 13:48 Order name: Magnesium EDMS 08/20 13:48 Order name: Phosphorus EDMS 08/20 13:48 Order name: Phosphorus EDMS 08/20 13:48 Order name: Phosphorus EDMS 08/20 13:48 Order name: Phosphorus EDMS 08/20 13:48 Order name: Phosphorus EDMS 08/20 13:48 Order name: Phosphorus EDMS 08/20 13:48 Order name: Phosphorus EDMS 08/20 13:48 Order name: Phosphorus EDMS 08/20 16:57 Order name: Glucose, Ancillary Testing ED[facility] 08/20 18:50 Order name: C-Reactive Protein ED[facility] 08/20 19:27 Order name: Procalcitonin ED[facility] 08/20 10:54 Order name: Chest Single View XRAY; Complete Time: 12:36 [facility] 08/20 11:26 Order name: CT Chest Abdomen Pelvis W/O Contrast; Complete Time: 12:25 [facility] 08/20 11:44 Order name: Head C Spine Mpr Wo Con; Complete Time: 12:14 [facility] 08/20 17:09 Order name: US EDMS 08/20 17:10 Order name: EDMS 08/20 18:12 Order name: Labs - recollect needed: Trey needs stats labs that were just ordered eb drawn; Complete Time: 18:28 EC:56 Rate is 81 beats/min. Rhythm is regular. QRS [place] is Normal. [place] interval is normal. QRS kofi interval is normal. QT interval is normal. No Q waves. T waves are Normal. No ST changes noted. Clinical impression: NSR w/ Non-specific ST/T Changes and No evidence of ischemia. Interpreted by me. Reviewed by me. Administered Medications: 10:52 Drug: Acetaminophen PO 1000 mg PO once Route: PO; ld1 12:00 Follow up: Response: No adverse reaction; Temperature is decreased jl7 11:18 Not Given (Duplicate Order): [id number] mg PO once jl7 11:18 Drug: Rocephin IV 1 grams IV at per protocol once; Given slow IV push per pharmacy jl7 instructions Route: IV; Rate: per protocol; Site: right wrist; 11:30 Follow up: Response: No adverse reaction; IV Status: Completed infusion jl7 11:19 Drug: Ondansetron IVP 4 mg IVP once; over 2 minutes Route: IVP; Site: right wrist; jl7 13:01 Follow up: Response: No adverse reaction jl7 11:20 Drug: NS 0.9% IV (30 ml/kg) 30 ml/kg IV at bolus once; Sepsis Protocol; to be given as jl7 a bolus over 90 minutes Route: IV; Rate: bolus; Site: right wrist; 12:35 Follow up: Response: No adverse reaction; IV Status: Completed infusion; IV Intake: jl7 1905ml 12:24 Drug: Famotidine IVP 20 mg IVP once; dilute with 10 mL 0.9% NaCl; give over 2 minutes jl7 Route: IVP; Site: right wrist; 12:55 Follow up: Response: No adverse reaction jl7 12:30 Drug: Zithromax IVPB 500 mg IVPB once over 1 hrs; mix in 250 mL NS Route: IVPB; Infused jl7 Over: 1 hrs; Site: right antecubital; 13:30 Follow up: Response: No adverse reaction; IV Status: Completed infusion jl7 13:00 Not Given (order changedd): ns 0.9% 1000 ml IV at 1000 ml once; to be given as a bolus jl7 over 60 minutes 20:00 Drug: Acetaminophen PO 650 mg PO once Route: PO; cp4 20:00 Follow up: Response: No adverse reaction cp4 Disposition Summary: 08/20/24 12:41 Hospitalization Ordered Notes: Hospitalization Status: Inpatient Admission kofi Provider: Rd Kamara cha Condition: Fair kofi Problem: new kofi Symptoms: have improved kofi Bed/Room Type: Standard kofi Location: Telemetry/MedSurg (Inpatient)(08/20/24 18:57) kmf Room Assignment: 228(08/20/24 18:57) [facility] Diagnosis - Fever, unspecified kofi - Acute upper respiratory infection, unspecified kofi - Other malaise and fatigue kofi - Weakness kofi - Elevated white blood cell count kofi - Unspecified kidney failure - chronic kofi Forms: - Medication Reconciliation Form kofi - SBAR form kofi - Leadership Thank You Letter [facility] Signatures: Dispatcher [employer] EDMS Robin Pringle MD MD cha Leal, Jahala RN RN jl7 Holly Ovalle Lauren, RN RN ld1 Eren Yun MD MD sp3 Briana Lowery Kelsey Maroul [facility] Corrections: (The following items were deleted from the chart) 10:54 10:54 CBC+H.LAB.BRZ ordered. EDMS EDMS 10:54 10:54 COMPREHENSIVE METABOLIC PANEL+C.LAB.BRZ ordered. EDMS EDMS 10:54 10:54 BLOOD CULTURE*+BA.LAB.BRZ ordered. EDMS EDMS 10:54 10:54 Influenza Screen (A \\T\\ B)+BA.LAB.BRZ ordered. EDMS EDMS 10:54 10:54 SARS-COV-2 Antigen Rapid+I.LAB.BRZ ordered. EDMS EDMS 10:54 10:54 Group A Streptococcus Rapid Sc+BA.LAB.BRZ ordered. EDMS EDMS 10:54 10:54 Urinalysis+U.LAB.BRZ ordered. EDMS EDMS 10:54 10:54 Chest Single View+RAD.RAD.BRZ ordered. EDMS EDMS 11:44 11:26 Head Brain Wo Cont+CT.RAD.BRZ ordered. EDMS EDMS 18:31 12:41 Telemetry/MedSurg (Inpatient) kofi jl7 18:31 12:41 kofi jl7 18:57 18:31 [facility] ER HOLD jl7 kmf 18:57 18:31 ERHOLD- jl7 [facility]
--- NOTE | 2024-08-20 13:54 | P.HP ---
Certification for Inpatient Patient admitted to: Inpatient With expected LOS: >2 Midnights <Irais Larson - Last Filed: 08/20/24 17:03> Patient History Date of Service: 08/20/24 Reason for admission: SIRS 2/2 unknown etilogy History of Present Illness: Ashley Simon is a 73 year old female with Pmhx dementia, HTN, DM, and CKD who presents to the ED with chief complaint of fatique, fever, confusion that started this morning. Family reports she has difficulty emptying her bladder, UA negative for infectious process. Laboratory evaluation significant for WBC 19.1, H&H 10/30, BUN/creatinine 22/1.78, GFR 30, serum glucose 111. Chest x-ray reports "No acute abnormality is displayed." CT head and cervical spine reports "No acute intracranial abnormality noted. A cervical fracture is not seen." CT CAP reports "No acute abnormalities displayed." Ashley will be admitted to hospitalist service for further evaluation os SIRS 2/2 unknown etiology. - Past Medical/Surgical History Diabetic: Yes -: Anxiety -: Hypertension -: Knee surgery -: c section - Social History Alcohol use: No CD- Drugs: No Caffeine use: No <Irais Larson - Last Filed: 08/20/24 17:03> Date of Service: 08/20/24 <Maurice Morgan - Last Filed: 08/20/24 17:31> Allergies No Known Drug Allergies Allergy (Verified 12/26/21 10:14) Unknown Home Medications: LORazepam [Ativan*] 0.5 mg PO BEDTIME PRN PRN 09/29/18 Metoprolol Succinate [Toprol Xl] 50 mg PO BID 09/29/18 traMADol HCL [Ultram*] 50 mg PO BID PRN 09/29/18 Aspirin [Aspirin EC 81 MG] 81 mg PO DAILY 12/23/21 Clopidogrel Bisulfate [Plavix] 75 mg PO DAILY 12/23/21 Cyclobenzaprine [Flexeril] 10 mg PO DAILYPRN PRN 12/23/21 Famotidine [Pepcid AC] 20 mg PO DAILY 12/23/21 Review of Systems Other: per HPI <Irais Larson - Last Filed: 08/20/24 17:03> Physical Examination - Physical Exam General: Alert, Oriented x3 HEENT: Atraumatic, Normocephalic Neck: Supple Respiratory: Clear to auscultation bilaterally, Normal air movement Cardiovascular: Normal pulses, Regular rate/rhythm, Normal S1 S2 Capillary refill: <2 Seconds Gastrointestinal: Normal bowel sounds, Soft and benign Musculoskeletal: No clubbing Integumentary: No rashes Neurological: Normal speech, Normal tone - Studies Laboratory Data (last 24 hrs) 08/20/24 08/20/24 11:09 11:09 WBC 19.10 H Hgb 10.2 L Hct 30.3 L Plt Count 226 Sodium 139 Potassium 3.6 BUN 22 H Creatinine 1.78 H Glucose 111 H Total Bilirubin 0.4 AST 36 ALT 30 Alkaline Phosphatase 90 Microbiology Data (last 24 hrs): 08/20/24 11:21 Throat Group A Streptococcus Rapid Screen - Final <Irais Larson - Last Filed: 08/20/24 17:03> - Studies Laboratory Data (last 24 hrs) 08/20/24 08/20/24 11:09 11:09 WBC 19.10 H Hgb 10.2 L Hct 30.3 L Plt Count 226 Sodium 139 Potassium 3.6 BUN 22 H Creatinine 1.78 H Glucose 111 H Total Bilirubin 0.4 AST 36 ALT 30 Alkaline Phosphatase 90 Microbiology Data (last 24 hrs): 08/20/24 11:21 Throat Group A Streptococcus Rapid Screen - Final <Maurice Morgan - Last Filed: 08/20/24 17:31> Assessment and Plan - Plan Assessment and plan SIRS secondary to unknown etiology acute metabolic encephalopathy -SIRS criteria WBC 19, temp 100.3 -FLu/COVID/strep/ UA negative -Follow blood cultures -Gentle IV fluids, 2 L NS given in the ED -Rocephin IV daily -Tylenol Diabetes mellitus -Accu-Chek with sliding scale insulin -A1c in the a.m. LOPEZ vs CKD -BUN/creatinine 22/1.78, GFR 30, appears to be at baseline -Ultrasound bladder and kidneys -Family reports she struggles emptying her bladder -Consult Dr. Jeffries Dementia Hypertension -Continue home medication DVT PPx heparin DNI LOS 2 to 3 days Discharge Plan: Home - Advance Directives Does patient have a Living Will: No Does patient have a Durable POA for Healthcare: No <Irais Larson - Last Filed: 08/20/24 17:03> Physician Review: Patient Assessed, Agree with Above Assessment and Plan Physician Review Additional Text: Await for additional cultures and stool testing. <Maurice Morgan - Last Filed: 08/20/24 17:31>
[2024-08-20] MEDS: NA CHLORIDE 0.9% 1,000 ML IV SCH (14:00)
[2024-08-20] MEDS ORDERED: HEPARIN 5000 UNIT/ML 1 ML VIAL ONE (16:15)
[2024-08-20] MEDS: INSULIN REGULAR (HUMAN) 100 UNIT/ML SQ SCH (16:30)
[2024-08-20] MEDS: HEPARIN 5000 UNIT/ML 1 ML VIAL SQ SCH (16:53)
--- NOTE | 2024-08-20 17:09 | RAD REPORT ---
EXAM: URINARY BLADDER ULTRASOUND CLINICAL INDICATION: Abdominal pain. Acute renal injury TECHNIQUE: Sonographic evaluation of the bladder performed. FINDINGS: Bladder wall normal thickness. A mass within the bladder do not seen. No calculus visualized. IMPRESSION; No significant bladder abnormality noted.
--- NOTE | 2024-08-20 17:09 | RAD REPORT ---
EXAMINATION: US RENAL CLINICAL INDICATION: Abdominal pain. Acute renal injury TECHNIQUE: Real-time ultrasonography of the kidneys performed. COMPARISON: 2021. FINDINGS: Right kidney measures 9 cm with a mildly increased echotexture. Left kidney measures 9 cm with a mildly increased echotexture. No hydronephrosis No gross abnormality bladder. IMPRESSION: Mildly increased renal echotexture may indicate parenchymal disease No hydronephrosis
[2024-08-20 17:25] VITALS: BMI 27.3
[2024-08-20] MEDS ORDERED: ACETAMINOPHEN 325 MG TABLET ONE (19:54)
[2024-08-21 04:52] LABS: Absolute Basophils 0.1 K/uL (0-0.5); Absolute Eosinophils 0.1 K/uL (0-0.5); Absolute Lymphocytes (CBC) 2.6 K/uL (0.7-4.9); Absolute Monocytes 1.2 K/uL (0.1-1.3); Absolute Neutrophil 21.6 K/uL (1.8-8.0); Basophils % 0.4 % (0-1.3); Eosinophils % 0.3 % (0-4.4); Hematocrit 26.6 % (36.0-45.0); Hemoglobin 8.9 g/dL (12.0-15.0); Lymphocytes % 10.1 % (15.3-44.8); MCH 30.7 pg (27.0-35.0); MCHC 33.3 g/dL (32.0-36.0); MCV 92.1 fL (80-100); MPV 9.1 fL (7.6-11.3); Monocytes % 4.7 % (3.3-12.3); Neutrophils % 84.5 % (41.7-73.7); Platelets 190 thou/uL (152-406); RBC Red Blood Cell Count 2.89 M/uL (3.86-4.86); Red Cell Distribution Width 16.3 % (12.1-15.2)
[2024-08-21 05:24] LABS: Band Neutrophils 7 % (0-1); Blood Morphology Comment NOTED (NOT SEEN); Differential Total Cells Count 100; Lymphocytes 6 % (15-42); Monocytes 4 % (0-10); Ovalocytes 2+; Platelet Estimate ADEQ; Segmented Neutrophils 83 % (40-80)
[2024-08-21 05:53] LABS: Anion Gap 9.9 mEq/L (5.0-15.0); Magnesium 2.2 mg/dL (1.6-2.4); Phosphorus 2.6 mg/dL (2.5-4.9); Potassium 3.9 mEq/L (3.5-5.1)
[2024-08-21] MEDS ORDERED: VANCOMYCIN 1.25 GM in NA CHLORIDE 0.9% 250 ML IVPB ONE (07:00)
[2024-08-21] MEDS: ACETAMINOPHEN 325 MG TABLET PO PRN (08:39)
[2024-08-21] MEDS: PIPER TAZO 3.375 GM in NA CHLORIDE 0.9% 100 ML IV SCH (09:00)
[2024-08-21] MEDS ORDERED: CEFTRIAXONE 1,000 MG in NA CHLORIDE 0.9% 50 ML IVPB SCH (09:00)
[2024-08-21] MEDS: Ringers Lactate 1,000 ML IV SCH (09:18)
[2024-08-21] MEDS: VANCOMYCIN 1.5 GM in NA CHLORIDE 0.9% 500 ML IVPB ONE (09:22)
[2024-08-21 10:09] LABS: Absolute Basophils 0.1 K/uL (0-0.5); Absolute Eosinophils 0.1 K/uL (0-0.5); Absolute Lymphocytes (CBC) 2.3 K/uL (0.7-4.9); Absolute Monocytes 0.9 K/uL (0.1-1.3); Absolute Neutrophil 17.3 K/uL (1.8-8.0); Basophils % 0.3 % (0-1.3); Eosinophils % 0.6 % (0-4.4); Hematocrit 26.1 % (36.0-45.0); Hemoglobin 8.6 g/dL (12.0-15.0); MCH 30.7 pg (27.0-35.0); MCHC 32.8 g/dL (32.0-36.0); MCV 93.7 fL (80-100); MPV 8.6 fL (7.6-11.3); Monocytes % 4.3 % (3.3-12.3); Neutrophils % 83.8 % (41.7-73.7); Platelets 199 thou/uL (152-406); RBC Red Blood Cell Count 2.79 M/uL (3.86-4.86); Red Cell Distribution Width 16.8 % (12.1-15.2)
--- NOTE | 2024-08-21 11:59 | EKG ---
Test Date: 2024-08-20 Test Time: 10:42:40 Surgical Services Asst: ANALI MEASUREMENT RESULTS: Intervals: Rate: 81 NE: 156 QRSD: 132 QT: 428 QTc: 497 [place]: P: 37 NE: 156 QRS: -51 T: 101 INTERPRETIVE STATEMENTS: Normal sinus rhythm Left axis deviation Left bundle branch block Abnormal ECG Compared to ECG 05/16/2023 22:04:14 No significant changes Electronically Signed On 08-21-24 11:58:03 [employer] by Helder Monet
--- NOTE | 2024-08-21 12:12 | P.PN ---
Date of Service: 08/21/24 Subjective ROS 10 point ROS as noted above, otherwise negative Physical Exam General: Alert, Oriented x3 HEENT: Atraumatic, Normocephalic Neck: Supple Respiratory: Clear to auscultation bilaterally, Normal air movement Cardiovascular: Normal pulses, Regular rate/rhythm, Normal S1 S2 Capillary refill: <2 Seconds Gastrointestinal: Normal bowel sounds, Soft and benign Musculoskeletal: No clubbing Integumentary: No rashes Neurological: Normal speech, Normal tone Vitals Reviewed Problem list SIRS secondary to unknown etiology acute metabolic encephalopathy Diabetes mellitus LOPEZ vs CKD Dementia Hypertension Assessment and Plan SIRS secondary to unknown etiology acute metabolic encephalopathy -SIRS criteria WBC 19, temp 100.3 -Procalcitonin 13.77, C-reactive protein 62 -FLu/COVID/strep/ UA negative -Follow blood cultures -Gentle IV fluids, 2 L NS given in the ED -Rocephin IV daily -Tylenol Diabetes mellitus -Accu-Chek with sliding scale insulin -A1c in the a.m. LOPEZ vs CKD -BUN/creatinine 22/1.78, GFR 30, appears to be at baseline -Ultrasound bladder and kidneys -Family reports she struggles emptying her bladder -Consult Dr. Jeffries Dementia Hypertension -Continue home medication DVT PPx heparin DNI LOS 2 to 3 days Discharge Plan: Home <Irais Larson - Last Filed: 08/21/24 12:01> I have personally seen and evaluated the patient. I have reviewed the history, physical exam findings, and assessment provided by Karine Larson NP. Care with the plan of care as documented, with any additional modifications as noted <Maurice Morgan - Last Filed: 08/22/24 14:43>
[2024-08-21] MEDS: Meropenem 1,000 MG in NA CHLORIDE 0.9% 100 ML IV SCH (13:19)
--- NOTE | 2024-08-21 17:49 | CON ---
History And Physical: This is a 73-year-old female. I was consulted for infection of unknown source and diarrhea with leukocytosis. The patient was brought in yesterday with fevers and significant [facility] medical history of dementia, hypertension, diabetes mellitus, chronic kidney disease. The patient had fatigue and fever and some abdominal discomfort. As per the patient, she was having problem wit h constipation, not diarrhea, with elevated white cell count of approximately 20,000. Past Medical History: As per HPI. Social History: Nonsmoker, nondrinker. Family History: Noncontributory. Medications: Merrem and vancomycin. See MARs for other medications. Allergies: NO KNOWN DRUG ALLERGIES. Review of Systems: A 10-point review was performed. Physical Examination: General: This is a 73-year-old female, lying in bed, family by the bedside, not in any acute cardiop ulmonary distress. Vital Signs: Temperature 99, pulse 68, respirations 16, blood pressure 151/66. HEENT: Unremarkable. Neck: Supple. Lungs: Basal crackles. Heart: S1, S2. Regular. Abdomen: Soft, nontender. Bowel sounds hyperactive. Extremities: No edema. Laboratory Data: Shows WBC 20,000, hemoglobin 8.6, platelets 199. Chemistry shows BUN of 16, creati nine 1.4. Cultures are pending. Assessment And Plan: 1. A 73-year-old female with low-grade fevers and elevated white blood cell, leukocytosis, and abdomi nal pain, coming in with generalized fatigue and not feeling well. CT abdomen is negative without an y contrast. The patient is currently on empiric antibiotic with vancomycin and meropenem. We will r ecommend to get procalcitonin and rule out any noninfectious causes as her chest x-ray and CT is nega tive. 2. Diabetes mellitus. 3. Chronic kidney disease. 4. Dementia. We will follow the patient closely. Thank you for consult. OLU/WILLIS Voice ID: [id number] Report ID: [id number]
--- NOTE | 2024-08-21 20:17 | P.CNS ---
Date of Consult: 08/21/24 Reason for Consult: LOPEZ/ CKD Requesting Physician: Maurice Morgan Chief Complaint: SIRS 2/2 unknown etilogy History of Present Illness: Ashley Simon is a 73 year old female with Pmhx dementia, HTN, DM, and CKD who presents to the ED with chief complaint of fatique, fever, confusion that started this morning. Family reports she has difficulty emptying her bladder, UA negative for infectious process. Laboratory evaluation significant for WBC 19.1, H&H 10/30, BUN/creatinine 22/1.78, GFR 30, serum glucose 111. Chest x-ray reports "No acute abnormality is displayed." CT head and cervical spine reports "No acute intracranial abnormality noted. A cervical fracture is not seen. CT CAP reports "No acute abnormalities displayed." Ashley will be admitted to hospitalist service for further evaluation os SIRS 2/2 unknown etiology. [id number] 10:56 This 73 yrs old Female presents to ER via EMS with complaints of Doesn't feel kofi good. 10:56 The patient has shortness of breath at rest, with light activity. Onset: The kofi symptoms/episode began/occurred 3 day(s) ago. Duration: The symptoms are continuous, and are steadily getting worse. The patient's shortness of breath is aggravated by coughing, is alleviated by nothing. FEVER, CHILLS , SHANNON. Associated signs and symptoms: Pertinent positives: non-productive cough, dizziness, fever. Severity of symptoms: At their worst the symptoms were moderate in the emergency department the symptoms are unchanged. The patient or guardian reports cough, that is intermittent, difficulty breathing, flu symptoms, arthralgias, low-grade fever, myalgias, no appetite. Severity of symptoms: At their worst the symptoms were moderate, in the emergency department the symptoms are unchanged. Modifying factors: The symptoms are alleviated by cool environment. Allergies No Known Drug Allergies Allergy (Verified 12/26/21 10:14) Unknown Home medications list reviewed: Yes Home Medications: LORazepam [Ativan*] 0.5 mg PO BID 09/29/18 Metoprolol Succinate [Toprol Xl] 50 mg PO BID 09/29/18 traMADol HCL [Ultram*] 50 mg PO BID PRN 09/29/18 Aspirin [Aspirin EC 81 MG] 81 mg PO DAILY 12/23/21 Amlodipine Besylate 5 mg PO BID 08/20/24 Donepezil HCl 23 mg PO BEDTIME 08/20/24 Esomeprazole Mag Trihydrate [Nexium] 40 mg PO DAILY 08/20/24 Magnesium Oxide [Magnesium] 500 mg PO BID 08/20/24 Montelukast [Singulair] 10 mg PO DAILY 08/20/24 Propranolol HCl [Propranolol HCl ER] 120 mg PO DAILY 08/20/24 Rosuvastatin [Crestor] 10 mg PO BEDTIME 08/20/24 Trazodone HCl 100 mg PO BEDTIME 08/20/24 - Past Medical/Surgical History Diabetic: Yes -: Anxiety -: HTN -: DM -: Knee surgery -: c section - Social History Smoking Status: Unknown if ever smoked Alcohol use: No CD- Drugs: No Caffeine use: No Place of Residence: Home Review of Systems 10-point ROS is otherwise unremarkable General: Weakness, Malaise Physical Examination Temp Pulse Resp BP Pulse Ox 98.3 F 62 16 135/72 97 08/21/24 16:00 08/21/24 16:00 08/21/24 16:00 08/21/24 16:00 08/21/24 16:00 General: In no apparent distress, Oriented x3, Cooperative HEENT: Atraumatic Neck: Supple Respiratory: Normal air movement Cardiovascular: No edema, Regular rate/rhythm Gastrointestinal: Soft and benign, Non-distended Musculoskeletal: No clubbing, No contractures Integumentary: No rashes, No cyanosis Neurological: Normal speech Blood work reviewed in the chart. Imagings Data: [id number] EXAM: CT CHEST, ABDOMEN AND PELVIS WITHOUT CONTRAST CLINICAL INDICATION: Chest and abdominal pain TECHNIQUE: CT chest, abdomen and pelvis was performed, without IV contrast, as per department protocol. Axial, sagittal and coronal reconstructions were obtained. One or more of the following dose reduction techniques were used: Automated exposure control, adjustment of the mA and/or kV according to the patient size, and/or iterative reconstruction. Unless otherwise specified, incidental findings do not require dedicated imaging follow-up. The lack of IV and oral contrast limits evaluation of the mediastinum, [place], vessels, organs and bowel. COMPARISON: 2022 FINDINGS: Lungs are clear. No mediastinal or hilar lymphadenopathy seen. No pleural effusion. No pericardial effusion. Liver, spleen, pancreas, adrenals kidneys and bladder appear grossly normal There is no evidence of diverticulitis IMPRESSION: No acute abnormalities displayed [id number] EXAMINATION: CT HEAD WITHOUT CONTRAST CT CERVICAL SPINE WITHOUT CONTRAST CLINICAL INDICATION: Declining mental state. Head and neck pain TECHNIQUE: Axial CT images from the skull base to the vertex without intravenous contrast. Axial CT images through the cervical spine were obtained without intravenous contrast. Sagittal and coronal reformatted images were created from the data set. Coronal and sagittal reformatted images were created from the data set. One or more of the following dose reduction techniques were used: Automated exposure control, adjustment of the mA and/or kV according to patient size, and/or iterative reconstruction. Unless otherwise specified, incidental findings do not require dedicated imaging follow-up. [id number]. Comparison: 2023 FINDINGS: An intracranial bleed is not seen. Ventricles are normal in caliber. No significant hypodensity within the brain Empty sella turcica No extra-axial fluid collection. No fluid within the sinuses/mastoids No fracture or dislocation is seen involving the cervical spine. IMPRESSION: No acute intracranial abnormality noted A cervical fracture is not seen. [id number] Procedure: Chest Single View HISTORY: Cough COMPARISON: 2022 FINDINGS: The lungs appear clear of acute infiltrate. No significant pleural effusion noted. The heart is normal size. IMPRESSION: No acute abnormality is displayed. [id number] EXAMINATION: US RENAL CLINICAL INDICATION: Abdominal pain. Acute renal injury TECHNIQUE: Real-time ultrasonography of the kidneys performed. COMPARISON: 2021. FINDINGS: Right kidney measures 9 cm with a mildly increased echotexture. Left kidney measures 9 cm with a mildly increased echotexture. No hydronephrosis No gross abnormality bladder. IMPRESSION: Mildly increased renal echotexture may indicate parenchymal disease No hydronephrosis [id number] EXAM: URINARY BLADDER ULTRASOUND CLINICAL INDICATION: Abdominal pain. Acute renal injury TECHNIQUE: Sonographic evaluation of the bladder performed. FINDINGS: Bladder wall normal thickness. A mass within the bladder do not seen. No calculus visualized. IMPRESSION; No significant bladder abnormality noted. Conclusions/Impression: Stage I LOPEZ may be due to hypovolemia CKD III with Proteinuria -No NSAIDs -Continue gentle IVF HTN with CKD -Continue Amlodipine -Continue Propranolol DM II with CKD -RISS Hypoalbuminemia -Recommend protein supplementation Anemia in chronic illness -Monitor H&H Hospitalist and ER notes reviewed Thank you kindly for the consultation
[2024-08-21] MEDS: ROSUVASTATIN 10 MG TAB PO SCH (20:31)
[2024-08-21] MEDS: TRAZODONE 50 MG TABLET PO SCH (20:32)
[2024-08-21] MEDS: AMLODIPINE 5 MG TAB PO SCH (20:32)
[2024-08-21] MEDS: LORAZEPAM 0.5 MG TABLET PO SCH (20:32)
[2024-08-21] MEDS: MAGNESIUM OXIDE 400 MG TAB PO SCH (20:33)
[2024-08-21] MEDS: DONEPEZIL HCL 23 MG PO SCH (20:39)
[2024-08-21] MEDS: DOCUSATE NA 100 MG CAP PO SCH (20:43)
[2024-08-21] MEDS ORDERED: METOPROLOL XL 25 MG TAB PO SCH (21:00)
[2024-08-21] MEDS ORDERED: HOME MED 1 EA UNK (Magnesium Oxide [Magnesium] 500 MG Capsule) PO SCH (21:00)
[2024-08-21] MEDS ORDERED: HOME MED 1 EA UNK (Trazodone Hcl [Trazodone Hcl] 100 MG Tablet) PO SCH (21:00)
[2024-08-22 05:19] LABS: Absolute Basophils 0.1 K/uL (0-0.5); Absolute Eosinophils 0.1 K/uL (0-0.5); Absolute Lymphocytes (CBC) 2.2 K/uL (0.7-4.9); Absolute Monocytes 0.8 K/uL (0.1-1.3); Absolute Neutrophil 9.9 K/uL (1.8-8.0); Basophils % 0.8 % (0-1.3); Eosinophils % 1.1 % (0-4.4); Hematocrit 26.8 % (36.0-45.0); MCHC 33.6 g/dL (32.0-36.0); MCV 92.2 fL (80-100); MPV 9.5 fL (7.6-11.3); Monocytes % 6.1 % (3.3-12.3); Platelets 202 thou/uL (152-406); RBC Red Blood Cell Count 2.91 M/uL (3.86-4.86); Red Cell Distribution Width 16.5 % (12.1-15.2)
[2024-08-22 05:41] LABS: Anion Gap 10.7 mEq/L (5.0-15.0); Magnesium 2.1 mg/dL (1.6-2.4); Phosphorus 2.6 mg/dL (2.5-4.9); Potassium 3.7 mEq/L (3.5-5.1); Uric Acid 4.9 mg/dL (2.6-6.0)
[2024-08-22] MEDS: MONTELUKAST 10 MG TAB PO SCH (07:58)
[2024-08-22] MEDS: ASPIRIN EC 81 MG TAB PO SCH (07:58)
[2024-08-22] MEDS: DRISDOL (VITAMIN D=ERGOCALCIFEROL) 50000 UNIT CAP PO SCH (07:59)
[2024-08-22] MEDS: PANTOPRAZOLE 40MG TABLET PO SCH (07:59)
[2024-08-22] MEDS: PROPRANOLOL HCL 60 MG SA CAP PO SCH (08:33)
[2024-08-22] MEDS ORDERED: PROPRANOLOL HCL 120 MG PO SCH (09:00)
[2024-08-22] MEDS ORDERED: HOME MED 1 EA UNK (Esomeprazole Mag Trihydrate [Nexium] 40 MG Capsule.Dr) PO SCH (09:00)
--- NOTE | 2024-08-22 11:35 | PN ---
Subjective: The patient is lying in bed, feels slightly better today. Denies any other problems exc ept diarrhea. Objective: Vital Signs: Temperature 98, pulse 70, respirations 18, blood pressure 127/62. Lungs: Basal crackles. Heart: S1, S2. Regular. Abdomen: Soft, nontender. Bowel sounds are present. Extremities: No edema. Laboratory Data: Shows WBC 13,000 down from 20,000; hemoglobin 9; platelets are 202. Chemistry show s BUN of 13, creatinine 1.3. Current Antibiotics: Include vancomycin and meropenem. Cultures are pending and stool studies are also pending. Assessment And Plan: 1. A 73-year-old female coming in with generalized weakness and fevers with procalcitonin of 13 and l eukocytosis to 20,000. 2. The patient with diabetes mellitus. 3. Diarrhea. Stool studies and cultures are pending. We will follow patient closely. No other jacob mmendation at this time. NF/MODL Voice ID: [id number] Report ID: [id number]
--- NOTE | 2024-08-22 14:52 | P.PN ---
Date of Service: 08/22/19 Subjective: States she feels better today endorses headache and cough overnight. Discussed with her daughter on the phone. No new fevers overnight. Some mildly elevated blood pressure ROS Unable to obtain secondary to dementia Physical Exam General: Alert, Oriented x3 HEENT: Atraumatic, Normocephalic Neck: Supple Respiratory: Clear to auscultation bilaterally, Normal air movement Cardiovascular: Normal pulses, Regular rate/rhythm, Normal S1 S2 Capillary refill: <2 Seconds Gastrointestinal: Normal bowel sounds, Soft and benign Musculoskeletal: No clubbing Integumentary: No rashes Neurological: Normal speech, Normal tone Vitals Reviewed Problem list SIRS secondary to unknown etiology acute metabolic encephalopathy Diabetes mellitus LOPEZ vs CKD Dementia Hypertension Assessment and Plan SIRS secondary to unknown etiology acute metabolic encephalopathy -Appreciate Dr. Lockhart help -Continue vancomycin and Merrem -WBC trending down to 13 -Procalcitonin 13.77, C-reactive protein 62 -FLu/COVID/strep/ UA negative -Follow blood cultures -Tylenol as needed Diabetes mellitus -Accu-Chek with sliding scale insulin -A1c in the a.m. LOPEZ vs CKD -Improved -Ultrasound bladder and kidneys without abnormalities -Appreciate nephrology help Dementia -Continue donepezil Hypertension -Stop fluids -Give 1 dose Lasix DVT PPx heparin DNI Discharge Plan: Home in 2 days
[2024-08-22] MEDS: FUROSEMIDE 20 MG/ 2ML VIAL IV ONE (14:58)
--- NOTE | 2024-08-22 18:58 | P.PN ---
Date of Service: 08/22/24 Vital Signs Temp Pulse Resp BP Pulse Ox 97.6 F 67 18 179/66 H 99 08/22/24 16:00 08/22/24 16:00 08/22/24 16:00 08/22/24 16:00 08/22/24 16:00 Medications Acetaminophen (Acetaminophen 325 Mg Tablet) 650 mg PO Q4HP PRN PRN Reason: Pain scale 2-4 (Mild)orT>101*F Last Admin: 08/22/24 15:17 Dose: 650 mg Amlodipine Besylate (Amlodipine 5 Mg Tab) 5 mg PO BID [facility] Last Admin: 08/22/24 08:33 Dose: 5 mg Aspirin (Aspirin Ec 81 Mg Tab) 81 mg PO DAILY [facility] Last Admin: 08/22/24 07:58 Dose: 81 mg Docusate Sodium (Docusate Na 100 Mg Cap) 100 mg PO BID [facility] Last Admin: 08/22/24 07:58 Dose: 100 mg Ergocalciferol (Drisdol (Vitamin D=Ergocalciferol) 42820 Unit Cap) 50,000 unit PO DAILY [facility] Stop: 08/23/24 09:01 Last Admin: 08/22/24 07:59 Dose: 50,000 unit Heparin Sodium (Porcine) (Heparin 5000 Unit/Ml 1 Ml Vial) 5,000 unit SQ Q8HR [facility] Last Admin: 08/22/24 16:47 Dose: 5,000 unit Home Med (Donepezil Hcl [Donepezil Hcl]) 23 mg PO BEDTIME [facility] Last Admin: 08/21/24 20:39 Dose: Not Given Vancomycin HCl 1 gm/ Sodium (Chloride) 250 mls @ 250 mls/hr IVPB Q36H [facility]; Protocol Meropenem 1,000 mg/ Sodium (Chloride) 100 mls @ 200 mls/hr IV Q12HR [facility]; Protocol Last Admin: 08/22/24 07:56 Dose: 100 mls Insulin Human Regular (Insulin Regular (Human) 100 Unit/Ml) 0 unit SQ ACHS [facility]; Protocol Last Admin: 08/22/24 16:30 Dose: Not Given Lorazepam (Lorazepam 0.5 Mg Tablet) 0.5 mg PO BID [facility] Last Admin: 08/22/24 07:58 Dose: 0.5 mg Magnesium Oxide (Magnesium Oxide 400 Mg Tab) 400 mg PO BID [facility] Last Admin: 08/22/24 07:59 Dose: 400 mg Montelukast Sodium (Montelukast 10 Mg Tab) 10 mg PO DAILY [facility] Last Admin: 08/22/24 07:58 Dose: 10 mg Pantoprazole Sodium (Pantoprazole 40mg Tablet) 40 mg PO ACB [facility] Last Admin: 08/22/24 07:59 Dose: 40 mg Propranolol HCl (Propranolol Hcl 60 Mg Sa Cap) 120 mg PO DAILY [facility] Last Admin: 08/22/24 08:33 Dose: 120 mg Rosuvastatin Calcium (Rosuvastatin 10 Mg Tab) 10 mg PO BEDTIME [facility] Last Admin: 08/21/24 20:31 Dose: 10 mg Tramadol HCl (Tramadol Hcl 50 Mg Tab) 50 mg PO BID PRN PRN Reason: Pain scale 5-7 (Moderate) Trazodone HCl (Trazodone 50 Mg Tablet) 100 mg PO BEDTIME [facility] Last Admin: 08/21/24 20:32 Dose: 100 mg Microbiology Results 08/20/24 11:21 Throat Group A Streptococcus Rapid Screen - Final 08/20/24 11:21 Throat Culture & Sensitivity - Final NORMAL UPPER RESPIRATORY CAMRYN GROWN. 08/20/24 11:25 Blood - Blood Aerobic Blood Culture - Preliminary No growth in 24 hours. 08/20/24 11:25 Blood - Blood Anaerobic Blood Culture - Preliminary No growth in 24 hours. 08/20/24 11:09 Blood - Blood Aerobic Blood Culture - Preliminary No growth in 24 hours. 08/20/24 11:09 Blood - Blood Anaerobic Blood Culture - Preliminary No growth in 24 hours. Assessment/ Plan: Nephrology No dyspnea or chest pain Feeling better today No acute events overnight Vitals, medications, blood work and imaging reviewed in the chart General: In no apparent distress, Oriented x3, Cooperative HEENT: Atraumatic Neck: Supple Respiratory: Normal air movement Cardiovascular: No edema, Regular rate/rhythm Gastrointestinal: Soft and benign, Non-distended Musculoskeletal: No clubbing, No contractures Integumentary: No rashes, No cyanosis Neurological: Normal speech Blood work reviewed in the chart. Imagings Data: [id number] EXAM: CT CHEST, ABDOMEN AND PELVIS WITHOUT CONTRAST CLINICAL INDICATION: Chest and abdominal pain TECHNIQUE: CT chest, abdomen and pelvis was performed, without IV contrast, as per department protocol. Axial, sagittal and coronal reconstructions were obtained. One or more of the following dose reduction techniques were used: Automated exposure control, adjustment of the mA and/or kV according to the patient size, and/or iterative reconstruction. Unless otherwise specified, incidental findings do not require dedicated imaging follow-up. The lack of IV and oral contrast limits evaluation of the mediastinum, [place], vessels, organs and bowel. COMPARISON: 2022 FINDINGS: Lungs are clear. No mediastinal or hilar lymphadenopathy seen. No pleural effusion. No pericardial effusion. Liver, spleen, pancreas, adrenals kidneys and bladder appear grossly normal There is no evidence of diverticulitis IMPRESSION: No acute abnormalities displayed EXAMINATION: CT HEAD WITHOUT CONTRAST CT CERVICAL SPINE WITHOUT CONTRAST CLINICAL INDICATION: Declining mental state. Head and neck pain TECHNIQUE: Axial CT images from the skull base to the vertex without intravenous contrast. Axial CT images through the cervical spine were obtained without intravenous contrast. Sagittal and coronal reformatted images were created from the data set. Coronal and sagittal reformatted images were created from the data set. One or more of the following dose reduction techniques were used: Automated exposure control, adjustment of the mA and/or kV according to patient size, and/or iterative reconstruction. Unless otherwise specified, incidental findings do not require dedicated imaging follow-up. [id number]. Comparison: 2023 FINDINGS: An intracranial bleed is not seen. Ventricles are normal in caliber. No significant hypodensity within the brain Empty sella turcica No extra-axial fluid collection. No fluid within the sinuses/mastoids No fracture or dislocation is seen involving the cervical spine. IMPRESSION: No acute intracranial abnormality noted A cervical fracture is not seen. [id number] Procedure: Chest Single View HISTORY: Cough COMPARISON: 2022 FINDINGS: The lungs appear clear of acute infiltrate. No significant pleural effusion noted. The heart is normal size. IMPRESSION: No acute abnormality is displayed. [id number] EXAMINATION: US RENAL CLINICAL INDICATION: Abdominal pain. Acute renal injury TECHNIQUE: Real-time ultrasonography of the kidneys performed. COMPARISON: 2021. FINDINGS: Right kidney measures 9 cm with a mildly increased echotexture. Left kidney measures 9 cm with a mildly increased echotexture. No hydronephrosis No gross abnormality bladder. IMPRESSION: Mildly increased renal echotexture may indicate parenchymal disease No hydronephrosis [id number] EXAM: URINARY BLADDER ULTRASOUND CLINICAL INDICATION: Abdominal pain. Acute renal injury TECHNIQUE: Sonographic evaluation of the bladder performed. FINDINGS: Bladder wall normal thickness. A mass within the bladder do not seen. No calcu xochilt visualized. IMPRESSION; No significant bladder abnormality noted. Conclusions/Impression: Stage I LOPEZ may be due to hypovolemia CKD III with Proteinuria -No NSAIDs -Improved with IF HTN with CKD -Continue Amlodipine -Continue Propranolol DM II with CKD -RISS Hypoalbuminemia -Recommend protein supplementation Anemia in chronic illness -Monitor H&H Hospitalist note reviewed
[2024-08-22] MEDS: VANCOMYCIN 1 GM in NA CHLORIDE 0.9% 250 ML IVPB SCH (20:54)
[2024-08-23 04:48] LABS: Absolute Eosinophils 0.2 K/uL (0-0.5); Absolute Lymphocytes (CBC) 1.2 K/uL (0.7-4.9); Absolute Monocytes 0.5 K/uL (0.1-1.3); Absolute Neutrophil 7.9 K/uL (1.8-8.0); Basophils % 0.4 % (0-1.3); Eosinophils % 1.7 % (0-4.4); Hematocrit 28.6 % (36.0-45.0); Hemoglobin 9.9 g/dL (12.0-15.0); Lymphocytes % 12.7 % (15.3-44.8); MCH 31.5 pg (27.0-35.0); MCHC 34.6 g/dL (32.0-36.0); MCV 90.9 fL (80-100); MPV 8.7 fL (7.6-11.3); Monocytes % 5.2 % (3.3-12.3); Nucleated Red Blood Cells % 0.1 % (0-0); Platelets 226 thou/uL (152-406); RBC Red Blood Cell Count 3.14 M/uL (3.86-4.86); Red Cell Distribution Width 15.9 % (12.1-15.2)
[2024-08-23 05:04] LABS: Anion Gap 10.8 mEq/L (5.0-15.0); Magnesium 1.8 mg/dL (1.6-2.4); Phosphorus 3.3 mg/dL (2.5-4.9); Potassium 3.8 mEq/L (3.5-5.1)
[2024-08-23] MEDS ORDERED: VANCOMYCIN 1 GM in NA CHLORIDE 0.9% 250 ML IVPB SCH (12:24)
--- NOTE | 2024-08-23 15:12 | P.PN ---
Date of Service: 08/23/24 Subjective: Doing better today. No new issues. Spoke with daughter over the phone. Blood pressure is a little higher today. No fevers or chills. No issues with voiding or going to the bathroom. She believes she is still having diarrhea ROS Unable to obtain secondary to dementia Physical Exam General: Alert, Oriented x3 HEENT: Atraumatic, Normocephalic Neck: Supple Respiratory: Clear to auscultation bilaterally, Normal air movement Cardiovascular: Normal pulses, Regular rate/rhythm, Normal S1 S2 Capillary refill: <2 Seconds Gastrointestinal: Normal bowel sounds, Soft and benign Musculoskeletal: No clubbing Integumentary: No rashes Neurological: Normal speech, Normal tone Vitals Reviewed Problem list SIRS secondary to unknown etiology acute metabolic encephalopathy Diabetes mellitus LOPEZ vs CKD Dementia Hypertension Leukocytosis resolved Assessment and Plan SIRS secondary to unknown etiology acute metabolic encephalopathy -Appreciate Dr. Lockhart help -Continue vancomycin and Merrem -Leukocytosis resolved -Procalcitonin 13.77, C-reactive protein 62 -FLu/COVID/strep/ UA negative -Follow blood cultures -C. difficile pending -Stool cultures with normal fecal que and yeast 3+ -No WBCs and fecal culture -Throat culture with normal que -Ova and parasite still pending Diabetes mellitus -Accu-Chek with sliding scale insulin -A1c in the a.m. LOPEZ vs CKD -Improved -Ultrasound bladder and kidneys without abnormalities -Appreciate nephrology help Dementia -Continue donepezil Hypertension -Norvasc 10 mg -Continue propranolol DVT PPx heparin DNI Discharge Plan: Home in 2 days
[2024-08-23 16:13] LABS: C.diff Antigen/Toxin Ag neg : Tox neg (NEG : NEG); CDIFF INTERNAL NEG CONTROL White Background (WHITE BKGD); STOOL CONSISTENCY Liquid/Semi-Solid
--- NOTE | 2024-08-23 17:16 | PN ---
Subjective: The patient is lying in bed. Denies any headache, nausea, vomiting, chest pain, abdomin al pain. Feels much better today except she is having diarrhea every half an hour according to famil y could be watery. She does have problem with constipation and at home also for which she takes Cola ce and she gets small bowel movements frequently. Objective: Vital Signs: Temperature 98, pulse 80, respirations 20, blood pressure 150/72. Lungs: Basal crackles. Heart: S1, S2. Regular. Abdomen: Soft, nontender. Bowel sounds present. Extremity: No edema. Laboratory Data: Shows WBC 9.8 down from [id number], hemoglobin 9.9, platelets 226. Chemistry shows BUN of 14, creatinine 1.7. Assessment And Plan: Leukocytosis and fever of unknown etiology. As cultures are negative and proca lcitonin was elevated most likely bacterial infection. We will recommend to stop Bactrim and switch back to IV antibiotic as patient having diarrhea and unable to absorb oral antibiotic at this time. Recommend to get C diff and stool studies to rule out Clostridium difficile colitis. Leukocytosis is improving. Anemia of chronic disease. Continue supportive care and current treatment. Can be swit ched to Augmentin on discharge. We will follow the patient as needed. NF/MODL Voice ID: [id number] Report ID: [id number]
[2024-08-23] MEDS: Meropenem 1,000 MG in NA CHLORIDE 0.9% 100 ML IV SCH (20:00)
[2024-08-23] MEDS ORDERED: SMZ./TMP. 800/160 MG TABLET PO SCH (21:00)
--- NOTE | 2024-08-23 21:38 | P.PN ---
Date of Service: 08/23/24 Vital Signs Temp Pulse Resp BP Pulse Ox 98.2 F 67 17 167/68 H 95 08/23/24 20:00 08/23/24 20:00 08/23/24 20:00 08/23/24 20:00 08/23/24 20:00 Medications Acetaminophen (Acetaminophen 325 Mg Tablet) 650 mg PO Q4HP PRN PRN Reason: Pain scale 2-4 (Mild)orT>101*F Last Admin: 08/23/24 19:58 Dose: 650 mg Amlodipine Besylate (Amlodipine 10 Mg Tab) 10 mg PO DAILY [facility] Aspirin (Aspirin Ec 81 Mg Tab) 81 mg PO DAILY [facility] Last Admin: 08/23/24 09:17 Dose: 81 mg Docusate Sodium (Docusate Na 100 Mg Cap) 100 mg PO BID [facility] Last Admin: 08/23/24 20:10 Dose: Not Given Heparin Sodium (Porcine) (Heparin 5000 Unit/Ml 1 Ml Vial) 5,000 unit SQ Q8HR [facility] Last Admin: 08/23/24 17:21 Dose: 5,000 unit Home Med (Donepezil Hcl [Donepezil Hcl]) 23 mg PO BEDTIME [facility] Last Admin: 08/23/24 20:10 Dose: Not Given Vancomycin HCl 1 gm/ Sodium (Chloride) 250 mls @ 250 mls/hr IVPB Q36H [facility]; Protocol Last Admin: 08/22/24 20:54 Dose: 250 mls Meropenem 1,000 mg/ Sodium (Chloride) 100 mls @ 200 mls/hr IV Q12HR [facility] Last Admin: 08/23/24 20:00 Dose: 100 mls Insulin Human Regular (Insulin Regular (Human) 100 Unit/Ml) 0 unit SQ ACHS [facility]; Protocol Last Admin: 08/23/24 20:10 Dose: Not Given Lorazepam (Lorazepam 0.5 Mg Tablet) 0.5 mg PO BID [facility] Last Admin: 08/23/24 19:59 Dose: 0.5 mg Magnesium Oxide (Magnesium Oxide 400 Mg Tab) 400 mg PO BID [facility] Last Admin: 08/23/24 19:59 Dose: 400 mg Montelukast Sodium (Montelukast 10 Mg Tab) 10 mg PO DAILY [facility] Last Admin: 08/23/24 09:17 Dose: 10 mg Pantoprazole Sodium (Pantoprazole 40mg Tablet) 40 mg PO ACB [facility] Last Admin: 08/23/24 09:17 Dose: 40 mg Propranolol HCl (Propranolol Hcl 60 Mg Sa Cap) 120 mg PO DAILY [facility] Last Admin: 08/23/24 09:17 Dose: 120 mg Rosuvastatin Calcium (Rosuvastatin 10 Mg Tab) 10 mg PO BEDTIME [facility] Last Admin: 08/23/24 19:59 Dose: 10 mg Tramadol HCl (Tramadol Hcl 50 Mg Tab) 50 mg PO BID PRN PRN Reason: Pain scale 5-7 (Moderate) Trazodone HCl (Trazodone 50 Mg Tablet) 100 mg PO BEDTIME [facility] Last Admin: 08/23/24 20:00 Dose: 100 mg Microbiology Results 08/20/24 11:21 Throat Group A Streptococcus Rapid Screen - Final 08/20/24 11:21 Throat Culture & Sensitivity - Final NORMAL UPPER RESPIRATORY CAMRYN GROWN. 08/20/24 11:25 Blood - Blood Aerobic Blood Culture - Preliminary No growth in 24 hours. 08/20/24 11:25 Blood - Blood Anaerobic Blood Culture - Preliminary No growth in 24 hours. 08/20/24 11:09 Blood - Blood Aerobic Blood Culture - Preliminary No growth in 24 hours. 08/20/24 11:09 Blood - Blood Anaerobic Blood Culture - Preliminary No growth in 24 hours. Assessment/ Plan: Nephrology No dyspnea or chest pain Reports a headache this evening No acute events overnight Vitals, medications, blood work and imaging reviewed in the chart General: In no apparent distress, Oriented x3, Cooperative HEENT: Atraumatic Neck: Supple Respiratory: Normal air movement Cardiovascular: No edema, Regular rate/rhythm Gastrointestinal: Soft and benign, Non-distended Musculoskeletal: No clubbing, No contractures Integumentary: No rashes, No cyanosis Neurological: Normal speech Blood work reviewed in the chart. Imagings Data: EXAM: CT CHEST, ABDOMEN AND PELVIS WITHOUT CONTRAST CLINICAL INDICATION: Chest and abdominal pain TECHNIQUE: CT chest, abdomen and pelvis was performed, without IV contrast, as per department protocol. Axial, sagittal and coronal reconstructions were obtained. One or more of the following dose reduction techniques were used: Automated exposure control, adjustment of the mA and/or kV according to the patient size, and/or iterative reconstruction. Unless otherwise specified, incidental findings do not require dedicated imaging follow-up. The lack of IV and oral contrast limits evaluation of the mediastinum, [place], vessels, organs and bowel. COMPARISON: 2022 FINDINGS: Lungs are clear. No mediastinal or hilar lymphadenopathy seen. No pleural effusion. No pericardial effusion. Liver, spleen, pancreas, adrenals kidneys and bladder appear grossly normal There is no evidence of diverticulitis IMPRESSION: No acute abnormalities displayed EXAMINATION: CT HEAD WITHOUT CONTRAST CT CERVICAL SPINE WITHOUT CONTRAST CLINICAL INDICATION: Declining mental state. Head and neck pain TECHNIQUE: Axial CT images from the skull base to the vertex without intravenous contrast. Axial CT images through the cervical spine were obtained without intravenous contrast. Sagittal and coronal reformatted images were created from the data set. Coronal and sagittal reformatted images were created from the data set. One or more of the following dose reduction techniques were used: Automated exposure control, adjustment of the mA and/or kV according to patient size, and/or iterative reconstruction. Unless otherwise specified, incidental findings do not require dedicated imaging follow-up. [id number]. Comparison: 2023 FINDINGS: An intracranial bleed is not seen. Ventricles are normal in caliber. No significant hypodensity within the brain Empty sella turcica No extra-axial fluid collection. No fluid within the sinuses/mastoids No fracture or dislocation is seen involving the cervical spine. IMPRESSION: No acute intracranial abnormality noted A cervical fracture is not seen. Procedure: Chest Single View HISTORY: Cough COMPARISON: 2022 FINDINGS: The lungs appear clear of acute infiltrate. No significant pleural effusion noted. The heart is normal size. IMPRESSION: No acute abnormality is displayed. EXAMINATION: US RENAL CLINICAL INDICATION: Abdominal pain. Acute renal injury TECHNIQUE: Real-time ultrasonography of the kidneys performed. COMPARISON: 2021. FINDINGS: Right kidney measures 9 cm with a mildly increased echotexture. Left kidney measures 9 cm with a mildly increased echotexture. No hydronephrosis No gross abnormality bladder. IMPRESSION: Mildly increased renal echotexture may indicate parenchymal disease No hydronephrosis EXAM: URINARY BLADDER ULTRASOUND CLINICAL INDICATION: Abdominal pain. Acute renal injury TECHNIQUE: Sonographic evaluation of the bladder performed. FINDINGS: Bladder wall normal thickness. A mass within the bladder do not seen. No calculus visualized. IMPRESSION; No significant bladder abnormality noted. Conclusions/Impression: Stage I LOPEZ may be due to hypovolemia CKD III with Proteinuria -No NSAIDs HTN with CKD -Continue Amlodipine -Continue Propranolol DM II with CKD -RISS Hypoalbuminemia -Recommend protein supplementation Anemia in chronic illness -Monitor H&H Hospitalist note reviewed
[2024-08-24] MEDS ORDERED: LABETALOL 20 MG/4ML SYRINGE IV PRN (06:38)
[2024-08-24 08:30] LABS: Absolute Eosinophils 0.1 K/uL (0-0.5); Absolute Lymphocytes (CBC) 0.7 K/uL (0.7-4.9); Absolute Monocytes 0.7 K/uL (0.1-1.3); Absolute Neutrophil 7.1 K/uL (1.8-8.0); Basophils % 0.4 % (0-1.3); Eosinophils % 1.1 % (0-4.4); Hematocrit 31.2 % (36.0-45.0); Hemoglobin 10.6 g/dL (12.0-15.0); Lymphocytes % 8.6 % (15.3-44.8); MCH 30.9 pg (27.0-35.0); MCHC 33.9 g/dL (32.0-36.0); MCV 91.3 fL (80-100); Monocytes % 7.6 % (3.3-12.3); Neutrophils % 82.3 % (41.7-73.7); Platelets 241 thou/uL (152-406); RBC Red Blood Cell Count 3.42 M/uL (3.86-4.86); Red Cell Distribution Width 16.1 % (12.1-15.2)
[2024-08-24 08:45] LABS: Anion Gap 11.9 mEq/L (5.0-15.0); Magnesium 1.9 mg/dL (1.6-2.4); Potassium 3.9 mEq/L (3.5-5.1)
[2024-08-24] MEDS: AMLODIPINE 10 MG TAB PO SCH (10:11)
--- NOTE | 2024-08-24 10:17 | P.PN ---
Date of Service: 08/24/24 Vital Signs Temp Pulse Resp BP Pulse Ox 99.4 F 76 16 141/67 H 94 08/24/24 08:00 08/24/24 08:00 08/24/24 08:00 08/24/24 08:00 08/24/24 08:00 Medications Acetaminophen (Acetaminophen 325 Mg Tablet) 650 mg PO Q4HP PRN PRN Reason: Pain scale 2-4 (Mild)orT>101*F Last Admin: 08/24/24 04:02 Dose: 650 mg Amlodipine Besylate (Amlodipine 10 Mg Tab) 10 mg PO DAILY [facility] Aspirin (Aspirin Ec 81 Mg Tab) 81 mg PO DAILY [facility] Last Admin: 08/23/24 09:17 Dose: 81 mg Docusate Sodium (Docusate Na 100 Mg Cap) 100 mg PO BID [facility] Last Admin: 08/23/24 20:10 Dose: Not Given Heparin Sodium (Porcine) (Heparin 5000 Unit/Ml 1 Ml Vial) 5,000 unit SQ Q8HR [facility] Last Admin: 08/24/24 00:46 Dose: 5,000 unit Home Med (Donepezil Hcl [Donepezil Hcl]) 23 mg PO BEDTIME [facility] Last Admin: 08/23/24 20:10 Dose: Not Given Vancomycin HCl 1 gm/ Sodium (Chloride) 250 mls @ 250 mls/hr IVPB Q36H [facility]; Protocol Last Admin: 08/22/24 20:54 Dose: 250 mls Meropenem 1,000 mg/ Sodium (Chloride) 100 mls @ 200 mls/hr IV Q12HR [facility] Last Admin: 08/23/24 20:00 Dose: 100 mls Insulin Human Regular (Insulin Regular (Human) 100 Unit/Ml) 0 unit SQ ACHS [facility]; Protocol Last Admin: 08/23/24 20:10 Dose: Not Given Labetalol HCl (Labetalol 20 Mg/4ml Syringe) 10 mg IV Q6H PRN PRN Reason: Goal to achieve SBP in comment Lorazepam (Lorazepam 0.5 Mg Tablet) 0.5 mg PO BID [facility] Last Admin: 08/23/24 19:59 Dose: 0.5 mg Magnesium Oxide (Magnesium Oxide 400 Mg Tab) 400 mg PO BID [facility] Last Admin: 08/23/24 19:59 Dose: 400 mg Montelukast Sodium (Montelukast 10 Mg Tab) 10 mg PO DAILY [facility] Last Admin: 08/23/24 09:17 Dose: 10 mg Pantoprazole Sodium (Pantoprazole 40mg Tablet) 40 mg PO ACB [facility] Last Admin: 08/23/24 09:17 Dose: 40 mg Propranolol HCl (Propranolol Hcl 60 Mg Sa Cap) 120 mg PO DAILY [facility] Last Admin: 08/23/24 09:17 Dose: 120 mg Rosuvastatin Calcium (Rosuvastatin 10 Mg Tab) 10 mg PO BEDTIME [facility] Last Admin: 08/23/24 19:59 Dose: 10 mg Tramadol HCl (Tramadol Hcl 50 Mg Tab) 50 mg PO BID PRN PRN Reason: Pain scale 5-7 (Moderate) Trazodone HCl (Trazodone 50 Mg Tablet) 100 mg PO BEDTIME [facility] Last Admin: 08/23/24 20:00 Dose: 100 mg Microbiology Results 08/20/24 11:21 Throat Group A Streptococcus Rapid Screen - Final 08/20/24 11:21 Throat Culture & Sensitivity - Final NORMAL UPPER RESPIRATORY CAMRYN GROWN. 08/20/24 11:25 Blood - Blood Aerobic Blood Culture - Preliminary No growth in 24 hours. 08/20/24 11:25 Blood - Blood Anaerobic Blood Culture - Preliminary No growth in 24 hours. 08/20/24 11:09 Blood - Blood Aerobic Blood Culture - Preliminary No growth in 24 hours. 08/20/24 11:09 Blood - Blood Anaerobic Blood Culture - Preliminary No growth in 24 hours. Assessment/ Plan: Nephrology No dyspnea or chest pain Reports a headache this evening No acute events overnight Vitals, medications, blood work and imaging reviewed in the chart General: In no apparent distress, Oriented x3, Cooperative HEENT: Atraumatic Neck: Supple Respiratory: Normal air movement Cardiovascular: No edema, Regular rate/rhythm Gastrointestinal: Soft and benign, Non-distended Musculoskeletal: No clubbing, No contractures Integumentary: No rashes, No cyanosis Neurological: Normal speech Blood work reviewed in the chart. Imagings Data: EXAM: CT CHEST, ABDOMEN AND PELVIS WITHOUT CONTRAST CLINICAL INDICATION: Chest and abdominal pain TECHNIQUE: CT chest, abdomen and pelvis was performed, without IV contrast, as per department protocol. Axial, sagittal and coronal reconstructions were obtained. One or more of the following dose reduction techniques were used: Automated exposure control, adjustment of the mA and/or kV according to the patient size, and/or iterative reconstruction. Unless otherwise specified, incidental findings do not require dedicated imaging follow-up. The lack of IV and oral contrast limits evaluation of the mediastinum, [place], vessels, organs and bowel. COMPARISON: 2022 FINDINGS: Lungs are clear. No mediastinal or hilar lymphadenopathy seen. No pleural effusion. No pericardial effusion. Liver, spleen, pancreas, adrenals kidneys and bladder appear grossly normal There is no evidence of diverticulitis IMPRESSION: No acute abnormalities displayed EXAMINATION: CT HEAD WITHOUT CONTRAST CT CERVICAL SPINE WITHOUT CONTRAST CLINICAL INDICATION: Declining mental state. Head and neck pain TECHNIQUE: Axial CT images from the skull base to the vertex without intravenous contrast. Axial CT images through the cervical spine were obtained without intravenous contrast. Sagittal and coronal reformatted images were created from the data set. Coronal and sagittal reformatted images were created from the data set. One or more of the following dose reduction techniques were used: Automated exposure control, adjustment of the mA and/or kV according to patient size, and/or iterative reconstruction. Unless otherwise specified, incidental findings do not require dedicated imaging follow-up. [id number]. Comparison: 2023 FINDINGS: An intracranial bleed is not seen. Ventricles are normal in caliber. No significant hypodensity within the brain Empty sella turcica No extra-axial fluid collection. No fluid within the sinuses/mastoids No fracture or dislocation is seen involving the cervical spine. IMPRESSION: No acute intracranial abnormality noted A cervical fracture is not seen. Procedure: Chest Single View HISTORY: Cough COMPARISON: 2022 FINDINGS: The lungs appear clear of acute infiltrate. No significant pleural effusion noted. The heart is normal size. IMPRESSION: No acute abnormality is displayed. EXAMINATION: US RENAL CLINICAL INDICATION: Abdominal pain. Acute renal injury TECHNIQUE: Real-time ultrasonography of the kidneys performed. COMPARISON: 2021. FINDINGS: Right kidney measures 9 cm with a mildly increased echotexture. Left kidney measures 9 cm with a mildly increased echotexture. No hydronephrosis No gross abnormality bladder. IMPRESSION: Mildly increased renal echotexture may indicate parenchymal disease No hydronephrosis EXAM: URINARY BLADDER ULTRASOUND CLINICAL INDICATION: Abdominal pain. Acute renal injury TECHNIQUE: Sonographic evaluation of the bladder performed. FINDINGS: Bladder wall normal thickness. A mass within the bladder do not seen. No calculus visualized. IMPRESSION; No significant bladder abnormality noted. Conclusions/Impression: Stage I LOPEZ may be due to hypovolemia CKD III with Proteinuria -No NSAIDs -Hold diuretics at this time -Encourage oral intake HTN with CKD -Continue Amlodipine -Continue Propranolol DM II with CKD -RISS Hypoalbuminemia -Recommend protein supplementation Anemia in chronic illness -Monitor H&H Hospitalist note reviewed
--- NOTE | 2024-08-24 12:54 | P.PN ---
Date of Service: 08/24/24 Subjective: Having fevers overnight. She is sleeping. Her daughter states that she has an issue under her left breast. Blood pressures are also elevated overnight. Spoke with Alla over the phone ROS Unable to obtain secondary to dementia Physical Exam General: Alert, Oriented x3 HEENT: Atraumatic, Normocephalic Neck: Supple Respiratory: Clear to auscultation bilaterally, Normal air movement Cardiovascular: Normal pulses, Regular rate/rhythm, Normal S1 S2 Capillary refill: <2 Seconds Gastrointestinal: Normal bowel sounds, Soft and benign Musculoskeletal: No clubbing Integumentary: No rashes Neurological: Normal speech, Normal tone Vitals Reviewed Problem list SIRS secondary to unknown etiology resolved acute metabolic encephalopathy Diabetes mellitus LOPEZ vs CKD Dementia Hypertension Leukocytosis resolved acute metabolic encephalopathy resolved Assessment and Plan Fevers -Repeat LORENZO, CRP, procalcitonin pending -CT chest abdomen pelvis with and without contrast pending -Appreciate Dr. Lockhart help -Continue vancomycin and Merrem -Leukocytosis resolved -Initial procalcitonin 13.77, C-reactive protein 62 -FLu/COVID/strep/ UA negative -Blood cultures no growth to date -C. difficile negative -Stool cultures with normal fecal que and yeast 3+ -No WBCs and fecal culture -Throat culture with normal que -Ova and parasite still pending Diabetes mellitus -Blood sugars well-controlled -Accu-Chek with sliding scale insulin -A1c in the a.m. Chronic kidney disease -Improved with IVF -Discussed with nephrology. Will start gentle fluids overnight. CT chest abdomen pelvis with and without contrast tomorrow -Ultrasound bladder and kidneys without abnormalities -Discussed with Dr. Jfefries Dementia -Continue donepezil Hypertension -Norvasc 10 mg -Continue propranolol Anemia of CKD DVT PPx heparin DNI Discharge Plan: Home in 2 days
[2024-08-24] MEDS: Ringers Lactate 1,000 ML IV SCH (13:14)
[2024-08-24] MEDS: TRAMADOL HCL 50 MG TAB PO PRN (20:33)
[2024-08-25 05:42] LABS: Absolute Basophils 0.1 K/uL (0-0.5); Absolute Eosinophils 0.1 K/uL (0-0.5); Absolute Lymphocytes (CBC) 1.2 K/uL (0.7-4.9); Absolute Monocytes 0.8 K/uL (0.1-1.3); Absolute Neutrophil 4.8 K/uL (1.8-8.0); Basophils % 0.7 % (0-1.3); Eosinophils % 1.6 % (0-4.4); Hematocrit 31.6 % (36.0-45.0); Lymphocytes % 17.7 % (15.3-44.8); MCH 31.8 pg (27.0-35.0); MCHC 34.8 g/dL (32.0-36.0); MCV 91.2 fL (80-100); MPV 9.1 fL (7.6-11.3); Monocytes % 11.3 % (3.3-12.3); Neutrophils % 68.7 % (41.7-73.7); Nucleated Red Blood Cells % 0.1 % (0-0); Platelets 236 thou/uL (152-406); RBC Red Blood Cell Count 3.46 M/uL (3.86-4.86)
[2024-08-25 05:46] LABS: Anion Gap 8.9 mEq/L (5.0-15.0); Magnesium 2.1 mg/dL (1.6-2.4); Phosphorus 2.9 mg/dL (2.5-4.9); Potassium 3.9 mEq/L (3.5-5.1)
[2024-08-25] MEDS: POTASSIUM CL SA 10 MEQ TAB PO ONE (08:48)
--- NOTE | 2024-08-25 16:31 | P.PN ---
Subjective Date of Service: 08/25/24 Chief Complaint: SIRS 2/2 unknown etilogy No complaints Review of Systems 10-point ROS is otherwise unremarkable Physical Examination - Vital Signs Temperature: 98.6 F Blood Pressure: 125/58 Pulse: 62 Respirations: 14 Pulse Ox (%): 96 - Physical Exam General: Alert HEENT: Atraumatic Neck: Supple Cardiovascular: No edema Gastrointestinal: Normal bowel sounds Musculoskeletal: No clubbing, No swelling, No erythema Integumentary: No rashes Neurological: Normal gait, Normal strength at 5/5 x4 extr - Studies Microbiology Data (last 24 hrs): 08/20/24 11:25 Blood - Blood Aerobic Blood Culture - Final No growth in 5 days. 08/20/24 11:25 Blood - Blood Anaerobic Blood Culture - Final No growth in 5 days. 08/20/24 11:09 Blood - Blood Aerobic Blood Culture - Final No growth in 5 days. 08/20/24 11:09 Blood - Blood Anaerobic Blood Culture - Final No growth in 5 days. Assessment And Plan - Plan Fevers -Repeat LOREZNO, CRP, procalcitonin pending -CT chest abdomen pelvis with and without contrast unremarkable -Appreciate Dr. Lockhart help -Continue vancomycin and Merrem -Leukocytosis resolved -Initial procalcitonin 13.77, C-reactive protein 62 -FLu/COVID/strep/ UA negative -Blood cultures no growth to date -C. difficile negative -Stool cultures with normal fecal que and yeast 3+ -No WBCs and fecal culture -Throat culture with normal que -Ova and parasite still pending Diabetes mellitus -Blood sugars well-controlled -Accu-Chek with sliding scale insulin Chronic kidney disease - creatinine Improved with IVF -Discussed with nephrology. -Ultrasound bladder and kidneys without abnormalities Dementia -Continue donepezil Hypertension -Norvasc 10 mg -Continue propranolol Anemia of CKD DVT PPx heparin DNI Discharge Plan: Discharge home when fevers resolved Physician Review: Patient Assessed, Agree with Above Assessment and Plan
[2024-08-25] MEDS: MELATONIN 3 MG TABLET PO PRN (20:53)
[2024-08-25 21:06] VITALS: O2SAT 97
--- NOTE | 2024-08-25 21:08 | P.PN ---
Date of Service: 08/25/24 Vital Signs Temp Pulse Resp BP Pulse Ox 97.5 F 69 19 135/65 92 08/25/24 20:00 08/25/24 20:00 08/25/24 20:53 08/25/24 20:00 08/25/24 20:53 Medications Acetaminophen (Acetaminophen 325 Mg Tablet) 650 mg PO Q4HP PRN PRN Reason: Pain scale 2-4 (Mild)orT>101*F Last Admin: 08/25/24 16:55 Dose: 650 mg Amlodipine Besylate (Amlodipine 10 Mg Tab) 10 mg PO DAILY [facility] Last Admin: 08/25/24 08:48 Dose: 10 mg Aspirin (Aspirin Ec 81 Mg Tab) 81 mg PO DAILY [facility] Last Admin: 08/25/24 08:48 Dose: 81 mg Docusate Sodium (Docusate Na 100 Mg Cap) 100 mg PO BID [facility] Last Admin: 08/25/24 20:15 Dose: 100 mg Heparin Sodium (Porcine) (Heparin 5000 Unit/Ml 1 Ml Vial) 5,000 unit SQ Q8HR [facility] Last Admin: 08/25/24 16:51 Dose: 5,000 unit Home Med (Donepezil Hcl [Donepezil Hcl]) 23 mg PO BEDTIME [facility] Last Admin: 08/24/24 20:34 Dose: Not Given Vancomycin HCl 1 gm/ Sodium (Chloride) 250 mls @ 250 mls/hr IVPB Q36H [facility]; Protocol Last Admin: 08/25/24 20:48 Dose: 250 mls Meropenem 1,000 mg/ Sodium (Chloride) 100 mls @ 200 mls/hr IV Q12HR [facility] Last Admin: 08/25/24 20:14 Dose: 100 mls Lactated Ringer's (Lactated Ringers) 1,000 mls @ 50 mls/hr IV .Q20H [facility] Stop: 08/25/24 23:59 Last Admin: 08/25/24 08:49 Dose: 1,000 mls Insulin Human Regular (Insulin Regular (Human) 100 Unit/Ml) 0 unit SQ ACHS [facility]; Protocol Last Admin: 08/25/24 16:30 Dose: Not Given Labetalol HCl (Labetalol 20 Mg/4ml Syringe) 10 mg IV Q6H PRN PRN Reason: Goal to achieve SBP in comment Lorazepam (Lorazepam 0.5 Mg Tablet) 0.5 mg PO BID [facility] Last Admin: 08/25/24 20:15 Dose: 0.5 mg Magnesium Oxide (Magnesium Oxide 400 Mg Tab) 400 mg PO BID [facility] Last Admin: 08/25/24 20:54 Dose: 400 mg Melatonin (Melatonin 3 Mg Tablet) 3 mg PO BEDTIME PRN PRN PRN Reason: INSOMNIA Last Admin: 08/25/24 20:53 Dose: 3 mg Montelukast Sodium (Montelukast 10 Mg Tab) 10 mg PO DAILY [facility] Last Admin: 08/25/24 08:48 Dose: 10 mg Pantoprazole Sodium (Pantoprazole 40mg Tablet) 40 mg PO ACB [facility] Last Admin: 08/25/24 08:48 Dose: 40 mg Propranolol HCl (Propranolol Hcl 60 Mg Sa Cap) 120 mg PO DAILY [facility] Last Admin: 08/25/24 08:48 Dose: 120 mg Rosuvastatin Calcium (Rosuvastatin 10 Mg Tab) 10 mg PO BEDTIME [facility] Last Admin: 08/25/24 20:15 Dose: 10 mg Tramadol HCl (Tramadol Hcl 50 Mg Tab) 50 mg PO BID PRN PRN Reason: Pain scale 5-7 (Moderate) Last Admin: 08/25/24 20:53 Dose: 50 mg Trazodone HCl (Trazodone 50 Mg Tablet) 100 mg PO BEDTIME [facility] Last Admin: 08/25/24 20:15 Dose: 100 mg Microbiology Results 08/20/24 11:25 Blood - Blood Aerobic Blood Culture - Final No growth in 5 days. 08/20/24 11:25 Blood - Blood Anaerobic Blood Culture - Final No growth in 5 days. 08/20/24 11:09 Blood - Blood Aerobic Blood Culture - Final No growth in 5 days. 08/20/24 11:09 Blood - Blood Anaerobic Blood Culture - Final No growth in 5 days. 08/20/24 11:21 Throat Group A Streptococcus Rapid Screen - Final 08/20/24 11:21 Throat Culture & Sensitivity - Final NORMAL UPPER RESPIRATORY CAMRYN GROWN. Assessment/ Plan: Nephrology No dyspnea or chest pain Feeling better No acute events overnight Vitals, medications, blood work and imaging reviewed in the chart General: In no apparent distress, Oriented x3, Cooperative HEENT: Atraumatic Neck: Supple Respiratory: Normal air movement Cardiovascular: No edema, Regular rate/rhythm Gastrointestinal: Soft and benign, Non-distended Musculoskeletal: No clubbing, No contractures Integumentary: No rashes, No cyanosis Neurological: Normal speech Blood work reviewed in the chart. Imagings Data: EXAM: CT CHEST, ABDOMEN AND PELVIS WITHOUT CONTRAST CLINICAL INDICATION: Chest and abdominal pain TECHNIQUE: CT chest, abdomen and pelvis was performed, without IV contrast, as per department protocol. Axial, sagittal and coronal reconstructions were obtained. One or more of the following dose reduction techniques were used: Automated exposure control, adjustment of the mA and/or kV according to the patient size, and/or iterative reconstruction. Unless otherwise specified, incidental findings do not require dedicated imaging follow-up. The lack of IV and oral contrast limits evaluation of the mediastinum, [place], vessels, organs and bowel. COMPARISON: 2022 FINDINGS: Lungs are clear. No mediastinal or hilar lymphadenopathy seen. No pleural effusion. No pericardial effusion. Liver, spleen, pancreas, adrenals kidneys and bladder appear grossly normal There is no evidence of diverticulitis IMPRESSION: No acute abnormalities displayed EXAMINATION: CT HEAD WITHOUT CONTRAST CT CERVICAL SPINE WITHOUT CONTRAST CLINICAL INDICATION: Declining mental state. Head and neck pain TECHNIQUE: Axial CT images from the skull base to the vertex without intravenous contrast. Axial CT images through the cervical spine were obtained without intravenous contrast. Sagittal and coronal reformatted images were created from the data set. Coronal and sagittal reformatted images were created from the data set. One or more of the following dose reduction techniques were used: Automated exposure control, adjustment of the mA and/or kV according to patient size, and/or iterative reconstruction. Unless otherwise specified, incidental findings do not require dedicated imaging follow-up. [id number]. Comparison: 2023 FINDINGS: An intracranial bleed is not seen. Ventricles are normal in caliber. No significant hypodensity within the brain Empty sella turcica No extra-axial fluid collection. No fluid within the sinuses/mastoids No fracture or dislocation is seen involving the cervical spine. IMPRESSION: No acute intracranial abnormality noted A cervical fracture is not seen. Procedure: Chest Single View HISTORY: Cough COMPARISON: 2022 FINDINGS: The lungs appear clear of acute infiltrate. No significant pleural effusion noted. The heart is normal size. IMPRESSION: No acute abnormality is displayed. EXAMINATION: US RENAL CLINICAL INDICATION: Abdominal pain. Acute renal injury TECHNIQUE: Real-time ultrasonography of the kidneys performed. COMPARISON: 2021. FINDINGS: Right kidney measures 9 cm with a mildly increased echotexture. Left kidney measures 9 cm with a mildly increased echotexture. No hydronephrosis No gross abnormality bladder. IMPRESSION: Mildly increased renal echotexture may indicate parenchymal disease No hydronephrosis EXAM: URINARY BLADDER ULTRASOUND CLINICAL INDICATION: Abdominal pain. Acute renal injury TECHNIQUE: Sonographic evaluation of the bladder performed. FINDINGS: Bladder wall normal thickness. A mass within the bladder do not seen. No calculus visualized. IMPRESSION; No significant bladder abnormality noted. Conclusions/Impression: Stage I LOPEZ may be due to hypovolemia CKD III with Proteinuria -No NSAIDs -Hold diuretics at this time -Encourage oral intake HTN with CKD -Continue Amlodipine -Continue Propranolol DM II with CKD -RISS Hypoalbuminemia -Recommend protein supplementation Anemia in chronic illness -Monitor H&H Hospitalist note reviewed
--- NOTE | 2024-08-25 21:28 | PN ---
Subjective: The patient is lying in bed. Feels much better today. No diarrhea. Denies any other p roblems. Objective: Vital Signs: Temperature 98, pulse 62, respirations 14, blood pressure 125/58. Lungs: Basal crackles. Heart S1, S2. Regular. Abdomen: Soft, nontender. Bowel sounds present. Extremities: No edema. Laboratory Data: WBC 7, hemoglobin 11, platelets are 236. Chemistry shows BUN of 13, creatinine 1.5 5. Cultures are negative. C difficile is negative. Stool studies are pending. Assessment And Plan: The patient continued to improve. Leukocytosis has subsided. Fever of unknown etiology. Procalcitonin which is improving. Yesterday, procalcitonin level was down to 4.1 from 13 . Continue current antibiotic. Can be switched to oral on discharge. We will follow the patient. Total course of antibiotic 2 weeks. We will follow the patient as needed. NF/MODL Voice ID: [id number] Report ID: [id number]
[2024-08-26 04:41] LABS: Absolute Basophils 0.1 K/uL (0-0.5); Absolute Eosinophils 0.3 K/uL (0-0.5); Absolute Lymphocytes (CBC) 1.8 K/uL (0.7-4.9); Absolute Monocytes 0.7 K/uL (0.1-1.3); Absolute Neutrophil 2.8 K/uL (1.8-8.0); Basophils % 0.9 % (0-1.3); Eosinophils % 5.2 % (0-4.4); Hematocrit 27.3 % (36.0-45.0); Hemoglobin 9.4 g/dL (12.0-15.0); Lymphocytes % 32.1 % (15.3-44.8); MCH 31.4 pg (27.0-35.0); MCHC 34.6 g/dL (32.0-36.0); MCV 90.7 fL (80-100); MPV 9.4 fL (7.6-11.3); Monocytes % 12.3 % (3.3-12.3); Neutrophils % 49.5 % (41.7-73.7); Platelets 205 thou/uL (152-406); RBC Red Blood Cell Count 3.01 M/uL (3.86-4.86); Red Cell Distribution Width 15.9 % (12.1-15.2)
[2024-08-26 05:01] LABS: Anion Gap 8.2 mEq/L (5.0-15.0); Magnesium 2.2 mg/dL (1.6-2.4); Phosphorus 3.8 mg/dL (2.5-4.9); Potassium 4.2 mEq/L (3.5-5.1)
--- NOTE | 2024-08-26 11:48 | P.PN ---
Subjective Date of Service: 08/26/24 Chief Complaint: SIRS 2/2 unknown etilogy Subjective: No chest pain or shortness of breath. No nausea or vomiting. c/o abdominal / flank pain and diarrhea, on and off. No obvious bleeding. Looks comfortable in the bed. c/o headache Objective: General appearance: Alert and comfortable CVS: Normal S1 and S2 Lungs: Clear to auscultation bilaterally Abdomen: Soft, bowel sounds present, no tenderness Extremities: No pedal edema Physical Examination - Vital Signs Temperature: 97.8 F Blood Pressure: 118/58 Pulse: 63 Respirations: 18 Pulse Ox (%): 97 - Studies Laboratory Tests 08/20/24 08/20/24 08/20/24 11:09 11:09 11:19 WBC 19.10 H RBC 3.31 L Hgb 10.2 L Hct 30.3 L MCV 91.4 MCH 30.7 MCHC 33.6 RDW 16.4 H Plt Count 226 MPV 8.3 Neutrophils % 92.1 H Lymphocytes % 3.6 L Monocytes % 3.5 Eosinophils % 0.2 Basophils % 0.6 Absolute Neutrophils 17.6 H Absolute Lymphocytes 0.7 Absolute Monocytes 0.7 Absolute Eosinophils 0.0 Absolute Basophils 0.1 Platelet Estimate Adeq Clumped Platelets Few Morphology Comment Not seen Sodium 139 Potassium 3.6 Chloride 109 H Carbon Dioxide 25 Anion Gap 8.6 BUN 22 H Creatinine 1.78 H Est GFR (CKD-EPI) 30 L Glucose 111 H Lactic Acid Calcium 8.6 Total Bilirubin 0.4 AST 36 ALT 30 Alkaline Phosphatase 90 Serum Total Protein 6.5 Albumin 2.6 L Globulin 3.9 H Albumin/Globulin Ratio 0.7 L Urine Color Urine Clarity Urine pH Ur Specific [place] Glucose (UA)(Auto) Urine Ketones Urine Blood Urine Nitrite Urine Bilirubin Urine Urobilinogen Ur Leukocyte Esterase Urine RBC Urine WBC Ur Squamous Epith Cells Urine Bacteria Urine Mucus Urine Culture Reflexed Urine Total Protein Influenza Type A Ag Negative Influenza Type B Ag Negative SARS-CoV-2 Ag (Rapid) Negative SARS CoV-2 Rapid Comm See below Smear Scan Ok 08/20/24 08/20/24 11:34 12:21 WBC RBC Hgb Hct MCV MCH MCHC RDW Plt Count MPV Neutrophils % Lymphocytes % Monocytes % Eosinophils % Basophils % Absolute Neutrophils Absolute Lymphocytes Absolute Monocytes Absolute Eosinophils Absolute Basophils Platelet Estimate Clumped Platelets Morphology Comment Sodium Potassium Chloride Carbon Dioxide Anion Gap BUN Creatinine Est GFR (CKD-EPI) Glucose Lactic Acid 0.8 Calcium Total Bilirubin AST ALT Alkaline Phosphatase Serum Total Protein Albumin Globulin Albumin/Globulin Ratio Urine Color Light-yellow Urine Clarity Clear Urine pH 7.0 Ur Specific [place] 1.015 Glucose (UA)(Auto) Negative Urine Ketones Negative Urine Blood Negative Urine Nitrite Negative Urine Bilirubin Negative Urine Urobilinogen Normal Ur Leukocyte Esterase Negative Urine RBC None seen Urine WBC <5 Ur Squamous Epith Cells None seen Urine Bacteria None seen Urine Mucus Slight Urine Culture Reflexed Not needed Urine Total Protein 3+ H Influenza Type A Ag Influenza Type B Ag SARS-CoV-2 Ag (Rapid) SARS CoV-2 Rapid Comm Smear Scan Microbiology Data (last 24 hrs): 08/20/24 11:25 Blood - Blood Aerobic Blood Culture - Final No growth in 5 days. 08/20/24 11:25 Blood - Blood Anaerobic Blood Culture - Final No growth in 5 days. 08/20/24 11:09 Blood - Blood Aerobic Blood Culture - Final No growth in 5 days. 08/20/24 11:09 Blood - Blood Anaerobic Blood Culture - Final No growth in 5 days. Assessment And Plan - Plan 1. Fevers -CT chest abdomen pelvis with and without contrast unremarkable -Appreciate Dr. Lockhart help -Continue vancomycin and Merrem -Leukocytosis resolved -Initial procalcitonin 13.77, C-reactive protein 62 -FLu/COVID/strep/ UA negative -Blood cultures no growth to date -C. difficile negative -Stool cultures with normal fecal que and yeast 3+ -Throat culture with normal que -Ova and parasite still pending -c/o hadache and abd pain, will rpeat CT head and abdomen and plevis 2. Diabetes mellitus -Blood sugars well-controlled -Accu-Chek with sliding scale insulin 3. Chronic kidney disease - creatinine Improved with IVF -nephrology on board -Ultrasound bladder and kidneys without abnormalities 4. Dementia -Continue donepezil 5. Hypertension -Norvasc 10 mg -Continue propranolol 6. Anemia of CKD DVT PPx heparin Plan discussed with the patient and multiple family members at bedside. Physician Review: Patient Assessed, Agree with Above Assessment and Plan
[2024-08-26] MEDS: VANCOMYCIN 250 MG in NA CHLORIDE 0.9% 100 ML IVPB ONE (11:56)
--- NOTE | 2024-08-26 12:38 | RAD REPORT ---
EXAMINATION: Ct Stroke Brain Wo Cont CLINICAL INDICATION: Female, 73 years old.headache TECHNIQUE: Axial CT images from the skull base to the vertex without intravenous contrast using a str rehana protocol. Coronal and sagittal reformatted images were created from the data set. One or more of the following dose reduction techniques were used: Automated exposure control, adjustment of the m A and/or kV according to patient size, and/or iterative reconstruction. Unless otherwise specified, incidental findings do not require dedicated imaging follow-up. [id number]. COMPARISON: 02/26/2023 FINDINGS: INTRACRANIAL: No acute intracranial hemorrhage. No hydrocephalus. No mass effect or midline shift. Mi ld chronic small vessel ischemic changes.Mild cerebral atrophy. VASCULATURE: No visualized abnormalities in the arteries or dural venous sinuses. SCALP/SKULL: No calvarial fracture identified. No acute soft tissue abnormality. SINUSES: Trace paranasal sinus thickening. No significant mastoid fluid. IMPRESSION: No acute intracranial abnormality. No significant change from prior.
--- NOTE | 2024-08-26 12:44 | RAD REPORT ---
EXAMINATION: CT ABDOMEN AND PELVIS WITHOUT CONTRAST CLINICAL INDICATION: Female, 73 years old.abdominal pain, flank pain TECHNIQUE: CT abdomen and pelvis was performed, without IV contrast, as per department protocol. Axia l, sagittal and coronal reconstructions were obtained. One or more of the following dose reduction techniques were used: Automated exposure control, adjustment of the mA and/or kV according to the pat ient size, and/or iterative reconstruction. Unless otherwise specified, incidental findings do not require dedicated imaging follow-up. [id number]. IV CONTRAST: Not administered. COMPARISON: 05/28/2020 FINDINGS: The lack of intravenous contrast limits the sensitivity of this exam for evaluation of solid visceral organs, vascular structures, and retroperitoneum. LOWER CHEST: No acute process identified.Small pericardial effusion. Coronary artery calcifications p resent.Small hiatal hernia. UPPER GI: No significant abnormality. LIVER: No significant focal abnormality. GALLBLADDER/BILE DUCTS: No biliary ductal dilatation.? PANCREAS: No mass, ductal dilation, or karissa-pancreatic fluid. SPLEEN: Unremarkable. ADRENALS: No adrenal masses. KIDNEYS AND URETERS: No hydronephrosis.Limited evaluation for renal lesions in the absence of IV cont rast.No renal calculi. ABDOMINAL AORTA AND OTHER VESSELS: Moderate atherosclerotic changes without aortic aneurysm. PERITONEUM: No abnormal free fluid. No free air. LYMPH NODES: No pathologic lymphadenopathy. ABDOMINAL WALL: Injection sites in the right abdominal wall. SMALL BOWEL/COLON: Small bowel has normal course and caliber. No colonic wall thickening or pericolon ic inflammatory changes.Normal appendix. Moderate diverticulosis without diverticulitis. URINARY BLADDER: Underdistended but grossly unremarkable. REPRODUCTIVE ORGANS: No pathologic process. MUSCULOSKELETAL: Grade 1 anterolisthesis of L5 on S1. No acute fracture. ADDITIONAL FINDINGS: None. IMPRESSION: No acute findings within the abdomen or pelvis. Incidental findings as noted above.
--- NOTE | 2024-08-26 18:29 | P.PN ---
Date of Service: 08/26/24 Vital Signs Temp Pulse Resp BP Pulse Ox 97.8 F 66 16 112/52 L 95 08/26/24 16:00 08/26/24 16:00 08/26/24 16:00 08/26/24 16:00 08/26/24 16:00 Medications Acetaminophen (Acetaminophen 325 Mg Tablet) 650 mg PO Q4HP PRN PRN Reason: Pain scale 2-4 (Mild)orT>101*F Last Admin: 08/26/24 14:52 Dose: 650 mg Amlodipine Besylate (Amlodipine 10 Mg Tab) 10 mg PO DAILY [facility] Last Admin: 08/26/24 08:45 Dose: 10 mg Aspirin (Aspirin Ec 81 Mg Tab) 81 mg PO DAILY [facility] Last Admin: 08/26/24 08:45 Dose: 81 mg Docusate Sodium (Docusate Na 100 Mg Cap) 100 mg PO BID [facility] Last Admin: 08/26/24 08:42 Dose: 100 mg Heparin Sodium (Porcine) (Heparin 5000 Unit/Ml 1 Ml Vial) 5,000 unit SQ Q8HR [facility] Last Admin: 08/26/24 17:07 Dose: 5,000 unit Home Med (Donepezil Hcl [Donepezil Hcl]) 23 mg PO BEDTIME [facility] Last Admin: 08/25/24 21:00 Dose: Not Given Meropenem 1,000 mg/ Sodium (Chloride) 100 mls @ 200 mls/hr IV Q12HR [facility] Last Admin: 08/26/24 08:38 Dose: 100 mls Vancomycin HCl 1.25 gm/ Sodium (Chloride) 250 mls @ 166.667 mls/hr IVPB Q36H [facility]; Protocol Insulin Human Regular (Insulin Regular (Human) 100 Unit/Ml) 0 unit SQ ACHS [facility]; Protocol Last Admin: 08/26/24 16:30 Dose: Not Given Labetalol HCl (Labetalol 20 Mg/4ml Syringe) 10 mg IV Q6H PRN PRN Reason: Goal to achieve SBP in comment Lorazepam (Lorazepam 0.5 Mg Tablet) 0.5 mg PO BID [facility] Last Admin: 08/26/24 08:45 Dose: 0.5 mg Magnesium Oxide (Magnesium Oxide 400 Mg Tab) 400 mg PO BID [facility] Last Admin: 08/26/24 08:45 Dose: 400 mg Melatonin (Melatonin 3 Mg Tablet) 3 mg PO BEDTIME PRN PRN PRN Reason: INSOMNIA Last Admin: 08/25/24 20:53 Dose: 3 mg Montelukast Sodium (Montelukast 10 Mg Tab) 10 mg PO DAILY [facility] Last Admin: 08/26/24 08:43 Dose: 10 mg Pantoprazole Sodium (Pantoprazole 40mg Tablet) 40 mg PO ACB [facility] Last Admin: 08/26/24 08:42 Dose: 40 mg Propranolol HCl (Propranolol Hcl 60 Mg Sa Cap) 120 mg PO DAILY [facility] Last Admin: 08/26/24 08:45 Dose: 120 mg Rosuvastatin Calcium (Rosuvastatin 10 Mg Tab) 10 mg PO BEDTIME [facility] Last Admin: 08/25/24 20:15 Dose: 10 mg Tramadol HCl (Tramadol Hcl 50 Mg Tab) 50 mg PO BID PRN PRN Reason: Pain scale 5-7 (Moderate) Last Admin: 08/26/24 11:12 Dose: 50 mg Trazodone HCl (Trazodone 50 Mg Tablet) 100 mg PO BEDTIME [facility] Last Admin: 08/25/24 20:15 Dose: 100 mg Microbiology Results 08/20/24 11:25 Blood - Blood Aerobic Blood Culture - Final No growth in 5 days. 08/20/24 11:25 Blood - Blood Anaerobic Blood Culture - Final No growth in 5 days. 08/20/24 11:09 Blood - Blood Aerobic Blood Culture - Final No growth in 5 days. 08/20/24 11:09 Blood - Blood Anaerobic Blood Culture - Final No growth in 5 days. 08/20/24 11:21 Throat Group A Streptococcus Rapid Screen - Final 08/20/24 11:21 Throat Culture & Sensitivity - Final NORMAL UPPER RESPIRATORY CAMRYN GROWN. Assessment/ Plan: Nephrology No dyspnea or chest pain Feeling better; ambulating well No acute events overnight Vitals, medications, blood work and imaging reviewed in the chart General: In no apparent distress, Oriented x3, Cooperative HEENT: Atraumatic Neck: Supple Respiratory: Normal air movement Cardiovascular: No edema, Regular rate/rhythm Gastrointestinal: Soft and benign, Non-distended Musculoskeletal: No clubbing, No contractures Integumentary: No rashes, No cyanosis Neurological: Normal speech Blood work reviewed in the chart. Imagings Data: EXAM: CT CHEST, ABDOMEN AND PELVIS WITHOUT CONTRAST CLINICAL INDICATION: Chest and abdominal pain TECHNIQUE: CT chest, abdomen and pelvis was performed, without IV contrast, as per department protocol. Axial, sagittal and coronal reconstructions were obtained. One or more of the following dose reduction techniques were used: Automated exposure control, adjustment of the mA and/or kV according to the patient size, and/or iterative reconstruction. Unless otherwise specified, incidental findings do not require dedicated imaging follow-up. The lack of IV and oral contrast limits evaluation of the mediastinum, [place], vessels, organs and bowel. COMPARISON: 2022 FINDINGS: Lungs are clear. No mediastinal or hilar lymphadenopathy seen. No pleural effusion. No pericardial effusion. Liver, spleen, pancreas, adrenals kidneys and bladder appear grossly normal There is no evidence of diverticulitis IMPRESSION: No acute abnormalities displayed EXAMINATION: CT HEAD WITHOUT CONTRAST CT CERVICAL SPINE WITHOUT CONTRAST CLINICAL INDICATION: Declining mental state. Head and neck pain TECHNIQUE: Axial CT images from the skull base to the vertex without intravenous contrast. Axial CT images through the cervical spine were obtained without intravenous contrast. Sagittal and coronal reformatted images were created from the data set. Coronal and sagittal reformatted images were created from the data set. One or more of the following dose reduction techniques were used: Automated exposure control, adjustment of the mA and/or kV according to patient size, and/or iterative reconstruction. Unless otherwise specified, incidental findings do not require dedicated imaging follow-up. [id number]. Comparison: 2023 FINDINGS: An intracranial bleed is not seen. Ventricles are normal in caliber. No significant hypodensity within the brain Empty sella turcica No extra-axial fluid collection. No fluid within the sinuses/mastoids No fracture or dislocation is seen involving the cervical spine. IMPRESSION: No acute intracranial abnormality noted A cervical fracture is not seen. Procedure: Chest Single View HISTORY: Cough COMPARISON: 2022 FINDINGS: The lungs appear clear of acute infiltrate. No significant pleural effusion noted. The heart is normal size. IMPRESSION: No acute abnormality is displayed. EXAMINATION: US RENAL CLINICAL INDICATION: Abdominal pain. Acute renal injury TECHNIQUE: Real-time ultrasonography of the kidneys performed. COMPARISON: 2021. FINDINGS: Right kidney measures 9 cm with a mildly increased echotexture. Left kidney measures 9 cm with a mildly increased echotexture. No hydronephrosis No gross abnormality bladder. IMPRESSION: Mildly increased renal echotexture may indicate parenchymal disease No hydronephrosis EXAM: URINARY BLADDER ULTRASOUND CLINICAL INDICATION: Abdominal pain. Acute renal injury TECHNIQUE: Sonographic evaluation of the bladder performed. FINDINGS: Bladder wall normal thickness. A mass within the bladder do not seen. No ca lculus visualized. IMPRESSION; No significant bladder abnormality noted. Conclusions/Impression: Stage I LOPEZ may be due to hypovolemia CKD III with Proteinuria -No NSAIDs -Hold diuretics at this time -Encourage oral intake HTN with CKD -Continue Amlodipine -Continue Propranolol DM II with CKD -RISS Hypoalbuminemia -Recommend protein supplementation Anemia in chronic illness -Monitor H&H Hospitalist note reviewed Case reviewed with Dr. Horne
[2024-08-27 06:29] LABS: Anion Gap 9.2 mEq/L (5.0-15.0); Magnesium 2.2 mg/dL (1.6-2.4); Phosphorus 3.4 mg/dL (2.5-4.9); Potassium 4.2 mEq/L (3.5-5.1)
[2024-08-27 06:37] LABS: Absolute Eosinophils 0.3 K/uL (0-0.5); Absolute Lymphocytes (CBC) 1.8 K/uL (0.7-4.9); Absolute Monocytes 0.7 K/uL (0.1-1.3); Absolute Neutrophil 3.5 K/uL (1.8-8.0); Basophils % 0.6 % (0-1.3); Eosinophils % 4.7 % (0-4.4); Hematocrit 27.7 % (36.0-45.0); Hemoglobin 9.5 g/dL (12.0-15.0); Lymphocytes % 28.5 % (15.3-44.8); MCH 31.4 pg (27.0-35.0); MCHC 34.2 g/dL (32.0-36.0); MCV 91.8 fL (80-100); MPV 9.1 fL (7.6-11.3); Monocytes % 11.4 % (3.3-12.3); Neutrophils % 54.8 % (41.7-73.7); Nucleated Red Blood Cells % 0.1 % (0-0); Platelets 247 thou/uL (152-406); RBC Red Blood Cell Count 3.02 M/uL (3.86-4.86); Red Cell Distribution Width 15.8 % (12.1-15.2)
[2024-08-27] MEDS: VANCOMYCIN 1.25 GM in NA CHLORIDE 0.9% 250 ML IVPB SCH ×2 (09:00→21:54)
--- NOTE | 2024-08-27 14:07 | P.PN ---
Subjective Date of Service: 08/27/24 Chief Complaint: SIRS 2/2 unknown etilogy Subjective: No chest pain or shortness of breath other than on and off chest wall pain. No nausea or vomiting. No abdominal today. c/o right flank pain and diarrhea, on and off, diarrhea better today. No obvious bleeding. Looks comfortable in the bed. c/o headache Objective: General appearance: Alert and comfortable CVS: Normal S1 and S2, has some mild superfical tenderenss on left chest wall but no bruise Lungs: Clear to auscultation bilaterally Abdomen: Soft, bowel sounds present, no tenderness on anterior abdomen. has some mild tnederness in the right flank area but it's superficial, no obvious injury Extremities: No pedal edema Physical Examination - Vital Signs Temperature: 98.2 F Blood Pressure: 127/57 Pulse: 74 Respirations: 16 Pulse Ox (%): 93 Assessment And Plan - Plan 1. Fevers -CT chest abdomen pelvis, repat CT abd / pelvis and, CT head x 2 negative -Appreciate Dr. Lockhart help -Continue vancomycin and Merrem -Leukocytosis resolved -Initial procalcitonin 13.77, down to 4 now -FLu/COVID/strep/ UA negative -Blood cultures no growth to date -C. difficile negative -Stool cultures with normal fecal que and yeast 3+ -Throat culture with normal que -Ova and parasite still pending 2. Diabetes mellitus -Blood sugars well-controlled -Accu-Chek with sliding scale insulin 3. Chronic kidney disease - creatinine Improved with IVF -nephrology on board -Ultrasound bladder and kidneys without abnormalities 4. Dementia -Continue donepezil 5. Hypertension -Norvasc 10 mg -Continue propranolol 6. Anemia of CKD DVT PPx heparin Plan discussed with the patient and multiple family members at bedside. They are not comfortable to go home yet, they would like to discuss with infectious disease physician. Discussed With nursing staff at bedside. Physician Review: Patient Assessed, Agree with Above Assessment and Plan
[2024-08-28 05:21] LABS: Absolute Basophils 0.1 K/uL (0-0.5); Absolute Eosinophils 0.2 K/uL (0-0.5); Absolute Lymphocytes (CBC) 1.8 K/uL (0.7-4.9); Absolute Monocytes 0.7 K/uL (0.1-1.3); Basophils % 0.9 % (0-1.3); Eosinophils % 4.3 % (0-4.4); Hematocrit 26.3 % (36.0-45.0); Hemoglobin 9.1 g/dL (12.0-15.0); Lymphocytes % 31.6 % (15.3-44.8); MCH 31.6 pg (27.0-35.0); MCHC 34.4 g/dL (32.0-36.0); MCV 91.9 fL (80-100); MPV 8.2 fL (7.6-11.3); Monocytes % 11.9 % (3.3-12.3); Neutrophils % 51.3 % (41.7-73.7); Nucleated Red Blood Cells % 0.1 % (0-0); Platelets 259 thou/uL (152-406); RBC Red Blood Cell Count 2.87 M/uL (3.86-4.86); Red Cell Distribution Width 15.9 % (12.1-15.2)
[2024-08-28 05:28] VITALS: TEMP 98.2
[2024-08-28 05:37] LABS: Anion Gap 6.5 mEq/L (5.0-15.0); Potassium 4.5 mEq/L (3.5-5.1)
[2024-08-28 08:41] VITALS: BP 116/59
--- NOTE | 2024-08-28 10:29 | P.DS ---
Admission Date: 08/20/24 Discharge Date: 08/28/24 Disposition: DC HOME/HOME HEALTH CARE Discharge Condition: FAIR Reason for Admission: SIRS 2/2 unknown etilogy Hospital Course: 1. Fevers: resolved -CT chest abdomen pelvis, repat CT abd / pelvis and, CT head x 2 negative -Appreciate Dr. Lockhart help -On vancomycin and Merrem. DC Home on augmentin and doxy -Leukocytosis resolved -Initial procalcitonin 13.77, down to 4 now -FLu/COVID/strep/ UA negative -Blood cultures no growth to date -C. difficile negative -Stool cultures with normal fecal que and yeast 3+ -Throat culture with normal que -Ova and parasite still pending 2. Diabetes mellitus -Blood sugars well-controlled 3. Chronic kidney disease - creatinine Improved with IVF -nephrology on board -Ultrasound bladder and kidneys without abnormalities 4. Dementia -Continue donepezil 5. Hypertension -Norvasc 10 mg -Continue propranolol 6. Anemia of CKD: f/u with PCP 73-year-old patient admitted with fever, she had a CT chest abdomen and pelvis, and CT head, all of those scans are negative, she was started on broad-spectrum antibiotics, infectious disease was following, blood cultures negative, when I see the patient today she is doing well without any acute problems, otherwise no other acute issues going on so I am planning to discharge her to go home, ID recommending to finish total 2 weeks of antibiotics, she was already given 1 week of IV antibiotics, will discharge her to go home on 1 week of oral antibiotics. Subjective: No chest pain or shortness of breath. No nausea or vomiting. No abdominal pain. No obvious bleeding. Looks comfortable in the bed. Diarrhea better. Headache improved. Objective: General appearance: Alert and comfortable CVS: Normal S1 and S2 Lungs: Clear to auscultation bilaterally Abdomen: Soft, bowel sounds present, no tenderness Extremities: No lower extremity edema [employer]: moves all 4 extremities Vital Signs/Physical Exam: Temp Pulse Resp BP Pulse Ox 98.2 F 82 16 116/59 L 96 08/28/24 08:00 08/28/24 08:00 08/28/24 08:00 08/28/24 08:00 08/28/24 08:00 Laboratory Data at Discharge: WBC 5.80 thou/uL (4.3-10.9) 08/28/24 05:11 Hgb 9.1 g/dL (12.0-15.0) L 08/28/24 05:11 Hct 26.3 % (36.0-45.0) L 08/28/24 05:11 Plt Count 259 thou/uL (152-406) 08/28/24 05:11 Sodium 136 mEq/L (136-145) 08/28/24 05:11 Potassium 4.5 mEq/L (3.5-5.1) 08/28/24 05:11 BUN 19 mg/dL (7-18) H 08/28/24 05:11 Creatinine 1.58 mg/dL (0.55-1.02) H 08/28/24 05:11 Glucose 95 mg/dL (74-106) 08/28/24 05:11 Uric Acid 4.9 mg/dL (2.6-6.0) 08/22/24 04:51 Phosphorus 3.4 mg/dL (2.5-4.9) 08/27/24 05:48 Magnesium 2.2 mg/dL (1.6-2.4) 08/27/24 05:48 Total Bilirubin 0.4 mg/dL (0.2-1.0) 08/20/24 11:09 AST 36 U/L (15-37) 08/20/24 11:09 ALT 30 U/L (13-56) 08/20/24 11:09 Alkaline Phosphatase 90 U/L (45-117) 08/20/24 11:09 Imagings Data: CT abd pelvis: IMPRESSION: No acute findings within the abdomen or pelvis. CT head: IMPRESSION: No acute intracranial abnormality. No significant change from prior. CT chest abdomen and pelvis: IMPRESSION: No acute abnormalities displayed CT head and c-spine: IMPRESSION: No acute intracranial abnormality noted A cervical fracture is not seen. Renal US: MPRESSION: Mildly increased renal echotexture may indicate parenchymal disease No hydronephrosis Bladder US: INDINGS: Bladder wall normal thickness. A mass within the bladder do not seen. No calculus visualized. IMPRESSION; No significant bladder abnormality noted. Home Medications: LORazepam [Ativan*] 0.5 mg PO BID 09/29/18 traMADol HCL [Ultram*] 50 mg PO BID PRN 09/29/18 Aspirin [Aspirin EC 81 MG] 81 mg PO DAILY 12/23/21 Amlodipine Besylate 5 mg PO BID 08/20/24 Donepezil HCl 23 mg PO BEDTIME 08/20/24 Esomeprazole Mag Trihydrate [Nexium] 40 mg PO DAILY 08/20/24 Magnesium Oxide [Magnesium] 500 mg PO BID 08/20/24 Montelukast [Singulair*] 10 mg PO DAILY 08/20/24 Propranolol HCl [Propranolol HCl ER] 120 mg PO DAILY 08/20/24 Rosuvastatin [Crestor*] 10 mg PO BEDTIME 08/20/24 Trazodone HCl 100 mg PO BEDTIME 08/20/24 Amox/Clavulanate [Augmentin 875-125 Tab] 875 mg PO BID #14 tab 08/28/24 Doxycycline Hyclate 100 mg PO BID #14 08/28/24 New Medications: Amox/Clavulanate [Augmentin 875-125 Tab] 875 mg PO BID #14 tab Doxycycline Hyclate 100 mg PO BID #14 Diet: Regular Activity: Ad fausto Followup: Jacques Jeffries DO [Primary Care Provider] - 1 Week (follow up with PCP in 1 week with CBC and CMP) Roman Olsen MD [ACTIVE - CAN ADMIT] - 1 Week
--- NOTE | 2024-08-28 10:46 | P.PN ---
Date of Service: 08/28/24 Vital Signs Temp Pulse Resp BP Pulse Ox 98.2 F 82 16 116/59 L 96 08/28/24 08:00 08/28/24 08:00 08/28/24 08:00 08/28/24 08:00 08/28/24 08:00 Medications Amlodipine Besylate (Amlodipine 10 Mg Tab) 10 mg PO DAILY [facility] Last Admin: 08/28/24 09:03 Dose: 10 mg Aspirin (Aspirin Ec 81 Mg Tab) 81 mg PO DAILY [facility] Last Admin: 08/28/24 09:03 Dose: 81 mg Docusate Sodium (Docusate Na 100 Mg Cap) 100 mg PO BID [facility] Last Admin: 08/28/24 09:02 Dose: 100 mg Heparin Sodium (Porcine) (Heparin 5000 Unit/Ml 1 Ml Vial) 5,000 unit SQ Q8HR [facility] Last Admin: 08/28/24 09:04 Dose: 5,000 unit Home Med (Donepezil Hcl [Donepezil Hcl]) 23 mg PO BEDTIME [facility] Last Admin: 08/27/24 21:00 Dose: Not Given Meropenem 1,000 mg/ Sodium (Chloride) 100 mls @ 200 mls/hr IV Q12HR [facility] Last Admin: 08/28/24 09:04 Dose: 100 mls Vancomycin HCl 1.25 gm/ Sodium (Chloride) 250 mls @ 166.667 mls/hr IVPB Q48H [facility]; Protocol Last Admin: 08/27/24 21:54 Dose: 250 mls Insulin Human Regular (Insulin Regular (Human) 100 Unit/Ml) 0 unit SQ ACHS [facility]; Protocol Last Admin: 08/28/24 07:30 Dose: Not Given Labetalol HCl (Labetalol 20 Mg/4ml Syringe) 10 mg IV Q6H PRN PRN Reason: Goal to achieve SBP in comment Lorazepam (Lorazepam 0.5 Mg Tablet) 0.5 mg PO BID [facility] Last Admin: 08/28/24 09:03 Dose: 0.5 mg Magnesium Oxide (Magnesium Oxide 400 Mg Tab) 400 mg PO BID [facility] Last Admin: 08/28/24 09:00 Dose: 400 mg Melatonin (Melatonin 3 Mg Tablet) 3 mg PO BEDTIME PRN PRN PRN Reason: INSOMNIA Last Admin: 08/25/24 20:53 Dose: 3 mg Montelukast Sodium (Montelukast 10 Mg Tab) 10 mg PO DAILY [facility] Last Admin: 08/28/24 09:03 Dose: 10 mg Pantoprazole Sodium (Pantoprazole 40mg Tablet) 40 mg PO ACB [facility] Last Admin: 08/28/24 09:03 Dose: 40 mg Propranolol HCl (Propranolol Hcl 60 Mg Sa Cap) 120 mg PO DAILY [facility] Last Admin: 08/28/24 09:03 Dose: 120 mg Rosuvastatin Calcium (Rosuvastatin 10 Mg Tab) 10 mg PO BEDTIME [facility] Last Admin: 08/27/24 21:15 Dose: 10 mg Tramadol HCl (Tramadol Hcl 50 Mg Tab) 50 mg PO BID PRN PRN Reason: Pain scale 5-7 (Moderate) Last Admin: 08/28/24 10:22 Dose: 50 mg Trazodone HCl (Trazodone 50 Mg Tablet) 100 mg PO BEDTIME [facility] Last Admin: 08/27/24 21:14 Dose: 100 mg Microbiology Results 08/20/24 11:25 Blood - Blood Aerobic Blood Culture - Final No growth in 5 days. 08/20/24 11:25 Blood - Blood Anaerobic Blood Culture - Final No growth in 5 days. 08/20/24 11:09 Blood - Blood Aerobic Blood Culture - Final No growth in 5 days. 08/20/24 11:09 Blood - Blood Anaerobic Blood Culture - Final No growth in 5 days. 08/20/24 11:21 Throat Group A Streptococcus Rapid Screen - Final 08/20/24 11:21 Throat Culture & Sensitivity - Final NORMAL UPPER RESPIRATORY CAMRYN GROWN. Assessment/ Plan: Nephrology No dyspnea or chest pain Feeling better; ambulating well No acute events overnight Vitals, medications, blood work and imaging reviewed in the chart General: In no apparent distress, Oriented x3, Cooperative HEENT: Atraumatic Neck: Supple Respiratory: Normal air movement Cardiovascular: No edema, Regular rate/rhythm Gastrointestinal: Soft and benign, Non-distended Musculoskeletal: No clubbing, No contractures Integumentary: No rashes, No cyanosis Neurological: Normal speech Blood work reviewed in the chart. Imagings Data: EXAM: CT CHEST, ABDOMEN AND PELVIS WITHOUT CONTRAST CLINICAL INDICATION: Chest and abdominal pain TECHNIQUE: CT chest, abdomen and pelvis was performed, without IV contrast, as per department protocol. Axial, sagittal and coronal reconstructions were obtained. One or more of the following dose reduction techniques were used: Automated exposure control, adjustment of the mA and/or kV according to the patient size, and/or iterative reconstruction. Unless otherwise specified, incidental findings do not require dedicated imaging follow-up. The lack of IV and oral contrast limits evaluation of the mediastinum, [place], vessels, organs and bowel. COMPARISON: 2022 FINDINGS: Lungs are clear. No mediastinal or hilar lymphadenopathy seen. No pleural effusion. No pericardial effusion. Liver, spleen, pancreas, adrenals kidneys and bladder appear grossly normal There is no evidence of diverticulitis IMPRESSION: No acute abnormalities displayed EXAMINATION: CT HEAD WITHOUT CONTRAST CT CERVICAL SPINE WITHOUT CONTRAST CLINICAL INDICATION: Declining mental state. Head and neck pain TECHNIQUE: Axial CT images from the skull base to the vertex without intravenous contrast. Axial CT images through the cervical spine were obtained without intravenous contrast. Sagittal and coronal reformatted images were created from the data set. Coronal and sagittal reformatted images were created from the data set. One or more of the following dose reduction techniques were used: Automated exposure control, adjustment of the mA and/or kV according to patient size, and/or iterative reconstruction. Unless otherwise specified, incidental findings do not require dedicated imaging follow-up. [id number]. Comparison: 2023 FINDINGS: An intracranial bleed is not seen. Ventricles are normal in caliber. No significant hypodensity within the brain Empty sella turcica No extra-axial fluid collection. No fluid within the sinuses/mastoids No fracture or dislocation is seen involving the cervical spine. IMPRESSION: No acute intracranial abnormality noted A cervical fracture is not seen. Procedure: Chest Single View HISTORY: Cough COMPARISON: 2022 FINDINGS: The lungs appear clear of acute infiltrate. No significant pleural effusion noted. The heart is normal size. IMPRESSION: No acute abnormality is displayed. EXAMINATION: US RENAL CLINICAL INDICATION: Abdominal pain. Acute renal injury TECHNIQUE: Real-time ultrasonography of the kidneys performed. COMPARISON: 2021. FINDINGS: Right kidney measures 9 cm with a mildly increased echotexture. Left kidney measures 9 cm with a mildly increased echotexture. No hydronephrosis No gross abnormality bladder. IMPRESSION: Mildly increased renal echotexture may indicate parenchymal disease No hydronephrosis EXAM: URINARY BLADDER ULTRASOUND CLINICAL INDICATION: Abdominal pain. Acute renal injury TECHNIQUE: Sonographic evaluation of the bladder performed. FINDINGS: Bladder wall normal thickness. A mass within the bladder do not seen. No calculus visualized. IMPRESSION; No significant bladder abnormality noted. Conclusions/Impression: Stage I LOPEZ may be due to hypovolemia CKD III with Proteinuria -No NSAIDs -Hold diuretics at this time -Encourage oral intake HTN with CKD -Continue Amlodipine -Continue Propranolol DM II with CKD -RISS Hypoalbuminemia -Recommend protein supplementation Anemia in chronic illness -Monitor H&H Hospitalist note reviewed
[2024-08-29 13:41] LABS: Anti-Nuclear Antibody Screen Positive (Negative)
[2024-08-29 14:12] LABS: Anti-Nuclear Antibody Pattern REPORT
--- NOTE | 2024-08-29 16:55 | PN ---
Date of Progress Note: 08/27/2024 Subjective: Patient is lying in bed. Denies any headache, nausea, vomiting, chest pain, abdominal pain. Having loose motions, which has improved. Objective: Vital Signs: Reviewed. Lungs: Basal crackles. Heart: S1, S2. Regular. Abdomen: Soft, nontender. Bowel sounds present. Extremities: No edema. Laboratory Data: Reviewed. WBC 6.4, hemoglobin 9.5, platelets 247. Assessment And Plan: Leukocytosis has improved. The patient on broad-spectrum antibiotics including Merrem and vancomycin. Can be switched to oral antibiotics with Augmentin and doxycycline. To complete the course of 2 weeks as patient's initial procalcitonin was elevated and white blood cell count was elevated also. The patient has responded well to broad-spectrum antibiotic regimen. Can be discharged home. Continue probiotics and other medications. Monitor signs of infection with WBC and fever trends. NF/MODL Voice ID: [id number] Report ID: [id number] [facility]NOR
== END 2024-08-28 11:15 | disposition home health service (06) | DRG 682 ==
LOC: ER 10:32 → ERHOLD 13:42 → 2ND 19:53
PROVIDERS: ADMIT Family Medicine; ATTEND Hospitalist
DX: N17.9 Acute kidney failure, unspecified (principal); G93.41 Metabolic encephalopathy; R65.10 Systemic inflammatory response syndrome (SIRS) of non-infectious origin without acute organ dysfunction; I12.9 Hypertensive chronic kidney disease with stage 1 through stage 4 chronic kidney disease, or unspecified chronic kidney disease; N18.30 Chronic kidney disease, stage 3 unspecified; E11.22 Type 2 diabetes mellitus with diabetic chronic kidney disease; D63.1 Anemia in chronic kidney disease; K59.00 Constipation, unspecified; J06.9 Acute upper respiratory infection, unspecified; E88.09 Other disorders of plasma-protein metabolism, not elsewhere classified; F03.90 Unspecified dementia, unspecified severity, without behavioral disturbance, psychotic disturbance, mood disturbance, and anxiety; R19.7 Diarrhea, unspecified; R50.9 Fever, unspecified; Z11.52 Encounter for screening for COVID-19; Z79.82 Long term (current) use of aspirin; Z79.02 Long term (current) use of antithrombotics/antiplatelets; Z79.899 Other long term (current) drug therapy
CPT/HCPCS: 36415; 51702; 70450; 71045; 71250; 72125; 74176; 76770; 76857; 80048; 80053; 80202; 81001; 82947; 83605; 83735; 84100; 84145; 84550; 85025; 86038; 86140; 87040; 87045; 87046; 87070; 87081; 87177; 87209; 87324; 87428; 89055; 93005; 99285; J0696; J1644; J1940; J2185; J2405; J2543; J3370; J7030; J7040; J7050; J7120